=== PATIENT | female | born 1955 | race Caucasian/White ===

== ENCOUNTER 2020-01-05 23:36 | Observation (INO) | payer BC, SELFPAY ==
[2020-01-05 23:38] VITALS: BMI 27.4
[2020-01-05 23:39] VITALS: BP 170/109; PULSE 83; RESP 18; TEMP 36.5; O2SAT 98; BMI 27.4
--- NOTE | 2020-01-05 23:39 | ECG_ITS ---
APPROVED REPORT Exam: Resting ECG HR:72 bpm ECG Measurements Heart Rate 72 AXES IL 178 P 59 QRSd 92 QRS 54 QT 438 T 80 QTc 479 <Conclusion> Normal sinus rhythm Cannot rule out Anterior infarct, age undetermined Abnormal ECG Electronically signed by : Jarocho Vergara, 01/06/2020 09:15:47
--- NOTE | 2020-01-05 23:39 | XR_ITS ---
PROCEDURE: XR CHEST 2V CLINICAL HISTORY: Chest Pain COMPARISON: No exams were available for comparison FINDINGS: The cardiomediastinal silhouette and pulmonary vascularity are within normal limits. The lungs are clear without infiltrates, suspicious nodules, or pleural effusions. No acute bony abnormalities. IMPRESSION: No acute findings. Dictated b Dioni Sparks MD 01/06/2020 06:50 Dioni Sparks MD in [place] 01/06/2020 06:50
[2020-01-06] VITALS (19 sets, daily range): BP systolic 120–189; BP diastolic 73–116; PULSE 60–91; RESP 14–20; TEMP 36.5–36.9; O2SAT 95–98; BMI 26.9
[2020-01-06 00:12] LABS: Basophils # 0.1 K/mm3 (0-0.2); Basophils % 0.8 % (0.1-2.0); Eosinophils # 0.5 K/mm3 (0.0-0.4); Hematocrit 36.3 % (37.0-47.0); Hemoglobin 11.6 g/dL (12.2-16.2); Lymphocytes # 4.4 K/mm3 (0.7-4.5); Lymphocytes % 43.3 % (10-50); Mean Corpuscular HGB Conc 32.1 g/dL (31.8-35.4); Mean Corpuscular Hemoglobin 28.1 pg (27.0-31.2); Mean Corpuscular Volume 87.7 fl (81-99); Mean Platelet Volume 8.1 fl (7.4-10.4); Monocytes # 0.5 K/mm3 (0.1-1.0); Monocytes % 5.4 % (1.7-9.3); Neutrophils # 4.6 K/mm3 (1.8-7.8); Neutrophils % 45.6 % (37.0-80.0); Platelet Count 275 K/mm3 (142-424); Red Blood Count 4.14 M/mm3 (4.20-5.40); Red Cell Distribution Width 13.7 % (11.5-17.5); White Blood Count 10.1 K/mm3 (4.8-10.8)
--- NOTE | 2020-01-06 00:13 | HMH.EDCP ---
ED Disposition Clinical Impression: Renal insufficiency, Tobacco use Chest pain Qualifiers: Chest pain type: precordial pain Qualified Code(s): R07.2 - Precordial pain A-fib Qualifiers: Atrial fibrillation type: paroxysmal Qualified Code(s): I48.0 - Paroxysmal atrial fibrillation Alcohol intoxication Qualifiers: Complication of substance-induced condition: uncomplicated Qualified Code(s): F10.920 - Alcohol use, unspecified with intoxication, uncomplicated Disposition: Admitted as Observation Condition on Discharge: Good Referrals: Jarocho Blankenship MD [Primary Care Provider] - - Critical Care Critical Care Time: No Attestation: On 01/05/20, the high probability of a clinically significant, sudden or life threatening deterioration of the following system(s) required my full and direct attention, intervention and personal management. The time I documented below is in addition to time spent performing reported procedures but includes the following listed in this critical care notation. Medical Decision Making - Medical Records Medical records reviewed: Yes: I reviewed the patient's medical records. - Gabriele Inquiry Pt receiving controlled substance: No Vital Signs: 01/05/20 23:39 01/06/20 00:00 01/06/20 00:30 Temperature 97.7 F Temperature Source Oral Pulse Rate [Right] 83 91 H 83 Respiratory Rate 18 18 18 Blood Pressure [Right Arm] 170/109 H 120/83 143/85 H Blood Pressure Mean [Right Arm] 129 95 104 Blood Pressure Source [Right Arm] Automatic Cuff Automatic Cuff Automatic Cuff Blood Pressure Position [Right Arm] Supine Supine Supine 02 Sat by Pulse Oximetry 98 95 96 Oxygen Delivery Method Room Air Room Air Room Air 01/06/20 01:00 01/06/20 01:30 Temperature Temperature Source Pulse Rate [Right] 72 77 Respiratory Rate 18 18 Blood Pressure [Right Arm] 160/84 H 166/87 H Blood Pressure Mean [Right Arm] 109 113 Blood Pressure Source [Right Arm] Automatic Cuff Automatic Cuff Blood Pressure Position [Right Arm] Sitting Supine 02 Sat by Pulse Oximetry 96 98 Oxygen Delivery Method Room Air Room Air - Lab Data Lab results reviewed: Yes: I reviewed the patient's lab results. Lab Results 01/05/20 23:45: WBC 10.1, RBC 4.14 L, Hgb 11.6 L, Hct 36.3 L, MCV 87.7, MCH 28.1, MCHC 32.1, RDW 13.7, Plt Count 275, MPV 8.1, Neut % (Auto) 45.6, Lymph % (Auto) 43.3, [place] % (Auto) 5.4, Eos % (Auto) 5.0, Baso % (Auto) 0.8, Neut # (Auto) 4.6, Lymph # (Auto) 4.4, [place] # (Auto) 0.5, Eos # (Auto) 0.5 H, Baso # (Auto) 0.1 01/05/20 23:45: Sodium 139, Potassium 3.9, Chloride 103, Carbon Dioxide 24, Anion Gap 15.9 H, BUN 28 H, Creatinine 1.20 H, Estimated Creat Clear 52, Estimated GFR 46 L, Est GFR ( Amer) 55 L, Glucose 93, Calcium 9.0, Troponin I < 0.01 01/05/20 23:45: Plasma/Serum Alcohol 157 H 01/05/20 23:45: TSH 3.21, Thyroxine (T4) 6.1 Result diagrams: 01/05/20 23:45 01/05/20 23:45 Orders (Tests/Meds): ED MEDICATIONS Generic Name Dose Route Start Last Admin Trade Name Freq PRN Reason Stop Dose Admin Sodium Chloride 1,000 mls @ 999 mls/hr 01/05/20 23:45 01/05/20 23:44 Sod Chlor 0.9% 1000ml Bag IV 01/06/20 00:45 999 mls/hr .Q1H1M ROCAEL Administration Discontinued Medications Generic Name Dose Route Start Last Admin Trade Name Freq PRN Reason Stop Dose Admin Aspirin 324 mg 01/05/20 23:39 01/05/20 23:43 Aspirin 81mg Chewable Tablet PO 01/05/20 23:40 324 mg ONCE ONE Administration Nitroglycerin 0.4 mg 01/05/20 23:39 01/05/20 23:43 Nitrostat 0.4mg Sl Tablet SL 01/05/20 23:40 0.4 mg ONCE ONE Administration ORDERS Category Date Time Status XR chest 2V Stat Exams 01/05/20 23:39 Taken Full Resp Panel (COVID)(INPT) Routine Lab 01/06/20 00:45 Received Troponin I Q3H Lab 01/06/20 02:45 Ordered Troponin I Q3H Lab 01/06/20 05:45 Ordered - Radiology Data #1 Image(s): Chest Image Reviewed: Yes I reviewed the patient's radiology image Preliminary
[2020-01-06 00:22] LABS: Ethyl Alcohol 157 mg/dl (0-10)
[2020-01-06 00:23] LABS: Anion Gap 15.9 mEq/L (5-15); Blood Urea Nitrogen 28 mg/dl (7-17); Carbon Dioxide 24 mmol/L (22.0-30.0); Chloride 103 mmol/L (98-107); Creatinine Clearance Estimated 52 mL/min (50-200); Estimated Glomerular Filt Rate 46 ml/min (>60); GFR (African American) 55 ML/MIN (>60); Glucose 93 mg/dl (74-100); Potassium 3.9 mmoL/L (3.5-5.1); Sodium 139 mmol/L (136-145)
[2020-01-06 00:38] LABS: Troponin I < 0.01 ng/ml (0.00-0.034)
--- NOTE | 2020-01-06 00:47 | PC.NURSE ---
lab at bedside for covid inpatient swab.
[2020-01-06 00:55] LABS: Adenovirus,PCR Not Detected (NotDetected); Bordetella Pertussis Not Detected (NotDetected); Chlamydophila Pneumoniae, PCR Not Detected (NotDetected); Coronavirus 19, PCR Not Detected (NotDetected); Coronavirus 229E Not Detected (NotDetected); Coronavirus NL63 Not Detected (NotDetected); Coronavirus OC43 Not Detected (NotDetected); Coronovirus HKU1,PCR Not Detected (NotDetected); Human Metapneumovirus Not Detected (NotDetected); Influenza A, PCR Not Detected (NotDetected); Influenza AH1, 2009 Not Detected (NotDetected); Influenza AH1, PCR Not Detected (NotDetected); Influenza AH3,PCR Not Detected (NotDetected); Influenza B, PCR Not Detected (NotDetected); Mycoplasma Pneumoniae, PCR Not Detected (NotDetected); Parainfluenza 1, PCR Not Detected (NotDetected); Parainfluenza 2, PCR Not Detected (NotDetected); Parainfluenza 3, PCR Not Detected (NotDetected); Parainfluenza 4, PCR Not Detected (NotDetected); Respiratory Syncytial Virus Not Detected (NotDetected); Rhinovirus/Enterovirus Not Detected (NotDetected)
--- NOTE | 2020-01-06 01:13 | ECG_ITS ---
APPROVED REPORT Exam: Resting ECG HR:116 bpm ECG Measurements Heart Rate 116 AXES QRSd 92 QRS 69 QT 338 T 90 QTc 469 <Conclusion> Atrial fibrillation with rapid ventricular response Nonspecific ST and T wave abnormality, probably digitalis effect Abnormal ECG Electronically signed by : Jarocho Vergara, 01/09/2020 12:24:49
--- NOTE | 2020-01-06 01:17 | PC.NURSE ---
Pt converted to NSR without intervention
[2020-01-06 01:25] LABS: T4 (Thyroxine) 6.1 ug/dl (5.53-11.0)
[2020-01-06 01:39] LABS: Thyroid Stimulating Hormone 3.21 uIU/mL (0.465-4.68)
[2020-01-06 02:51] LABS: Troponin I < 0.01 ng/ml (0.00-0.034)
--- NOTE | 2020-01-06 04:22 | PC.NURSE ---
patient up to floor via wheelchair.
[2020-01-06 06:21] LABS: Chloride 112 mmol/L (98-107); Potassium 3.9 mmoL/L (3.5-5.1); Sodium 140 mmol/L (136-145)
[2020-01-06 06:24] LABS: Anion Gap 10.9 mEq/L (5-15); Basophils # 0.1 K/mm3 (0-0.2); Basophils % 0.6 % (0.1-2.0); Blood Urea Nitrogen 23 mg/dl (7-17); Carbon Dioxide 21 mmol/L (22.0-30.0); Cholesterol 209 mg/dl (140-200); Creatinine Clearance Estimated 64 mL/min (50-200); Eosinophils # 0.4 K/mm3 (0.0-0.4); Eosinophils % 5.3 % (0.1-12.0); Estimated Glomerular Filt Rate 63 ml/min (>60); GFR (African American) 77 ML/MIN (>60); Glucose 87 mg/dl (74-100); Hemoglobin 10.8 g/dL (12.2-16.2); Lymphocytes # 3.3 K/mm3 (0.7-4.5); Mean Corpuscular HGB Conc 32.8 g/dL (31.8-35.4); Mean Corpuscular Hemoglobin 28.5 pg (27.0-31.2); Mean Corpuscular Volume 86.9 fl (81-99); Mean Platelet Volume 8.5 fl (7.4-10.4); Monocytes # 0.4 K/mm3 (0.1-1.0); Monocytes % 5.3 % (1.7-9.3); Neutrophils # 4.2 K/mm3 (1.8-7.8); Neutrophils % 49.9 % (37.0-80.0); Platelet Count 263 K/mm3 (142-424); Red Cell Distribution Width 13.8 % (11.5-17.5); Triglycerides 266 mg/dl (30-150); VLDL Cholesterol 53 mg/dL (0-40); White Blood Count 8.3 K/mm3 (4.8-10.8)
[2020-01-06 06:25] LABS: Chol/HDL Ratio 4.4 (1-3.5); HDL Cholesterol 48 mg/dl (40-60); Magnesium 1.8 mg/dl (1.6-2.3)
[2020-01-06 06:36] LABS: Direct LDL Cholesterol 120.32 mg/dL (100-129)
[2020-01-06 06:37] LABS: Troponin I 0.02 ng/ml (0.00-0.034)
--- NOTE | 2020-01-06 09:00 | HMH.HP ---
*Admission Date: 01/06/20 *Chief complaint: Chest fluttering/chest pain *History of present illness: 64-year-old white female with long history of weekend binge drinking of approximately 10-12 beers per night on the weekends according to her self-report, as well as heavy tobacco use who presented to emergency department with complaint of fluttering and chest heaviness. In the emergency department she was found to have atrial fibrillation of new onset, which spontaneously converted with IV fluids. Was also found to have alcohol level greater than 130. Troponins were negative but given her significant risk factors, new onset atrial fibrillation and general feeling of malaise she was admitted to the hospital for further evaluation and diagnostic testing. [facility] History I have reviewed the patient's past medical history: Yes Medical History: Reports:: Hyperlipidemia, Hypertension Denies:: Cancer, Diabetes Mellitus Type 1, Diabetes Mellitus Type 2, MRSA *Have you ever received a pneumonia vaccine?: Yes *Have you received a flu vaccine this season?: Yes Other Surgeries: Yes: Colonoscopy, Tubal Ligation Amputation: No Fractures: No - *Social History Last grade of school completed: 11th or 12th Smoking Status: Current some day smoker Tobacco Type: cigarettes # Packs/Day (cigarettes): 1 Alcohol Intake: current Alcohol Intake Frequency:: a few times a week *Occupational Status:: employed Housing: house Household Members: spouse, children *Travel in the last 8 weeks: None Family Hx:: Cancer, Stroke Review of Systems - Review of Systems Review of systems:: pertinent systems reviewed and negative unless documented below - *Neurologic Denies seizure-like activity Meds Home Medications Medication Instructions Recorded Confirmed Type Amlodipine Besylate [Amlodipine 10 mg PO DAILY 01/05/20 01/05/20 History 10mg Tab] Atorvastatin Calcium [Lipitor 40mg 40 mg PO HS 01/05/20 01/05/20 History Tab] Lisinopril/Hydrochlorothiazide 1 each PO DAILY 01/05/20 01/05/20 History [Lisinopril-Hctz 20-12.5 mg Tab] Allergies Allergy/AdvReac Type Severity Reaction Status Date / Time No Known Allergies Allergy Unverified 05/17/17 14:24 Exam Vital signs and Labs for Last 24 Hours: Temp Pulse Resp BP Pulse Ox 98.5 F 60 16 180/90 H 96 01/06/20 07:55 01/06/20 08:00 01/06/20 07:55 01/06/20 07:55 01/06/20 07:55 Laboratory Results - last 24 hr 01/05/20 23:45: WBC 10.1, RBC 4.14 L, Hgb 11.6 L, Hct 36.3 L, MCV 87.7, MCH 28.1, MCHC 32.1, RDW 13.7, Plt Count 275, MPV 8.1, Neut % (Auto) 45.6, Lymph % (Auto) 43.3, [place] % (Auto) 5.4, Eos % (Auto) 5.0, Baso % (Auto) 0.8, Neut # (Auto) 4.6, Lymph # (Auto) 4.4, [place] # (Auto) 0.5, Eos # (Auto) 0.5 H, Baso # (Auto) 0.1 01/05/20 23:45: Sodium 139, Potassium 3.9, Chloride 103, Carbon Dioxide 24, Anion Gap 15.9 H, BUN 28 H, Creatinine 1.20 H, Estimated Creat Clear 52, Estimated GFR 46 L, Est GFR ( Amer) 55 L, Glucose 93, Calcium 9.0, Troponin I < 0.01 01/05/20 23:45: Plasma/Serum Alcohol 157 H 01/05/20 23:45: TSH 3.21, Thyroxine (T4) 6.1 01/06/20 00:45: Chlamy pneumoniae PCR Not detected, Adenovirus (PCR) Not detected, B. pertussis DNA (PCR) Not detected, Coronavirus OC43 (PCR) Not detected, Coronavirus HKU1 (PCR) Not detected, Coronavirus 229E (PCR) Not detected, COVID-19 PCR Not detected, Coronavirus NL63 (PCR) Not detected, Human Metapneumovir PCR Not detected, Influenza A (H1) PCR Not detected, Influ A (H1N1/09) PCR Not detected, Influenza A (H3) PCR Not detected, Influenza Type A (PCR) Not detected, Influenza Type B (PCR) Not detected, M. pneumoniae (PCR) Not detected, Parainfluenza 1 (PCR) Not detected, Parainfluenza 2 (PCR) Not detected, Parainfluenza 3 (PCR) Not detected, Parainfluenza 4 (PCR) Not detected, RSV (PCR) Not detected, Entero/Rhino (PCR) Not detected 01/06/20 02:16: Troponin I < 0.01 01/06/20 06:00: WBC 8.3, RBC 3.80 L, Hgb 10.8 L, Hct 33.0 L, MCV 86.9, MCH 28.5
--- NOTE | 2020-01-06 10:06 | P.CONPHA_ITS ---
[facility] Pharmacy VTE Monitoring - Patient Demographics Admission date: 01/06/20 (T) Report Date: 01/06/20 Time: 10:06 Allergies/Adverse Reactions: Patient Allergies No Known Allergies Allergy (Unverified 05/17/17 14:24) Height: 1.6 m Weight: 68.974 kg Patient Problems: Current Active Problems Chest pain (Acute) A-fib (Acute) Renal insufficiency (Acute) Tobacco use (Acute) Alcohol intoxication (Acute) New onset atrial fibrillation (Acute) Personal history of nicotine dependence (Acute) - VTE Risk Labs: VTE Related Lab Results Hgb 10.8 g/dL (12.2-16.2) L 01/06/20 06:00 Hct 33.0 % (37.0-47.0) L 01/06/20 06:00 Plt Count 263 K/mm3 (142-424) 01/06/20 06:00 BUN 23 mg/dl (7-17) H 01/06/20 06:00 Creatinine 0.90 mg/dl (0.52-1.04) D 01/06/20 06:00 Estimated Creat Clear 64 mL/min (50-200) 01/06/20 06:00 Was VTE Risk Assessment Performed: Yes VTE Score: 2 VTE Risk Level: Very Low Risk - Prophylaxis Types of VTE Prophylaxis: TEDS Knee High (JENNIFER HOSE ORDER PLACED) Location of Applied Device: Bilateral Lower Extremeties
--- NOTE | 2020-01-06 10:40 | ECG_ITS ---
APPROVED REPORT Exam: Resting ECG HR:64 bpm ECG Measurements Heart Rate 64 AXES NC 172 P 51 QRSd 96 QRS -2 QT 442 T 81 QTc 455 <Conclusion> Normal sinus rhythm Minimal voltage criteria for LVH, may be normal variant Borderline ECG Electronically signed by : Jarocho Vergara, 01/07/2020 20:01:46
--- NOTE | 2020-01-06 17:24 | PC.NURSE ---
ALERT AND ORIENTED X4. PT UP TO CHAIR AND AMBULATES INDEPENDENTLY IN ROOM. APPETITE IS EXCELLENT. PT DENIES PAIN AND NO COMPLAINTS. NSR ON THE MONITOR. NO DISTRESS NOTED. VSS. SAFETY MEASURES IN PLACE, WILL CONTINUE TO MONITOR
[2020-01-07] VITALS: BP 159/85; PULSE 60; PULSE 62; RESP 16; TEMP 36.6; O2SAT 97
--- NOTE | 2020-01-07 03:13 | PC.NURSE ---
pt has rested well this shift. tolerates ambulation appropriately. no acute changes at this time. will continue to monitor.
[2020-01-07 04:00] VITALS: BP 156/88; PULSE 50; PULSE 67; RESP 16; TEMP 36.5; O2SAT 96
[2020-01-07 05:00] VITALS: BMI 26.6
[2020-01-07 05:58] LABS: Basophils % 0.6 % (0.1-2.0); Eosinophils # 0.5 K/mm3 (0.0-0.4); Eosinophils % 6.2 % (0.1-12.0); Hematocrit 34.4 % (37.0-47.0); Hemoglobin 11.3 g/dL (12.2-16.2); Lymphocytes # 2.1 K/mm3 (0.7-4.5); Lymphocytes % 28.7 % (10-50); Mean Corpuscular HGB Conc 32.8 g/dL (31.8-35.4); Mean Corpuscular Hemoglobin 28.6 pg (27.0-31.2); Mean Corpuscular Volume 87.2 fl (81-99); Mean Platelet Volume 8.5 fl (7.4-10.4); Monocytes # 0.4 K/mm3 (0.1-1.0); Monocytes % 5.8 % (1.7-9.3); Neutrophils # 4.3 K/mm3 (1.8-7.8); Neutrophils % 58.7 % (37.0-80.0); Platelet Count 251 K/mm3 (142-424); Red Blood Count 3.94 M/mm3 (4.20-5.40); Red Cell Distribution Width 13.7 % (11.5-17.5); White Blood Count 7.4 K/mm3 (4.8-10.8)
[2020-01-07 06:08] LABS: Chloride 109 mmol/L (98-107); Potassium 3.8 mmoL/L (3.5-5.1); Sodium 140 mmol/L (136-145)
[2020-01-07 06:11] LABS: Anion Gap 9.8 mEq/L (5-15); Blood Urea Nitrogen 19 mg/dl (7-17); Carbon Dioxide 25 mmol/L (22.0-30.0); Creatinine Clearance Estimated 63 mL/min (50-200); Estimated Glomerular Filt Rate 63 ml/min (>60); GFR (African American) 77 ML/MIN (>60)
[2020-01-07 06:12] LABS: Calcium 8.9 mg/dl (8.4-10.2); Glucose 96 mg/dl (74-100)
--- NOTE | 2020-01-07 07:03 | HMH.ACPN2 ---
Internal Medicine - PN: Subj *Date: 01/07/20 *Time: 07:03 Interval history: Patient has done well over the last 24 hours and has maintained sinus rhythm with pulse rate between 50s to 70s. She denies any complaints of shortness of breath or palpitations. She recognizes the need to make lifestyle changes for her health. Patient does inform me she is out of all of her medications and has been this way for approximately 1 week Exam Vital signs and Labs for Last 24 Hours: Temp Pulse Resp BP Pulse Ox 97.7 F 67 16 156/88 H 96 01/07/20 04:00 01/07/20 04:00 01/07/20 04:00 01/07/20 04:00 01/07/20 04:00 Laboratory Results - last 24 hr 01/07/20 05:33: WBC 7.4, RBC 3.94 L, Hgb 11.3 L, Hct 34.4 L, MCV 87.2, MCH 28.6, MCHC 32.8, RDW 13.7, Plt Count 251, MPV 8.5, Neut % (Auto) 58.7, Lymph % (Auto) 28.7, [place] % (Auto) 5.8, Eos % (Auto) 6.2, Baso % (Auto) 0.6, Neut # (Auto) 4.3, Lymph # (Auto) 2.1, [place] # (Auto) 0.4, Eos # (Auto) 0.5 H, Baso # (Auto) 0.0 01/07/20 05:33: Sodium 140, Potassium 3.8, Chloride 109 H, Carbon Dioxide 25, Anion Gap 9.8, BUN 19 H, Creatinine 0.90, Estimated Creat Clear 63, Estimated GFR 63, Est GFR ( Amer) 77, Glucose 96, Calcium 8.9 I & O for Last 24 hours: Intake & Output 01/04/20 01/05/20 01/06/20 01/07/20 11:59 11:59 11:59 11:59 Intake Total 1339 / 1339 1047 / 1047 Output Total 500 / 500 Balance 839 / 839 1047 / 1047 Weight 152 lb 1 oz 150 lb Narrative: Patient is resting comfortably in bed. Echocardiogram is in process. Lungs are distant. Heart has a regular rate and rhythm. Abdomen is soft. Lower extremities have no edema Assessment and Plan (1) New onset atrial fibrillation Current visit: Yes Status: Acute Category: Medical Code(s): I48.91 - Unspecified atrial fibrillation (2) Alcohol intoxication Current visit: Yes Status: Acute Qualifiers: Complication of substance-induced condition: uncomplicated Qualified Code(s): F10.920 - Alcohol use, unspecified with intoxication, uncomplicated Category: Medical Code(s): F10.929 - Alcohol use, unspecified with intoxication, unspecified (3) Chest pain Current visit: Yes Status: Acute Qualifiers: Chest pain type: precordial pain Qualified Code(s): R07.2 - Precordial pain Category: Medical Code(s): R07.9 - Chest pain, unspecified (4) Renal insufficiency Current visit: Yes Status: Acute Category: Medical Code(s): N28.9 - Disorder of kidney and ureter, unspecified (5) Personal history of nicotine dependence Current visit: Yes Status: Acute Category: Medical Code(s): Z87.891 - Personal history of nicotine dependence - Assessment and plan all Dx Assessment and Plan for all problems:: Patient will be discharged home today. Preliminary echocardiogram shows normal EF and no significant valvular disease. Patient will follow-up in the office on for definitive results. New prescriptions have been sent to the patient's pharmacy
--- NOTE | 2020-01-07 07:05 | HMH.DCSUM ---
General - General Admission date:: 01/06/20 Discharge date: 01/07/20 HPI HPI: 64-year-old white female with long history of weekend binge drinking of approximately 10-12 beers per night on the weekends according to her self-report, as well as heavy tobacco use who presented to emergency department with complaint of fluttering and chest heaviness. In the emergency department she was found to have atrial fibrillation of new onset, which spontaneously converted with IV fluids. Was also found to have alcohol level greater than 130. Troponins were negative but given her significant risk factors, new onset atrial fibrillation and general feeling of malaise she was admitted to the hospital for further evaluation and diagnostic testing. Hospital Course Hospital Course: Patient was admitted and ruled out for CO. Patient maintained a sinus rhythm during the remainder of hospitalization. Patient's amlodipine was converted to diltiazem. Patient maintained a pulse rate between 50 and 70 bpm. She had no further episodes of tachyarrhythmia. Patient underwent echocardiogram on the morning of January 06 which revealed normal ejection fraction without significant valvular disease. Patient was discharged home and will follow-up in my office on January 09 to review echocardiogram results. Objective Vital signs: Temp Pulse Resp BP Pulse Ox 97.7 F 67 16 156/88 H 96 01/07/20 04:00 01/07/20 04:00 01/07/20 04:00 01/07/20 04:00 01/07/20 04:00 no acute distress - *Routine Respiratory Exam Present: distant breath sounds - *Routine Cardiovascular Exam Present: RRR Results Labs on day of discharge: Labs from last 24 hours 01/07/20 01/07/20 05:33 05:33 WBC 7.4 RBC 3.94 L Hgb 11.3 L Hct 34.4 L MCV 87.2 MCH 28.6 MCHC 32.8 RDW 13.7 Plt Count 251 MPV 8.5 Neut % (Auto) 58.7 Lymph % (Auto) 28.7 [place] % (Auto) 5.8 Eos % (Auto) 6.2 Baso % (Auto) 0.6 Neut # (Auto) 4.3 Lymph # (Auto) 2.1 [place] # (Auto) 0.4 Eos # (Auto) 0.5 H Baso # (Auto) 0.0 Sodium 140 Potassium 3.8 Chloride 109 H Carbon Dioxide 25 Anion Gap 9.8 BUN 19 H Creatinine 0.90 Estimated Creat Clear 63 Estimated GFR 63 Est GFR ( Amer) 77 Glucose 96 Calcium 8.9 DS: Diagnosis - Discharge Diagnosis (1) New onset atrial fibrillation Status: Acute (2) Alcohol intoxication Status: Acute (3) Chest pain Status: Acute (4) Renal insufficiency Status: Acute (5) Personal history of nicotine dependence Status: Chronic (6) History of stroke Status: Chronic Discharge Plan - Patient Discharge Instructions ACTIVITY: Continue current activity (Today she is taking) DIET: low salt diet Patient Instructions: DI for Atrial Fibrillation, DI for Chest Pain - Follow up Plan Follow up with: Jarocho Blankenship MD [Primary Care Provider] - 01/10/20 Disposition: Home, Self-Chcf Medications: Home Medications Medication Instructions Recorded Confirmed Type Amlodipine Besylate [Amlodipine 10 mg PO DAILY 01/05/20 01/05/20 History 10mg Tab] Atorvastatin Calcium [Lipitor 40mg 40 mg PO HS 01/05/20 01/05/20 History Tab] Apixaban [Eliquis 5mg Tablet] 5 mg PO BID #60 tab 01/07/20 Rx Atorvastatin Calcium [Lipitor 80mg 80 mg PO HS #30 tab 01/07/20 Rx Tab] Lisinopril/Hydrochlorothiazide 1 each PO DAILY #30 tab 01/07/20 Rx [Lisinopril-Hctz 20-12.5 mg Tab] dilTIAZem HCl [Diltiazem 180mg 180 mg PO DAILY #30 cap.er.24h 01/07/20 Rx 24Hr ER Cap] Prescriptions/Medication Reconciliation: New dilTIAZem HCl [Diltiazem 180mg 24Hr ER Cap] 180 mg PO DAILY #30 cap.er.24h Apixaban [Eliquis 5mg Tablet] 5 mg PO BID #60 tab Atorvastatin Calcium [Lipitor 80mg Tab] 80 mg PO HS #30 tab Continued Lisinopril/Hydrochlorothiazide [Lisinopril-Hctz 20-12.5 mg Tab] 1 each PO DAILY #30 tab Discontinued At
[2020-01-07 08:00] VITALS: BP 158/88; PULSE 60; PULSE 69; RESP 17; TEMP 36.6; O2SAT 98
--- NOTE | 2020-01-07 09:05 | CA_ITS ---
APPROVED REPORT EXAM: Comprehensive 2D, Doppler, and color-flow Echocardiogram Pediatric Dermatologist: Nan Chaparro CRT Ht: 5 ft 3 in Wt: 152lbs BSA: 1.72 BP: 180/90 mmHg Indications: Chest Pain, Atrial Fibrillation, Hyperlipidemia, Hypertension/HDD, new afib after drinking 2D Dimensions LVOT 2.01 cm (M/F) 1.5-2.5 M-Mode Dimensions RVDd 2.78 cm (0.9-2.6) LVDd 4.05 cm (3.5-5.7) LVDs 2.44 cm (3.5-5.7) IVSd 1.74 cm (0.6-1.1) PWd 1.57 cm (0.6-1.1) EF (Teich) 70.90% FS 39.80% EDV (Teich) 72.10 mL ESV (Teich) 21.00 mL LV Diastology E/A Ratio 0.88 Aortic Valve LVOT Max 135.00 (70-110 cm/s) LVOT VTI 28.05 cm Mitral Valve MV A Velocity 88.00 (40-130 cm/s) Left Ventricle Left atrium is mildly enlarged, left ventricle is normal size, moderate concentric left ventricular hypertrophy, visually estimated ejection fraction 55% with no regional wall motion abnormality. Grade 1 diastolic dysfunction seen without tissue Doppler evidence of raise left atrial pressure. Right Ventricle Right atrium and right ventricle are normal size and contractility. Aortic Valve Aortic valve is thickened and calcified leaflet continue to display good mobility, there is no aortic stenosis or aortic insufficiency. Mitral Valve Mitral valve is grossly normal, there is mild mitral regurgitation. Tricuspid Valve Tricuspid valve is grossly normal, there is mild tricuspid regurgitation. Pulmonic Valve Pulmonic valve is poorly visualized. Great Vessels Aortic root is normal size. Pericardium No significant pericardial effusion noted. Conclusion 1. Mildly enlarged left atrium, normal left ventricular size, moderate concentric left ventricular hypertrophy, visually estimated ejection fraction 55% with no regional wall motion abnormality, grade 1 diastolic dysfunction seen without tissue Doppler evidence of raise left atrial pressure. 2. Mild mitral and tricuspid regurgitation. 3. No significant pericardial effusion noted. Electronically signed by : Dangelo Figueroa, 01/07/2020 19:10:11
== END 2020-01-07 08:45 | disposition home or self-care (01) ==
LOC: ER 01-06 02:02 → 2ND 01-06 04:27
PROVIDERS: Admitting Provider Internal Medicine Adolescent Medicine; Emergency Provider Emergency Medicine; PCP Family Medicine; Visit Provider Family Medicine
DX: I48.91 Unspecified atrial fibrillation (principal); F10.920 Alcohol use, unspecified with intoxication, uncomplicated; Y90.6 Blood alcohol level of 120-199 mg/100 ml; I10 Essential (primary) hypertension; Z72.0 Tobacco use
CPT/HCPCS: 36415; 71046; 80048; 80061; 83735; 84436; 84443; 84484; 85025; 87581; 87633; 87798; 93005; 93306; 96365; 99285; G0378

== ENCOUNTER 2020-04-13 20:29 | Emergency (ER) | payer BC, SELFPAY ==
[2020-04-13 20:29] VITALS: BP 163/118; PULSE 72; RESP 14; TEMP 36.8; O2SAT 97; BMI 25.6
--- NOTE | 2020-04-13 20:53 | HMH.EDUTC ---
[facility] Disposition Clinical Impression: Exposure to COVID-19 virus Disposition: Home, Self-Care Condition on Discharge: Good Instructions: Preventing the Spread of Coronavirus Discharge Instructions Additional Instructions: *Monitor Temp, Over the counter Motrin or Tylenol as directed/as needed Tylenol every 4 hours and Motrin every 6 hours (as long as your family doctor has told you that you can take it) for fever or pain. and straight to ER if unable to lower temp less than 101.0 after medication given *Warm salt water gargles may help to soothe the throat *Throat Lozenges *Warm fluids like tea with honey may help to soothe the throat *Sleep elevated *Humidifier/Vaporizer Follow up IMMEDIATELY for new or worsening symptoms or no Noticeable improvement over the next 48-72 hours. 911 for difficulty breathing or swallowing Your blood pressure was elevated in the [facility] make sure to Follow up with Family Doctor for re-evaluation You was tested for today for COVID19 your test result should be back in the next 24-48 hours, you may call to the [facility] tomorrow to see if your test results are back and the result [phone] You was given a handout with instructions for Self Quarantine and Self isolation for while you wait on test results and what to do if they are positive If you are positive the Health Dept will be contacting you also Referrals: Jarocho Blankenship MD [Primary Care Provider] - As needed Time of Disposition: 21:04 Medical Decision Making - Gabriele Inquiry Pt receiving controlled substance: No Gabriele was queried for this patient: No Vital Signs: 04/13/20 20:29 Temperature 98.3 F Temperature Source Oral Pulse Rate [Left Radial] 72 Respiratory Rate 14 Blood Pressure [Right Arm] 163/118 H Blood Pressure Mean [Right Arm] 133 Blood Pressure Source [Right Arm] Automatic Cuff Blood Pressure Position [Right Arm] Sitting 02 Sat by Pulse Oximetry 97 Oxygen Delivery Method Room Air - Lab Data Lab results reviewed: Yes: I reviewed the patient's lab results. Orders (Tests/Meds): ORDERS Category Date Time Status Covid-19 Nasal PCR ([facility]) Routine Lab 04/13/20 20:35 Received Medical Decision Narrative: Patient blood pressure elevated Patient advised that she is nervous about COVID Discussed transfer to ED and patient declined [facility] HPI - General Stated complaint: wants Covid test Time Seen by Provider: 04/13/20 20:53 Mode of Arrival: Ambulatory Source of Information: Patient Limitations: No Limitations Description of Symptoms (Recalled from Triage Doc. by RN): c/o sore throat, sneezing and runny nose for 4 days HEENT Symptoms (Recalled from RN notes): Yes Resp Symptoms (Recalled from RN notes): No Skin Symptoms (Recalled from RN notes): No MS Symptoms (Recalled from RN notes): No Functional Status (Recalled from RN notes): wnl - History of Present Illness Provider Complaint: Patient state that her nephews tested positive for COVID earlier today and she was worried about having COVID and wants to get tested States that she has been having sore throat runny nose and cough States that she has a chronic cough from smoking so she wasnt sure if she may have it or not - Related Data Previous Rx's Medication Instructions Recorded Apixaban [Eliquis 5mg Tablet] 5 mg PO BID #60 tab 01/07/20 Atorvastatin Calcium [Lipitor 80mg 80 mg PO HS #30 tab 01/07/20 Tab] Lisinopril/Hydrochlorothiazide 1 each PO DAILY #30 tab 01/07/20 [Lisinopril-Hctz 20-12.5 mg Tab] dilTIAZem HCl [Diltiazem 180mg 180 mg PO DAILY #30 cap.er.24h 01/07/20 24Hr ER Cap] Allergies Allergy/AdvReac Type Severity Reaction Status Date / Time No Known Allergies Allergy Unverified 05/17/17 14:24 - Worker's Comp Is this a Worker's Comp case?: No [facility] History - Hepatitis A Screen Drug use history?: No High risk sexual behaviors?: No History of sexually transmitted infection?: No Currently employed?: No Childcare worker?: No
[2020-04-13 21:04] VITALS: BP 163/118; PULSE 72; RESP 14; TEMP 36.8; O2SAT 97
== END 2020-04-13 21:08 | disposition home or self-care (01) ==
PROVIDERS: Emergency Provider Nurse Practitioner; PCP Family Medicine
DX: Z20.828 Contact with and (suspected) exposure to other viral communicable diseases (principal); I10 Essential (primary) hypertension; E78.5 Hyperlipidemia, unspecified; F17.210 Nicotine dependence, cigarettes, uncomplicated; Z79.899 Other long term (current) drug therapy
CPT/HCPCS: 99201; U0003

== ENCOUNTER 2021-06-22 10:45 | Emergency (ER) | payer BC, SELFPAY ==
[2021-06-22] VITALS (10 sets, daily range): BP systolic 145–198; BP diastolic 68–95; PULSE 60–67; RESP 16–18; TEMP 36.7–36.9; O2SAT 98–99; BMI 26.4
--- NOTE | 2021-06-22 10:59 | CT_ITS ---
FINAL REPORT TECHNIQUE: Axial CT images were performed through the head. Coronal reformatted images were submitted. This study was performed with techniques to keep radiation doses as low as reasonably achievable (ALARA). Individualized dose reduction techniques using automated exposure control or adjustment of mA and/or kV according to the patient's size were employed. CLINICAL HISTORY: left arm and leg weakness brief resolved, h/o cva FINDINGS: There is mild atrophy. There are multiple areas of low attenuation in the basal ganglia consistent with remote infarcts. The ventricles are normal in size. There is no evidence of hemorrhage. There is no mass or edema identified. There is no abnormal extra-axial fluid seen. There is an air-fluid level in the left maxillary sinus consistent with acute and chronic sinusitis. IMPRESSION: Multiple low-attenuation areas consistent with remote infarcts. No definite acute abnormality. Recommend diffusion-weighted MRI for further evaluation. Left maxillary sinusitis. Reviewed, Interpreted and Dictated by Rock Ramírez MD Transcribed by Fermín Mcconnell Authenticated by Rock Ramírez MD on 06/22/2021 12:17:33 PM [facility]
--- NOTE | 2021-06-22 11:00 | HMH.EDGENADL ---
ED Disposition Clinical Impression: Transient cerebral ischemia Qualifiers: Transient cerebral ischemia type: other Qualified Code(s): G45.8 - Other transient cerebral ischemic attacks and related syndromes Hypertension Qualifiers: Hypertension type: unspecified Qualified Code(s): I10 - Essential (primary) hypertension Disposition: Home, Self-Care Condition on Discharge: Good Additional Instructions: follow up pcp tomorrow, return for worse Referrals: Jarocho Blankenship MD [Primary Care Provider] - - Critical Care Critical Care Time: No Attestation: On 06/22/21, the high probability of a clinically significant, sudden or life threatening deterioration of the following system(s) required my full and direct attention, intervention and personal management. The time I documented below is in addition to time spent performing reported procedures but includes the following listed in this critical care notation. Medical Decision Making - Gabriele Inquiry Pt receiving controlled substance: No Vital Signs: 06/22/21 10:57 06/22/21 11:06 06/22/21 11:53 Temperature 98.4 F 98.1 F Temperature Source Oral Oral Pulse Rate 66 60 Pulse Rate [Left Radial] 67 Respiratory Rate 16 16 Blood Pressure 145/75 H 153/68 H Blood Pressure [Right Arm] 145/75 H Blood Pressure Mean 96 Blood Pressure Mean [Right Arm] 98 02 Sat by Pulse Oximetry 99 99 98 Oxygen Delivery Method Room Air Room Air 06/22/21 12:31 06/22/21 13:30 06/22/21 14:00 Temperature Temperature Source Pulse Rate 60 60 60 Pulse Rate [Left Radial] Respiratory Rate 16 16 Blood Pressure 164/69 H 178/87 H 179/95 H Blood Pressure [Right Arm] Blood Pressure Mean 100 102 123 Blood Pressure Mean [Right Arm] 02 Sat by Pulse Oximetry 98 99 98 Oxygen Delivery Method 06/22/21 14:30 06/22/21 15:01 06/22/21 15:43 Temperature Temperature Source Pulse Rate 60 65 64 Pulse Rate [Left Radial] Respiratory Rate 18 18 Blood Pressure 169/92 H 178/93 H 198/82 H Blood Pressure [Right Arm] Blood Pressure Mean 129 137 140 Blood Pressure Mean [Right Arm] 02 Sat by Pulse Oximetry 98 98 Oxygen Delivery Method - Lab Data Lab Results 06/22/21 11:25: WBC 7.1, RBC 4.28, Hgb 11.8 L, Hct 37.6, MCV 87.8, MCH 27.6, MCHC 31.5 L, RDW 13.5, Plt Count 284, MPV 8.0, Neut % (Auto) 67.3, Lymph % (Auto) 23.2, Greer % (Auto) 5.6, Eos % (Auto) 2.0, Baso % (Auto) 1.9, Neut # (Auto) 4.8, Lymph # (Auto) 1.7, Greer # (Auto) 0.4, Eos # (Auto) 0.2, Baso # (Auto) 0.1 06/22/21 11:25: Sodium 138, Potassium 4.4, Chloride 109 H, Carbon Dioxide 26, Anion Gap 7.4, BUN 33 H, Creatinine 1.50 H, Estimated Creat Clear 38, Estimated GFR 35 L, Est GFR ( Amer) 42 L, Glucose 91, Calcium 8.5, Total Bilirubin 0.3, AST 30, ALT 18, Alkaline Phosphatase 97, Total Protein 7.1, Albumin 3.6, Globulin 3.5 H, Albumin/Globulin Ratio 1.0 L Result diagrams: 06/22/21 11:25 06/22/21 11:25 Medical Decision Narrative: discussed with dr rika anderson with plan to f/u in office tomorrow, pt neuro intact w/o symptoms here, asymptomatic elev bp, ok with plan General Adult HPI - General Stated complaint: numbness left arm/leg Time Seen by Provider: 06/22/21 11:01 - History of Present Illness HPI narrative: sudden onset left arm and leg weakness this am, bried, resolved, h/o same cva with some resideual weakness left side Onset (ago): hour(s) Radiation: non-radiation Severity: moderate Consistency: intermittent Relieving factors: none Exacerbating factors: none Associated symptoms: denies other symptoms - Related Data Previous Rx's Medication Instructions Recorded Apixaban [Eliquis 5mg Tablet] 5 mg PO BID #60 tab 01/07/20 Atorvastatin Calcium [Lipitor 80mg 80 mg PO HS #30 tab 01/07/20 Tab] Lisinopril/Hydrochlorothiazide 1 each PO DAILY #30 tab 01/07/20 [Lisinopril-Hctz 20-12.5 mg Tab] dilTIAZem HCl [Diltiazem 180mg 180 mg PO DAILY #30 cap.er.24h 01/07/20 2
--- NOTE | 2021-06-22 11:07 | PC.NURSE ---
Patient to radiology by stretcher with air conditioning service technician
--- NOTE | 2021-06-22 11:13 | PC.NURSE ---
patient back to room from radiology and hooked back to monitor
[2021-06-22 11:42] LABS: Basophils # 0.1 K/mm3 (0-0.2); Basophils % 1.9 % (0.1-2.0); Chloride 109 mmol/L (98-107); Eosinophils # 0.2 K/mm3 (0.0-0.4); Hematocrit 37.6 % (37.0-47.0); Hemoglobin 11.8 g/dL (12.2-16.2); Lymphocytes # 1.7 K/mm3 (0.7-4.5); Lymphocytes % 23.2 % (10-50); Mean Corpuscular HGB Conc 31.5 g/dL (31.8-35.4); Mean Corpuscular Hemoglobin 27.6 pg (27.0-31.2); Mean Corpuscular Volume 87.8 fl (81-99); Monocytes # 0.4 K/mm3 (0.1-1.0); Monocytes % 5.6 % (1.7-9.3); Neutrophils # 4.8 K/mm3 (1.8-7.8); Neutrophils % 67.3 % (37.0-80.0); Platelet Count 284 K/mm3 (142-424); Potassium 4.4 mmoL/L (3.5-5.1); Red Blood Count 4.28 M/mm3 (4.20-5.40); Red Cell Distribution Width 13.5 % (11.5-17.5); Sodium 138 mmol/L (136-145); White Blood Count 7.1 K/mm3 (4.8-10.8)
[2021-06-22 11:45] LABS: Alanine Aminotransferase 18 U/L (12-78); Albumin Level 3.6 g/dl (3.5-5.0); Alkaline Phosphatase 97 U/L (38-126); Anion Gap 7.4 mEq/L (5-15); Aspartate Amino Transferase 30 U/L (14-36); Bilirubin,Total 0.3 mg/dl (0.2-1.3); Blood Urea Nitrogen 33 mg/dl (7-17); Carbon Dioxide 26 mmol/L (22.0-30.0); Creatinine Clearance Estimated 38 mL/min (50-200); Estimated Glomerular Filt Rate 35 ml/min (>60); GFR (African American) 42 ML/MIN (>60); Globulin 3.5 g/dL (1.3-3.2); Total Protein,Serum 7.1 g/dl (6.3-8.2)
[2021-06-22 11:46] LABS: Calcium 8.5 mg/dl (8.4-10.2); Glucose 91 mg/dl (74-100)
--- NOTE | 2021-06-22 12:25 | MR_ITS ---
FINAL REPORT CLINICAL HISTORY: tia symptoms left sidee weakness, abn ct, hx stroke FINDINGS: Multi planar MR imaging was obtained through the brain without contrast. The midline structures appear intact. There is no evidence of Chiari malformation. There is extensive abnormal signal in the subcortical periventricular white matter consistent with chronic microvascular ischemia. On diffusion-weighted images there is no evidence of restricted diffusion. There is extensive mucoperiosteal thickening in the left maxillary sinus with an air-fluid level. There is mild mucoperiosteal thickening right maxillary sinus. The seventh and eighth nerve root complexes are intact. IMPRESSION: Extensive chronic deep white matter signal abnormalities. Bilateral chronic sinusitis left greater than right with possible superimposed acute sinusitis on the left. Reviewed, Interpreted and Dictated by Rock Ramírez MD Transcribed by Fermín Mcconnell Authenticated by Rock Ramírez MD on 06/22/2021 02:16:41 PM [facility]
--- NOTE | 2021-06-22 12:28 | PC.NURSE ---
Spoke with Yazmin about pt having MRI. Yazmin advised they would be able to do it now and she would come down and get the patient. Notified
--- NOTE | 2021-06-22 12:36 | PC.NURSE ---
Patient to MR with mining technician
--- NOTE | 2021-06-22 13:20 | PC.NURSE ---
Patient back from MRI
--- NOTE | 2021-06-22 15:21 | PC.NURSE ---
Nyla calling Dr. Blankenship at this time
== END 2021-06-22 16:00 | disposition home or self-care (01) ==
PROVIDERS: Emergency Provider Emergency Medicine; PCP Family Medicine
DX: G45.8 Other transient cerebral ischemic attacks and related syndromes (principal); I10 Essential (primary) hypertension; E78.5 Hyperlipidemia, unspecified; F17.210 Nicotine dependence, cigarettes, uncomplicated
CPT/HCPCS: 70450; 70551; 80053; 85025; 99283

== ENCOUNTER → 2021-08-20 07:15 | Outpatient (CLI) | payer BC, SELFPAY ==
[2021-08-20 07:47] LABS: Blood Urea Nitrogen 54 mg/dl (7-17); Estimated Glomerular Filt Rate 38 ml/min (>60); GFR (African American) 46 ML/MIN (>60)
--- NOTE | 2021-08-20 07:56 | CT_ITS ---
FINAL REPORT TECHNIQUE: Pre-and postcontrast images of the abdomen were performed by computed tomography. Extensive 3-D reconstruction images were performed. A CTA was performed. This study was performed with techniques to keep radiation doses as low as reasonably achievable (ALARA). Individualized dose reduction techniques using automated exposure control or adjustment of mA and/or kV according to the patient''s size were employed. CLINICAL HISTORY: HTN,UNCONTROLLED BP W/MEDICATION FINDINGS: ABDOMEN: The lung bases are clear. The liver parenchyma is homogeneous. Gallstones are seen within a contracted gallbladder. There is a small focus of enhancement in the posterior right lobe of the liver which may be related to a small vascular malformation. The spleen, pancreas, adrenals, and kidneys are normal. There are scattered diverticula of the sigmoid colon. CTA: There is dense vascular calcification throughout the abdominal aorta and iliac vessels. There is dense vascular calcification at the origins of the celiac access and SMA. There is 50% stenosis of the proximal SMA. There is dense calcification at the origins of the renal arteries. Stenosis measures 50% on the right and left. IMPRESSION: Gallstones within a contracted gallbladder. 50% stenosis of the renal arteries bilaterally. Reviewed, Interpreted and Dictated by Rock Ramírez MD Transcribed by Earline Moore Authenticated by Rock Ramírez MD on 08/20/2021 11:23:11 AM [facility]
== END ==
PROVIDERS: PCP Family Medicine; Visit Provider Family Medicine
DX: I10 Essential (primary) hypertension (principal)
CPT/HCPCS: 36415; 74175; 82565; 84520; Q9967

== ENCOUNTER → 2021-08-31 06:06 | Outpatient (CLI) | payer BC, SELFPAY ==
--- NOTE | 2021-08-31 06:07 | CA_ITS ---
APPROVED REPORT Exam: Pharmacologic Technologist: Bharati Bahena, Ht: 5 ft 1 in Wt: 144 lbs BSA: 1.64 m2 HR: 46 bpm BP: 176/63 mmHg Rhythm: SINUS APARNA, PRWP ANTERIORLY Medical History Medications: Amlodipine,,,,, Atorvastatin,,,,, BisOPROLOL,,,,, Apixaban,,,,, Lisinopri/HCTZ,,,,, FumERATE,,,,, Allergies: No known drug allergies Stress Test Details Test: LEXISCAN HR Resting HR: 49 bpm Max Heart Rate (APMHR): 156 bpm Max HR Achieved: 80 bpm Target HR (85% APMHR): 132 bpm % of APMHR: 51 Recovery HR: 64 bpm BP Resting BP: 176.0/63.0 mmHg Max BP: 176.0/63.0 mmHg Recovery BP: 128.0/57.0 mmHg ECG Resting ECG: SINUS APARNA, PRWP ANTERIORLY Clinical Exercise duration: 04:01 min Highest Stage Achieved: Exercise capacity: 1.0 METs Stress ECG Conclusion PT HAD NO CP. <1.[address] SEGMENT CHANGES. NON-DIAGNOSTIC Electronically signed by : Dangelo Figueroa MD 08/31/2021 21:18:48
--- NOTE | 2021-08-31 06:07 | NM_ITS ---
APPROVED REPORT Exam: Nuclear Stress Test Indication: Chest pain, HTN, High cholesterol, Tobacco use, Family history Patient Location: Outpatient Stress Tech: Bharati Bahena [place] Tech:Denise Chanel, ARRT, RT (R)(N) Ht: 5 ft 1 in Wt: 140 lbs Bra Size: 38B HR: 49 bpm BP: 176/63 mmHg BSA: 1.62 m2 BMI: 26.4 History: Chest pain, HTN, High cholesterol, Tobacco use, Family history Procedure: Patient received a 0.4 mg of intravenous Lexiscan, resting heart rate 49 bpm, resting blood pressure 176/63 mmHg, with Lexiscan maximum heart rate achived was 80 bpm which is Less than 85 % of the maximum predicted heart rate and blood pressure was 176/63 mmHg. With Lexiscan, patient denied any complaint of chest pain. Electrocardiogram Resting electrocardiogram shows sinus rhythm, with Lexiscan there is less than 1.[address] segment depression noted from the baseline EKG. The EKG portion of the Lexiscan is nondiagnostic. Cardiac Stress and Resting SPECT Images: Cardiac Stress and Resting SPECT images were obtained using technetium 99m Myoview 30.4 mCi stress and 10.87 mCi at rest. Gated SPECT for analysis of segmental wall motion and calculation of ejection fraction also done. Cardiac stress and rest SPECT images show uniform myocardial activity without segmental perfusion abnormality, computer derived ejection fraction is 59% with no regional wall motion abnormality, right ventricle is normal size and contractility. Conclusion: 1. The EKG portion of the Lexiscan is nondiagnostic. 2. No scintigraphic evidence of reversible ischemia seen, computer derived ejection fraction 59% with no regional wall motion abnormality, right ventricle is normal size and contractility. 3. Normal Lexiscan Myoview study. Electronically signed by : Dangelo Figueroa MD 08/31/2021 21:21:33
--- NOTE | 2021-08-31 08:22 | HMH.ITSHM ---
Current Home Medications as stated by this patient Oneida Anderson or customer retention representative. []LISINOPRIL BISOPROLOL AMLODIPINE ATORVASTATIN APIXABAN
== END ==
PROVIDERS: PCP Nurse Practitioner Family; Visit Provider Physician Assistant
DX: R07.9 Chest pain, unspecified (principal)
CPT/HCPCS: 78452; 93017; A9502; J2785

== ENCOUNTER → 2021-09-08 08:25 | Outpatient (CLI) | payer BC, SELFPAY ==
[2021-09-08 09:11] LABS: Basophils # 0.1 K/mm3 (0-0.2); Basophils % 1.4 % (0.1-2.0); Eosinophils # 0.3 K/mm3 (0.0-0.4); Hematocrit 36.7 % (37.0-47.0); Hemoglobin 11.5 g/dL (12.2-16.2); Lymphocytes # 2.3 K/mm3 (0.7-4.5); Lymphocytes % 40.4 % (10-50); Mean Corpuscular HGB Conc 31.4 g/dL (31.8-35.4); Mean Corpuscular Hemoglobin 28.1 pg (27.0-31.2); Mean Corpuscular Volume 89.6 fl (81-99); Mean Platelet Volume 9.5 fl (7.4-10.4); Monocytes # 0.4 K/mm3 (0.1-1.0); Monocytes % 6.7 % (1.7-9.3); Neutrophils # 2.6 K/mm3 (1.8-7.8); Neutrophils % 46.5 % (37.0-80.0); Platelet Count 284 K/mm3 (142-424); Red Blood Count 4.09 M/mm3 (4.20-5.40); Red Cell Distribution Width 13.4 % (11.5-17.5); White Blood Count 5.6 K/mm3 (4.8-10.8)
[2021-09-08 09:18] LABS: Chloride 114 mmol/L (98-107)
[2021-09-08 09:19] LABS: Potassium 4.5 mmoL/L (3.5-5.1); Sodium 140 mmol/L (136-145)
[2021-09-08 09:21] LABS: Blood Urea Nitrogen 48 mg/dl (7-17); Estimated Glomerular Filt Rate 30 ml/min (>60); GFR (African American) 37 ML/MIN (>60)
[2021-09-08 09:22] LABS: Anion Gap 8.5 mEq/L (5-15); Calcium 8.2 mg/dl (8.4-10.2); Carbon Dioxide 22 mmol/L (22.0-30.0); Glucose 109 mg/dl (74-100)
== END ==
PROVIDERS: Physician Assistant; Visit Provider Internal Medicine
DX: R07.2 Precordial pain (principal); R00.1 Bradycardia, unspecified; I10 Essential (primary) hypertension; I48.91 Unspecified atrial fibrillation; I51.89 Other ill-defined heart diseases; I70.1 Atherosclerosis of renal artery; I73.9 Peripheral vascular disease, unspecified; N28.9 Disorder of kidney and ureter, unspecified; R93.5 Abnormal findings on diagnostic imaging of other abdominal regions, including retroperitoneum; R94.31 Abnormal electrocardiogram [ECG] [EKG]; Z72.0 Tobacco use; Z86.73 Personal history of transient ischemic attack (TIA), and cerebral infarction without residual deficits
CPT/HCPCS: 36415; 80048; 85025; C9803; U0003; U0005

== ENCOUNTER 2021-09-10 08:46 | Day surgery (SDC) | payer BC, SELFPAY ==
[2021-09-10] VITALS (13 sets, daily range): BP systolic 123–211; BP diastolic 59–118; PULSE 53–72; RESP 16–20; TEMP 36.9; O2SAT 94–100; BMI 27.1
--- NOTE | 2021-09-10 07:06 | IR_ITS ---
APPROVED REPORT Patient Location: Outpatient Streetcar Repairer: BHAVANA Cartwright RT (R) PROCEDURES Bilateral selective renal angiogram Selective engagement of the celiac artery with selective angiography INDICATION Renal artery stenosis, Celiac artery stenosis Informed consent was obtained prior to the procedure. COMPLICATIONS None Estimated Blood Loss: Less than 10 mls TECHNIQUE 1% lidocaine used to anesthetize the right femoral groin. The right femoral artery was accessed via the Seldinger technique. A 4 Mauritanian sheath was placed in the right femoral artery. A Poppa guide catheter was used to perform bilateral selective renal angiography as well as selective engagement of the celiac artery. The 6 Mauritanian catheter was in the celiac artery after angiography and a pressure tracing pullback was performed which demonstrated no gradient upon removing the 6 Mauritanian guide catheter from the celiac artery. At the end of procedure the apparatus was removed the sheath was removed and hemostasis was achieved using TR banding patient was transferred to the postop holding her stable addition ANGIOGRAPHIC RESULTS Right renal artery is singular and has a smooth ostial 20% stenosis. Of interest multiple stones are identified in what appears to be the ureter Left renal artery is singular and has an ostial smooth concentric 30% nonflow limiting stenosis Celiac artery is large with a smooth ostial 30% stenosis with no hemodynamic gradient on pullback with a 6 Mauritanian Poppa guide catheter IMPRESSION Mild nonflow limiting bilateral renal artery stenosis Large amount of apparent nephrolithiasis within the right ureter Mild celiac artery stenosis PLAN 1. Medical management for renal artery stenosis and celiac artery stenosis 2. Refer to Dr. Ortega for evaluation of nephrolithiasis 3. Treatment of essential hypertension Electronically signed by : Papo Carmona MD 09/10/2021 11:05:42
== END 2021-09-10 14:13 | disposition home or self-care (01) ==
LOC: CATHLAB 08:48
PROVIDERS: PCP Nurse Practitioner Family; Visit Provider Internal Medicine
DX: I77.1 Stricture of artery (principal); I70.1 Atherosclerosis of renal artery; I10 Essential (primary) hypertension; I48.91 Unspecified atrial fibrillation; F17.210 Nicotine dependence, cigarettes, uncomplicated; N20.2 Calculus of kidney with calculus of ureter
CPT/HCPCS: 36245; 36252; 75726; 99152; C1725; C1760; C1769; J1644; Q9967

== ENCOUNTER → 2021-10-06 09:42 | Outpatient (CLI) | payer BC, SELFPAY ==
[2021-10-06 09:59] LABS: MANUAL DIFFERENTIAL MANUAL DIFFERENTIAL (MANUAL DIFF)
[2021-10-06 10:46] LABS: Basophils # 0.1 K/mm3 (0-0.2); Basophils % 1.5 % (0.1-2.0); Eosinophils # 0.3 K/mm3 (0.0-0.4); Eosinophils % 4.8 % (0.1-12.0); Hematocrit 38.9 % (37.0-47.0); Hemoglobin 12.7 g/dL (12.2-16.2); Lymphocytes # 1.9 K/mm3 (0.7-4.5); Lymphocytes % 33.8 % (10-50); Mean Corpuscular HGB Conc 32.6 g/dL (31.8-35.4); Mean Corpuscular Hemoglobin 28.4 pg (27.0-31.2); Mean Corpuscular Volume 87.1 fl (81-99); Mean Platelet Volume 8.6 fl (7.4-10.4); Monocytes # 0.4 K/mm3 (0.1-1.0); Monocytes % 7.1 % (1.7-9.3); Neutrophils % 52.8 % (37.0-80.0); Platelet Count 302 K/mm3 (142-424); Red Blood Count 4.47 M/mm3 (4.20-5.40); Red Cell Distribution Width 13.2 % (11.5-17.5); White Blood Count 5.7 K/mm3 (4.8-10.8)
[2021-10-06 11:19] LABS: Alanine Aminotransferase 25 U/L (12-78); Albumin Level 3.9 g/dl (3.5-5.0); Albumin/Globulin Ratio 1.2 (1.1-1.8); Alkaline Phosphatase 112 U/L (38-126); Anion Gap 10.8 mEq/L (5-15); Aspartate Amino Transferase 29 U/L (14-36); Bilirubin,Total 0.4 mg/dl (0.2-1.3); Blood Urea Nitrogen 52 mg/dl (7-17); Calcium 9.5 mg/dl (8.4-10.2); Carbon Dioxide 21 mmol/L (22.0-30.0); Chloride 113 mmol/L (98-107); Estimated Glomerular Filt Rate 27 ml/min (>60); GFR (African American) 32 ML/MIN (>60); Globulin 3.2 g/dL (1.3-3.2); Glucose 97 mg/dl (74-100); Potassium 4.8 mmoL/L (3.5-5.1); Sodium 140 mmol/L (136-145); Total Protein,Serum 7.1 g/dl (6.3-8.2)
[2021-10-06 15:22] LABS: Eosinophils % 1 % (0-3); Lymphocytes % 37 % (10-50); Monocytes % 4 % (2-9); Neutrophils % 58 % (42-76); Platelet Estimate Normal; RBC Morphology Normal; Total Cells Counted 100
== END ==
PROVIDERS: Visit Provider Surgery
DX: Z01.812 Encounter for preprocedural laboratory examination (principal); Z11.52 Encounter for screening for COVID-19; K80.10 Calculus of gallbladder with chronic cholecystitis without obstruction
CPT/HCPCS: 36415; 80053; 85007; 85014; 85018; 85048; 85049; C9803; U0003; U0005

== ENCOUNTER 2021-10-08 06:47 | Day surgery (SDC) | payer BC, SELFPAY ==
[2021-10-05 14:07] VITALS: BMI 27.6
[2021-10-08] VITALS (14 sets, daily range): BP systolic 122–160; BP diastolic 58–75; PULSE 43–73; RESP 16–18; TEMP 36.3–43; O2SAT 94–100
--- NOTE | 2021-10-08 08:02 | P.PN_ITS ---
[facility] Anesthesia Checklist - Patient Identification Patient Identification: Arm Band - Structural Data Admitted From: Home Planned Operative Procedure/s: ArceliaNirmal orozco Consent for Planned Operative Procedure(s) Verified: Yes - NPO Status Verified Time NPO: 00:00 - Additional verifications Anesthesia Reactions: No Hx Blood Transfusions: No Blood Transfusion Reaction: No - Airway Assessment C-Spine Mobility Assessed: Yes TMJ Mobility Assessed: Yes Dentition: Poor Dentition - Neurological Assessment Level of Consciousness: Awake Hx Seizures: No Numbness or tingling in extremities: No - Anesthesia Plan Anesthesia Risk discussed: Yes Anesthesia Plan: Verified ASA Class: III Anesthesia Type: General [facility] History I have reviewed the patient's past medical history: Yes Medical History: Reports:: Hyperlipidemia, Hypertension, Kidney Stones, Renal Disease, Transient Ischemic Attacks (TIA) Denies:: Cancer, Diabetes Mellitus Type 1, Diabetes Mellitus Type 2, Internal Pacemaker, MRSA, Seizures *Have you ever received a pneumonia vaccine?: Yes *Have you received a flu vaccine this season?: No Other Medical History: Reports: Arthritis. Denies: Blood Transfusion Reaction Anesthesia experience/problems:: None Other Surgeries: Yes: No Previous Surgery, Colonoscopy, Tubal Ligation. No: Pacemaker Amputation: No Fractures: No - *Social History Last grade of school completed: High school graduate Smoking Status: Current every day smoker Tobacco Type: cigarettes # Packs/Day (cigarettes): 1 Alcohol Intake: never Alcohol Intake Frequency:: a few times a week Substance Use Type: denies use *Occupational Status:: employed Housing: house Household Members: spouse *Travel in the last 8 weeks: None Family Hx:: Cancer, Stroke
--- NOTE | 2021-10-08 11:06 | P.OP_ITS ---
Date of procedure: 10/08/21 Pre-op Diagnosis:: Chronic calculus cholecystitis Post-op Diagnosis:: Same Procedure performed:: Laparoscopic cholecystectomy Surgeon:: Aime Mckeon MD CUSTOMER SERVICE ASSISTANT:: Tyler Ryan Anesthesia: ALESIA Estimated blood loss (mL): 15 Operative findings:: Gallbladder wall thickening Contracted gallbladder Severe infundibular thickening Dome down approach utilized with Endoloops secondary to severe infundibular thickening Operative note:: After informed consent was obtained, the patient was taken to the operating room and placed in the supine position. General anesthesia was induced and the abdomen was prepped and draped in a sterile fashion. After infiltration with local anesthetic an infraumbilical incision was made. A Veress needle was placed in position. The abdomen was insufflated. A 5 mm optical trocar was placed in position. Under direct visualization, a 12 mm trocar was placed in t he subxiphoid position and 2 additional 5 mm trocars were placed in the right upper quadrant. The gallbladder was elevated up and over the liver margin. Contraction of the gallbladder with wall thickening noted. Severe infundibular thickening was also noted. Careful dissection around the cystic artery (artery significantly enlarged) was carefully completed with blunt dissection. The artery was controlled with 2 separate clips and then transected distally with harmonic angelia. Utilizing a dome down approach the gallbladder was carefully dissected away from the liver margin. Endoloops (x2) were then placed at the thickened infundibulum. The infundibulum was then transected distally with harmonic angelia. The gallbladder was placed in a retrieval bag and removed through the subxiphoid trocar site. The right upper quadrant was thoroughly irrigated. No active bleeding or bile leak was noted. Fascia at the subxiphoid trocar site was reapproximated utilizing the NeoClose device. The remaining trocars were removed. All wounds were irrigated and skin was closed with 4-0 Monocryl in a subcuticular fashion. Steri-Strips were applied. The patient's anesthetic agents were reversed and extubation was completed prior to transfer to recovery in stable condition. Condition: stable Disposition: PACU Specimens:: Gallbladder and contents Complications:: No immediate
--- NOTE | 2021-10-08 11:22 | P.PN_ITS ---
[facility] Anesthesia Record Part I Intake, IV Amount: 1,200 Estimated blood loss (mL): 10 Urine output (mL): 0 Blood Products used (#): none Blood Pressure: 160/70 SaO2: 94 Pulse Rate: 67 Respiratory Rate: 16 Temperature: 99.4 F Patient is:: Drowsy, Stable Stable to PACU at:: 11:15
--- NOTE | 2021-10-08 14:59 | P.PN_ITS ---
[facility] Anesthesia Record Part II Discharge Time: 11:45 Destination: Surgical Day Care (OP Surgery) PACU nurse assessment reviewed?: Yes Patient Condition:: Good Anesthesia Complications:: None Swallowing reflex intact?: Yes Cyanosis?: No Blood Pressure: 144/66 Pulse Rate: 48 Temperature: 97.3 F Mental Status: Alert & Oriented Pain level:: 2 Nausea and/or vomitting:: None Intake, IV Amount: 0
== END 2021-10-08 12:57 | disposition home or self-care (01) ==
LOC: OR 06:48
PROVIDERS: PCP Nurse Practitioner Family; Visit Provider Surgery
PROC: 0FT44ZZ Resection of Gallbladder, Percutaneous Endoscopic Approach (ICD-10-PCS; CPT 47562; principal; 2021-10-08 08:30)
DX: K80.12 Calculus of gallbladder with acute and chronic cholecystitis without obstruction (principal); E78.5 Hyperlipidemia, unspecified; I10 Essential (primary) hypertension; Z86.73 Personal history of transient ischemic attack (TIA), and cerebral infarction without residual deficits; Z87.442 Personal history of urinary calculi; M19.90 Unspecified osteoarthritis, unspecified site; N28.9 Disorder of kidney and ureter, unspecified; Z72.0 Tobacco use; I48.91 Unspecified atrial fibrillation; I51.89 Other ill-defined heart diseases; Z79.899 Other long term (current) drug therapy; Z80.9 Family history of malignant neoplasm, unspecified; Z82.3 Family history of stroke
CPT/HCPCS: 47562; 96374; J2405; J2710

== ENCOUNTER 2022-05-20 11:05 | Emergency (ER) | payer BC, SELFPAY ==
[2022-05-20 11:06] VITALS: BP 250/122; PULSE 74; RESP 18; TEMP 36.7; O2SAT 99; BMI 28.1
--- NOTE | 2022-05-20 11:22 | ECG_ITS ---
APPROVED REPORT Exam: Resting ECG HR:70 bpm ECG Measurements Heart Rate 70 AXES W[place] 162 P 53 QRSd 92 QRS -27 QT 403 T 92 QTc 424 Conclusion SINUS RHYTHM WITH OCCASIONAL VENTRICULAR PREMATURE COMPLEXES BORDERLINE LEFT AXIS DEVIATION [QRS AXIS < -20] LEFT VENTRICULAR HYPERTROPHY AND ST-T CHANGE [VOLTAGE CRITERIA PLUS ST/T ABNORMALITY] ABNORMAL ECG UNCONFIRMED REPORT Electronically signed by : Jarocho Vergara MD 05/20/2022 20:17:49
--- NOTE | 2022-05-20 11:22 | PC.NURSE ---
[facility] at
--- NOTE | 2022-05-20 11:22 | PC.NURSE ---
DR. YOUNG AT BEDSIDE
[2022-05-20 11:33] VITALS: BP 222/119; PULSE 76; RESP 18; O2SAT 98
--- NOTE | 2022-05-20 11:35 | HMH.EDGENADL ---
Discharge Plan Disposition Patient Disposition: Home, Self-Care Condition: Good Prescriptions Prescriptions: New lisinopril 20 mg tablet 20 mg PO DAILY Qty: 30 0RF No Action amlodipine 10 mg tablet 10 mg PO DAILY lisinopril-hydrochlorothiazide 20-25 mg tablet 1 tab PO DAILY Rx Instructions: AM lisinopril 20 mg tablet 20 mg PO DAILY Rx Instructions: PM bisoprolol fumarate 10 mg tablet 10 mg PO DAILY Myrbetriq 25 mg tablet extended release 24 hr 25 mg PO DAILY atorvastatin 80 MG tablet 80 mg PO HS apixaban 5 MG tablet 5 mg PO BID hydrocodone-acetaminophen 1 TAB tablet 1 - 2 tab PO Q6HP PRN (Reason: post-op pain) Qty: 17 0RF Referrals Follow up/Referrals: Venus Hogue MD [Primary Care Provider] - See instructions Activity Restrictions/Add. Instructions Additional Instructions/Restrictions: Follow-up with your primary care provider for chronic management of her underlying chronic diseases. Lisinopril 20 mg has been sent to your preferred pharmacy, take this daily until follow-up. Discussed blood pressure, cholesterol, kidney function, heart disease with your family doctor. If you have any other concerning signs or symptoms, return to the emergency department for further evaluation. Clinical Impressions Clinical Impression: Asymptomatic hypertension Discharge ED Provider: Trevin Aguila General Adult HPI General Chief complaint: Recheck/Abnormal Lab/Rx Stated complaint: high BP, sent by Time Seen by Provider: 05/20/22 11:15 Mode of Arrival: Ambulatory Limitations: No Limitations Description of Symptoms (Recalled from ER Triage Doc. by RN): PT HASN'T TAKEN ANY MEDICATIONS FOR 6 MONTHS. WENT TO PCP, PRESENTS WITH ELEVATED B/P History of Present Illness HPI narrative: This is a 67-year-old female with history of CVA not on anticoagulation (supposed be on Eliquis, but stopped taking it), hypertension (stopped taking medications) presenting from PCPs office for asymptomatic hypertension. Patient denies chest pain, shortness of breath, nausea, vomiting, headaches, vision changes, any other concerning history. Related Data Home Medications Medication Instructions Recorded Confirmed amlodipine 10 mg tablet 10 mg PO DAILY High blood pressure 08/24/21 10/27/21 bisoprolol fumarate 10 mg tablet 10 mg PO DAILY High cholesterol 08/24/21 10/27/21 lisinopril 20 mg tablet 20 mg PO DAILY High blood pressure 08/24/21 10/27/21 lisinopril 20 1 tab PO DAILY High blood pressure 08/24/21 10/27/21 mg-hydrochlorothiazide 25 mg tablet apixaban 5 mg tablet 5 mg PO BID Blood thinner 09/10/21 10/27/21 atorvastatin 80 mg tablet 80 mg PO HS Cholesterol 09/10/21 10/27/21 mirabegron 25 mg tablet,extended 25 mg PO DAILY frequent urination 09/24/21 10/27/21 release 24 hr (Myrbetriq) Previous Rx's Medication Instructions Recorded hydrocodone 5 mg-acetaminophen 325 1 - 2 tab PO Q6HP PRN post-op pain 10/08/21 mg tablet #17 tabs lisinopril 20 mg tablet 20 mg PO DAILY #30 tabs 05/20/22 Allergies Allergy/AdvReac Type Severity Reaction Status Date / Time No Known Allergies Allergy Verified 10/27/21 13:32 [facility] Disclaimer: The information contained in this section may have been updated after the patient was seen, as this information can be updated by other users. Social History Smoking Status: Current every day smoker tobacco type: cigarettes packs per day: 1 alcohol intake: current substance use type: denies use current occupational status: employed Travel in the last 8 weeks: None household members: spouse housing: house current occupation: [employer] current occupational exposures/hazards: No caffeine: Yes ROS Obtained: Yes All systems reviewed & no additional complaints except as documented Physical Exam General General appearance: alert and in no apparent distress Head Head exam: atraumatic, normocepha
[2022-05-20 11:48] LABS: Chloride 111 mmol/L (98-107); Potassium 4.6 mmoL/L (3.5-5.1); Sodium 138 mmol/L (136-145)
[2022-05-20 11:51] LABS: Anion Gap 7.6 mEq/L (5-15); Blood Urea Nitrogen 30 mg/dl (7-17); Calcium 9.2 mg/dl (8.4-10.2); Carbon Dioxide 24 mmol/L (22.0-30.0); Creatinine Clearance Estimated 37 mL/min (50-200); Estimated Glomerular Filt Rate 32 ml/min (>60); GFR (African American) 39 ML/MIN (>60); Glucose 88 mg/dl (74-100)
--- NOTE | 2022-05-20 12:00 | PC.NURSE ---
patient given water and is waiting on discharge instructions
[2022-05-20 12:09] VITALS: BP 243/127; PULSE 74; RESP 18; TEMP 36.7; O2SAT 99
== END 2022-05-20 12:09 | disposition home or self-care (01) ==
PROVIDERS: Emergency Provider Emergency Medicine; PCP Family Medicine
DX: I10 Essential (primary) hypertension (principal); E78.5 Hyperlipidemia, unspecified; E11.9 Type 2 diabetes mellitus without complications; F17.210 Nicotine dependence, cigarettes, uncomplicated; Z79.01 Long term (current) use of anticoagulants; Z79.1 Long term (current) use of non-steroidal anti-inflammatories (NSAID); Z79.899 Other long term (current) drug therapy; Z91.14 Patient's other noncompliance with medication regimen; Z91.199 Patient's noncompliance with other medical treatment and regimen due to unspecified reason
CPT/HCPCS: 80048; 93005; 99284

== ENCOUNTER 2023-11-08 09:02 | Outpatient (CLI) | payer BC, SELFPAY ==
--- NOTE | 2023-11-08 09:05 | CT_ITS ---
FINAL REPORT CLINICAL HISTORY: H/O STROKE COMPARISON: 06/22/2021 FINDINGS: Axial images of the head were obtained without contrast. Coronal reformatted images were also obtained. This study was performed with techniques to keep radiation doses as low as reasonably achievable (ALARA). Individualized dose reduction techniques using automated exposure control or adjustment of mA and/or kV according to the patient's size were employed. There is generalized age-appropriate atrophy. Periventricular low-attenuation areas are seen consistent with mild chronic ischemic changes. There are several chronic bilateral lacunar infarcts. There is no evidence of intracranial hemorrhage or mass. There is no evidence of acute infarct. There is no evidence of shift of the midline structures. No skull abnormality is seen on the bone window images. Mucosal thickening in multiple sinuses is stable. IMPRESSION: Atrophy and mild periventricular chronic ischemic changes. No acute intracranial abnormality identified. Reviewed, Interpreted and Dictated by Louie Gonsales III, MD Transcribed by Earline Moore Authenticated and [facility]
== END 2023-11-08 23:59 | disposition home or self-care (01) ==
LOC: RAD 09:02
PROVIDERS: PCP Nurse Practitioner; Visit Provider Nurse Practitioner
DX: Z86.73 Personal history of transient ischemic attack (TIA), and cerebral infarction without residual deficits (principal)
CPT/HCPCS: 70450

== ENCOUNTER 2023-11-08 10:23 | Inpatient (IN) | payer BC, MEDICARE, SELFPAY ==
[2023-11-08] VITALS (25 sets, daily range): BP systolic 151–211; BP diastolic 67–106; PULSE 56–72; RESP 18–30; TEMP 36.6–36.9; O2SAT 94–100; BMI 31.1; BMI 30.9
--- NOTE | 2023-11-08 10:52 | PC.NURSE ---
Dr. Clark at BS for pt eval
--- NOTE | 2023-11-08 10:53 | PC.NURSE ---
DR WOOD AT BEDSIDE
--- NOTE | 2023-11-08 10:55 | PC.NURSE ---
rounded on pt. requested at warm blanket. Dr. Clark at BS as well.
--- NOTE | 2023-11-08 10:59 | XR_ITS ---
FINAL REPORT CLINICAL HISTORY: dyspnea FINDINGS: SINGLE-VIEW CHEST The heart size is normal. The mediastinum is normal. The lungs are clear. There is no pneumothorax. IMPRESSION: No acute cardiopulmonary process. Reviewed, Interpreted and Dictated by Louie Gonsales III, MD Transcribed by Earline Moore Authenticated and [facility]
[2023-11-08 11:06] LABS: Basophils # 0.1 K/mm3 (0-0.2); Basophils % 1.8 % (0.1-2.0); Eosinophils # 0.3 K/mm3 (0.0-0.4); Eosinophils % 4.5 % (0.1-12.0); Hematocrit 37.1 % (37.0-47.0); Hemoglobin 11.5 g/dL (12.2-16.2); Lymphocytes # 2.2 K/mm3 (0.7-4.5); Lymphocytes % 30.3 % (10-50); Mean Corpuscular HGB Conc 30.9 g/dL (31.8-35.4); Mean Corpuscular Hemoglobin 26.7 pg (27.0-31.2); Mean Corpuscular Volume 86.4 fl (81-99); Mean Platelet Volume 8.5 fl (7.4-10.4); Monocytes # 0.4 K/mm3 (0.1-1.0); Monocytes % 5.9 % (1.7-9.3); Neutrophils # 4.2 K/mm3 (1.8-7.8); Neutrophils % 57.4 % (37.0-80.0); Platelet Count 312 K/mm3 (142-424); Red Cell Distribution Width 14.7 % (11.5-17.5); White Blood Count 7.4 K/mm3 (4.8-10.8)
[2023-11-08 11:11] LABS: Alanine Aminotransferase 14 U/L (12-78); Albumin Level 3.9 g/dl (3.5-5.0); Alkaline Phosphatase 117 U/L (38-126); Anion Gap 14.1 mEq/L (5-15); Aspartate Amino Transferase 23 U/L (14-36); Bilirubin,Total 0.3 mg/dl (0.2-1.3); Blood Urea Nitrogen 54 mg/dl (7-17); Calcium 9.2 mg/dl (8.4-10.2); Carbon Dioxide 19 mmol/L (22.0-30.0); Chloride 111 mmol/L (98-107); Creatinine Clearance Estimated 25 mL/min (50-200); Estimated Glomerular Filt Rate 18 ml/min (>60); GFR (African American) 22 ML/MIN (>60); Globulin 3.9 g/dL (1.3-3.2); Glucose 96 mg/dl (74-100); Potassium 5.1 mmoL/L (3.5-5.1); Sodium 139 mmol/L (136-145); Total Protein,Serum 7.8 g/dl (6.3-8.2)
[2023-11-08] MEDS: LACTATED RINGERS 1000ML 1,000 ML 999 ML IV (11:13)
[2023-11-08 11:16] LABS: D-Dimer 0.41 ug/mL (0.0-0.5)
--- NOTE | 2023-11-08 11:20 | ED_ITS ---
Discharge Plan Disposition Patient Disposition: Admitted Prescriptions Prescriptions: No Action amlodipine 10 mg tablet 10 mg PO DAILY lisinopril-hydrochlorothiazide 20-25 mg tablet 1 tab PO DAILY Rx Instructions: AM lisinopril 20 mg tablet 20 mg PO DAILY Rx Instructions: PM bisoprolol fumarate 10 mg tablet 10 mg PO DAILY Myrbetriq 25 mg tablet extended release 24 hr 25 mg PO DAILY atorvastatin 80 MG tablet 80 mg PO HS apixaban 5 MG tablet 5 mg PO BID lisinopril 20 mg tablet 20 mg PO DAILY Qty: 30 0RF hydrocodone-acetaminophen 1 TAB tablet 1 - 2 tab PO Q6HP PRN (Reason: post-op pain) Qty: 17 0RF Referrals Follow up/Referrals: Evon Iglesisa APRN [Primary Care Provider] - See instructions Clinical Impressions Clinical Impression: JONNATHAN (acute kidney injury), Hypertensive emergency Discharge ED Provider: Vicente Clark General Adult HPI General Chief complaint: Recheck/Abnormal Lab/Rx Stated complaint: fluids Time Seen by Provider: 11/08/23 10:51 Mode of Arrival: Ambulatory Source of Information: Patient Limitations: No Limitations Description of Symptoms (Recalled from ER Triage Doc. by RN): Pt was sent over by pcp office for abnormal lab results. Pt had a head ct this morning for stroke like symptoms that had been going on x 1 week. History of Present Illness HPI narrative: Patient is a 68-year-old female presented with multiple complaints. She states she has been extremely fatigued over the last year. 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 She states that she is now only tired but has exertional dyspnea that improves with rest. Does have lower extremity edema which has been present over the last year. She is on lisinopril and lisinopril-HCTZ has chronic renal insufficiency baseline creatinine of 1.6. She went to her primary care doctor 5 days ago also has close follow-up with cardiology they sent basic labs and her creatinine was found to be 2.42 with a BUN of 69. They are also concerned about a stroke and a CT scan of her head. She however denies any focal neurologic symptoms and states she is only been generally weak. She does have a chronic history of smoking and states that she loves smoking more than eating and that she has no desire to quit. Related Data Home Medications Medication Instructions Recorded Confirmed amlodipine 10 mg tablet 10 mg PO DAILY High blood pressure 08/24/21 10/27/21 bisoprolol fumarate 10 mg tablet 10 mg PO DAILY High cholesterol 08/24/21 10/27/21 lisinopril 20 mg tablet 20 mg PO DAILY High blood pressure 08/24/21 10/27/21 lisinopril 20 1 tab PO DAILY High blood pressure 08/24/21 10/27/21 mg-hydrochlorothiazide 25 mg tablet apixaban 5 mg tablet 5 mg PO BID Blood thinner 09/10/21 10/27/21 atorvastatin 80 mg tablet 80 mg PO HS Cholesterol 09/10/21 10/27/21 mirabegron 25 mg tablet,extended 25 mg PO DAILY frequent urination 09/24/21 10/27/21 release 24 hr (Myrbetriq) Previous Rx's Medication Instructions Recorded hydrocodone 5 mg-acetaminophen 325 1 - 2 tab PO Q6HP PRN post-op pain 10/08/21 mg tablet #17 tabs lisinopril 20 mg tablet 20 mg PO DAILY #30 tabs 05/20/22 Allergies Allergy/AdvReac Type Severity Reaction Status Date / Time No Known Allergies Allergy Verified 10/27/21 13:32 [facility] Disclaimer: The information contained in this section may have been updated after the patient was seen, as this information can be updated by other users. Social History Smoking Status: Current every day smoker tobacco type: cigarettes packs per day: 1 alcohol intake: current alcohol intake frequency: a few times a week substance use type: denies use current occupational status: employed Travel in the last 8 weeks: None household members: spouse housing: house current occupation: [employer] current occupational exposures/hazards: No caffeine: Yes ROS Obtained: Yes All systems reviewed & no additional complaints except as documented Physical Exam General General appearance: alert and in no apparent distress Respiratory Respiratory exam: Present normal lung sounds bilaterally and respiratory distress Cardiovascular Cardiovascular exam: Present regular rate and normal rhythm Abdominal Exam Abdominal exam: Present soft and distention Neurological Exam Neurological exam: Present alert, oriented X3, CN II-XII intact and normal gait; Absent motor sensory deficit Medical Decision Making Gabriele Inquiry Pt receiving controlled substance: No Vital Signs: 11/08/23 10:24 11/08/23 10:34 11/08/23 11:01 Temperature 98.5 F Temperature Source Oral Pulse Rate 72 66 Pulse Rate [Right Brachial] 67 Respiratory Rate 18 Blood Pressure 211/106 H 178/84 H Blood Pressure [Right Arm] 198/97 H Blood Pressure Mean 130 139 Blood Pressure Mean [Right Arm] 130 Blood Pressure Source [Right Arm] Automatic Cuff Blood Pressure Position [Right Arm] Sitting 02 Sat by Pulse Oximetry 100 99 99 Oxygen Delivery Method Room Air Lab Data Lab results reviewed: Yes I reviewed the patient's lab results. Lab Results 11/08/23 10:33: WBC 7.4, RBC 4.30, Hgb 11.5 L, Hct 37.1, MCV 86.4, MCH 26.7 L, M CHC 30.9 L, RDW 14.7, Plt Count 312, MPV 8.5, Neut % (Auto) 57.4, Lymph % (Auto) 30.3, [place] % (Auto) 5.9, Eos % (Auto) 4.5, Baso % (Auto) 1.8, Neut # (Auto) 4.2, Lymph # (Auto) 2.2, [place] # (Auto) 0.4, Eos # (Auto) 0.3, Baso # (Auto) 0.1, D- Dimer 0.41, Sodium 139, Potassium 5.1, Chloride 111 H, Carbon Dioxide 19 L, Anion Gap 14.1, BUN 54 H, Creatinine 2.60 H, Estimated Creat Clear 25, Estimated GFR 18 L*, Est GFR ( Amer) 22 L, Glucose 96, Calcium 9.2, Total Bilirubin 0.3, AST 23, ALT 14, Alkaline Phosphatase 117, Troponin I < 0.01, NT-Pro-B Natriuret Pep 2670 H, Total Protein 7.8, Albumin 3.9, Globulin 3.9 H, A lbumin/Globulin Ratio 1.0 L 11/08/23 10:33 11/08/23 10:33 Orders (Tests/Meds): ED MEDICATIONS Generic Name Dose Route Start Last Admin Trade Name Freq PRN Reason Stop Dose Admin Lactated Ringer's 1,000 mls @ 999 mls/hr 11/08/23 11:00 11/08/23 11:13 Lactated Ringer's 1000 Ml Bag IV 11/08/23 12:00 999 mls/hr .Q1H1M ROCAEL Administration Nicardipine HCl 25 mg/ Sodium 250 mls @ 50 mls/hr 11/08/23 11:25 Chloride IV 12/08/23 11:24 .Q5H [facility] Protocol ORDERS Category Date Time Status CXR --portable [XR chest portable] Stat Exams 11/08/23 10:59 Taken POCUS Point of Care (ER Only) Stat Exams 11/08/23 10:58 Ordered BNP [NT Pro Brain Natriuretic Pep.] Stat Lab 11/08/23 10:33 Results CBC w/Auto Diff [Complete Blood Count Auto Diff] Stat Lab 11/08/23 10:33 Completed CMP [Comprehensive Metabolic Panel] Stat Lab 11/08/23 10:33 Results D-Dimer Stat Lab 11/08/23 10:33 Completed TSH [Thyroid Stimulating Hormone] Stat Lab 11/08/23 10:33 Results Trop I [Troponin I] Stat Lab 11/08/23 10:33 Results Troponin I Q3H Lab 11/08/23 14:00 Ordered Troponin I Q3H Lab 11/08/23 17:00 Ordered Medical Decision Narrative: [id number] female presenting today with abnormal labs performed 5 days ago showing a creatinine 2.6 baseline of 1.6. Additionally she has had chronic dyspnea which is her primary concern. Differential includes heart failure with pulmonary embolism pneumonia COPD depression etc. Lung exam is normal bedside ultrasound of the heart was unremarkable. Workup is pending she will need to be admitted for her acute kidney injury regardless. She is on an CLEMENTINE inhibitor which possibly is contributing because she is significant hypertensive at the moment with no other evidence of endorgan damage but in the setting of acute kidney injury may intervene with IV antihypertensive medications. Reassessment 1136 creatinine is 2.6 BNP is 2670 which is nonspecific but will need further formal workup including an echo. Nicardipine has been initiated patient will be admitted to hospital medicine for further evaluation and management. Chest x-ray obtained and performed which I personally circular shows no acute cardiopulmonary emergency specifically no evidence of any pulmonary edema etc. Procedures Miscellaneous Procedure Procedure Performed: Limited cardiac ultrasound Indication: Dyspnea Identified structures: The heart was visualized in the parasternal long axis, parastenal short axis, apical four chamber and subxyphiod views. The IVC was visualized in the short axis and long axis at its entry into the right atrium. Findings: LVEF is normal thickened myocardium no pericardial effusion no significant right heart strain IVC is less than 2 cm with normal respirophasic variation Impression: Normal limited ultrasound of the heart Images were saved to permanent archive The study was technically adequate CPT: 95664-82 This study was performed by me, and I personally interpreted all images/videos. Based on my clinical judgement, these images were adequate and did not necessitate further imaging. Critical Care Critical Care Time Critical Care Time: Yes Attestation: On 11/08/23, the high probability of a clinically significant, sudden or life threatening deterioration of the following system(s) required my full and direct attention, intervention and personal management. The time I documented below is in addition to time spent performing reported procedures but includes the following listed in this critical care notation. Total Time Total Critical Care Time: 35
[2023-11-08 11:25] LABS: NT Pro Brain Natriuretic Pep. 2670 pg/mL (0-125)
[2023-11-08 11:26] LABS: Troponin I < 0.01 ng/ml (0.00-0.034)
[2023-11-08 11:44] LABS: Thyroid Stimulating Hormone 6.08 uIU/mL (0.465-4.68)
--- NOTE | 2023-11-08 11:46 | PC.NURSE ---
DR WOOD SPEAKING WITH DR GREENBERG
--- NOTE | 2023-11-08 12:02 | PC.NURSE ---
ECMO SPECIALIST NOTIFIED OF ADMISSION
[2023-11-08] MEDS: NICARDIPINE HCL 25 MG in 0.9 % SODIUM CHLORIDE 240 ML 50 MG IV (12:21)
--- NOTE | 2023-11-08 12:47 | PC.NURSE ---
Pt ambulatory to bathroom and back to bed
[2023-11-08 14:20] LABS: Troponin I < 0.01 ng/ml (0.00-0.034)
--- NOTE | 2023-11-08 16:09 | PC.NURSE ---
Cardene drip titrated to 2.5 mg but then increased to 5 mg due to rising blood pressures, see documentation of VS. Patient tolerating drip well. Patient remained on room air, NSR on monitor heart rate between 60-65. Lung sounds clear.
[2023-11-08 17:35] LABS: Troponin I < 0.01 ng/ml (0.00-0.034)
--- NOTE | 2023-11-08 17:59 | P.HP_ITS ---
History of Present Illness *Admission Date: 11/08/23 *Reason for visit:: JONNATHAN *History of present illness: Patient is a 68-year-old female with past medical history of hypertension hyperlipidemia who presents to the hospital due to fatigue, he mentions he has been having shortness of breath which improved with rest his generalized weakness. Patient otherwise denied fevers chills nausea vomiting diarrhea constipation. On further evaluation patient was found to have acute kidney injury and was admitted for further evaluation. Patient was also found to have high blood pressure necessitating Cardene drip. [facility] Disclaimer: The information contained in this section may have been updated after the patient was seen, as this information can be updated by other users. Medical History (Updated 11/08/23 @ 13:53 by Lise Tim RN) Hypertension Social History (Updated 11/08/23 @ 13:53 by Lise Tim RN) Smoking Status: Current every day smoker tobacco type: cigarettes packs per day: 1 alcohol intake: current alcohol intake frequency: a few times a week substance use type: denies use current occupational status: employed Travel in the last 8 weeks: None household members: spouse housing: house current occupation: [employer] current occupational exposures/hazards: No caffeine: Yes Review of Systems Review of Systems Review of systems:: pertinent systems reviewed and negative unless documented below Meds Home Medications and Allergies Home Medications Medication Instructions Recorded Confirmed Type amlodipine 10 mg tablet 10 mg PO DAILY 08/24/21 11/08/23 History bisoprolol fumarate 10 mg tablet 10 mg PO DAILY 08/24/21 11/08/23 History hydrochlorothiazide 25 mg tablet 25 mg PO DAILY 11/08/23 11/08/23 History lisinopril 40 mg tablet 40 mg PO DAILY 11/08/23 11/08/23 History New Prescriptions to Start Prescriptions: Allergies Allergy/AdvReac Type Severity Reaction Status Date / Time No Known Allergies Allergy Verified 10/27/21 13:32 Exam Data for Last 24 hours Vital signs and Labs for Last 24 Hours: Temp Pulse Resp BP Pulse Ox O2 Del Method 97.8 F 60 22 167/81 H 98 Room Air 11/08/23 16:00 11/08/23 17:00 11/08/23 17:00 11/08/23 17:00 11/08/23 17:00 11/08/23 17:00 Laboratory Results - last 24 hr 11/08/23 10:33: WBC 7.4, RBC 4.30, Hgb 11.5 L, Hct 37.1, MCV 86.4, MCH 26.7 L, MCHC 30.9 L, RDW 14.7, Plt Count 312, MPV 8.5, Neut % (Auto) 57.4, Lymph % (Auto) 30.3, [place] % (Auto) 5.9, Eos % (Auto) 4.5, Baso % (Auto) 1.8, Neut # (Auto) 4.2, Lymph # (Auto) 2.2, [place] # (Auto) 0.4, Eos # (Auto) 0.3, Baso # (Auto) 0.1, D-Dimer 0.41, Sodium 139, Potassium 5.1, Chloride 111 H, Carbon Dioxide 19 L, Anion Gap 14.1, BUN 54 H, Creatinine 2.60 H, Estimated Creat Clear 25, Estimated GFR 18 L*, Est GFR ( Amer) 22 L, Glucose 96, Calcium 9.2, Total Bilirubin 0.3, AST 23, ALT 14, Alkaline Phosphatase 117, Troponin I < 0.01, NT-Pro-B Natriuret Pep 2670 H, Total Protein 7.8, Albumin 3.9, Globulin 3.9 H, Albumin/Globulin Ratio 1.0 L, TSH 6.08 H 11/08/23 13:40: Troponin I < 0.01 11/08/23 16:50: Troponin I < 0.01 I & O for Last 24 hours: Intake & Output 11/05/23 11/06/23 11/07/23 11/08/23 23:59 23:59 23:59 23:59 Intake Total 411.666 / 411.666 Output Total 0 / 0 Balance 411.666 / 411.666 Weight 76.657 kg Constitutional Constitutional: no acute distress *Routine HEENT Exam Head: Present normocephalic Eye: Present EOMI and PERRL ENT: Present mucous membranes moist *Routine Neck Exam Neck: Present supple; Absent lymphadenopathy *Routine Respiratory Exam Respiratory: Present CTA bilaterally *Routine Cardiovascular Exam Cardiovascular: Present RRR *Routine Abdominal Exam Abdominal: Present soft and normoactive bowel sounds; Absent tenderness *Routine Rectal Exam Rectal:: deferred *Routine Genitalia Exam Genitalia:: deferred *Routine Extremities Exam Extremities: Absent cyanosis, clubbing or edema *Routine Skin Exam Skin: Present warm; Absent rash *Routine Neurological Exam Neurological: Present alert and oriented X3 Assessment and Plan *Assessment and plan (1) Hypertensive emergency: Status: Acute Category: Medical Code(s): I16.1 - Hypertensive emergency (2) JONNATHAN (acute kidney injury): Status: Acute Category: Medical Code(s): N17.9 - Acute kidney failure, unspecified (3) Hypertension: Status: Acute Qualifiers: Hypertension type: primary hypertension Qualified Code(s): I10 - Essential (primary) hypertension Category: Medical Code(s): I10 - Essential (primary) hypertension (4) Tobacco use: Status: Acute Category: Social Hx Code(s): Z72.0 - Tobacco use Plan Patient is a 68-year-old female with past medical history of hypertension hype rlipidemia who presents to the hospital due to fatigue, he mentions he has been having shortness of breath which improved with rest his generalized weakness. Patient otherwise denied fevers chills nausea vomiting diarrhea constipation. On further evaluation patient was found to have acute kidney injury and was admitted for further evaluation. Patient was also found to have high blood pressure necessitating Cardene drip. Assessment and plan Acute kidney injury Hypertensive emergency Started on Cardene drip, wean as tolerated Monitor on cardiac aerodynamicist creatinine Avoid nephrotoxic medications Resume home bisoprolol, amlodipine DVT prophylaxis-heparin
[2023-11-08] MEDS: AMLODIPINE 5MG TABLET 10 MG PO (18:42)
[2023-11-08] MEDS: BISOPROLOL 5MG TABLET 10 MG PO (18:42)
[2023-11-08] MEDS: NICARDIPINE HCL 25 MG in 0.9 % SODIUM CHLORIDE 240 ML 5 MG IV (18:58)
--- NOTE | 2023-11-08 20:16 | PC.NURSE ---
Addendum entered by Izabel Jolly RN 11/08/23 20:25: PER POLICY, MONITORING INCLUDES VITAL SIGNS AND/OR OBSERVATION BY AN RN EVERY 2 OR 4 HOURS Original Note: THIS RN VERIFIED WITH HOUSE SUP AND NETWORK SYSTEMS CONSULTANT ABOUT SD ORDER WHILE PT IS ON CARDENE GTT; HOUSE SUP SAID MD IS OKAY WITH CARDENE ON SD AND NETWORK SYSTEMS CONSULTANT SAID TO FOLLOW FACILITY POLICY. PT WILL REMAIN IN SD AND THIS RN WILL FOLLOW SD PROTOCOL AND SD CHARTING PROTOCOL PER HOSPITALS POLICIES.
--- NOTE | 2023-11-08 21:11 | PC.NURSE ---
CHARGE NURSE, KF, RN, DISCUSSED PT'S ACUITY LEVEL WITH THIS RN AND BENCH ASSEMBLER AND PT WILL BE UPGRADED TO ICU D/T CARDENE GTT AND TITRATING NEEDED TO MAINTAIN SBP 150 OR LESS PER ORDER.
[2023-11-08] MEDS: NICARDIPINE HCL 25 MG in 0.9 % SODIUM CHLORIDE 240 ML 100 MG IV (22:43)
[2023-11-09] VITALS (24 sets, daily range): BP systolic 94–171; BP diastolic 39–88; PULSE 58–80; RESP 18–24; TEMP 36.5–36.9; O2SAT 94–99; BMI 31.1
--- NOTE | 2023-11-09 00:47 | PC.NURSE ---
11/08/23 @ 1900 SHIFT CHANGE GTT VERIFICATION CARDENE GTT INFUSING @ 5MG/HR = 50MLS/HR AT THE START OF THIS RN'S SHIFT
[2023-11-09] MEDS: NICARDIPINE HCL 25 MG in 0.9 % SODIUM CHLORIDE 240 ML 100 MG IV (01:02)
[2023-11-09] MEDS: NICARDIPINE HCL 25 MG in 0.9 % SODIUM CHLORIDE 240 ML 50 MG IV (05:51)
[2023-11-09 06:59] LABS: Basophils # 0.1 K/mm3 (0-0.2); Basophils % 0.8 % (0.1-2.0); Eosinophils # 0.3 K/mm3 (0.0-0.4); Eosinophils % 3.5 % (0.1-12.0); Hematocrit 36.4 % (37.0-47.0); Hemoglobin 11.3 g/dL (12.2-16.2); Lymphocytes # 2.3 K/mm3 (0.7-4.5); Lymphocytes % 27.1 % (10-50); Mean Corpuscular HGB Conc 31.2 g/dL (31.8-35.4); Mean Corpuscular Hemoglobin 26.7 pg (27.0-31.2); Mean Corpuscular Volume 85.7 fl (81-99); Mean Platelet Volume 9.1 fl (7.4-10.4); Monocytes # 0.6 K/mm3 (0.1-1.0); Monocytes % 7.2 % (1.7-9.3); Neutrophils # 5.2 K/mm3 (1.8-7.8); Neutrophils % 61.5 % (37.0-80.0); Platelet Count 298 K/mm3 (142-424); Red Blood Count 4.25 M/mm3 (4.20-5.40); Red Cell Distribution Width 14.6 % (11.5-17.5); White Blood Count 8.5 K/mm3 (4.8-10.8)
[2023-11-09 07:01] LABS: Chloride 115 mmol/L (98-107); Sodium 139 mmol/L (136-145)
[2023-11-09 07:04] LABS: Blood Urea Nitrogen 43 mg/dl (7-17); Creatinine Clearance Estimated 32 mL/min (50-200); Estimated Glomerular Filt Rate 24 ml/min (>60); GFR (African American) 29 ML/MIN (>60)
[2023-11-09 07:05] LABS: Carbon Dioxide 15 mmol/L (22.0-30.0); Glucose 97 mg/dl (74-100)
[2023-11-09] MEDS: AMLODIPINE 10MG TABLET 10 MG PO (08:35)
[2023-11-09] MEDS: BISOPROLOL 5MG TABLET 10 MG PO (08:35)
[2023-11-09] MEDS: NICOTINE 14MG/24HRS PATCH 14 MG TD (11:41)
[2023-11-09] MEDS: HYDRALAZINE 20MG/ML VIAL 20 MG IV (13:14)
[2023-11-09] MEDS: HYDRALAZINE HCL 25MG TABLET 50 MG PO (13:31)
--- NOTE | 2023-11-09 16:31 | P.DS_ITS ---
General Admission date:: 11/08/23 Discharge date: 11/09/23 HPI HPI HPI: Patient is a 68-year-old female with past medical history of hypertension hyperlipidemia who presents to the hospital due to fatigue, he mentions he has been having shortness of breath which improved with rest his generalized weakness. Patient otherwise denied fevers chills nausea vomiting diarrhea constipation. On further evaluation patient was found to have acute kidney injury and was admitted for further evaluation. Patient was also found to have high blood pressure necessitating Cardene drip. Hospital Course Hospital Course Hospital Course: Patient is a 68-year-old female with past medical history of hypertension hyperlipidemia who presents to the hospital due to fatigue, he mentions he has been having shortness of breath which improved with rest his generalized weakness. Patient otherwise denied fevers chills nausea vomiting diarrhea constipation. On further evaluation patient was found to have acute kidney injury and was admitted for further evaluation. Patient was also found to have high blood pressure necessitating Cardene drip. Assessment and plan Acute kidney injury - improved Hypertensive emergency - improved, off of cardene gtt Patient is started on clonidine 0.1mg BID, Hydralizine 25mg TID, continue home amlodpine and Bisoprolol. patient is given referral to nephrology for CKD Exam Data for Last 24 hours Vital signs and Labs for Last 24 Hours: Temp Pulse Resp BP Pulse Ox O2 Del Method 98.0 F 70 22 161/88 H 98 Room Air 11/09/23 15:49 11/09/23 16:00 11/09/23 16:00 11/09/23 16:00 11/09/23 16:00 11/09/23 16:00 Laboratory Results - last 24 hr 11/08/23 16:50: Troponin I < 0.01 11/09/23 05:21: WBC 8.5, RBC 4.25, Hgb 11.3 L, Hct 36.4 L, MCV 85.7, MCH 26.7 L, MCHC 31.2 L, RDW 14.6, Plt Count 298, MPV 9.1, Neut % (Auto) 61.5, Lymph % (Auto) 27.1, [place] % (Auto) 7.2, Eos % (Auto) 3.5, Baso % (Auto) 0.8, Neut # (Auto) 5.2, Lymph # (Auto) 2.3, [place] # (Auto) 0.6, Eos # (Auto) 0.3, Baso # (Auto) 0.1, Sodium 139, Potassium 5.0, Chloride 115 H, Carbon Dioxide 15 L, Anion Gap 14.0, BUN 43 H, Creatinine 2.10 H, Estimated Creat Clear 32, Estimated GFR 24 L, Est GFR ( Amer) 29 L D, Glucose 97, Calcium 9.0 I & O for Last 24 hours: Intake & Output 11/06/23 11/07/23 11/08/23 11/09/23 23:59 23:59 23:59 23:59 Intake Total 553.583 / 077.169 2910.417 / 1350.417 Output Total 0 / 0 0 / 0 Balance 553.583 / 920.416 7257.417 / 1350.417 Weight 76.657 kg 76.748 kg Constitutional Constitutional: no acute distress *Routine HEENT Exam Head: Present normocephalic Eye: Present EOMI and PERRL ENT: Present mucous membranes moist *Routine Neck Exam Neck: Present supple; Absent lymphadenopathy *Routine Respiratory Exam Respiratory: Present CTA bilaterally *Routine Cardiovascular Exam Cardiovascular: Present RRR *Routine Abdominal Exam Abdominal: Present soft and normoactive bowel sounds; Absent tenderness *Routine Extremities Exam Extremities: Absent cyanosis, clubbing or edema *Routine Skin Exam Skin: Present warm; Absent rash *Routine Neurological Exam Neurological: Present alert and oriented X3 Results Data Completed and Pending Labs on day of discharge: Labs from last 24 hours 11/09/23 11/08/23 05:21 16:50 WBC 8.5 RBC 4.25 Hgb 11.3 L Hct 36.4 L MCV 85.7 MCH 26.7 L MCHC 31.2 L RDW 14.6 Plt Count 298 MPV 9.1 Neut % (Auto) 61.5 Lymph % (Auto) 27.1 [place] % (Auto) 7.2 Eos % (Auto) 3.5 Baso % (Auto) 0.8 Neut # (Auto) 5.2 Lymph # (Auto) 2.3 [place] # (Auto) 0.6 Eos # (Auto) 0.3 Baso # (Auto) 0.1 Sodium 139 Potassium 5.0 Chloride 115 H Carbon Dioxide 15 L Anion Gap 14.0 BUN 43 H Creatinine 2.10 H Estimated Creat Clear 32 Estimated GFR 24 L Est GFR ( Amer) 29 L D Glucose 97 Calcium 9.0 Troponin I < 0.01 DS: Diagnosis Discharge Diagnosis (1) Hypertensive emergency: Status: Acute Code(s): I16.1 - Hypertensive emergency (2) JONNATHAN (acute kidney injury): Status: Acute Code(s): N17.9 - Acute kidney failure, unspecified (3) Hypertension: Status: Acute Code(s): I10 - Essential (primary) hypertension Qualifiers: Hypertension type: primary hypertension Qualified Code(s): I10 - Essential (primary) hypertension (4) Tobacco use: Status: Acute Code(s): Z72.0 - Tobacco use Meds Home Medications and Allergies Home Medications Medication Instructions Recorded Confirmed Type amlodipine 10 mg tablet 10 mg PO DAILY 08/24/21 11/08/23 History bisoprolol fumarate 10 mg tablet 10 mg PO DAILY 08/24/21 11/08/23 History clonidine HCl 0.1 mg tablet 0.1 mg PO BID 10 days #20 tabs 11/09/23 Rx hydralazine 25 mg tablet 25 mg PO TID 30 days #90 tabs 11/09/23 Rx nicotine 14 mg/24 hr daily 14 mg transdermal DAILYP PRN 11/09/23 Rx transdermal patch Nicotine Cravings 30 days #30 ea New Prescriptions to Start Prescriptions: clonidine HCl Abel,Irfan hydralazine Abel,Irfan nicotine Abel,Irfan Allergies Allergy/AdvReac Type Severity Reaction Status Date / Time No Known Allergies Allergy Verified 10/27/21 13:32 Discharge Plan Disposition Patient Disposition: Home, Self-Care Condition: Good Discharge Order Discharge Orders: Discharge Order (Routine); Ordered 11/09/23 Ordered By: Miguel A Roman Follow up Plan Follow up with: Cyrus Tapia MD [Referring] - 1 week (Difficult to control HTN, CKD) Evon Iglesias APRN [Primary Care Provider] - 1 week Prescriptions/Medication Reconciliation: New clonidine HCl 0.1 mg Tablet 0.1 mg PO BID 10 Days Qty: 20 0RF nicotine 14 mg/24 hr Patch 24 Hour 14 mg transdermal DAILYP PRN (Reason: Nicotine Cravings) 30 Days Qty: 30 0RF hydralazine 25 mg Tablet 25 mg PO TID 30 Days Qty: 90 0RF Continued amlodipine 10 mg tablet 10 mg PO DAILY bisoprolol fumarate 10 mg tablet 10 mg PO DAILY Discontinued hydrochlorothiazide 25 mg tablet 25 mg PO DAILY lisinopril 40 mg tablet 40 mg PO DAILY Problem Reconciliation Problems Reviewed?: Yes Patient Discharge Instructions ACTIVITY: Ambulate as tolerated DIET: continue same diet Patient Instructions: Treatments for High Blood Pressure: More Than Just Taking a Pill, Recommendations to Help Prevent High Blood Pressure, Acute Kidney Injury, DI for Acute Kidney Injury Providers Primary Care Provider: Evon Iglesias Admashwini Provider: Miguel A Roman Attending Provider: Miguel A Roman
[2023-11-09] MEDS: cloNIDine 0.1MG TABLET 0.100000000000000006 MG PO (16:37)
--- NOTE | 2023-11-10 15:19 | SW/DCPLANNER ---
Follow up phone call: patient stated that she is doing well at home and does not currently have any needs at this time.
== END 2023-11-09 17:03 | disposition home or self-care (01) | DRG 683 ==
LOC: ER 11:25 → 2ND 12:12
PROVIDERS: Admitting Provider Internal Medicine; Emergency Provider Student in an Organized Health Care Education/Training Program; PCP Nurse Practitioner; Visit Provider Internal Medicine
DX: N17.9 Acute kidney failure, unspecified (principal); I16.1 Hypertensive emergency; Z79.899 Other long term (current) drug therapy; F17.210 Nicotine dependence, cigarettes, uncomplicated; I10 Essential (primary) hypertension; I13.10 Hypertensive heart and chronic kidney disease without heart failure, with stage 1 through stage 4 chronic kidney disease, or unspecified chronic kidney disease; N18.9 Chronic kidney disease, unspecified
CPT/HCPCS: 36415; 71045; 80048; 80053; 83880; 84443; 84484; 85025; 85378; 99291; J7120

== ENCOUNTER 2023-11-25 06:48 | Emergency (ER) | payer BC, SELFPAY ==
[2023-11-25] VITALS (8 sets, daily range): BP systolic 178–222; BP diastolic 72–103; PULSE 52–67; RESP 16–17; TEMP 36.6–36.7; O2SAT 95–100; BMI 30.2
--- NOTE | 2023-11-25 07:12 | HMH.EDGENADL ---
Discharge Plan Disposition Patient Disposition: Home, Self-Care Condition: Good Prescriptions Prescriptions: No Action amlodipine 10 mg tablet 10 mg PO DAILY bisoprolol fumarate 10 mg tablet 10 mg PO DAILY levothyroxine 25 mcg tablet 25 mcg PO DAILY cholecalciferol (vitamin D3) 1,250 mcg (50,000 unit) capsule 1,250 mcg PO .2QWEEKLY hydralazine 50 mg tablet 50 mg PO TID 30 Days Qty: 90 5RF Eliquis 5 mg tablet 5 mg PO BID Qty: 60 5RF clonidine HCl 0.1 mg Tablet 0.1 mg PO BID 10 Days Qty: 20 0RF Referrals Follow up/Referrals: Evon Iglesias APRN [Primary Care Provider] - See instructions Activity Restrictions/Add. Instructions Additional Instructions/Restrictions: You were evaluated in the emergency department today. Keep your legs elevated to help reduce swelling. Please make sure that you are taking your hydralazine 3 times a day as prescribed. Also continue taking your bisoprolol, amlodipine, and clonidine for your blood pressure as prescribed. Follow-up closely with your senior sales manager, your independent living instructor, and your primary care provider. Keep an eye on your blood pressure at home. Return to the emergency department for new or worsening symptoms. Clinical Impressions Clinical Impression: Hypertension, Bilateral leg edema, Chronic renal insufficiency Stand Alone Forms Stand Alone Forms: Work/School Release Instructions Patient Instructions: DI for High Blood Pressure, DI for Dependent Edema, DI for Peripheral Edema -- Bilateral Discharge ED Provider: Rosalinda Benton General Adult HPI General Chief complaint: Extremity Problem,Nontraumatic Stated complaint: legs swollen, itching, has high bp Time Seen by Provider: 11/25/23 07:11 Mode of Arrival: Ambulatory Source of Information: Patient Limitations: No Limitations Description of Symptoms (Recalled from ER Triage Doc. by RN): Patient reports she worked an 11 hour shift last night, sitting, when coming home she noted itching in her lower extremities. She has new onset swelling of her bilateral feet ankles. Patient reports no history of heart failure, or previous episodes of swelling. History of Present Illness HPI narrative: This patient is a 68-year-old female with a history of poorly controlled hypertension, atrial fibrillation on Eliquis, renal insufficiency, renal artery stenosis, tobacco use, and peripheral arterial disease presenting to the emergency department for evaluation with concern for bilateral lower extremity swelling and itching. She states that she worked an 11-hour shift last night, sitting with her feet down the entire time. When coming home, she noticed that both of her legs were itchy. When she looked them, she noticed that both of her ankles were very swollen. She did not experience anything like this in the past, but she notes that she was just admitted recently and started on a bunch of new medications for blood pressure. On medical record review, she was admitted from 11/08/2023 through 11/09/2023 for hypertensive emergency and JONNATHAN. At that time, she was started on clonidine, hydralazine, and also was discharged on amlodipine. She was discharged with referral to nephrology, who she has not seen yet. She reports compliance with all her medications, but her blood pressure is still high, which she states is not unusual for her. She denies any history of blood clots, clotting disorders, calf pain, or other concerns. Related Data Home Medications Medication Instructions Recorded Confirmed amlodipine 10 mg tablet 10 mg PO DAILY 08/24/21 11/10/23 bisoprolol fumarate 10 mg tablet 10 mg PO DAILY 08/24/21 11/10/23 cholecalciferol (vitamin D3) 1,250 1,250 mcg PO .2QWEEKLY 11/10/23 11/10/23 mcg (50,000 unit) capsule levothyroxine 25 mcg tablet 25 mcg PO DAILY 11/10/23 11/10/23 Previous Rx's Medication Instructions Recorded clonidine HCl 0.1 mg tablet 0.1 mg PO BID 10 days #20 tabs 11/09/23 apixaban 5 mg tablet (Eliquis) 5 mg PO BID #60 tabs 11/10/23 hydralazine 50 mg tablet 50 mg PO TID 30 days #90 tabs 11/10/23 Allergies Allergy/AdvReac Type Severity Reaction Status Date / Time No Known Allergies Allergy Verified 11/25/23 07:02 [facility] Disclaimer: The information contained in this section may have been updated after the patient was seen, as this information can be updated by other users. Medical History Hypertension Social History Smoking Status: Current every day smoker tobacco type: cigarettes packs per day: 1 alcohol intake: current alcohol intake frequency: a few times a week substance use type: denies use current occupational status: employed Travel in the last 8 weeks: None household members: spouse housing: house current occupation: [employer] current occupational exposures/hazards: No caffeine: Yes ROS Obtained: Yes All systems reviewed & no additional complaints except as documented Physical Exam General General appearance: alert and in no apparent distress Head Head exam: atraumatic and normocephalic Eye Eye exam: Present normal appearance, PERRL and EOMI ENT ENT exam: Present normal exam, normal oropharynx, mucous membranes moist and normal external ear exam Neck Neck exam: Present normal inspection, full ROM and trachea midline; Absent tenderness Chest Chest inspection: Present normal inspection and symmetric chest wall rise; Absent tenderness Respiratory Respiratory exam: Present normal lung sounds bilaterally; Absent respiratory distress, wheezes, stridor or accessory muscle use Cardiovascular Cardiovascular exam: Present regular rate and normal rhythm Abdominal Exam Abdominal exam: Present soft; Absent distention, tenderness or guarding Extremities Exam Extremities exam: Present full ROM, normal capillary refill and edema (1+ bilateral lower extremity edema, worse at the ankles. No calf pain or tenderness.); Absent tenderness, joint swelling or calf tenderness Back Exam Back exam: Present normal inspection and full ROM; Absent tenderness Neurological Exam Neurological exam: Present alert, oriented X3, CN II-XII intact and normal gait; Absent motor sensory deficit Psychiatric Psychiatric exam: Present normal affect and normal mood Skin Skin exam: Present warm and dry Medical Decision Making Medical Records Medical records reviewed: Yes I reviewed the patient's medical records. Gabriele Inquiry Pt receiving controlled substance: No Vital Signs: 11/25/23 06:50 11/25/23 07:00 11/25/23 07:17 Temperature 97.8 F Temperature Source Oral Pulse Rate 65 61 Pulse Rate [Left Radial] 67 Respiratory Rate 17 Blood Pressure 190/103 H 188/103 H Blood Pressure [Left Arm] 181/100 H Blood Pressure Mean 132 132 Blood Pressure Mean [Left Arm] 127 Blood Pressure Source Blood Pressure Source [Left Arm] Automatic Cuff Blood Pressure Position Blood Pressure Position [Left Arm] Sitting 02 Sat by Pulse Oximetry 98 98 95 Oxygen Delivery Method Room Air Room Air Room Air 11/25/23 07:30 11/25/23 08:00 11/25/23 08:30 Temperature Temperature Source Pulse Rate 59 L 57 L Pulse Rate [Left Radial] Respiratory Rate Blood Pressure 188/103 H 222/102 H 180/102 H Blood Pressure [Left Arm] Blood Pressure Mean Blood Pressure Mean [Left Arm] Blood Pressure Source Manual Cuff/ Auscultation Blood Pressure Source [Left Arm] Blood Pressure Position Sitting Blood Pressure Position [Left Arm] 02 Sat by Pulse Oximetry 99 100 Oxygen Delivery Method Room Air Room Air 11/25/23 09:11 Temperature Temperature Source Pulse Rate 57 L Pulse Rate [Left Radial] Respiratory Rate Blood Pressure 178/72 H Blood Pressure [Left Arm] Blood Pressure Mean 107 Blood Pressure Mean [Left Arm] Blood Pressure Source Blood Pressure Source [Left Arm] Blood Pressure Position Blood Pressure Position [Left Arm] 02 Sat by Pulse Oximetry 100 Oxygen Delivery Method Room Air Lab Data Lab results reviewed: Yes I reviewed the patient's lab results. Lab Results 11/25/23 07:28: WBC 6.5, RBC 4.02 L, Hgb 11.3 L, Hct 34.7 L, MCV 86.2, MCH 28.1, MCHC 32.6, RDW 14.3, Plt Count 284, MPV 7.4, Neut % (Auto) 53.5, Lymph % (Auto) 35.8, [place] % (Auto) 5.7, Eos % (Auto) 4.0, Baso % (Auto) 1.0, Neut # (Auto) 3.5, Lymph # (Auto) 2.3, [place] # (Auto) 0.4, Eos # (Auto) 0.3, Baso # (Auto) 0.1, Sodium 138, Potassium 5.0, Chloride 111 H, Carbon Dioxide 17 L, Anion Gap 15.0, BUN 40 H, Creatinine 2.30 H, Estimated Creat Clear 28, Estimated GFR 21 L, Est GFR ( Amer) 26 L, Glucose 89, Calcium 9.1, Total Bilirubin 0.3, AST 23, ALT 15, Alkaline Phosphatase 111, NT-Pro-B Natriuret Pep 5910 H, Total Protein 7.0, Albumin 3.7, Globulin 3.3 H, Albumin/Globulin Ratio 1.1 11/25/23 07:28 11/25/23 07:28 Orders (Tests/Meds): ORDERS Category Date Time Status BNP [NT Pro Brain Natriuretic Pep.] Stat Lab 11/25/23 07:28 Completed Complete Blood Count Auto Diff Stat Lab 11/25/23 07:28 Completed Comprehensive Metabolic Panel Stat Lab 11/25/23 07:28 Completed ECG Data Tracing #1: I reviewed this ECG and interpreted as documented below: Sinus bradycardia with a ventricular rate of [address] bpm. [address]. No acute ST changes concerning for ischemia. No significant changes from prior EKG. ECG initial impression date: 11/25/23 ECG initial impression time: 07:23 Medical Decision Narrative: In summary, this patient is a 68-year-old female presenting to the Emergency Department for evaluation of bilateral leg swelling and itchiness. Differential diagnoses considered include but are not limited to dependent edema, venous insufficiency, hypertensive urgency, JONNATHAN, CHF, medication adverse reaction. Ruling out the most morbid conditions drove assessment. It should be noted patient's history includes hypertension which is not at goal therapy. This complicates all aspects of care by increasing patient's risk for morbidity. I reviewed patient's past medical records and noted her recent admission as per HPI. On exam, the patient is resting comfortably in bed in no acute distress. She has normal vital signs on cardiac telemetry with the exception of hypertension with systolics in the 180s. She has no symptoms aside from the itchiness and swelling in her bilateral lower legs. Based on history and clinical exam, feel she likely has dependent edema from having her legs down all day. This may be increased given her new medications. Workup included CBC, CMP, BNP, and EKG. On reassessment, patient's blood pressure started to creep up with systolics in the 190s and low 200s. I had a discussion with her and it turns out she is not taking her medications as prescribed, as she is only been taking hydralazine twice a day as opposed to 3 times a day. She also has not had any of her medications yet this morning. At this time, she took her home medications including her hydralazine, bisoprolol, and amlodipine. Will recheck her blood pressure. Her BNP and her creatinine are mildly elevated, however, her creatinine is not severe as it was the time she required admission. 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 If her blood pressure improves and exam remains reassuring, I do feel that she will be appropriate for discharge home with clarified instructions on how to take her medications. On reassessment, blood pressure improved to systolic in the 170s. Labs are relatively stable, and patient already has close follow-up arranged with cardiology as well as primary care. She has referral out to nephrology. Given this, I feel that she is appropriate for discharge home. I did clarify with her how to take her medications and give her instructions to monitor her blood pressure at home. I gave her instructions to return if her leg swelling or symptoms get worse. She was given strict return precautions and was discharged in stable condition after all questions were answered. Critical Care Critical Care Time Critical Care Time: No
--- NOTE | 2023-11-25 07:21 | ECG_ITS ---
APPROVED REPORT Exam: Resting ECG HR:55 bpm ECG Measurements Heart Rate 55 AXES OK 174 P 63 QRSd 94 QRS 0 QT 458 T 107 QTc 448 Conclusion SINUS BRADYCARDIA LEFT VENTRICULAR HYPERTROPHY AND ST-T CHANGE [VOLTAGE CRITERIA PLUS ST/T ABNORMALITY] No significant changes from prior ECG Electronically signed by : MERLIN SANCHES, 11/25/2023 15:58:31
--- NOTE | 2023-11-25 07:24 | PC.NURSE ---
DR SANCHES AT BEDSIDE
[2023-11-25 07:34] LABS: Basophils # 0.1 K/mm3 (0-0.2); Eosinophils # 0.3 K/mm3 (0.0-0.4); Hematocrit 34.7 % (37.0-47.0); Hemoglobin 11.3 g/dL (12.2-16.2); Lymphocytes # 2.3 K/mm3 (0.7-4.5); Lymphocytes % 35.8 % (10-50); Mean Corpuscular HGB Conc 32.6 g/dL (31.8-35.4); Mean Corpuscular Hemoglobin 28.1 pg (27.0-31.2); Mean Corpuscular Volume 86.2 fl (81-99); Mean Platelet Volume 7.4 fl (7.4-10.4); Monocytes # 0.4 K/mm3 (0.1-1.0); Monocytes % 5.7 % (1.7-9.3); Neutrophils # 3.5 K/mm3 (1.8-7.8); Neutrophils % 53.5 % (37.0-80.0); Platelet Count 284 K/mm3 (142-424); Red Blood Count 4.02 M/mm3 (4.20-5.40); Red Cell Distribution Width 14.3 % (11.5-17.5); White Blood Count 6.5 K/mm3 (4.8-10.8)
[2023-11-25 08:12] LABS: Alanine Aminotransferase 15 U/L (12-78); Albumin Level 3.7 g/dl (3.5-5.0); Albumin/Globulin Ratio 1.1 (1.1-1.8); Alkaline Phosphatase 111 U/L (38-126); Aspartate Amino Transferase 23 U/L (14-36); Bilirubin,Total 0.3 mg/dl (0.2-1.3); Blood Urea Nitrogen 40 mg/dl (7-17); Calcium 9.1 mg/dl (8.4-10.2); Carbon Dioxide 17 mmol/L (22.0-30.0); Chloride 111 mmol/L (98-107); Creatinine Clearance Estimated 28 mL/min (50-200); Estimated Glomerular Filt Rate 21 ml/min (>60); GFR (African American) 26 ML/MIN (>60); Globulin 3.3 g/dL (1.3-3.2); Glucose 89 mg/dl (74-100); Sodium 138 mmol/L (136-145)
[2023-11-25 08:21] LABS: NT Pro Brain Natriuretic Pep. 5910 pg/mL (0-125)
--- NOTE | 2023-11-25 08:23 | PC.NURSE ---
lab reports few minutes until chemistry completed. but unable to input results into computer until tech is back in lab.
--- NOTE | 2023-11-25 08:39 | PC.NURSE ---
dr tovar at bedside to update pt
== END 2023-11-25 09:33 | disposition home or self-care (01) ==
PROVIDERS: Emergency Provider Emergency Medicine; PCP Nurse Practitioner
DX: R60.0 Localized edema (principal); L29.8 Other pruritus; I10 Essential (primary) hypertension; N18.9 Chronic kidney disease, unspecified; R00.1 Bradycardia, unspecified; F17.210 Nicotine dependence, cigarettes, uncomplicated
CPT/HCPCS: 80053; 83880; 85025; 93005; 99283

== ENCOUNTER 2023-11-29 07:33 | Outpatient (CLI) | payer BC, SELFPAY ==
--- NOTE | 2023-11-29 07:34 | CA_ITS ---
APPROVED REPORT EXAM: Comprehensive 2D, Doppler, and color-flow Echocardiogram Manager Of [facility]: Nan Chaparro CRT Ht: 5 ft 1 in Wt: 165lbs BSA: 1.74 BP: 143/58 mmHg Indications: Atrial Fibrillation, Fatigue, Hyperlipidemia, Hypertension/HDD, Smoker 2D Dimensions LA Volume 30.40 mL LA Volume Index 17.10 mL/m2 (M/F) 16-34 M-Mode Dimensions RVDd 2.33 cm (0.9-2.6) LA Diam 3.97 cm (1.9-4.0) LVDd 3.87 cm (3.5-5.7) LVDs 2.36 cm (3.5-5.7) IVSd 2.58 cm (0.6-1.1) PWd 1.25 cm (0.6-1.1) EF (Teich) 70.20% FS 39.00% EDV (Teich) 64.70 mL TAPSE 2.50 (<1.7) ESV (Teich) 19.30 mL LV Diastology E Decel Time 477 (160-240 msec) E/A Ratio 0.62 MED A' 8.80 cm/s LAT A' 7.80 cm/s Aortic Valve MARSHA Index 1.19 cm2/m2 AoV Peak Aleksey. 195.0 (50-130 cm/s) AI PHT 426.00 ms AO Peak GR. 15.30 mmHg AO Mean GR. 8.40 (<5 mmHg) AO VTI 43.3 (18-25 cm) MARSHA (VTI) 2.12 (2.5-4.5 cm2) Mitral Valve MV A Velocity 104.0 (40-130 cm/s) E/A Ratio 0.62 Pulmonary Valve PV Peak Velocity 92.0 (50-150 cm/s) Tricuspid Valve TR P. Velocity 210.00 cm/s RAP Estimate 10.00 mmHg RVSP 27.70 mmHg Left Ventricle The left ventricle is normal size. The left ventricular systolic function is normal. The left ventricular ejection fraction is within the normal range. There is marked increase in LV wall thickness (IVSd 1.4 cm). There is normal LV segmental wall motion. Transmitral Doppler flow pattern suggests impaired LV relaxation. LVEF is 65%. Right Ventricle The right ventricle is normal size. The right ventricular systolic function is normal. Atria The left atrium size is normal. The right atrium size is normal. There is no Doppler evidence of interatrial shunt. Aortic Valve The aortic valve is mildly thickened. Aortic sclerosis is present, but no evidence of aortic stenosis. Trace aortic regurgitation. Mitral Valve Mild mitral annular calcification is present. The mitral valve leaflets are mildly thickened. No evidence of mitral valve stenosis. Trace mitral regurgitation. Tricuspid Valve The tricuspid valve leaflets are thin and pliable. Trace tricuspid regurgitation. There is insufficient TR jet to estimate RVSP. Pulmonic Valve The pulmonary valve is normal in structure. Trace pulmonic regurgitation. Great Vessels The aortic root is normal in size. The ascending aorta is not well-visualized. IVC is normal in size and collapses >50% with inspiration. Pericardium There is no pericardial effusion. Other Information Study Quality: Fair Conclusion Normal biventricular systolic function. Marked increase in LV wall thickness (IVSd 1.4 cm). No significant valvular stenosis or regurgitation. In the setting of asymmetric increase in LV wall thickness (up to 1.4 cm on TTE), further outpatient evaluation with cardiac MRI (HCM protocol) is recommended. Electronically signed by : Cydney Moy MD 12/04/2023 22:19:58
== END 2023-11-29 23:59 | disposition home or self-care (01) ==
LOC: RT 07:34
PROVIDERS: PCP Nurse Practitioner; Visit Provider Nurse Practitioner Family
DX: I48.0 Paroxysmal atrial fibrillation (principal); I11.9 Hypertensive heart disease without heart failure; R00.1 Bradycardia, unspecified; F17.210 Nicotine dependence, cigarettes, uncomplicated
CPT/HCPCS: 93306

== ENCOUNTER 2024-01-04 09:24 | Outpatient (CLI) | payer BC, SELFPAY ==
--- NOTE | 2024-01-04 09:34 | MR_ITS ---
APPROVED REPORT Painter Barrel: CLINICAL INDICATION Increased LV wall thickness, evaluation for HCM TECHNIQUE Image Acquisition: Cardiac magnetic resonance (CMR) was performed on Siemens Espree MRI 1.5T scanner. Software platform sequences were performed using the Siemens DisplayLink MR B19 platform. A set of three-plane, low-resolution, large [id number] localizers were initially acquired. Then axial, coronal, sagittal TrueFISP, as well as axial HASTE images, were obtained. These were followed by gated TrueFISP breathold cinematic sequences obtained in the short axis with 8 mm slices and 2 mm gaps, 2-chamber (vertical long axis), 3-chamber, 4-chamber (horizontal long axis). A bolus of contrast was injected intravenously with first-pass sequences obtained in the short axis and four-chamber planes. 2D-velocity phase mapping was performed. Functional parameters were calculated by offline analysis on an independent workstation ([employer], [employer]). Contrast: Not administered - patient declined. FINDINGS MORPHOLOGY AND FUNCTION Left ventricle: The left ventricle is normal in size. The indexed left ventricular end-diastolic volume (LVEDVi) is 60 ml/m2 (reference range 57-105 ml/m2 in males, 56-96 ml/m2 in females). Normal left ventricular systolic function is present. There is increase in left ventricular wall thickness, up to 14.4 mm noted at the basal to mid septal LV wall. There are no regional wall motion abnormalities noted. LVEF is calculated at 57.8% (reference range 57-77%). Right ventricle: The right ventricle is normal in size. The indexed right ventricular end-diastolic volume (RVEDVi) is 61 ml/m2 (reference range 61-121 ml/m2 in males, 48-112 ml/m2 in females). Normal right ventricular systolic function is present. RVEF is calculated at 58.7% (reference range 52-72% in males, 51-71% in females). Atria: The left atrium is normal in size. The maximum indexed left atrial volume is 30 ml/m2 (reference range 26-52 ml/m2 in males, 27-53 ml/m2 in females). The right atrium is normal in size. The maximum indexed right atrial volume is 21 ml/m2 (reference range 18-90 ml/m2). Aorta: The diameter of the aortic annulus is normal, measuring 19 mm (coronal view reference range 21-30 mm in males, 19-27 mm in females). The diameter of the aortic sinus is normal, measuring 31 mm (coronal view reference range 25-42 mm in males, 24-36 mm in females). The diameter of the sinotubular junction is normal, measuring 25 mm (coronal view reference range 18-32 mm in males, 18-28 mm in females). The diameters of the ascending and descending thoracic aorta are normal. Main pulmonary artery: The main pulmonary artery diameter is normal. Pericardium: The pericardial thickness is normal. The pericardial thickness measures 2.3 mm (normal < 4.0 mm). There is no pericardial effusion. VALVES The valvular morphologies in the visualized sequences appear normal. There is no significant valvular stenosis or regurgitation of the mitral, aortic, tricuspid, or pulmonic valve noted visually. Systolic anterior motion of the mitral valve is not visualized. Ratio of pulmonary to systemic flow, Qp:Qs ratio = 1.0 (normal < or = 1.2, hemodynamically significant shunt > 1.5), demonstrating no evidence of hemodynamically significant shunt. TISSUE CHARACTERIZATION Resting Perfusion: No data on perfusion analysis due to no administration of IV contrast agent in this study. Myocardial Fibrosis and/or edema: No data on late gadolinium enhancement due to no administration of IV contrast agent in this study. T2-weighted imaging demonstrates no evidence of myocardial edema or inflammation. OTHER No other significant findings are noted. However, this exam is focused on the cardiac structure and function. IMPRESSION Normal LV size with normal LV systolic function. LVEDVi= 60 ml/m2 and LVEF= 57.8%. Normal RV size with normal RV systolic function. RVEDVi= 61 ml/m2 and RVEF= 58.7%. No atrial enlargement. No data on perfusion or late gadolinium enhancement due to no administration of IV contrast agent in this stud (patient declined). Ratio of pulmonary to systemic flow, Qp:Qs ratio = 1.0 (normal < or = 1.2, hemodynamically significant shunt > 1.5), demonstrating no evidence of hemodynamically significant shunt. This study is limited due to no administration of IV contrast. Overall, this CMR demonstrates normal biventricular systolic function. There is asymmetric increase in LV wall thickness up to 14.4 mm in the basal to mid septal LV wall. Findings do not meet criteria for HCM (basal thickness < 15 mm). As LV wall thickness approaches HCM threshold, further evaluation with repeat CMR in the 3-5 years may be suggested to evaluate for progression of LV wall thickness, if clinical concern remains in the future. COMPARISON None CRITICAL RESULT None COMMUNICATION Per this written report The findings of this cardiac MR were reviewed, reported, and signed by Abhinav Moy MD (Freight Rate Clerk). Conclusion Electronically signed by : Cydney Moy MD 01/31/2024 11:24:56
[2024-01-04 09:51] LABS: Blood Urea Nitrogen 58 mg/dl (7-17); Estimated Glomerular Filt Rate 12 ml/min (>60); GFR (African American) 14 ML/MIN (>60)
== END 2024-01-04 23:59 | disposition home or self-care (01) ==
LOC: RAD 09:24
PROVIDERS: PCP Nurse Practitioner; Visit Provider Nurse Practitioner
DX: I10 Essential (primary) hypertension (principal); R00.1 Bradycardia, unspecified; I51.89 Other ill-defined heart diseases; I48.0 Paroxysmal atrial fibrillation; R93.1 Abnormal findings on diagnostic imaging of heart and coronary circulation
CPT/HCPCS: 36415; 75557; 82565; 84520

== ENCOUNTER 2024-01-04 10:43 | Inpatient (IN) | payer BC, MEDICARE, SELFPAY ==
[2024-01-04] VITALS (7 sets, daily range): BP systolic 147–187; BP diastolic 75–93; PULSE 51–65; RESP 16–20; TEMP 36.4–36.9; O2SAT 97–99; BMI 29.2; BMI 29.6
--- NOTE | 2024-01-04 11:08 | CT_ITS ---
FINAL REPORT CLINICAL HISTORY: bilateral flank pain, JONNATHAN COMPARISON: None FINDINGS: Axial CT images of the abdomen and pelvis were obtained without intravenous contrast. Coronal and sagittal reformatted images were also obtained.This study was performed with techniques to keep radiation doses as low as reasonably achievable (ALARA). Individualized dose reduction techniques using automated exposure control or adjustment of mA and/or kV according to the patient's size were employed. Abdomen: There is mild atelectasis versus scar present in the right lung base. There is a tiny calcification in the right renal hilum that appears to be vascular in nature. There is a left less than 3 mm in size nonobstructing renal stone present. There is no evidence of hydronephrosis, and there is no evidence of either renal or ureteral stones otherwise seen. The liver, spleen and pancreas have an unremarkable, unenhanced appearance. There is mild bilateral adrenal enlargement, favor adrenal adenomas or hyperplasia. The gallbladder has been surgically resected. No mass or adenopathy is seen. No inflammatory process is identified. Pelvis: Images of the pelvis reveal no evidence of ureteral dilation or ureteral stone.No mass or abnormal fluid collection is identified. The appendix is unremarkable in appearance. Sigmoid diverticulosis is present without acute inflammatory change. The uterus has been surgically resected. IMPRESSION: Tiny less than 3 mm in size left renal stone. No evidence of hydronephrosis or ureteral stones are seen in either kidney. Bilateral adrenal enlargement, favor adenomas or hyperplasia. Reviewed, Interpreted and Dictated by Louie Gonsales III, MD Transcribed by Dana Plasencia Authenticated and [facility]
--- NOTE | 2024-01-04 11:11 | ECG_ITS ---
APPROVED REPORT Exam: Resting ECG HR:56 bpm ECG Measurements Heart Rate 56 AXES OR 190 P 69 QRSd 95 QRS 28 QT 449 T 116 QTc 439 Conclusion SINUS BRADYCARDIA LEFT VENTRICULAR HYPERTROPHY AND ST-T CHANGE [VOLTAGE CRITERIA PLUS ST/T ABNORMALITY] ABNORMAL ECG Electronically signed by : MERLIN SANCHES, 01/04/2024 16:08:48
[2024-01-04 11:15] LABS: Microscopic, Urine URINE MICROSCOPIC (MICROSCOPIC)
[2024-01-04 11:19] LABS: Lactate Venous 0.9 mmol/L (0.4-2.0); VBG Base Excess -13.3 mmol/L (-2.4-2.3); VBG HCO3 13.6 mmol/L (23-30); VBG Oxygen Saturation 91.7 % (50-70); VBG PCO2 30.1 mmol/L (35-51); VBG PH 7.27 mmol/L (7.31-7.41); VBG PO2 63.6 mmol/L (28-40); VBG Total CO2 14.5 mmol/L (23-27)
[2024-01-04 11:24] LABS: Basophils # 0.1 K/mm3 (0-0.2); Basophils % 1.3 % (0.1-2.0); Eosinophils # 0.3 K/mm3 (0.0-0.4); Eosinophils % 4.2 % (0.1-12.0); Hematocrit 34.1 % (37.0-47.0); Hemoglobin 10.9 g/dL (12.2-16.2); Lymphocytes # 2.3 K/mm3 (0.7-4.5); Lymphocytes % 34.6 % (10-50); Mean Corpuscular HGB Conc 31.9 g/dL (31.8-35.4); Mean Corpuscular Hemoglobin 27.9 pg (27.0-31.2); Mean Corpuscular Volume 87.6 fl (81-99); Mean Platelet Volume 8.3 fl (7.4-10.4); Monocytes # 0.6 K/mm3 (0.1-1.0); Monocytes % 8.8 % (1.7-9.3); Neutrophils # 3.4 K/mm3 (1.8-7.8); Neutrophils % 51.1 % (37.0-80.0); Platelet Count 296 K/mm3 (142-424); Red Blood Count 3.89 M/mm3 (4.20-5.40); Red Cell Distribution Width 14.6 % (11.5-17.5); White Blood Count 6.7 K/mm3 (4.8-10.8)
--- NOTE | 2024-01-04 11:25 | PC.NURSE ---
pt out of room with Rad for CT
[2024-01-04] MEDS: LACTATED RINGERS 1000ML 1,000 ML 999 ML IV (11:26)
[2024-01-04 11:31] LABS: Alanine Aminotransferase 40 U/L (12-78); Albumin Level 3.8 g/dl (3.5-5.0); Albumin/Globulin Ratio 1.1 (1.1-1.8); Alkaline Phosphatase 93 U/L (38-126); Anion Gap 11.8 mEq/L (5-15); Aspartate Amino Transferase 41 U/L (14-36); Bilirubin,Total 0.3 mg/dl (0.2-1.3); Blood Urea Nitrogen 58 mg/dl (7-17); Calcium 8.9 mg/dl (8.4-10.2); Carbon Dioxide 14 mmol/L (22.0-30.0); Chloride 115 mmol/L (98-107); Creatinine Clearance Estimated 17 mL/min (50-200); Estimated Glomerular Filt Rate 12 ml/min (>60); GFR (African American) 15 ML/MIN (>60); Globulin 3.6 g/dL (1.3-3.2); Glucose 86 mg/dl (74-100); Phosphorous 6.1 mg/dl (2.5-4.5); Potassium 4.8 mmoL/L (3.5-5.1); Sodium 136 mmol/L (136-145); Total Protein,Serum 7.4 g/dl (6.3-8.2)
--- NOTE | 2024-01-04 11:37 | HMH.EDGENADL ---
Discharge Plan Disposition Patient Disposition: Admitted Clinical Impressions Clinical Impression: JONNATHAN (acute kidney injury) Discharge ED Provider: Rosalinda Benton General Adult HPI General Chief complaint: Recheck/Abnormal Lab/Rx Stated complaint: Kidney function-per Time Seen by Provider: 01/04/24 10:48 Mode of Arrival: Ambulatory Source of Information: Patient Limitations: No Limitations Description of Symptoms (Recalled from ER Triage Doc. by RN): pt presents to ED from MRI. pt states she was sent for abnormal kidney labs. pt states she is scheduled to see nephrology. History of Present Illness HPI narrative: This patient is a 68-year-old female with a history of hypertension, hyperlipidemia, chronic renal insufficiency, PAD, atrial fibrillation, and diastolic dysfunction presenting to the emergency department for evaluation with concern for elevated creatinine. Patient was going for an outpatient cardiac MRI when she was found to have a creatinine of 3.8 (up from 2.1 11/08, 2.3 11/24). Patient states she has been having some nonspecific bilateral low back pain that she describes as an aching for several days, but no other symptoms. No fevers, chills, chest pain, shortness of breath, nausea, vomiting, changes bowel movements, rashes, or swelling. She has had multiple recent evaluations both here and with cardiology for poorly controlled hypertension and has had multiple medication changes made, such as initiation of hydralazine 3 times daily. She reports compliance with all of her home medications. She states that she still making good urine and denies any changes in her urine, such as decreased urine output, blood, or other concerns. Related Data Home Medications ?Medication ?Instructions ?Recorded ?Confirmed amlodipine 10 mg tablet 10 mg PO DAILY 08/24/21 12/12/23 bisoprolol fumarate 10 mg tablet 10 mg PO DAILY 08/24/21 12/12/23 cholecalciferol (vitamin D3) 1,250 1,250 mcg PO .2QWEEKLY 11/10/23 12/12/23 mcg (50,000 unit) capsule levothyroxine 25 mcg tablet 25 mcg PO DAILY 11/10/23 12/12/23 Previous Rx's ?Medication ?Instructions ?Recorded clonidine HCl 0.1 mg tablet 0.1 mg PO BID 10 days #20 tabs 11/09/23 apixaban 5 mg tablet (Eliquis) 5 mg PO BID #60 tabs 11/10/23 hydralazine 50 mg tablet 50 mg PO TID 30 days #90 tabs 11/10/23 rosuvastatin 40 mg tablet (Crestor) 40 mg PO DAILY #30 tabs 12/12/23 Allergies Allergy/AdvReac Type Severity Reaction Status Date / Time No Known Allergies Allergy Verified 12/12/23 10:41 [facility] Disclaimer: The information contained in this section may have been updated after the patient was seen, as this information can be updated by other users. Medical History Hypertension Social History Smoking Status: Current every day smoker tobacco type: cigarettes packs per day: 1 alcohol intake: current alcohol intake frequency: a few times a week substance use type: denies use current occupational status: employed Travel in the last 8 weeks: None household members: spouse housing: house current occupation: [employer] current occupational exposures/hazards: No caffeine: Yes ROS Obtained: Yes All systems reviewed & no additional complaints except as documented Physical Exam General General appearance: alert and in no apparent distress Head Head exam: atraumatic and normocephalic Eye Eye exam: Present normal appearance, PERRL and EOMI ENT ENT exam: Present normal exam, normal oropharynx, mucous membranes moist and normal external ear exam Neck Neck exam: Present normal inspection, full ROM and trachea midline; Absent tenderness Chest Chest inspection: Present normal inspection and symmetric chest wall rise; Absent tenderness Respiratory Respiratory exam: Present normal lung sounds bilaterally; Absent respiratory distress, wheezes, stridor or accessory muscle use Cardiovascular Cardiovascular exam: Present regular rate and normal rhythm Abdominal Exam Abdominal exam: Present soft; Absent distention, tenderness or guarding Extremities Exam Extremities exam: Present normal inspection, full ROM and normal capillary refill; Absent tenderness or edema Back Exam Back exam: Present normal inspection and full ROM; Absent tenderness Neurological Exam Neurological exam: Present alert, oriented X3, CN II-XII intact and normal gait; Absent motor sensory deficit Psychiatric Psychiatric exam: Present normal affect and normal mood Skin Skin exam: Present warm and dry Medical Decision Making Medical Records Medical records reviewed: Yes I reviewed the patient's medical records. Gabriele Inquiry Pt receiving controlled substance: No Vital Signs: 01/04/24 10:51 01/04/24 11:00 01/04/24 15:27 Temperature 98.2 F 98.2 F Temperature Source Oral Oral Pulse Rate 51 L 51 L Pulse Rate [Left Radial] 65 Respiratory Rate 20 16 Blood Pressure 147/75 H 147/75 H Blood Pressure [Right Arm] 187/93 H Blood Pressure Mean [Right Arm] 124 Blood Pressure Source Automatic Cuff Blood Pressure Position Sitting 02 Sat by Pulse Oximetry 99 97 Oxygen Delivery Method Room Air Room Air Room Air Lab Data Lab results reviewed: Yes I reviewed the patient's lab results. Lab Results 01/04/24 11:08: WBC 6.7, RBC 3.89 L, Hgb 10.9 L, Hct 34.1 L, MCV 87.6, MCH 27.9, MCHC 31.9, RDW 14.6, Plt Count 296, MPV 8.3, Neut % (Auto) 51.1, Lymph % (Auto) 34.6, Crosby % (Auto) 8.8, Eos % (Auto) 4.2, Baso % (Auto) 1.3, Neut # (Auto) 3.4, Lymph # (Auto) 2.3, Crosby # (Auto) 0.6, Eos # (Auto) 0.3, Baso # (Auto) 0.1, Sodium 136, Potassium 4.8, Chloride 115 H, Carbon Dioxide 14 L, Anion Gap 11.8, BUN 58 H, Creatinine 3.70 H, Estimated Creat Clear 17, Estimated GFR 12 L*, Est GFR ( Amer) 15 L*, Glucose 86, Calcium 8.9, Phosphorus 6.1 H, Magnesium 2.0, Total Bilirubin 0.3, AST 41 H, ALT 40, Alkaline Phosphatase 93, Total Creatine Kinase 68, NT-Pro-B Natriuret Pep 3850 H, Total Protein 7.4, Albumin 3.8, Globulin 3.6 H, Albumin/Globulin Ratio 1.1 01/04/24 11:10: Urine Color Yellow, Urine Appearance Clear, Urine pH 6.0, Ur Specific [place] 1.025, Urine Protein 2+, Urine Glucose (UA) Negative, Urine Ketones Negative, Urine Blood Trace-i, Urine Nitrate Negative, Urine Bilirubin Negative, Urine Urobilinogen 0.2, Ur Leukocyte Esterase Trace, Urine RBC Occasional, Urine WBC 5-10, Ur Squamous Epith Cells 3-5, Urine Bacteria Trace 01/04/24 11:11: VBG pH 7.27 L, VBG pCO2 30.1 L, VBG pO2 63.6 H, VBG HCO3 13.6 L, VBG Total CO2 14.5 L, VBG O2 Saturation 91.7 H, VBG Base Excess -13.3 L, VBG Lactic Acid 0.9 01/04/24 11:08 01/04/24 11:08 Orders (Tests/Meds): ED MEDICATIONS Generic Name Dose Route Start Last Admin Trade Name Freq PRN Reason Stop Dose Admin Lactated Ringer's 1,000 mls @ 75 mls/hr 01/04/24 15:00 Lactated Ringer's 1000 Ml Bag IV 01/05/24 04:19 .[id number] ROCAEL Discontinued Medications Generic Name Dose Route Start Last Admin Trade Name Freq PRN Reason Stop Dose Admin Lactated Ringer's 1,000 mls @ 999 mls/hr 01/04/24 11:08 01/04/24 11:26 Lactated Ringer's 1000 Ml Bag IV 01/04/24 12:08 999 mls/hr .Q1H1M ONE Administration Nicotine 21 mg 01/04/24 15:22 01/04/24 15:31 Nicotine 21mg/24hr Patch TD 01/04/24 15:23 21 mg ONCE ONE Administration ORDERS Category Date Time Status CT abdomen pelvis wo con Stat Cat Scan 01/04/24 11:08 Completed BNP [NT Pro Brain Natriuretic Pep.] Stat Lab 01/04/24 11:08 Completed Basic Metabolic Panel Routine Lab 01/04/24 22:00 Ordered CK [Creatine Kinase] Stat Lab 01/04/24 11:08 Completed Complete Blood Count Auto Diff AMLAB Lab 01/05/24 06:00 Ordered Complete Blood Count Auto Diff Stat Lab 01/04/24 11:08 Completed Comprehensive Metabolic Panel AMLAB Lab 01/05/24 06:00 Ordered Comprehensive Metabolic Panel Stat Lab 01/04/24 11:08 Completed MAG [Magnesium] Stat Lab 01/04/24 11:08 Completed Magnesium AMLAB Lab 01/05/24 06:00 Ordered PHOS [Phosphorous] Stat Lab 01/04/24 11:08 Completed UA [Urinalysis and Microscopic] Stat Lab 01/04/24 11:10 Completed VBG [Venous Blood Gas] Stat RT 01/04/24 11:11 Completed ECG Data Tracing #1: I reviewed this ECG and interpreted as documented below: Sinus bradycardia with a ventricular rate of 56 bpm. Left ventricular hypertrophy. No acute ST changes concerning for STEMI. ECG initial impression date: 01/04/24 ECG initial impression time: 11:16 Medical Decision Narrative: In summary, this patient is a 68-year-old female presenting to the Emergency Department for evaluation of elevated creatinine. Differential diagnoses considered include but are not limited to volume depletion, cardiorenal syndrome, hypertensive urgency, hypertensive emergency, renal artery stenosis, ureterolithiasis, pyelonephritis. Ruling out the most morbid conditions drove assessment. It should be noted patient's history includes hypertension which is not at goal therapy. This complicates all aspects of care by increasing patient's risk for morbidity. I reviewed patient's past medical records and noted previous evaluations by cardiology and here in the ED as per HPI. On exam, patient is well-appearing with reassuring vital signs. Her blood pressure is slightly elevated but is way better than previous evaluations. Workup included CBC, CMP, urinalysis, VBG, magnesium, phosphorus, CT abdomen and pelvis without IV contrast.. I independently interpreted CT scan prior to the radiologist read and noted no obvious obstructive stones or hydronephrosis. Please see their read for final interpretation. Labs were obtained that demonstrated elevated creatinine without other acutely concerning abnormalities at this time. Ultimately given JONNATHAN, I feel the patient would benefit from admission for further evaluation and management. Fluid resuscitation was initiated here in the emergency department. Patient was admitted to the hospitalist in stable condition after an interactive discussion. Critical Care Critical Care Time Critical Care Time: No
[2024-01-04 11:40] LABS: NT Pro Brain Natriuretic Pep. 3850 pg/mL (0-125)
[2024-01-04 11:43] LABS: Appearance,Urine CLEAR (Clear); Bilirubin,Urine Negative (Negative); Blood, Urine TRACE-I (Negative); Color,Urine YELLOW (Yellow); Glucose,Urine (UA) Negative (Negative); Ketones,Urine Negative (Negative); Leukocyte Esterase,Urine TRACE (Negative); Nitrate,Urine Negative (Negative); Protein,Urine 2+ (Negative); Specific Gravity, Urine 1.025 (1.005-1.030); Urobilinogen,Urine 0.2 EU/dl (0.2)
[2024-01-04 11:55] LABS: Bacteria,Urine Trace /lpf; RBC,Urine Occasional #/hpf (0-3)
[2024-01-04 12:01] LABS: Creatine Kinase 68 U/L (30-135)
--- NOTE | 2024-01-04 14:29 | PC.NURSE ---
updated pt that we are still waiting on ct scans to come back
--- NOTE | 2024-01-04 15:27 | PC.NURSE ---
Report given To JOHN Medellin.
[2024-01-04] MEDS: NICOTINE 21MG/24HR PATCH 21 MG TD (15:31)
--- NOTE | 2024-01-04 15:40 | PC.NURSE ---
arrived by w/c from ED
[2024-01-04] MEDS: LACTATED RINGERS 1000ML 1,000 ML 75 ML IV (16:17)
[2024-01-04] MEDS: IPRATROPIUM/ALBUTEROL 3 ML NEB IH ×2 (18:11→23:52)
[2024-01-04 18:23] LABS: Thyroid Stimulating Hormone 5.52 uIU/mL (0.465-4.68)
--- NOTE | 2024-01-04 18:33 | P.HP_ITS ---
History of Present Illness *Admission Date: 01/04/24 *Reason for visit:: elevated creatinine *History of present illness: Ms. espinoza is a 68-year-old female who presented to the ER after coming in for outpatient MRI and being found to have elevated creatinine on initial labs. Creatinine 3.6, BUN 50. On workup in the ER, concern for JONNATHAN. Patient was admitted 2 months ago for similar episode, at that time her creatinine was in the low 2 range. She has a history of hypertension, hyperlipidemia, CKD 3, PAD, A-fib, diastolic dysfunction, tobacco use disorder, chronic anticoagulation. States that over the past 3 to 4 months she has been having worsening fatigue. Works 50 to 60 hours a week but when she gets home will literally sleep all weekend and still be tired. Has increased dyspnea with exertion. Reports claudication type symptoms in her legs with ambulation. Intermittent significant swelling in her legs. Denies nausea, vomiting, diarrhea, chest pain. Does complain of some shortness of breath as stated previously. Multiple recent evaluations and labs both inpatient, with cardiology, and with her PCP. Being treated for uncontrolled hypertension as an outpatient. Currently on beta-randi calcium channel randi, clonidine, hydralazine. Diuretic and CLEMENTINE inhibitor held after previous labs showed worsening kidney function. Medicine consulted for further workup and management. Patient started on IV fluids. On evaluation, patient is spears in appearance. Tolerating p.o. intake during interview. When asked about her urine output, states she has no difficulty making urine but does not always pee a lot each time. Does report significant froth to her urine. Has not had an CLEMENTINE inhibitor in over a month. Occasionally takes ibuprofen and Aleve 2-3 times a week. Does not take any NSAIDs daily. Dosing will be 800 mg of ibuprofen or 2 tablets of Aleve at a time. Takes them for her back pain. Has had worsening flank pain over the past several months. Denies any blood in stool or vomit. Had been referred as an outpatient to see nephrology due to worsening creatinine. [facility] Disclaimer: The information contained in this section may have been updated after the patient was seen, as this information can be updated by other users. Medical History (Updated 01/04/24 @ 20:04 by Neto Darby MD) Hypothyroid Chronic renal insufficiency PAD (peripheral artery disease) HLD (hyperlipidemia) Afib Hypertension Family History Other Family history of cancer Social History Smoking Status: Current every day smoker tobacco type: cigarettes packs per day: 1 alcohol intake: former substance use type: denies use current occupational status: employed Travel in the last 8 weeks: None household members: spouse housing: house current occupation: [employer] current occupational exposures/hazards: No caffeine: Yes Review of Systems Review of Systems Review of systems (narrative): 14 point review of systems performed, pertinent positives and negatives as per [facility] Meds Home Medications and Allergies Home Medications ?Medication ?Instructions ?Recorded ?Confirmed ?Type amlodipine 10 mg tablet 10 mg PO DAILY 08/24/21 01/04/24 History bisoprolol fumarate 10 mg tablet 10 mg PO DAILY 08/24/21 01/04/24 History apixaban 5 mg tablet (Eliquis) 5 mg PO BID #60 tabs 11/10/23 01/04/24 Rx cholecalciferol (vitamin D3) 1,250 1,250 mcg PO .2QWEEKLY 11/10/23 01/04/24 H istory mcg (50,000 unit) capsule hydralazine 50 mg tablet 50 mg PO TID 30 days #90 tabs 11/10/23 01/04/24 Rx levothyroxine 25 mcg tablet 25 mcg PO DAILY 11/10/23 01/04/24 History clonidine HCl 0.1 mg tablet 0.1 mg PO DAILY 01/04/24 01/04/24 History New Prescriptions to Start Prescriptions: Allergies Allergy/AdvReac Type Severity Reaction Status Date / Time No Known Allergies Allergy Verified 12/12/23 10:41 Exam Data for Last 24 hours Vital signs and Labs for Last 24 Hours: Temp Pulse Resp BP Pulse Ox O2 Del Method 97.5 F L 56 L 17 186/75 H 98 Room Air 01/04/24 16:00 01/04/24 18:12 01/04/24 16:00 01/04/24 16:00 01/04/24 18:12 01/04/24 18:12 Laboratory Results - last 24 hr 01/04/24 11:08: WBC 6.7, RBC 3.89 L, Hgb 10.9 L, Hct 34.1 L, MCV 87.6, MCH 27.9, MCHC 31.9, RDW 14.6, Plt Count 296, MPV 8.3, Neut % (Auto) 51.1, Lymph % (Auto) 34.6, [place] % (Auto) 8.8, Eos % (Auto) 4.2, Baso % (Auto) 1.3, Neut # (Auto) 3.4, Lymph # (Auto) 2.3, [place] # (Auto) 0.6, Eos # (Auto) 0.3, Baso # (Auto) 0.1, Sodium 136, Potassium 4.8, Chloride 115 H, Carbon Dioxide 14 L, Anion Gap 11.8, BUN 58 H, Creatinine 3.70 H, Estimated Creat Clear 17, Estimated GFR 12 L*, Est GFR ( Amer) 15 L*, Glucose 86, Calcium 8.9, Phosphorus 6.1 H, Magnesium 2.0, Total Bilirubin 0.3, AST 41 H, ALT 40, Alkaline Phosphatase 93, Total Creatine Kinase 68, NT-Pro-B Natriuret Pep 3850 H, Total Protein 7.4, Albumin 3.8, Globulin 3.6 H, Albumin/Globulin Ratio 1.1 01/04/24 11:10: Urine Color Yellow, Urine Appearance Clear, Urine pH 6.0, Ur Specific [place] 1.025, Urine Protein 2+, Urine Glucose (UA) Negative, Urine Ketones Negative, Urine Blood Trace-i, Urine Nitrate Negative, Urine Bilirubin Negative, Urine Urobilinogen 0.2, Ur Leukocyte Esterase Trace, Urine RBC Occasional, Urine WBC 5-10, Ur Squamous Epith Cells 3-5, Urine Bacteria Trace, Urine Total Protein 360.0 H 01/04/24 11:11: VBG pH 7.27 L, VBG pCO2 30.1 L, VBG pO2 63.6 H, VBG HCO3 13.6 L, VBG Total CO2 14.5 L, VBG O2 Saturation 91.7 H, VBG Base Excess -13.3 L, VBG Lactic Acid 0.9 01/04/24 12:08: TSH 5.52 H I & O for Last 24 hours: Intake & Output 01/01/24 01/02/24 01/03/24 01/04/24 23:59 23:59 23:59 23:59 Weight 73.567 kg Constitutional Constitutional: no acute distress, average body habitus, chronically ill appearing and cooperative *Routine HEENT Exam Head: Present normocephalic Eye: Present EOMI and PERRL ENT: Present mucous membranes moist *Routine Neck Exam Neck: Present supple; Absent lymphadenopathy *Routine Respiratory Exam Respiratory: Present CTA bilaterally; Absent rhonchi, wheezes or crackles *Routine Cardiovascular Exam Cardiovascular: Present RRR *Routine Abdominal Exam Abdominal: Present soft and normoactive bowel sounds; Absent tenderness *Routine Rectal Exam Rectal:: deferred *Routine Genitalia Exam Genitalia:: deferred *Routine Extremities Exam Extremities: Present edema (Trace); Absent cyanosis or clubbing *Routine Skin Exam Skin: Present warm; Absent rash Comments: Skin has a spears appearance *Routine Neurological Exam Neurological: Present alert, oriented X3 and moving all extremities; Absent altered mental status Assessment and Plan *Assessment and plan (1) JONNATHAN (acute kidney injury): Status: Acute Category: Medical Code(s): N17.9 - Acute kidney failure, unspecified (2) Proteinuria, unspecified: Status: Acute Category: Medical Code(s): R80.9 - Proteinuria, unspecified (3) Hypertension: Status: Acute Qualifiers: Hypertension type: primary hypertension Qualified Code(s): I10 - Essential (primary) hypertension Category: Medical Code(s): I10 - Essential (primary) hypertension (4) Tobacco use: Status: Acute Category: Social Hx Code(s): Z72.0 - Tobacco use (5) Chronic renal insufficiency: Status: Acute Category: Medical Code(s): N18.9 - Chronic kidney disease, unspecified (6) Hypertension: Status: Acute Category: Medical Code(s): I10 - Essential (primary) hypertension (7) PAD (peripheral artery disease): Status: Chronic Category: Medical Code(s): I73.9 - Peripheral vascular disease, unspecified (8) A-fib: Status: Acute Qualifiers: Atrial fibrillation type: paroxysmal Qualified Code(s): I48.0 - Paroxysmal atrial fibrillation Category: Medical Code(s): I48.91 - Unspecified atrial fibrillation (9) Hypothyroid: Status: Acute Category: Medical Code(s): E03.9 - Hypothyroidism, unspecified Plan Ms. espinoza is a 68-year-old female who presents with worsening kidney function. History significant for hypertension, hyperlipidemia, tobacco use disorder, CKD 3, A-fib on chronic anticoagulation. Discussed case with ER, request admission because of suspected JONNATHAN. I agreed to admit for further management. On further questioning and history, presentation and symptoms most concerning for nephrotic syndrome given significant proteinuria, worsening hypertension, worsening kidney function with elevated creatinine and BUN, significant fatigue, and swelling in legs. Workup initiated. Will likely need renal biopsy in the near future. Last dose of Eliquis the morning of 01/03. Problems addressed as follows: Acute kidney injury Hypertensive urgency -Resume home regimen with amlodipine 10 mg daily, bisoprolol 10 mg daily, clonidine 0.1 mg daily, hydralazine 50 mg 3 times a day. -Gentle hydration with LR at 100 cc an hour x 1 L. -Kidney function elevated with BUN 50, creatinine 3.6. Repeat CBC, CMP, magnesium ordered for the morning. -Renal ultrasound and duplex pending to evaluate for renal artery stenosis. -Avoiding NSAIDs and CLEMENTINE/ARB Suspected Nephrotic syndrome - Patient's urine microalbumin/creatinine ratio severely elevated to greater than 2000. 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 Suspect related to kidney dysfunction. Phosphorus elevated at 6.1. A-fib: Rate controlled. Continue bisoprolol. Holding anticoagulation in the setting of likely needing renal biopsy Tobacco use disorder: Nicotine patch daily Hypothyroid: increase levothyroxine to 50 mcg a day. TSH 5.5; Additionally screen for DM with A1c Full code On Eliquis, last dose morning of 01/03 Cardiac diet Discussed potential need for transfer with patient. If function does not improve, will need urgent transfer for biopsy and further workup with nephrology. Contacted , patient on wait list. Consulted with nephrology. No additional testing recommended at this time. Will consider attempting transfer to other facilities if condition worsens.
[2024-01-04 18:43] LABS: Hemoglobin A1C 5.4 % (4.0-6.0)
[2024-01-04 19:00] LABS: Creatinine,Urine Random 72 mg/dL (Not Estab.)
[2024-01-04 22:35] LABS: Blood Urea Nitrogen 54 mg/dl (7-17); Calcium 8.5 mg/dl (8.4-10.2); Carbon Dioxide 15 mmol/L (22.0-30.0); Chloride 116 mmol/L (98-107); Creatinine Clearance Estimated 21 mL/min (50-200); Estimated Glomerular Filt Rate 16 ml/min (>60); GFR (African American) 19 ML/MIN (>60); Glucose 101 mg/dl (74-100); Sodium 137 mmol/L (136-145)
[2024-01-05] VITALS (7 sets, daily range): BP systolic 147–166; BP diastolic 73–87; PULSE 56–69; RESP 14–18; TEMP 36.4–36.9; O2SAT 96–98; BMI 30.5
[2024-01-05] MEDS: IPRATROPIUM/ALBUTEROL 3 ML NEB IH ×3 (05:52→18:29)
[2024-01-05 06:15] LABS: Basophils # 0.1 K/mm3 (0-0.2); Basophils % 0.8 % (0.1-2.0); Eosinophils # 0.2 K/mm3 (0.0-0.4); Eosinophils % 3.7 % (0.1-12.0); Hematocrit 31.2 % (37.0-47.0); Lymphocytes # 1.9 K/mm3 (0.7-4.5); Lymphocytes % 30.8 % (10-50); Mean Corpuscular Hemoglobin 27.3 pg (27.0-31.2); Mean Corpuscular Volume 85.4 fl (81-99); Mean Platelet Volume 8.2 fl (7.4-10.4); Monocytes # 0.5 K/mm3 (0.1-1.0); Neutrophils # 3.6 K/mm3 (1.8-7.8); Neutrophils % 56.8 % (37.0-80.0); Platelet Count 302 K/mm3 (142-424); Red Blood Count 3.66 M/mm3 (4.20-5.40); Red Cell Distribution Width 14.7 % (11.5-17.5); White Blood Count 6.3 K/mm3 (4.8-10.8)
[2024-01-05 06:16] LABS: Albumin Level 3.4 g/dl (3.5-5.0); Chloride 119 mmol/L (98-107); Potassium 4.6 mmoL/L (3.5-5.1); Sodium 140 mmol/L (136-145)
[2024-01-05 06:19] LABS: Alanine Aminotransferase 34 U/L (12-78); Albumin/Globulin Ratio 1.1 (1.1-1.8); Alkaline Phosphatase 84 U/L (38-126); Anion Gap 9.6 mEq/L (5-15); Aspartate Amino Transferase 34 U/L (14-36); Bilirubin,Total 0.3 mg/dl (0.2-1.3); Blood Urea Nitrogen 48 mg/dl (7-17); Calcium 8.5 mg/dl (8.4-10.2); Carbon Dioxide 16 mmol/L (22.0-30.0); Creatinine Clearance Estimated 24 mL/min (50-200); Estimated Glomerular Filt Rate 18 ml/min (>60); GFR (African American) 21 ML/MIN (>60); Globulin 3.2 g/dL (1.3-3.2); Glucose 84 mg/dl (74-100); Magnesium 1.8 mg/dl (1.6-2.3); Total Protein,Serum 6.6 g/dl (6.3-8.2)
[2024-01-05 06:25] LABS: Cholesterol 203 mg/dl (140-200); Triglycerides 115 mg/dl (30-150); VLDL Cholesterol 23 mg/dL (0-40)
[2024-01-05 06:26] LABS: Chol/HDL Ratio 5.6 (1-3.5); HDL Cholesterol 36 mg/dl (40-60)
[2024-01-05 06:36] LABS: Direct LDL Cholesterol 119.06 mg/dL (100-129)
[2024-01-05] MEDS: LEVOTHYROXINE 50MCG (0.05MG) TAB 50 MCG PO (06:41)
[2024-01-05] MEDS: HYDRALAZINE HCL 25MG TABLET 50 MG PO ×3 (08:25→20:52)
[2024-01-05] MEDS: AMLODIPINE 10MG TABLET 10 MG PO (08:26)
[2024-01-05] MEDS: cloNIDine 0.1MG TABLET 0.1 MG PO (08:26)
[2024-01-05] MEDS: BISOPROLOL 5MG TABLET 10 MG PO (08:26)
--- NOTE | 2024-01-05 09:58 | US_ITS ---
FINAL REPORT TECHNIQUE: Ultrasound images of the kidneys and bladder were obtained. CLINICAL HISTORY: EVAL RENAL PARENCHYMA FINDINGS: The right kidney measures 10.7 cm in length. There is mild increased renal echogenicity. There is no hydronephrosis. The left kidney measures 9.4 cm in length. There is mild increased renal echogenicity. There is no hydronephrosis. The spleen is unremarkable. IMPRESSION: Mild increased renal echogenicity, may represent medical renal disease. Reviewed, Interpreted and Dictated by Louie Gonsales III, MD Transcribed by Earline oMore Authenticated and . [facility]
--- NOTE | 2024-01-05 10:09 | CA_ITS ---
FINAL REPORT TECHNIQUE: Grayscale, color Doppler and duplex Doppler ultrasound of the kidneys, aorta and renal arteries was performed. Multiple velocities were measured. CLINICAL HISTORY: HTN,SMOKER,HLD FINDINGS: Aorta velocity: 127 cm/sec Right kidney: 10 cm. No evidence of hydronephrosis or mass. Right intrarenal RI: 0.7 Right renal artery velocity: 213 cm/sec. Right RAR (Renal artery-Aortic Ratio): 1.7 Left Kidney: 9.7 cm. No evidence of hydronephrosis or mass. Left intrarenal RI: .66 Left renal artery velocity: 157 cm/sec. Left RAR (Renal Artery-Aortic Ratio): 1.4 IMPRESSION: Less than 60% right renal artery stenosis. Recommend CTA or catheter directed angiogram. No significant stenosis on the left. Reviewed, Interpreted and Dictated by Louie Gonsales III, MD Transcribed by Tesha Lewis Authenticated and [facility]
[2024-01-05 12:00] LABS: HIV (1&2) Antibody Rapid NONREACTIVE (NONREACTIVE)
--- NOTE | 2024-01-05 16:25 | PC.NURSE ---
PT IS RESTING IN BED. ALERT AND ORIENTED X4. AMBULATES TO THE BATHROOM. EATING AND DRINKING WELL. LUNG SOUNDS CLEAR. ABDOMEN SOFT/NON TENDER WITH ACTIVE BOWEL SOUNDS. 1 + EDEMA NOTED TO BLE. WILL CONTINUE TO MONITOR.
--- NOTE | 2024-01-05 18:19 | EXP.PN ---
Subjective *Date: 01/05/24 *Time: 18:21 Interval history: seen at bedside, denied CP, SOB, N/V Exam Data for Last 24 hours Vital signs and Labs for Last 24 Hours: Temp Pulse Resp BP Pulse Ox O2 Del Method 97.8 F 62 14 156/76 H 98 Room Air 01/05/24 16:00 01/05/24 16:00 01/05/24 16:00 01/05/24 16:00 01/05/24 16:00 01/05/24 16:46 Laboratory Results - last 24 hr 01/04/24 11:10: Urine Creatinine 72, Urine Microalbumin 1455.900 H, Microalb/Creat Ratio 2022.0, Urine Total Protein 360.0 H 01/04/24 12:08: TSH 5.52 H 01/04/24 18:12: Hemoglobin A1c 5.4 01/04/24 22:15: Sodium 137, Potassium 5.0, Chloride 116 H, Carbon Dioxide 15 L, Anion Gap 11.0, BUN 54 H, Creatinine 3.00 H, Estimated Creat Clear 21, Estimated GFR 16 L*, Est GFR ( Amer) 19 L* D, Glucose 101 H, Calcium 8.5 01/05/24 05:47: WBC 6.3, RBC 3.66 L, Hgb 10.0 L, Hct 31.2 L, MCV 85.4, MCH 27.3, MCHC 32.0, RDW 14.7, Plt Count 302, MPV 8.2, Neut % (Auto) 56.8, Lymph % (Auto) 30.8, [place] % (Auto) 8.0, Eos % (Auto) 3.7, Baso % (Auto) 0.8, Neut # (Auto) 3.6, Lymph # (Auto) 1.9, [place] # (Auto) 0.5, Eos # (Auto) 0.2, Baso # (Auto) 0.1, Sodium 140, Potassium 4.6, Chloride 119 H, Carbon Dioxide 16 L, Anion Gap 9.6, BUN 48 H, Creatinine 2.70 H, Estimated Creat Clear 24, Estimated GFR 18 L*, Est GFR ( Amer) 21 L, Glucose 84, Calcium 8.5, Magnesium 1.8, Total Bilirubin 0.3, AST 34, ALT 34, Alkaline Phosphatase 84, Total Protein 6.6, Albumin 3.4 L D, Globulin 3.2, Albumin/Globulin Ratio 1.1, Triglycerides 115, Cholesterol 203 H, LDL Cholesterol Direct 119.06, VLDL Cholesterol 23, HDL Cholesterol 36 L, Cholesterol/HDL Ratio 5.6 H, HIV 1&2 Antibody Rapid Nonreactive I & O for Last 24 hours: Intake & Output 01/02/24 01/03/24 01/04/24 01/05/24 23:59 23:59 23:59 23:59 Intake Total 260 / 1500 2330 / 2330 Output Total 100 / 500 1900 / 1900 Balance 160 / 1000 430 / 430 Weight 73.567 kg 75.34 kg Constitutional Constitutional: no acute distress *Routine HEENT Exam Head: Present normocephalic Eye: Present EOMI and PERRL ENT: Present mucous membranes moist *Routine Neck Exam Neck: Present supple; Absent lymphadenopathy *Routine Respiratory Exam Respiratory: Present CTA bilaterally *Routine Cardiovascular Exam Cardiovascular: Present RRR *Routine Abdominal Exam Abdominal: Present soft and normoactive bowel sounds; Absent tenderness *Routine Extremities Exam Extremities: Absent cyanosis, clubbing or edema *Routine Skin Exam Skin: Present warm; Absent rash *Routine Neurological Exam Neurological: Present alert and oriented X3 Assessment and Plan *Assessment and plan (1) JONNATHAN (acute kidney injury): Status: Acute Category: Medical Code(s): N17.9 - Acute kidney failure, unspecified (2) Proteinuria, unspecified: Status: Acute Category: Medical Code(s): R80.9 - Proteinuria, unspecified (3) Hypertension: Status: Acute Qualifiers: Hypertension type: primary hypertension Qualified Code(s): I10 - Essential (primary) hypertension Category: Medical Code(s): I10 - Essential (primary) hypertension (4) Tobacco use: Status: Acute Category: Social Hx Code(s): Z72.0 - Tobacco use (5) Chronic renal insufficiency: Status: Acute Category: Medical Code(s): N18.9 - Chronic kidney disease, unspecified (6) Hypertension: Status: Acute Category: Medical Code(s): I10 - Essential (primary) hypertension (7) PAD (peripheral artery disease): Status: Chronic Category: Medical Code(s): I73.9 - Peripheral vascular disease, unspecified (8) A-fib: Status: Acute Qualifiers: Atrial fibrillation type: paroxysmal Qualified Code(s): I48.0 - Paroxysmal atrial fibrillation Category: Medical Code(s): I48.91 - Unspecified atrial fibrillation (9) Hypothyroid: Status: Acute Category: Medical Code(s): E03.9 - Hypothyroidism, unspecified Plan Ms. espinoza is a 68-year-old female who presents with worsening kidney function. History significant for hypertension, hyperlipidemia, tobacco use disorder, CKD 3, A-fib on chronic anticoagulation. Discussed case with ER, request admission because of suspected JONNATHAN. I agreed to admit for further management. On further questioning and history, presentation and symptoms most concerning for nephrotic syndrome given significant proteinuria, worsening hypertension, worsening kidney function with elevated creatinine and BUN, significant fatigue, and swelling in legs. Workup initiated. Will likely need renal biopsy in the near future. Last dose of Eliquis the morning of 01/03. Problems addressed as follows: Acute kidney injury Hypertensive urgency -Resume home amlodipine 10 mg daily, bisoprolol 10 mg daily, clonidine 0.1 mg daily, hydralazine 50 mg 3 times a day. Avoid nephrotoxic meds will benefit from nephrology service, plan to transfer, patient is agreeable Suspected Nephrotic syndrome - will transfer to nephrology capable facilty, patient has significantly elevated protein in urine Anemia with hemoglobin of 10.7 - monitor A-fib: Rate controlled. Continue bisoprolol. Holding anticoagulation in the setting of likely needing renal biopsy Tobacco use disorder: Nicotine patch daily Hypothyroid: increase levothyroxine to 50 mcg a day Full code On Eliquis, last dose morning of 01/03 Cardiac diet Plan to transfer to nephrology capable facility
[2024-01-06 00:06] VITALS: PULSE 68; PULSE 72
[2024-01-06] MEDS: IPRATROPIUM/ALBUTEROL 3 ML NEB IH ×3 (00:06→13:48)
--- NOTE | 2024-01-06 01:14 | PC.NURSE ---
Kemal from called at this time for an update on the patient. Last set of vitals, intake/output, and labs regarding kidney function were requested to be given. Kemal stated that does not have any beds available for the patient as of right now, but they will continue to call to receive updates about the patient in the meantime; will inform as soon as a bed becomes open.
[2024-01-06 04:00] VITALS: BP 126/66; PULSE 74; RESP 16; TEMP 36.9; O2SAT 97; BMI 30.5
--- NOTE | 2024-01-06 05:40 | PC.NURSE ---
Patient is alert and oriented x4. Patient was given peanut butter cookies and a Mountain Dew for a bedtime snack this shift. Patient has slept well for the majority of the night. Patient has been getting up to the bedside commode independently to void; a hat placed inside the bedside commode has been used to consistently measure her urine output. I myself emptied a total of 400mL of urine from the hat; patient has had a total urine output of 900mL per I&O this shift. Patient's urine appeared pale, transparent yellow with a mild odor; no frothing was observed. Patient's lungs were clear and her bowel sounds were active in all quadrants upon auscultation. Patient tolerates room air well. She has trace edema in both ankles. Patient has received her scheduled medication per JUL. Patient is currently resting in bed and does not have any further complaints at this time. Patient is still waiting to be transferred to a bed at for further treatment. Call light within reach.
[2024-01-06 06:31] VITALS: PULSE 62; PULSE 65; O2SAT 99
--- NOTE | 2024-01-06 06:37 | XR_ITS ---
FINAL REPORT CLINICAL HISTORY: pain and accident at work FINDINGS: LEFT FOOT Three views of the left foot demonstrate no acute fracture or dislocation. The visualized joint spaces are normally aligned. There is mild hallux valgus deformity. Mild degenerative changes are seen at the first MTP joint. There is a small plantar calcaneal spur. The soft tissues are unremarkable. IMPRESSION: No acute bony abnormality. Reviewed, Interpreted and Dictated by Louie Gonsales III, MD Transcribed by Tesha Lewis Authenticated and [facility]
[2024-01-06] MEDS: ACETAMINOPHEN 325MG TAB 650 MG PO ×2 (06:51→13:57)
[2024-01-06] MEDS: LEVOTHYROXINE 50MCG (0.05MG) TAB 50 MCG PO (06:52)
--- NOTE | 2024-01-06 07:34 | PC.NURSE ---
at 0630 patient reported left foot pain from an incident at work that occurred on tuesday r/t dropping a part on her foot. patient requested pain meds, was gave tylenol and foot xray. patient reports she is having diffcultly ambulating on foot and has remained in the chair with it propped up.
[2024-01-06 08:00] VITALS: BP 151/80; PULSE 64; RESP 19; TEMP 36.3; O2SAT 99
[2024-01-06 08:31] LABS: Basophils % 0.5 % (0.1-2.0); Eosinophils # 0.3 K/mm3 (0.0-0.4); Eosinophils % 3.6 % (0.1-12.0); Hematocrit 31.3 % (37.0-47.0); Hemoglobin 9.5 g/dL (12.2-16.2); Lymphocytes # 1.4 K/mm3 (0.7-4.5); Lymphocytes % 19.4 % (10-50); Mean Corpuscular HGB Conc 30.4 g/dL (31.8-35.4); Mean Corpuscular Hemoglobin 27.4 pg (27.0-31.2); Mean Corpuscular Volume 90.2 fl (81-99); Monocytes # 0.5 K/mm3 (0.1-1.0); Monocytes % 6.4 % (1.7-9.3); Neutrophils % 70.1 % (37.0-80.0); Platelet Count 282 K/mm3 (142-424); Red Blood Count 3.47 M/mm3 (4.20-5.40); Red Cell Distribution Width 14.5 % (11.5-17.5); White Blood Count 7.1 K/mm3 (4.8-10.8)
[2024-01-06 08:34] LABS: Chloride 116 mmol/L (98-107); Potassium 4.6 mmoL/L (3.5-5.1); Sodium 139 mmol/L (136-145)
[2024-01-06 08:37] LABS: Blood Urea Nitrogen 46 mg/dl (7-17); Creatinine Clearance Estimated 25 mL/min (50-200); Estimated Glomerular Filt Rate 18 ml/min (>60); GFR (African American) 22 ML/MIN (>60)
[2024-01-06 08:38] LABS: Anion Gap 9.6 mEq/L (5-15); Calcium 8.2 mg/dl (8.4-10.2); Carbon Dioxide 18 mmol/L (22.0-30.0); Glucose 91 mg/dl (74-100)
[2024-01-06] MEDS: cloNIDine 0.1MG TABLET 0.1 MG PO (09:05)
[2024-01-06] MEDS: HYDRALAZINE HCL 25MG TABLET 50 MG PO ×2 (09:06→13:27)
[2024-01-06] MEDS: BISOPROLOL 5MG TABLET 10 MG PO (09:06)
[2024-01-06] MEDS: AMLODIPINE 10MG TABLET 10 MG PO (09:06)
[2024-01-06] MEDS: LIDOCAINE 5% TRANSDERMAL PATCH 1 EACH TP (09:44)
[2024-01-06] MEDS: ENOXAPARIN 80MG/0.8ML SYRINGE 75 MG SQ (11:39)
[2024-01-06 11:48] LABS: Uric Acid 7.1 mg/dl (2.5-6.2)
[2024-01-06 11:52] LABS: C-Reactive Protein 3.4 mg/L (0-4)
[2024-01-06 11:59] LABS: Erythrocyte Sedimentation Rate 109 mm/hr (0-30)
--- NOTE | 2024-01-06 13:47 | HMH.PTEV ---
Physical Therapy Evaluation Rehab PT IP Evaluation Start: 01/06/24 10:59 Freq: ONCE Status: Active Protocol: Document 01/06/24 13:39 MARTHA (Rec: 01/06/24 13:46 MARTHA [id number]) Subjective/History History History Per H&P: Ms. espinoza is a 68- year-old female who presented to the ER after coming in for outpatient MRI and being found to have elevated creatinine on initial labs. Creatinine 3 .6, BUN 50. On workup in the ER, concern for JONNATHAN. Patient was admitted 2 months ago for similar episode, at that time her creatinine was in the low 2 range. She has a history of hypertension, hyperlipidemia, CKD 3, PAD, A-fib, diastolic dysfunction, tobacco use disorder, chronic anticoagulation. States that over the past 3 to 4 months she has been having worsening fatigue. Works 50 to 60 hours a week but when she gets home will literally sleep all weekend and still be tired. Has increased dyspnea with exertion. Reports claudication type symptoms in her legs with ambulation. Intermittent significant swelling in her legs. Denies nausea, vomiting, diarrhea, chest pain. Does complain of some shortness of breath as stated previously. Multiple recent evaluations and labs both inpatient, with cardiology, and with her PCP. Being treated for uncontrolled hypertension as an outpatient. Currently on beta-randi calcium channel randi, clonidine, hydralazine. Diuretic and CLEMENTINE inhibitor held after previous labs showed worsening kidney function. Medicine consulted for further workup and management. Patient started on IV fluids. Subjective Subjective Pt reports she lives with her in a single-story home . Pt was IND with all functional mobility and ambulation. Pt was working FT and still driving prior to admission. Pt reports she can not currently walk d/t significant ankle pain. Denies owning a RW. New diagnosis of cancer in past 12 No months? Rehab PT IP Eval Objective Appearance Patient Behavior Appropriate,Cooperative Patient Orientation Person,Place,Situation Difficulty following instructions none Speech Pattern Clear Ambulation Patient Able to Ambulate Yes Ambulation Observation IP General Gait Pattern Observation Antalgic Gait,Decrease Weight Bear (L) Ambulation Distance (feet) 2 Ambulation Assistive Device Rolling Walker Ambulation Ability Supervision/Stand by Balance Ability to Arise Able, uses arms to help Sitting Balance Steady, safe Standing Balance Steady, wide stance Transfers Bed Transfer Ability Supervision/Stand by Sit to Stand Bed Transfer Ability Supervision/Stand by Rehab PT IP prob,goals,plan Problems Date of Evaluation: 01/06/24 PT IP Problems Transfers,Gait,Balance,Safety Rehab Potential Rehab Potential Good Equipment Needs Assistive Devices Rolling / Wheeled Walker Plan PT Intervention Plan Transfers,Gait,Balance,Safety, Therapeutic Exercise Other Intervention Plan 1-2 times PT Plan Frequency Daily Duration LOS Discharge Goals Bed Transfer Ability Independent Sit to Stand Chair Transfer Ability Independent Ambulation Assistive Device Rolling Walker Ambulation Distance (feet) 15 Discharge Plan PT Discharge Plan Initial physical therapy evaluation performed. Patient presents below baseline at this time in functional mobility, transfers, gait, and strength. Pt would benefit from skilled PT while at [facility] to prevent further functional decline and maximize safety with mobility. Pt safe to d/c home when deemed medically necessary d/t current level of mobility, home set-up, and family support. PT recommending pt use RW to improve ambulation d/t ankle pain. PT discussed pt's need for RW with CM. PT recommending home health PT services to address deficits. Eval Complexity Eval Charge Codes 58256 - Moderate Complexity PHYSICIAN CERTIFICATION: I certify the specified therapy services for nOeida Espinoza are required, authorized, and reviewed every 30 days.
--- NOTE | 2024-01-06 13:50 | HMH.OTEV ---
OT Inpatient Evaluation Rehab OT IP Evaluation Start: 01/06/24 10:59 Freq: ONCE Status: Active Protocol: Document 01/06/24 13:45 [facility] (Rec: 01/06/24 13:50 [facility] [id number]) Rehab OT IP Assessment Subjective History Pt oriented x 3 on arrival. Pt admitted on 01/04/24 due to JONNAHTAN. History and physical: Ms. espinoza is a 68-year-old female who presented to the ER after coming in for outpatient MRI and being found to have elevated creatinine on initial labs. Creatinine 3 .6, BUN 50. On workup in the ER, concern for JONNATHAN. Patient was admitted 2 months ago for similar episode, at that time her creatinine was in the low 2 range. She has a history of hypertension, hyperlipidemia, CKD 3, PAD, A-fib, diastolic dysfunction, tobacco use disorder, chronic anticoagulation. States that over the past 3 to 4 months she has been having worsening fatigue. Works 50 to 60 hours a week but when she gets home will literally sleep all weekend and still be tired. Has increased dyspnea with exertion. Reports claudication type symptoms in her legs with ambulation. Intermittent significant swelling in her legs. Denies nausea, vomiting, diarrhea, chest pain. Does complain of some shortness of breath as stated previously. Multiple recent evaluations and labs both inpatient, with cardiology, and with her PCP. Being treated for uncontrolled hypertension as an outpatient. Currently on beta-randi calcium channel randi, clonidine, hydralazine. Diuretic and CLEMENTINE inhibitor held after previous labs showed worsening kidney function. Medicine consulted for further workup and management. Patient started on IV fluids. Subjective My ankle is what is hurting me so bad. Prior to being in the hospital , pt lived at home with her . Normally she is completely independent with all ADLs and IADLs. She does not use a rolling walker during functional transfers. 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 She still drives. Objective Patient Orientation Person,Place,Birthday Right Upper Extremity Gross ROM WFL Left Upper Extremity Gross ROM WFL Bed Mobility bed mobility-scooting,bed mobility - supine/sit Assist Level Supervision/Stand by Transfer Training Sit/Stand Transfer Assist Level Contact Guard/Hand Hold Chair Transfer Ability Contact Guard/Hand Hold Chair Transfer Technique Stand Step Pivot Chair Transfer Assistive Devices Rolling Walker Rehab OT IP prob,goals,plan Problems Date of Evaluation: 01/06/24 OT IP Problems Bed Mobility,Transfers,Balance ,Self care,Safety Rehab Potential Rehab Potential Good Equipment Needs Assistive Devices Rolling / Wheeled Walker Plan OT intervention Plan Bed Mobility,Gait,Balance,Self care,Safety,Therapeutic Exercise OT Plan Frequency Daily Duration LOS Discharge Goals Bed Mobility Ability Standby Assistance Sit to Stand Chair Transfer Ability Supervision/Stand by Chair Transfer Ability Supervision/Stand by Chair Transfer Technique Sit to/from Ambulatory Chair Transfer Assistive Devices Straight Cane Feeding Ability Assist with Tray Set Up Lower Body Dressing Ability Standby Assistance Upper Body Dressing Ability Standby Assistance Bathing Ability Standby Assistance Performing Toilet Hygiene Ability Standby Assistance Overall Commode/Toilet Transfer Ability Standby Assistance Commode/Toilet Transfer Technique Sit to/from Ambulatory Discharge Plan OT Discharge Plan Pt will continue to be seen for OT services while at [facility]. Pt can return home with husbands assistance once she is medically stable per physician. Therapist does recommend a HHOT evaluation upon returning home. Pt would also benefit from a rolling walker in order to increase independence with functional transfers and prevent further ankle pain/injury. Eval Complexity Eval Charge Codes 33867 - Moderate Complexity PHYSICIAN CERTIFICATION: I certify the specified therapy services for Oneida Espinoza are required, authorized, and reviewed every 30 days.
[2024-01-06 13:52] VITALS: PULSE 57; PULSE 59
--- NOTE | 2024-01-06 14:55 | SW/DCPLANNER ---
I spoke w/ this patient regarding plans once medically stable for discharge. PT/OT evaluated patient and recommended home health services. Patient is agreeable to home health at time of discharge. Patient does not have a preference as to which home health agency. I will set up services once medically stable for discharge. Discharge date is unknown at this time.
[2024-01-06 16:00] VITALS: BP 143/73; PULSE 68; RESP 21; TEMP 36.9; O2SAT 97
--- NOTE | 2024-01-06 17:03 | EXP.DC.SUM ---
General Admission date:: 01/04/24 Discharge date: 01/06/24 HPI HPI HPI: Ms. espinoza is a 68-year-old female who presented to the ER after coming in for outpatient MRI and being found to have elevated creatinine on initial labs. Creatinine 3.6, BUN 50. On workup in the ER, concern for JONNATHAN. Patient was admitted 2 months ago for similar episode, at that time her creatinine was in the low 2 range. She has a history of hypertension, hyperlipidemia, CKD 3, PAD, A-fib, diastolic dysfunction, tobacco use disorder, chronic anticoagulation. States that over the past 3 to 4 months she has been having worsening fatigue. Works 50 to 60 hours a week but when she gets home will literally sleep all weekend and still be tired. Has increased dyspnea with exertion. Reports claudication type symptoms in her legs with ambulation. Intermittent significant swelling in her legs. Denies nausea, vomiting, diarrhea, chest pain. Does complain of some shortness of breath as stated previously. Multiple recent evaluations and labs both inpatient, with cardiology, and with her PCP. Being treated for uncontrolled hypertension as an outpatient. Currently on beta-randi calcium channel randi, clonidine, hydralazine. Diuretic and CLEMENTINE inhibitor held after previous labs showed worsening kidney function. Medicine consulted for further workup and management. Patient started on IV fluids. On evaluation, patient is spears in appearance. Tolerating p.o. intake during interview. When asked about her urine output, states she has no difficulty making urine but does not always pee a lot each time. Does report significant froth to her urine. Has not had an CLEMENTINE inhibitor in over a month. Occasionally takes ibuprofen and Aleve 2-3 times a week. Does not take any NSAIDs daily. Dosing will be 800 mg of ibuprofen or 2 tablets of Aleve at a time. Takes them for her back pain. Has had worsening flank pain over the past several months. Denies any blood in stool or vomit. Had been referred as an outpatient to see nephrology due to worsening creatinine. Hospital Course Hospital Course Hospital Course: Ms. espinoza is a 68-year-old female who presents with worsening kidney function. History significant for hypertension, hyperlipidemia, tobacco use disorder, CKD 3, A-fib on chronic anticoagulation. Discussed case with ER, request admission because of suspected JONNATHAN. I agreed to admit for further management. On further questioning and history, presentation and symptoms most concerning for nephrotic syndrome given significant proteinuria, worsening hypertension, worsening kidney function with elevated creatinine and BUN, significant fatigue, and swelling in legs. Workup initiated. Will likely need renal biopsy in the near future. Last dose of Eliquis the morning of 01/03. Problems addressed as follows: Acute kidney injury - improving Hypertensive urgency - controlled -Resume home amlodipine 10 mg daily, bisoprolol 10 mg daily, clonidine 0.1 mg daily, hydralazine 50 mg 3 times a day. Avoid nephrotoxic meds will benefit from nephrology service, plan to transfer to for renal biopry in the setting of suspected nephrotic syndrome proteinuria, patient is agreeable. Eliquis was on hold for past 2 days, patient was being given lovenox therapeutic dose for afib. Patient is being discharged to hospital in stable condition. total time spent 37 mins Exam Data for Last 24 hours Vital signs and Labs for Last 24 Hours: Temp Pulse Resp BP Pulse Ox O2 Del Method 97.4 F L 57 L 19 151/80 H 99 Room Air 01/06/24 08:00 01/06/24 13:52 01/06/24 08:00 01/06/24 08:00 01/06/24 08:00 01/06/24 16:50 Laboratory Results - last 24 hr 01/06/24 05:46: WBC 7.1, RBC 3.47 L, Hgb 9.5 L, Hct 31.3 L, MCV 90.2, MCH 27.4, MCHC 30.4 L, RDW 14.5, Plt Count 282, MPV 9.0, Neut % (Auto) 70.1, Lymph % (Auto) 19.4, [place] % (Auto) 6.4, Eos % (Auto) 3.6, Baso % (Auto) 0.5, Neut # (Auto) 5.0, Lymph # (Auto) 1.4, [place] # (Auto) 0.5, Eos # (Auto) 0.3, Baso # (Auto) 0.0, Sodium 139, Potassium 4.6, Chloride 116 H, Carbon Dioxide 18 L, Anion Gap 9.6, BUN 46 H, Creatinine 2.60 H, Estimated Creat Clear 25, Estimated GFR 18 L*, Est GFR ( Amer) 22 L, Glucose 91, Calcium 8.2 L 01/06/24 05:56: Uric Acid 7.1 H 01/06/24 11:32: ESR 109 H, C-Reactive Protein 3.4 I & O for Last 24 hours: Intake & Output 01/03/24 01/04/24 01/05/24 01/06/24 23:59 23:59 23:59 23:59 Intake Total 260 / 1500 2330 / 2552 702 / 702 Output Total 100 / 500 2400 / 2600 800 / 800 Balance 160 / 1000 -70 / -48 -98 / -98 Weight 73.567 kg 75.34 kg 75.34 kg Constitutional Constitutional: no acute distress *Routine HEENT Exam Head: Present normocephalic Eye: Present EOMI and PERRL ENT: Present mucous membranes moist *Routine Neck Exam Neck: Present supple; Absent lymphadenopathy *Routine Respiratory Exam Respiratory: Present CTA bilaterally *Routine Cardiovascular Exam Cardiovascular: Present RRR *Routine Abdominal Exam Abdominal: Present soft and normoactive bowel sounds; Absent tenderness *Routine Extremities Exam Extremities: Absent cyanosis, clubbing or edema *Routine Skin Exam Skin: Present warm; Absent rash *Routine Neurological Exam Neurological: Present alert and oriented X3 Results Data Completed and Pending Labs on day of discharge: Labs from last 24 hours 01/06/24 01/06/24 01/06/24 11:32 05:56 05:46 WBC 7.1 RBC 3.47 L Hgb 9.5 L Hct 31.3 L MCV 90.2 MCH 27.4 MCHC 30.4 L RDW 14.5 Plt Count 282 MPV 9.0 Neut % (Auto) 70.1 Lymph % (Auto) 19.4 [place] % (Auto) 6.4 Eos % (Auto) 3.6 Baso % (Auto) 0.5 Neut # (Auto) 5.0 Lymph # (Auto) 1.4 [place] # (Auto) 0.5 Eos # (Auto) 0.3 Baso # (Auto) 0.0 ESR 109 H Sodium 139 Potassium 4.6 Chloride 116 H Carbon Dioxide 18 L Anion Gap 9.6 BUN 46 H Creatinine 2.60 H Estimated Creat Clear 25 Estimated GFR 18 L* Est GFR ( Amer) 22 L Glucose 91 Uric Acid 7.1 H Calcium 8.2 L C-Reactive Protein 3.4 DS: Diagnosis Discharge Diagnosis (1) JONNATHAN (acute kidney injury): Status: Acute Code(s): N17.9 - Acute kidney failure, unspecified (2) Proteinuria, unspecified: Status: Acute Code(s): R80.9 - Proteinuria, unspecified (3) Hypertension: Status: Acute Code(s): I10 - Essential (primary) hypertension Qualifiers: Hypertension type: primary hypertension Qualified Code(s): I10 - Essential (primary) hypertension (4) Tobacco use: Status: Acute Code(s): Z72.0 - Tobacco use (5) Chronic renal insufficiency: Status: Acute Code(s): N18.9 - Chronic kidney disease, unspecified (6) PAD (peripheral artery disease): Status: Chronic Code(s): I73.9 - Peripheral vascular disease, unspecified (7) A-fib: Status: Acute Code(s): I48.91 - Unspecified atrial fibrillation Qualifiers: Atrial fibrillation type: paroxysmal Qualified Code(s): I48.0 - Paroxysmal atrial fibrillation (8) Hypothyroid: Status: Acute Code(s): E03.9 - Hypothyroidism, unspecified Meds Home Medications and Allergies Home Medications ?Medication ?Instructions ?Recorded ?Confirmed ?Type amlodipine 10 mg tablet 10 mg PO DAILY 08/24/21 01/04/24 History bisoprolol fumarate 10 mg tablet 10 mg PO DAILY 08/24/21 01/04/24 History apixaban 5 mg tablet (Eliquis) 5 mg PO BID #60 tabs 11/10/23 01/04/24 Rx cholecalciferol (vitamin D3) 1,250 1,250 mcg PO .TWO TIMES A WEEK 11/10/23 01/05/24 History mcg (50,000 unit) capsule hydralazine 50 mg tablet 50 mg PO TID 30 days #90 tabs 11/10/23 01/04/24 Rx levothyroxine 25 mcg tablet 25 mcg PO DAILY 11/10/23 01/04/24 History clonidine HCl 0.1 mg tablet 0.1 mg PO DAILY 01/04/24 01/05/24 History New Prescriptions to Start Prescriptions: Allergies Allergy/AdvReac Type Severity Reaction Status Date / Time No Known Allergies Allergy Verified 12/12/23 10:41 Discharge Plan Disposition Patient Disposition: Xfer Short-Term Hosp Condition: Good Discharge Order Discharge Orders: Discharge Order (Routine); Ordered 01/06/24 Ordered By: Miguel A Roman Follow up Plan Follow up with: Evon Iglesias APRN [Primary Care Provider] - 2 weeks Prescriptions/Medication Reconciliation: Continued amlodipine 10 mg tablet 10 mg PO DAILY bisoprolol fumarate 10 mg tablet 10 mg PO DAILY levothyroxine 25 mcg tablet 25 mcg PO DAILY cholecalciferol (vitamin D3) 1,250 mcg (50,000 unit) capsule 1,250 mcg PO .TWO TIMES A WEEK hydralazine 50 mg tablet 50 mg PO TID 30 Days Qty: 90 5RF Eliquis 5 mg tablet 5 mg PO BID Qty: 60 5RF clonidine HCl 0.1 mg tablet 0.1 mg PO DAILY Problem Reconciliation Problems Reviewed?: Yes Patient Discharge Instructions ACTIVITY: Ambulate as tolerated DIET: continue same diet Patient Instructions: Acute Kidney Injury, DI for Acute Kidney Injury Print Language: Persian Providers Primary Care Provider: Evon Iglesias Admit Provider: Neto aDrby Attending Provider: Neto Darby
--- NOTE | 2024-01-06 17:06 | PC.NURSE ---
Report called to Major at [facility].
[2024-01-06 17:43] LABS: Albumin 3.1 g/dL (2.9-4.4); Alpha-1-Globulin 0.2 g/dL (0.0-0.4); Alpha-2-Globulin 0.9 g/dL (0.4-1.0); Cytoplasmic (C-ANCA) <1:20 titer (Neg:<1:20); Gamma Globulin 1.5 g/dL (0.4-1.8); Perinuclear (P-ANCA) <1:20 titer (Neg:<1:20); Protein, Total 6.7 g/dL (6.0-8.5)
[2024-01-06 17:43] LABS: Anti-Centromere B Antibodies <0.2 AI (0.0-0.9); Anti-DNA (DS) Ab Qn <1 IU/mL (0-9); Anti-Jo-1 <0.2 AI (0.0-0.9); Anti-Smith Antibody <0.2 AI (0.0-0.9); Antichromatin Antibodies <0.2 AI (0.0-0.9); Antiscleroderma-70 Antibodies <0.2 AI (0.0-0.9); Complement C3 120 mg/dL (82-167); RNP Antibodies 0.5 AI (0.0-0.9); Sjogren's Anti-SS-A >8.0 AI (0.0-0.9); Sjogren's Anti-SS-B >8.0 AI (0.0-0.9)
[2024-01-07 08:55] LABS: HBsAg Screen Negative (Negative); HCV Ab Non Reactive (Non Reactive); Hep A Ab, IGM Negative (Negative); Hep B Core Ab, IgM Negative (Negative)
[2024-01-09 14:09] LABS: Albumin, U 67.5 % (.); Alpha-1-Globulin, U 4.3 % (.); Alpha-2-Globulin, U 4.5 % (.); Beta Globulin, U 11.5 % (.); Gamma Globulin, U 12.2 % (.); M-Spike, % Not Observed % (Not Observed); Protein,Total,Urine 220.9 mg/dL (Not Estab.)
[2024-01-18 11:51] LABS: PDF: SCANNED IMAGE
[2024-01-20 09:31] LABS: Free Kappa Lt Chains 107.2; Free Lambda Lt Chains 118.8
[2024-01-24 16:11] LABS: PDF SCANNED IMAGE
== END 2024-01-06 18:00 | disposition short-term general hospital (02) | DRG 683 ==
LOC: ER 10:52 → 2ND 15:31
PROVIDERS: Internal Medicine; Admitting Provider Internal Medicine Adolescent Medicine; Emergency Provider Emergency Medicine; PCP Nurse Practitioner; Visit Provider Internal Medicine Adolescent Medicine
DX: N17.9 Acute kidney failure, unspecified (principal); E87.20 Acidosis, unspecified; I16.0 Hypertensive urgency; E78.5 Hyperlipidemia, unspecified; I12.9 Hypertensive chronic kidney disease with stage 1 through stage 4 chronic kidney disease, or unspecified chronic kidney disease; N18.30 Chronic kidney disease, stage 3 unspecified; I73.9 Peripheral vascular disease, unspecified; I48.0 Paroxysmal atrial fibrillation; E03.9 Hypothyroidism, unspecified; Z79.01 Long term (current) use of anticoagulants; Z72.0 Tobacco use
CPT/HCPCS: 36415; 73630; 74176; 76770; 80048; 80050; 80053; 80061; 80074; 81001; 82043; 82550; 82570; 82803; 83036; 83735; 83880; 83883; 84100; 84155; 84156; 84165; 84166; 84443; 84550; 85025; 85651; 86140; 86161; 86225; 86235; 86256; 93005; 93976; 94640; 97162; 97166; 99285; J1650; J7120; J7620

== ENCOUNTER 2024-01-20 15:22 | Emergency (ER) | payer BC, MEDICARE, SELFPAY ==
[2024-01-20 15:24] VITALS: BP 186/148; PULSE 94; RESP 18; TEMP 36.7; O2SAT 97; BMI 30.2
--- NOTE | 2024-01-20 15:38 | PC.NURSE ---
dr burton at bedside
--- NOTE | 2024-01-20 15:51 | ECG_ITS ---
APPROVED REPORT Exam: Resting ECG HR:81 bpm ECG Measurements Heart Rate 81 AXES MA 164 P 61 QRSd 86 QRS 29 QT 381 T 85 QTc 419 Conclusion SINUS RHYTHM NONSPECIFIC T-WAVE ABNORMALITY BORDERLINE ECG Electronically signed by : MATT NEWSOME, 01/20/2024 23:20:20
--- NOTE | 2024-01-20 15:55 | HMH.EDGENADL ---
Discharge Plan Disposition Patient Disposition: Home, Self-Care Chief Complaint: Recheck/Abnormal Lab/Rx Prescriptions Prescriptions: No Action amlodipine 10 mg tablet 10 mg PO DAILY bisoprolol fumarate 10 mg tablet 10 mg PO DAILY levothyroxine 25 mcg tablet 25 mcg PO DAILY cholecalciferol (vitamin D3) 1,250 mcg (50,000 unit) capsule 1,250 mcg PO .TWO TIMES A WEEK hydralazine 50 mg tablet 50 mg PO TID 30 Days Qty: 90 5RF Eliquis 5 mg tablet 5 mg PO BID Qty: 60 5RF clonidine HCl 0.1 mg tablet 0.1 mg PO DAILY Referrals Follow up/Referrals: Asuncion Iglesias APRN [Primary Care Provider] - See instructions Activity Restrictions/Add. Instructions Additional Instructions/Restrictions: Schedule follow-up with your PCP, pantry steward/stewardess, casino gaming worker as discussed. Continue taking medications as prescribed. Blood pressure cuff on the bicep will be more accurate, be sure to avoid caffeine, NSAIDs such as ibuprofen, naproxen, etc. When you are taking her blood pressure, sit back, relax, uncross legs and arms. If you have high blood pressure associated with any other symptoms, return to the emergency department for further evaluation or your primary care physician. Clinical Impressions Clinical Impression: Asymptomatic hypertension Print Language Print Language: Upper Sorbian Discharge ED Provider: Trevin Aguila General Adult HPI General Chief complaint: Recheck/Abnormal Lab/Rx Stated complaint: HBP-253/140 Time Seen by Provider: 01/20/24 15:26 Mode of Arrival: Ambulatory Source of Information: Patient Limitations: No Limitations Description of Symptoms (Recalled from ER Triage Doc. by RN): pt presents to er for hypertension, states she was just discharged from [facility] 1 week ago for JONNATHAN, currently wearing a 14 day heart monitor and placed on several new meds, states they told her to check her bp twice a day, she states her blood pressure has been elevated since tuesday, denies headache, denies vision changes, denies any pain History of Present Illness HPI narrative: Please note that above description of symptoms, in this electronic medical record under categorization of recalled from ER triage doctor by RN are reflective of an initial nursing assessment, however, is not reflective of my full history and physical exam that was personally taken and clarified. Consequentially, this preceding description of symptoms, which may include the patient's categorized chief complaint in the EMR, do not reflect my personal clinical impression, and the ultimate description of history of present illness and patient stated complaints should be deferred to this section of the note. Unless stated otherwise or congruent with this section of the note, additional signs, symptoms, or incongruence should be interpreted as inaccurate with my clinical impression. Related Data Home Medications ?Medication ?Instructions ?Recorded ?Confirmed amlodipine 10 mg tablet 10 mg PO DAILY 08/24/21 01/04/24 bisoprolol fumarate 10 mg tablet 10 mg PO DAILY 08/24/21 01/04/24 cholecalciferol (vitamin D3) 1,250 1,250 mcg PO .TWO TIMES A WEEK 11/10/23 01/05/24 mcg (50,000 unit) capsule levothyroxine 25 mcg tablet 25 mcg PO DAILY 11/10/23 01/04/24 clonidine HCl 0.1 mg tablet 0.1 mg PO DAILY 01/04/24 01/05/24 Previous Rx's ?Medication ?Instructions ?Recorded apixaban 5 mg tablet (Eliquis) 5 mg PO BID #60 tabs 11/10/23 hydralazine 50 mg tablet 50 mg PO TID 30 days #90 tabs 11/10/23 Allergies Allergy/AdvReac Type Severity Reaction Status Date / Time No Known Allergies Allergy Verified 12/12/23 10:41 [facility] Disclaimer: The information contained in this section may have been updated after the patient was seen, as this information can be updated by other users. Medical History (Updated 01/20/24 @ 16:00 by Trevin Aguila MD) Hypothyroid Chronic renal insufficiency PAD (peripheral artery disease) HLD (hyperl
[2024-01-20 16:07] VITALS: BP 179/112; PULSE 93; RESP 18; TEMP 36.6; O2SAT 97
== END 2024-01-20 16:08 | disposition home or self-care (01) ==
PROVIDERS: Emergency Provider Emergency Medicine; PCP Nurse Practitioner
DX: I48.0 Paroxysmal atrial fibrillation (principal); I11.9 Hypertensive heart disease without heart failure; I25.10 Atherosclerotic heart disease of native coronary artery without angina pectoris; I73.9 Peripheral vascular disease, unspecified; E78.5 Hyperlipidemia, unspecified; N18.9 Chronic kidney disease, unspecified; I70.1 Atherosclerosis of renal artery; F17.210 Nicotine dependence, cigarettes, uncomplicated; Z79.01 Long term (current) use of anticoagulants
CPT/HCPCS: 93005; 99283

== ENCOUNTER 2024-02-03 13:36 | Outpatient (POV) | payer BC, MEDICARE, SELFPAY | END 2024-02-03 23:59 | disposition home or self-care (01) | LOC: SC 13:37 | PROVIDERS: Visit Provider Student in an Organized Health Care Education/Training Program | DX: Z00.00 Encounter for general adult medical examination without abnormal findings (principal) ==

== ENCOUNTER 2024-02-07 11:18 | Outpatient (CLI) | payer BC, MEDICARE, SELFPAY | END 2024-02-07 23:59 | disposition home or self-care (01) | LOC: RT 11:21 | PROVIDERS: PCP Nurse Practitioner; Visit Provider Nurse Practitioner Family | DX: I45.5 Other specified heart block (principal) | CPT/HCPCS: 93270 ==

== ENCOUNTER 2024-02-27 14:21 | Outpatient (CLI) | payer BC, MEDICARE, SELFPAY ==
--- NOTE | 2024-02-27 14:31 | US_ITS ---
FINAL REPORT CLINICAL HISTORY: claudication, current smoker, HTN, hyperlipidemia, HX TIA/CVA. FINDINGS: Ankle brachial indices were obtained. The right TOM is 1.0. The left TOM is 0.91. IMPRESSION: Normal TOM on the right. Mildly depressed TOM on the left. Reviewed, Interpreted and Dictated by Rock Ramírez MD Transcribed by Earline Moore Authenticated and [facility]
[2024-02-27 14:58] LABS: Microscopic, Urine URINE MICROSCOPIC (MICROSCOPIC)
[2024-02-27 15:42] LABS: Basophils # 0.1 K/mm3 (0-0.2); Basophils % 1.3 % (0.1-2.0); Eosinophils # 0.1 K/mm3 (0.0-0.4); Eosinophils % 2.1 % (0.1-12.0); Hematocrit 35.3 % (37.0-47.0); Hemoglobin 10.8 g/dL (12.2-16.2); Lymphocytes # 1.9 K/mm3 (0.7-4.5); Mean Corpuscular HGB Conc 30.6 g/dL (31.8-35.4); Mean Corpuscular Hemoglobin 27.7 pg (27.0-31.2); Mean Corpuscular Volume 90.5 fl (81-99); Monocytes # 0.5 K/mm3 (0.1-1.0); Monocytes % 7.8 % (1.7-9.3); Neutrophils # 4.1 K/mm3 (1.8-7.8); Neutrophils % 60.8 % (37.0-80.0); Platelet Count 271 K/mm3 (142-424); Red Cell Distribution Width 14.9 % (11.5-17.5); White Blood Count 6.7 K/mm3 (4.8-10.8)
[2024-02-27 15:55] LABS: Albumin Level 3.5 g/dl (3.5-5.0); Chloride 111 mmol/L (98-107); Potassium 4.8 mmoL/L (3.5-5.1); Sodium 137 mmol/L (136-145)
[2024-02-27 15:58] LABS: Alanine Aminotransferase 65 U/L (12-78); Albumin/Globulin Ratio 1.2 (1.1-1.8); Alkaline Phosphatase 87 U/L (38-126); Anion Gap 11.8 mEq/L (5-15); Aspartate Amino Transferase 49 U/L (14-36); Bilirubin,Total 0.4 mg/dl (0.2-1.3); Blood Urea Nitrogen 37 mg/dl (7-17); Calcium 8.5 mg/dl (8.4-10.2); Carbon Dioxide 19 mmol/L (22.0-30.0); Estimated Glomerular Filt Rate 18 ml/min (>60); GFR (African American) 21 ML/MIN (>60); Globulin 2.9 g/dL (1.3-3.2); Glucose 79 mg/dl (74-100); Phosphorous 4.8 mg/dl (2.5-4.5); Total Protein,Serum 6.4 g/dl (6.3-8.2)
[2024-02-27 16:07] LABS: 25-OH Vitamin D, Total 42.7 ng/mL (30-100)
[2024-02-27 16:46] LABS: Intact Parathyroid Hormone 221.1 pg/mL (7.5-53.5)
[2024-02-27 16:54] LABS: Appearance,Urine CLEAR (Clear); Bilirubin,Urine Negative (Negative); Blood, Urine Negative (Negative); Color,Urine YELLOW (Yellow); Glucose,Urine (UA) TRACE (Negative); Ketones,Urine Negative (Negative); Leukocyte Esterase,Urine Negative (Negative); Nitrate,Urine Negative (Negative); Protein,Urine 2+ (Negative); Specific Gravity, Urine 1.025 (1.005-1.030); Urobilinogen,Urine 0.2 EU/dl (0.2)
[2024-02-27 17:21] LABS: Bacteria,Urine Trace /lpf
[2024-02-27 17:45] LABS: Microalbumin > 570.000 mg/L (0-16.7); Total Protein,Urine Random > 600.0 mg/dL (0.0-12.0)
[2024-02-29 08:22] LABS: Complement C3 112 mg/dL (82-167)
[2024-02-29 11:04] LABS: Creatinine,Urine Random 112 mg/dL (Not Estab.)
[2024-02-29 13:27] LABS: Anti-DNA (DS) Ab Qn <1 IU/mL (0-9)
[2024-02-29 15:26] LABS: Nuclear Dot Pattern >1:1280 (.)
[2024-03-01 16:29] LABS: dsDNA AB Crithidia Negative (Negative)
== END 2024-02-27 23:59 | disposition home or self-care (01) ==
LOC: RT 14:24
PROVIDERS: Student in an Organized Health Care Education/Training Program; PCP Nurse Practitioner; Visit Provider Internal Medicine
DX: I73.9 Peripheral vascular disease, unspecified (principal); N17.9 Acute kidney failure, unspecified; N18.4 Chronic kidney disease, stage 4 (severe); B95.1 Streptococcus, group B, as the cause of diseases classified elsewhere
CPT/HCPCS: 36415; 80053; 80069; 81001; 82043; 82306; 82570; 83970; 84156; 85025; 86038; 86161; 86225; 87086; 87088; 87186; 93923

== ENCOUNTER 2024-03-16 13:43 | Outpatient (POV) | payer BC, MEDICARE, SELFPAY | END 2024-03-16 23:59 | disposition home or self-care (01) | LOC: SC 13:44 | PROVIDERS: Visit Provider Student in an Organized Health Care Education/Training Program | DX: Z00.00 Encounter for general adult medical examination without abnormal findings (principal) ==

== ENCOUNTER 2024-04-24 07:11 | Outpatient (CLI) | payer BC, SELFPAY ==
--- NOTE | 2024-04-24 07:12 | US_ITS ---
FINAL REPORT TECHNIQUE: Sonographic images of the abdomen were obtained in all four quadrants. CLINICAL HISTORY: ABD PAIN AND BLOATING FINDINGS: LIVER: Homogeneous. No focal hepatic lesion or intrahepatic biliary dilatation. COMMON BILE DUCT: 3 mm GALLBLADDER: The gallbladder is absent. PANCREAS: Unremarkable. RIGHT KIDNEY: 10.0 cm. No hydronephrosis, mass or stone. LEFT KIDNEY: 8.5 cm. No hydronephrosis, mass or stone. SPLEEN: 7.1 cm. No focal splenic lesion. AORTA/IVC: No abdominal aortic aneurysm. Visualized IVC within normal limits. OTHER: No ascites. IMPRESSION: Status postcholecystectomy, otherwise unremarkable. Reviewed, Interpreted and Dictated by Sandy Turner MD Transcribed by Earline Moore Authenticated and [facility]
== END 2024-04-24 23:59 | disposition home or self-care (01) ==
LOC: RAD 07:11
PROVIDERS: PCP Nurse Practitioner; Visit Provider Nurse Practitioner
DX: R14.0 Abdominal distension (gaseous) (principal); R10.9 Unspecified abdominal pain
CPT/HCPCS: 76700

== ENCOUNTER 2024-07-16 10:49 | Outpatient (CLI) | payer BC, SELFPAY ==
[2024-07-16 10:57] LABS: Microscopic, Urine URINE MICROSCOPIC (MICROSCOPIC)
[2024-07-16 11:59] LABS: Appearance,Urine CLEAR (Clear); Bilirubin,Urine Negative (Negative); Blood, Urine Negative (Negative); Color,Urine YELLOW (Yellow); Glucose,Urine (UA) TRACE (Negative); Ketones,Urine Negative (Negative); Leukocyte Esterase,Urine Negative (Negative); Nitrate,Urine Negative (Negative); Protein,Urine 3+ (Negative); Urobilinogen,Urine 0.2 EU/dl (0.2)
[2024-07-16 12:04] LABS: Creatinine,Urine Random 50 mg/dL (Not Estab.)
[2024-07-16 12:12] LABS: Bacteria,Urine Trace /lpf; Squamous Epithelial Cell,Urine Occasional #/hpf (0-5)
== END 2024-07-16 23:59 | disposition home or self-care (01) ==
LOC: LAB 10:53
PROVIDERS: PCP Nurse Practitioner; Visit Provider Student in an Organized Health Care Education/Training Program
DX: I12.9 Hypertensive chronic kidney disease with stage 1 through stage 4 chronic kidney disease, or unspecified chronic kidney disease (principal); Z72.0 Tobacco use
CPT/HCPCS: 81001; 82570; 84156

== ENCOUNTER 2024-08-10 09:45 | Outpatient (CLI) | payer BC, SELFPAY ==
[2024-08-10 11:09] LABS: Albumin Level 3.6 g/dl (3.5-5.0); Anion Gap 8.9 mEq/L (5-15); Blood Urea Nitrogen 33 mg/dl (7-17); Calcium 9.1 mg/dl (8.4-10.2); Carbon Dioxide 22 mmol/L (22.0-30.0); Chloride 112 mmol/L (98-107); Estimated Glomerular Filt Rate 16 ml/min (>60); GFR (African American) 20 ML/MIN (>60); Glucose 90 mg/dl (74-100); Phosphorous 4.4 mg/dl (2.5-4.5); Potassium 4.9 mmoL/L (3.5-5.1); Sodium 138 mmol/L (136-145)
== END 2024-08-10 23:59 | disposition home or self-care (01) ==
PROVIDERS: PCP Nurse Practitioner; Visit Provider Student in an Organized Health Care Education/Training Program
DX: I12.9 Hypertensive chronic kidney disease with stage 1 through stage 4 chronic kidney disease, or unspecified chronic kidney disease (principal); N18.4 Chronic kidney disease, stage 4 (severe); E87.5 Hyperkalemia
CPT/HCPCS: 36415; 80069

== ENCOUNTER 2025-01-24 10:44 | Outpatient (CLI) | payer MEDICARE, SELFPAY ==
--- OUTSIDE RECORDS SUMMARY | 2025-01-24 10:49 | XMS_ITS | Encounter Summary ---
Author Organization Healthcare Address [address] [place] [address] Care Team Providers Care Carousel Attendant Name Role Phone Alma Perdomo EM PHYSICIAN Unavailable [phone] Stevie Mckenzie MD Unavailable Asuncion Iglesias APRN Primary Care Provider [phone] Encounter Details Date Type Department Care Team ([facility] Contact Info) Description 11/09/2024 Telephone [facility] Nephrology, Bone & Mineral Metabolism [address] [facility], [address] [place] [address] Loretta Landers, PharmD [address] [facility] [address] [place] [address] Social History Tobacco Use Types Packs/Day Years Used Date Smoking Tobacco: Every Day Cigarettes 1 46.1 Started: 01/05/1979 Smokeless Tobacco: Never Alcohol Use Standard Drinks/Week Comments Not Currently 0 (1 standard drink = 0.6 oz pur e alcohol) Humiliation, Afraid, Rape, and Kick questionnair e Answer Date Recorded Within the last year, have y ou been afraid of your partner or ex-partner? No 01/10/2024 Within the last year, have y ou been humiliated or emotionally abused in other ways by your partner or ex-partner? No Within the last year, have y ou been kicked, hit, slapped, or otherwise physically hurt by your partner or ex-partner? No 01/10/2024 Within the last year, have y ou been raped or forced to have any kind of sexual activity by your partner or ex-partner? No 01/10/2024 Social Connection and Isolation Panel Answer Date Recorded In a typical week, how many times do you talk on the phone with family, friends, or neighbors? More than three times a week 01/10/2024 How often do you get togethe r with friends or relatives? More than three times a week 01/10/2024 How often do you attend chur ch or judaism services? Never 01/10/2024 Do you belong to any clubs o r organizations such as taoist groups, unions, fraternal or athletic groups, or school groups? No 01/10/2024 How often do you attend meet ings of the clubs or organizations you belong to? Never 01/10/2024 Are you , , di vorced, , never , or living with a partner? 01/10/2024 AUDIT-C Answer Date Recorded Q1: How often do you have a drink containing alcohol? Never 01/10/2024 Q2: How many drinks containi ng alcohol do you have on a typical day when you are drinking? Patient does not drink Q3: How often do you have si x or more drinks on one occasion? Never 01/10/2024 [facility] - Occupational Stress Questionnaire Answer Date Recorded Do you feel stress - tense, restless, nervous, or anxious, or unable to sleep at night because your mind is troubled all the time - these days? Only a little 01/10/2024 Exercise Vital Sign Answer Date Recorde d On average, how many days pe r week do you engage in moderate to strenuous exercise (like a brisk walk)? 3 days 01/10/2024 On average, how many minutes do you engage in exercise at this level? 30 min 01/10/2024 Hunger Vital Sign Answer Date Recorded Within the past 12 months, y ou worried that your food would run out before you got the money to buy more. Never true 01/10/20 24 Within the past 12 months, t he food you bought just didn't last and you didn't have money to get more. Never true 01/10/2024 PRAPARE - Transportation Answer Date Re corded In the past 12 months, has l ack of transportation kept you from medical appointments or from getting medications? No 12/28 In the past 12 months, has l ack of transportation kept you from meetings, work, or from getting things needed for daily living? No 01/10/2024 Housing Stability Vital Sign Answer Ric e Recorded In the last 12 months, was t here a time when you were not able to pay the mortgage or rent on time? No 01/10/2024 In the last 12 months, how many places have you lived? 1 01/10/2024 In the last 12 months, was t here a time when you did not have a steady place to sleep or slept in a long term (including now)? No 01/10/2024 CAGE ASSESSMENT Answer Date Recorded Cage unable to access Not on file 01/06/2024 Cage max number of drinks Not on file 2023 Cage Beverages a week Not on file 01/06/2024 Have you ever felt you should CUT down on your d rinking? 0 01/06/2024 Have you been ANNOYED by people criticizing your drinking? 0 01/06/2024 Have you felt GUILTY about your drinking? 0 01/06/2024 Have you had a drink first t adair in the morning (EYE-CONTACT LENS BLOCKER) to steady your nerves or to get rid of a hangover? 0 01/06/2024 CAGE Questionnaire Score 0 024 Utilities Answer Date Recorded In the past 12 months has th e electric, gas, oil, or water company threatened to shut off services in your home? No 01/10/2024 Comments No Sex and Gender Information Value Date Recorded Sex Assigned at Not on file Legal Sex Female 5:58 PM EDT Gender Identity Not on file Sexual Orientation Not on file documented as of this encounter Miscellaneous Notes * Telephone Encounter - Ivy Beal, PharmD - 12/18/2024 10:14 AM EDT Attempted to reach Oneida Anderson via telephone x3 to follow-up regarding BP without success, no further attempts will be made at this time. Voicemails have been left, patient has contact information forwriter/clinic. Patient to follow-up with provider as scheduled. Should patient reach back out to clinic, I would be happy to follow-up. Ivy Beal, JoelleD, BCACP [facility] NEPHROLOGY, BONE & MINERAL METABOLISM [address] [facility] [address] * Progress Notes - Loretta Landers, PharmD - 11/09/2024 2:01 PM EDT Spoke with Oneida Anderson via phone to follow-up regarding recent home BP control. She states she's been monitoring BP at home, usually 140s. She has not been keeping a log for review. She admits she does still have some wide swings up and down. Discussed that Dr. Mckenzie advised she could skip hydralazine if BP is low, she has been taking consistently. She is agreeable to start keeping log, will follow-up in 2-3 weeks to review. Loretta Landers PharmD, BCACP Clinical Pharmacist Nephrology Clinic documented in this encounter Plan of Treatment Upcoming Encounters Date Type Department Care Team (Late st Contact Info) Description 02/01/2025 12:00 PM EDT Office Visit [facility] [address] [facility] [address] [address] Stevie Mckenzie MD [address] [place] [phone] documented as of this encounter Visit Diagnoses Not on filedocumented in this encounter Additional Health Concerns Assessment Noted Time A Body Mass Index follow-up plan has been documented for the patient 10/12/2024 10:50 AM EDT documented as of this encounter Care Teams Carousel Attendant Relationship Specialty Start Date End Date Asuncion Iglesias APRN [address] [place] [address] PCP - General 01/31/24 Alma Perdomo APRN [facility] [place] [address] Referring Physician Cardiology 01/08/24 Stevie Mckenzie MD [address] [place] [address] Consulting Physician Nephrology 01/08/24 documented as of this encounter
--- OUTSIDE RECORDS SUMMARY | 2025-01-24 10:49 | XMS_ITS | Clinical Summary ---
[facility] [address] [place] [address] Care Team Providers Care Dental Mold Maker Name Role Phone Asuncion Iglesias APRN Primary Care Provider [phone] Social History Tobacco Use Types Packs/Day Years Used Date Smoking Tobacco: Never Assessed Abuse Screen Answer Date Recorded Unsafe at Home or Work/School Not on file Feels Threatened by Someone? Not on file 01/2023 Does Anyone Keep You from Co ntacting Others or Doint Things Outside the Home? Not on file 03/07/2023 Physical Sign of Abuse Present Not on file 1 Housing Stability Answer Date Recorded Current Living Arrangements Not on file 01/2023 Potentially Unsafe Housing Conditions Not on noemí e 03/07/2023 Family and Community Support Answer Ric e Recorded Help with Day-to-Day Activities Not on file 03/07/2023 Lonely or Isolated Not on file 03/07/2023 Employment Answer Date Recorded Do you want help finding or keeping work or a marlee b? Not on file 03/07/2023 Disabilities Answer Date Recorded Concentrating, Remembering, or Making Decisions Difficulty Not on file 03/07/2023 Doing Errands Independently Difficulty Not on fi le 03/07/2023 Education Answer Date Recorded Help with school or training? Not on file Preferred Language Not on file 03/07/2023 Comments Unknown Sex and Gender Information Value Date Recorded Sex Assigned at Not on file Legal Sex Female 1:26 PM EDT Gender Identity Not on file Sexual Orientation Not on file Plan of Treatment Health Maintenance Due Date Last Done Comments DXA SCAN 1957 TDAP/TD VACCINES (1 - Tdap) 1976 MAMMOGRAM 1997 COLOGUARD 2002 COLON CANCER SCREENING 5 YEAR SIGMOIDOSCOPY 2002 COLONOSCOPY 2002 [address] CANCER SCREENING 2002 CT COLONOGRAPHY 2002 FECAL OCCULT BLOOD TEST 2002 FIT Testing (1 year) 2002 Pneumococcal Vaccine 50+ (1 of 1 - PCV) 2007 ZOSTER VACCINE (1 of 2) 2007 ANNUAL WELLNESS VISIT 06/21/2022 HEPATITIS C SCREENING 06/21/2022 COVID-19 Vaccine ( season) 2024 INFLUENZA VACCINE 02/27/2025 Insurance [employer] MEDIC[employer] ADVANTAGE Care Teams Dental Mold Maker Relationship Specialty Start Date End Date Asuncion Iglesias APRN [address] [place] [id number] PCP - General Nurse Practitioner 04/18/24
--- OUTSIDE RECORDS SUMMARY | 2025-01-24 10:49 | XMS_ITS | Clinical Summary ---
Author Organization [facility] Address [address] [place] [address] Care Team Providers Care Summer Camp Counselor Name Role Phone Alma Perdomo HEALTH ADMINISTRATION TEACHER Unavailable [phone] Stevie Mckenzie MD Unavailable Asuncion Iglesias APRN Primary Care Provider [phone] Allergies No known active allergies Medications apixaban (Eliquis) 5 MG tablet Take 1 tablet (5 mg) by mouth 2 (two) times a day. 60 tablet 2 01/11/2024 Active levothyroxine (Synthroid, Levoxyl) 25 MCG tablet Take 1 tablet (25 mcg) by mouth 1 (one) time each day before breakfast. 30 tablet 2 01/11/2024 Active rosuvastatin (Crestor) 10 MG tablet Take 1 tablet (10 mg) by mouth every night. 30 tablet 1 01/11/2024 Active FeroSul 325 (65 Fe) MG tablet 03/05/2024 Activ e pantoprazole (ProtoNix) 20 MG EC tablet Take 1 tablet (20 mg) by mouth 1 (one) time each day before breakfast. Do not crush, chew, or split. Active cholecalciferol (Vitamin D-3) 50 MCG (2000 UT) capsuleIndicatio ns:Vitamin D deficiency Take 1 capsule (2,000 Units) by mouth 1 (one) time each day. 90 capsule 3 07/02/2024 Active amLODIPine (Norvasc) 10 MG tabletIndication s:Hypertensive chronic kidney disease with stage 1 through stage 4 chronic kidney disease, or unspecified chronic kidney disease Take 1 tablet by mouth daily. 90 tablet 3 10/12/2024 Active bisoprolol (Zebeta) 5 MG tabletIndication s:Hypertensive chronic kidney disease with stage 1 through stage 4 chronic kidney disease, or unspecified chronic kidney disease Take 1 tablet by mouth daily. 90 tablet 3 10/12/2024 Active hydrALAZINE (Apresoline) 50 MG tabletIndication s:Hypertensive chronic kidney disease with stage 1 through stage 4 chronic kidney disease, or unspecified chronic kidney disease Take 1 tablet by mouth 3 times a day. 120 tablet 3 10/12/2024 Active isosorbide mononitrate ER (Imdur) 60 MG 24 hr tabletIndication s:Hypertensive chronic kidney disease with stage 1 through stage 4 chronic kidney disease, or unspecified chronic kidney disease Take 1 tablet by mouth daily. Do not crush or chew. 90 tablet 3 10/12/2024 Active sodium bicarbonate 650 MG tabletIndication s:Metabolic acidosis Take 2 tablets by mouth 2 times a day. 120 tablet 3 10/12/2024 Active Active Problems Problem Noted Date Diagnosed Date Vitamin D deficiency 07/20/2024 Hyperkalemia 07/20/2024 Metabolic acidosis 03/16/2024 Cigarette nicotine dependenc e with nicotine-induced disorder 03/16/2024 Persistent proteinuria 02/03/2024 Chronic kidney disease-mineral and bone disorder (CKD-MBD) 02/03/2024 Hypertensive chronic kidney disease with stage 1 through stage 4 chronic kidney disease, or unspecified chronic kidney disease 02/03/2024 Class 1 obesity due to exces s calories with body mass index (BMI) of 31.0 to 31.9 in adult 01/10/2024 JONNATHAN (acute kidney injury) 01/06/2024 Paroxysmal A-fib 01/06/2024 HTN (hypertension) 01/06/2024 Hypothyroidism 01/06/2024 Hyperlipidemia 01/06/2024 CKD (chronic kidney disease) stage 4, GFR 15-29 ml/min 01/06/2024 PAD (peripheral artery disease) 01/06/2024 Hyperphosphatemia 01/06/2024 Left ankle pain 01/06/2024 (HFpEF) heart failure with preserved ejection fr action 01/06/2024 Anemia in stage 4 chronic kidney disease 024 Tobacco abuse 01/06/2024 Encounters Date Type Department Care Team Description 11/09/2024 Telephone [facility] Nephrology, Bone & Mineral Metabolism [address] [facility], [address] [place] [address] Loretta Landers, PharmD from Last 3 Months Immunizations Immunization Administration Dates Next Due Pneumococcal Polysaccharide PPV23 01/19/2012 Family History Medical History Relation Name Comments No Known Problems Father No Known Problems Mother Relation Name Status Comments Father Mother Social History Tobacco Use Types Packs/Day Years Used Date Smoking Tobacco: Every Day Cigarettes 1 46.1 Started: 01/05/1977 Smokeless Tobacco: Never Tobacco Cessation:Ready to Q uit: No; Counseling Given: Yes Alcohol Use Standard Drinks/Week Comments Not Currently [...] week 01/10/2024 How often do you attend [facility] or mandaen services? Never 01/10/2024 Do you belong to any clubs o r organizations such as islam groups, unions, fraternal or athletic groups, or [...] more drinks on one occasion? Never 01/10/2024 [facility] - Occupational Stress Questionnaire Answer Date [...] place to sleep or slept in a long-term (including now)? No 01/10/2024 CAGE ASSESSMENT Answer [...] drink first t adair in the morning (EYE-CULLET WASHER) to steady your nerves or to get [...] on file Sexual Orientation Not on file Last Filed Vital Signs Vital Sign Reading Time Taken Comments Blood Pressure 178/78 10/12/2024 10:28 AM EDT retake in the left arm- 160/77 Pulse 60 10/12/2024 10:28 AM EDT Temperature 36.6 C (97.8 F) 07/20/2024 1:45 PM EST Respiratory Rate 18 10/12/2024 10:2 8 AM EDT Oxygen Saturation 99% 10/12/2024 10: 28 AM EDT Inhaled Oxygen Concentration - - Weight 73 kg (161 lb) 10/12/2024 10:28 AM EDT Height 157.5 cm (5' 2 ) 10/12/2024 10:2 8 AM EDT Body Mass Index 29.45 10/12/2024 10:28 AM EDT Plan of Treatment Upcoming Encounters Date Type Department Care Team (Late st Contact Info) Description 02/01/2025 12:00 PM EDT Office Visit [facility] [address] [place] [address] Stevie Mckenzie MD [address] [place] [phone] Health Maintenance Due Date Last Done Comments [facility]-Bone Density Scan 1957 [facility]-Depression Screening 1957 [facility]-Diabetes: Hemoglobin A1C 1957 [facility]-Hepatitis C Screening 1957 [facility]-Medicare Annual Wellness (AWV) 1957 [facility]-Infant/Child/Adol SDOH Screenings 1957 Diabetes: Dental Exam 1967 [facility]- SDOH Screenings 1975 [facility]-Adult SDOH Screenings 1975 [facility]-DTaP,Tdap,and Td Vaccines (1 - Tdap) 1976 CT Colonography 2002 Colonoscopy 2002 FIT-DNA 2002 FIT 2002 FOBT 2002 Sigmoidoscopy 2002 [facility]-Colorectal Cancer Screening 2002 [facility]-Breast Cancer Screening 2007 [facility]-Lung Cancer Screening 2007 [facility]-Zoster Vaccines (1 of 2) 2007 [facility]-Pneumococcal Vaccine: 50+ Years (2 of 2 - PCV) 01/18/2013 01/19/2012 [facility]-RSV Vaccine: 60+ Years or (1 - Risk 60-74 years 1-dose series) 2017 [id number] Vaccine (3 - season) 2024 04/28/2021, 02/06/2021 [facility]-Influenza Vaccine (#1) 2025 [facility]-Obesity Intervention Completed 025, 07/20/2024, 06/15/2024, Additional history exists HPV Vaccines Aged Out No longer eligi ble based on patient's age to complete this topic [facility]-HIB Vaccines Aged Out No longer e ligible based on patient's age to complete this topic [facility]-Hepatitis A Vaccines Aged Out No longer eligible based on patient's age to complete this topic [facility]-IPV Vaccines Aged Out No longer e ligible based on patient's age to complete this topic [facility]-Rotavirus Vaccines Aged Out No lo nger eligible based on patient's age to [place] [address] [employer] MEDICARE Advance Directives * Full Code (Latest Code Status on File) Date Activated Date Inactivated Comments 01/06/2024 8:08 PM 01/11/2024 4:57 PM Question Answer Comments Patient has decision-making capacity? Yes Care Teams Summer Camp Counselor Relationship Specialty Start Date End Date Asuncion Iglesias APRN [address] [place] [id number] PCP - General 01/31/24 Alma Perdomo APRN [address] [place] [address] Referring Physician Cardiology 01/08/24 Stevie Mckenzie MD [address] [place] [phone] Consulting Physician Nephrology 01/08/24
[2025-01-24 11:29] LABS: PHA INR Fingerstick 1.7 (0.9-1.1)
== END 2025-01-24 23:59 | disposition home or self-care (01) ==
LOC: ACC 10:46
PROVIDERS: PCP Nurse Practitioner; Visit Provider Internal Medicine
DX: I48.0 Paroxysmal atrial fibrillation (principal)
CPT/HCPCS: 85610; 99211; G0463

== ENCOUNTER 2025-01-27 11:32 | Emergency (ER) | payer MEDICARE, SELFPAY ==
[2025-01-27 11:39] VITALS: BP 119/61; PULSE 62; RESP 16; TEMP 36.6; O2SAT 96; BMI 28.3
--- OUTSIDE RECORDS SUMMARY | 2025-01-27 11:40 | XMS_ITS | Clinical Summary ---
Author Organization [facility] Address [address] [place] [address] Care Team Providers Care Construction Mgr Name Role Phone Alma Perdomo BODY TRIMMER UPHOLSTERER Unavailable [phone] Stevie Mckenzie MD Unavailable Asuncion Iglesias APRN Primary Care Provider [phone] Allergies No known active allergies Medications apixaban [...] Nephrology, Bone & Mineral Metabolism [address] [facility], [address] [place] [address] Loretta Landers, PharmD from Last [...] week 01/10/2024 How often do you attend [facility] or spiritism services? Never 01/10/2024 Do you belong to any clubs o r organizations such as jehovah's witness groups, unions, fraternal or athletic groups, or [...] more drinks on one occasion? Never 01/10/2024 [facility] - Occupational Stress Questionnaire Answer Date [...] place to sleep or slept in a chcf (including now)? No 01/10/2024 CAGE ASSESSMENT Answer [...] drink first t adair in the morning (EYE-CHARGEMASTER SPECIALIST) to steady your nerves or to get [...] Description 02/01/2025 12:00 PM EDT Office Visit [facility] [address] [place] [address] Stevie Mckenzie MD [address] [place] [phone] Health Maintenance Due Date Last Done Comments [...] - Risk 60-74 years 1-dose series) 2017 [id number] Vaccine (3 - season) 2024 04/28/2021, 02/06/2021 [...] patient's age [place] [address] AETNA MEDICARE Advance Directives * Full Code (Latest Code Status on File) Date Activated Date Inactivated Comments 01/06/2024 8:08 PM 01/11/2024 4:57 PM Question Answer Comments Patient has decision-making capacity? Yes Care Teams Construction Mgr Relationship Specialty Start Date End Date Asuncion Iglesias APRN [address] [place] [id number] PCP - General 01/31/24 Alma Perdomo APRN [address] [place] [id number] Referring Physician Cardiology 01/08/24 Stevie Mckenzie MD [address] [place] [phone] Consulting Physician Nephrology 01/08/24
--- OUTSIDE RECORDS SUMMARY | 2025-01-27 11:40 | XMS_ITS | Encounter Summary ---
Author Organization Healthcare Address [address] [place] [address] Care Team Providers Care Department Administrator Name Role Phone Alma Perdomo RENEWAL SPECIALIST Unavailable [phone] Stevie Mckenzie MD Unavailable Asuncion Iglesias APRN Primary Care Provider [phone] Encounter Details Date Type Department Care Team ([facility] Contact Info) Description 11/09/2024 Telephone [facility] Nephrology, Bone & Mineral Metabolism [address] [facility], [address] [place] [address] Loretta Landers, PharmD [address] [facility] [address] [place] [address] Social History Tobacco Use Types [...] often do you attend chur ch or gnosticism services? Never 01/10/2024 Do you belong to any clubs o r organizations such as caodaism groups, unions, fraternal or athletic groups, or [...] more drinks on one occasion? Never 01/10/2024 [facility] Health - Occupational Stress [...] drink first t adair in the morning (EYE-ARMORED VEHICLE OFFICER) to steady your nerves or to get [...] happy to follow-up. Ivy Beal, JoelleD, BCACP [facility] NEPHROLOGY, BONE & MINERAL METABOLISM [address] [facility] [address] * Progress Notes - Loretta [...] Description 02/01/2025 12:00 PM EDT Office Visit [facility] [address] [facility] [address] [address] Stevie Mckenzie MD [address] [place] [phone] documented as of this encounter Visit Diagnoses Not on filedocumented in this encounter Additional Health Concerns Assessment Noted Time A Body Mass Index follow-up plan has been documented for the patient 10/12/2024 10:50 AM EDT documented as of this encounter Care Teams Department Administrator Relationship Specialty Start Date End Date Asuncion Iglesias APRN [address] [place] [address] PCP - General 01/31/24 Alma Perdomo APRN On license of [facility] [place] [address] Referring Physician Cardiology 01/08/24 Stevie Mckenzie MD [address] [place] [address] Consulting Physician Nephrology 01/08/24 documented as of this encounter
--- OUTSIDE RECORDS SUMMARY | 2025-01-27 11:41 | XMS_ITS | Clinical Summary ---
[facility] [address] [place] [address] Care Team Providers Care Crane Operator Cab Name Role Phone Asuncion Iglesias APRN Primary Care Provider [phone] Social History Tobacco Use Types Packs/Day Years [...] 02/27/2025 Insurance [employer] AD[employer] Care Teams Crane Operator Cab Relationship Specialty Start Date End Date Asuncion Iglesias APRN [address] [place] [phone] PCP - General Nurse Practitioner 04/18/24
[2025-01-27 11:45] LABS: Coronavirus 19, PCR Not Detected (NotDetected); Influenza A, PCR Not Detected (NotDetected); Influenza B, PCR Not Detected (NotDetected)
--- NOTE | 2025-01-27 11:56 | HMH.EDGENADL ---
Discharge Plan Disposition Patient Disposition: Home, Self-Care Condition: Good Prescriptions Prescriptions: No Action levothyroxine 25 mcg tablet 25 mcg PO DAILY hydralazine 50 mg tablet 50 mg PO QID Qty: 120 5RF sennosides [senna] 8.6 mg tablet 8.6 mg PO DAILY sodium bicarbonate 650 mg tablet 650 mg PO BID ferrous sulfate [FeroSul] 325 mg (65 mg iron) tablet 325 mg PO DAILY aspirin [Adult Aspirin Regimen] 81 mg tablet,delayed release (DR/EC) 81 mg PO DAILY Qty: 90 3RF rosuvastatin 20 mg tablet 20 mg PO DAILY Qty: 90 3RF ondansetron HCl 4 mg tablet 4 mg PO DAILY PRN pantoprazole 20 mg tablet,delayed release (DR/EC) 20 mg PO ONCE isosorbide mononitrate 60 mg tablet extended release 24 hr 60 mg PO DAILY Qty: 30 2RF cholecalciferol (vitamin D3) [Vitamin D3] 50 mcg (2,000 unit) capsule 50 mcg PO DAILY Patient Comments: TAKE ONE CAPSULE BY MOUTH ONCE A DAY bisoprolol fumarate 5 mg tablet 5 mg PO DAILY Qty: 30 11RF amlodipine [Norvasc] 5 mg tablet 5 mg PO DAILY Qty: 30 11RF Referrals Follow up/Referrals: Asuncion Iglesias APRN [Primary Care Provider, Medical] - See instructions Activity Restrictions/Add. Instructions Additional Instructions/Restrictions: Please return to the emergency department with any worsening signs or symptoms. Please follow-up with your PCP in the upcoming days/weeks. Please continue take all your medication as prescribed. Recommend [id number] cold and flu medication for symptomatic relief. Clinical Impressions Clinical Impression: Upper respiratory infection Instructions Patient Instructions: DI for Viral Upper Respiratory Infection -- Adult Print Language Print Language: Macedonian Discharge ED Provider: Essence Hernandez General Adult HPI <SADAF Carpenter - Last Filed: 01/27/25 12:13> General Chief complaint: Upper Respiratory Infection Stated complaint: cough, chest willy Time Seen by Provider: 01/27/25 11:51 Mode of Arrival: Ambulatory Source of Information: Patient Description of Symptoms (Recalled from ER Triage Doc. by RN): patient states she has been congested with a cough and runny nose for one week History of Present Illness HPI narrative: 69-year-old female presents emergency department with cough congestion, recent sick exposure at work, rhinorrhea for the last 4 days, patient endorses clear rhinorrhea, productive cough with phlegm , and sometimes has some episodes of posttussive emesis, denies any chest pain or shortness of breath, denies any abdominal pain, denies any diarrhea constipation, urinary type symptomatology, denies hematuria, hematemesis, hematochezia or or hemoptysis, she is a current everyday smoker, denies any alcohol or other drug use, other past medical history is consistent with CKD, hypertension, PAD, atrial fibrillation, hyperlipidemia. Initial triage vitals are unremarkable, patient tells me funny I am just here for a steroid shot that helps me better than anything . Please note that above description of symptoms, in this electronic medical record under categorization of recalled from ER triage doctor by RN are reflective of an initial nursing assessment, however, is not reflective of my full history and physical exam that was personally taken and clarified. Consequentially, this preceding description of symptoms, which may include the patient's categorized chief complaint in the EMR, do not reflect my personal clinical impression, and the ultimate description of history of present illness and patient stated complaints should be deferred to this section of the note. Unless stated otherwise or congruent with this section of the note, additional signs, symptoms, or incongruence should be interpreted as inaccurate with my clinical impression. Onset (ago): day(s) Related Data Home Medications ?Medication ?Instructions ?Recorded ?Confirmed levothyroxine 25 mcg tablet 25 mcg PO DAILY 11/10/23 01/21/25 ferrous sulfate 325 mg (65 mg 325 mg PO DAILY 02/07/24 01/21/25 iron) tablet (FeroSul) sennosides 8.6 mg tablet (senna) 8.6 mg PO DAILY 02/07/24 01/21/25 sodium bicarbonate 650 mg tablet 650 mg PO BID 02/07/24 01/21/25 ondansetron HCl 4 mg tablet 4 mg PO DAILY PRN 04/23/24 01/21/25 pantoprazole 20 mg tablet,delayed 20 mg PO ONCE 04/23/24 01/21/25 release cholecalciferol (vitamin D3) 50 50 mcg PO DAILY 01/21/25 01/21/25 mcg (2,000 unit) capsule (Vitamin D3) Previous Rx's ?Medication ?Instructions ?Recorded hydralazine 50 mg tablet 50 mg PO QID #120 tabs 02/27/24 aspirin 81 mg tablet,delayed 81 mg PO DAILY #90 tabs 03/05/24 release (Adult Aspirin Regimen) rosuvastatin 20 mg tablet 20 mg PO DAILY #90 tabs 03/05/24 isosorbide mononitrate 60 mg 60 mg PO DAILY #30 tabs 04/23/24 tablet,extended release 24 hr bisoprolol fumarate 5 mg tablet 5 mg PO DAILY #30 tabs 04/30/24 amlodipine 5 mg tablet (Norvasc) 5 mg PO DAILY #30 tabs 05/21/24 Allergies Allergy/AdvReac Type Severity Reaction Status Date / Time No Known Allergies Allergy Verified 01/21/25 13:03 [facility] <SADAF Carpenter - Last Filed: 01/27/25 12:13> [facility] Disclaimer: The information contained in this section may have been updated after the patient was seen, as this information can be updated by other users. Medical History Hypothyroid Chronic renal insufficiency PAD (peripheral artery disease) HLD (hyperlipidemia) Afib Hypertension Family History Other Family history of cancer Social History Smoking Status: Current every day smoker tobacco type: cigarettes packs per day: 1 alcohol intake: former substance use type: denies use current occupational status: employed Travel in the last 8 weeks?: None household members: spouse housing: house current occupation: [employer] current occupational exposures/hazards: No caffeine: Yes Have you lived/traveled outside US in past 30 days?: No Contact w/someone who lives/traveled outside US past 30 days?: No Exposure to someone with infectious disease in past 14 days?: No Do you have a fever (greater than 100.4 F or 38 C)?: No Have you tested positive for COVID-19?: No Exposed to someone with COVID-19 in past 14 days?: No Do you have a sore throat?: No Do you have a cough?: Yes Do you have any weakness?: Yes Do you have any diarrhea?: No Are you experiencing any unusual bleeding?: No Do you have any muscle aches/pain?: No Do you have any abdominal pain?: No Are you experiencing loss of taste or smell?: No Other Medical History Have you received the Flu Vaccine for this season: No Have you received the Pneumonia Vaccine: No <SADAF Carpenter - Last Filed: 01/27/25 12:13> ROS Obtained: Yes All systems reviewed & no additional complaints except as documented Physical Exam <SADAF Carpenter - Last Filed: 01/27/25 12:13> General General appearance: alert and in no apparent distress Head Head exam: atraumatic and normocephalic Eye Eye exam: Present PERRL and EOMI ENT ENT exam: Present mucous membranes moist Neck Neck exam: Present normal inspection Chest Chest inspection: Present normal inspection and symmetric chest wall rise Respiratory Respiratory exam: Present normal lung sounds bilaterally; Absent respiratory distress, wheezes or stridor Cardiovascular Cardiovascular exam: Present regular rate and normal rhythm Abdominal Exam Abdominal exam: Present soft; Absent tenderness, guarding or rebound Extremities Exam Extremities exam: Present normal inspection Neurological Exam Neurological exam: Present alert and oriented X3 Psychiatric Psychiatric exam: Present normal affect Skin Skin exam: Present warm and dry Medical Decision Making <SADAF Carpenter - Last Filed: 01/27/25 12:13> Medical Records Medical records reviewed: Yes I reviewed the patient's medical records. Screening: Per USPSTF and CDC recommendations, given the prevalence of disease in our region, it is our hospital?s policy to screen for HIV and viral Hepatitis for all patients aged 18 and over and those with ongoing risk factors. Gabriele Inquiry Pt receiving controlled substance: No Gabriele was queried for this patient: No Vital Signs: 01/27/25 11:39 01/27/25 12:18 Temperature 98 F 98.0 F Temperature Source Oral Oral Pulse Rate 61 Pulse Rate [Right Radial] 62 Respiratory Rate 16 16 Blood Pressure 127/63 Blood Pressure [Left Arm] 119/61 Blood Pressure Mean [Left Arm] 80 Blood Pressure Source Automatic Cuff Blood Pressure Source [Left Arm] Automatic Cuff Blood Pressure Position Sitting Blood Pressure Position [Left Arm] Supine 02 Sat by Pulse Oximetry 96 Oxygen Delivery Method Room Air Room Air Lab Data Lab results reviewed: Yes I reviewed the patient's lab results. Lab Results 01/27/25 11:44: SARS-CoV-2 (PCR) Not detected, Influenza A Untype (PCR) Not detected, Influenza Type B (PCR) Not detected Orders (Tests/Meds): ED MEDICATIONS Discontinued Medications Generic Name Dose Route Start Last Admin Trade Name Freq PRN Reason Stop Dose Admin Dexamethasone Sodium Phosphate 10 mg 01/27/25 11:57 01/27/25 12:04 Dexamethasone 4mg/Ml 1ml Vial IM 01/27/25 11:58 10 mg ONCE ONE Administration ORDERS Category Date Time Status Rapid PCR Covid and Flu A/B Stat Lab 01/27/25 11:44 Completed Medical Decision Narrative: 69-year-old female presents the emergency department with URI type symptomatology for days, differential diagnose include but not limited to, acute bronchitis, other URI, viral rhinosinusitis, among others. I discussed this patient case with the patient Offered laboratory studies and imaging studies of the patient, patient denied at this time, shared decision making was utilized I think this is appropriate as patient is remained hemodynamically stable, lungs clear to auscultation bilaterally, she is not ill-appearing, patient states that she would like a steroid injection . Will give 10 mg IM dexamethasone, will obtain rapid PCR COVID and flu, will call patient with results of rapid PCR COVID and flu as it will not manager change, patient was given strict ED return precautions, patient will follow-up with PCP in the upcoming days/weeks, patient voiced understanding and agreement with current treatment plan/discharge plan. <Essence Hernandez MD - Last Filed: 01/27/25 15:34> Vital Signs: 01/27/25 11:39 01/27/25 12:18 Temperature 98 F 98.0 F Temperature Source Oral Oral Pulse Rate 61 Pulse Rate [Right Radial] 62 Respiratory Rate 16 16 Blood Pressure 127/63 Blood Pressure [Left Arm] 119/61 Blood Pressure Mean [Left Arm] 80 Blood Pressure Source Automatic Cuff Blood Pressure Source [Left Arm] Automatic Cuff Blood Pressure Position Sitting Blood Pressure Position [Left Arm] Supine 02 Sat by Pulse Oximetry 96 Oxygen Delivery Method Room Air Room Air Lab Data Lab Results 01/27/25 11:44: SARS-CoV-2 (PCR) Not detected, Influenza A Untype (PCR) Not detected, Influenza Type B (PCR) Not detected Orders (Tests/Meds): ED MEDICATIONS Discontinued Medications Generic Name Dose Route Start Last Admin Trade Name Freq PRN Reason Stop Dose Admin Dexamethasone Sodium Phosphate 10 mg 01/27/25 11:57 01/27/25 12:04 Dexamethasone 4mg/Ml 1ml Vial IM 01/27/25 11:58 10 mg ONCE ONE Administration ORDERS Category Date Time Status Rapid PCR Covid and Flu A/B Stat Lab 01/27/25 11:44 Completed Medical Decision Narrative: 69-year-old female presents the emergency department with URI type symptomatology for days, differential diagnose include but not limited to, acute bronchitis, other URI, viral rhinosinusitis, among others. I discussed this patient case with the patient Offered laboratory studies and imaging studies of the patient, patient denied at this time, shared decision making was utilized I think this is appropriate as patient is remained hemodynamically stable, lungs clear to auscultation bilaterally, she is not ill-appearing, patient states that she would like a steroid injection . Will give 10 mg IM dexamethasone, will obtain rapid PCR COVID and flu, will call patient with results of rapid PCR COVID and flu as it will not manager change, patient was given strict ED return precautions, patient will follow-up with PCP in the upcoming days/weeks, patient voiced understanding and agreement with current treatment plan/discharge plan. I was consulted by the MELISSA, and we discussed the complexity of problems being addressed. I approved the treatment and management plan for this patient's care in the emergency department, thus performing a substantial portion of the medical decision making. Essence Hernandez MD Critical Care <SADAF Carpenter - Last Filed: 01/27/25 12:13> Critical Care Time Critical Care Time: No
[2025-01-27] MEDS: DEXAMETHASONE 4MG/ML 1ML VIAL 10 MG IM (12:04)
[2025-01-27 12:18] VITALS: BP 127/63; PULSE 61; RESP 16; TEMP 36.7; O2SAT 97
== END 2025-01-27 12:19 | disposition home or self-care (01) ==
PROVIDERS: Emergency Provider Student in an Organized Health Care Education/Training Program; PCP Nurse Practitioner
DX: R09.81 Nasal congestion (principal); R09.89 Other specified symptoms and signs involving the circulatory and respiratory systems; J06.9 Acute upper respiratory infection, unspecified; F17.210 Nicotine dependence, cigarettes, uncomplicated
CPT/HCPCS: 87636; 96372; 99282; 99283; J1100

== ENCOUNTER 2025-01-29 08:49 | Outpatient (CLI) | payer MEDICARE, SELFPAY ==
--- OUTSIDE RECORDS SUMMARY | 2025-01-29 09:00 | XMS_ITS | Encounter Summary ---
Author Organization Healthcare Address [address] [place] [address] Care Team Providers Care Controls Project Engineer Name Role Phone Alma Perdomo PLASTIC CARD GRADER CARDROOM Unavailable [phone] Stevie Mckenzie MD Unavailable Asuncion Iglesias APRN Primary Care Provider [phone] Encounter Details Date Type Department Care Team ([facility] Contact Info) Description 11/09/2024 Telephone [facility] Nephrology, Bone & Mineral Metabolism [address], [address] [place] [address] Loertta Landers, PharmD [address] [place] [address] Social History Tobacco Use Types [...] often do you attend chur ch or methodist services? Never 01/10/2024 Do you belong to any clubs o r organizations such as moravian groups, unions, fraternal or athletic groups, or [...] more drinks on one occasion? Never 01/10/2024 [facility] - Occupational [...] place to sleep or slept in a fci (including now)? No 01/10/2024 CAGE ASSESSMENT Answer [...] drink first t adair in the morning (EYE-TONSORIAL ARTIST) to steady your nerves or to get [...] happy to follow-up. Ivy Beal, JoelleD, BCACP [facility] NEPHROLOGY, BONE & MINERAL METABOLISM [address] [facility] [facility] [address] * Progress Notes - Loretta Landers, [...] Description 02/01/2025 12:00 PM EDT Office Visit [facility] [address] [address] Stevie Mckenzie MD [address] [place] [phone] documented as of this encounter Visit Diagnoses Not on filedocumented in this encounter Additional Health Concerns Assessment Noted Time A Body Mass Index follow-up plan has been documented for the patient 10/12/2024 10:50 AM EDT documented as of this encounter Care Teams Controls Project Engineer Relationship Specialty Start Date End Date Asuncion Iglesias APRN [address] [place] [address] PCP - General 01/31/24 Alma Perdomo APRN [facility] [place] [address] Referring Physician Cardiology 01/08/24 Stevie Mckenzie MD [address] [place] [address] Consulting Physician Nephrology 01/08/24 documented as of this encounter
--- OUTSIDE RECORDS SUMMARY | 2025-01-29 09:00 | XMS_ITS | Clinical Summary ---
[facility] [address] [place] [address] Care Team Providers Care Cooler Supervisor Name Role Phone Asuncion Iglesias APRN Primary Care Provider [phone] Social History Tobacco Use Types Packs/Day Years [...] 02/27/2025 Insurance [employer]AGE Care Teams Cooler Supervisor Relationship Specialty Start Date End Date Asuncion Iglesias APRN [address] [place] [id number] PCP - General Nurse Practitioner 04/18/24
--- OUTSIDE RECORDS SUMMARY | 2025-01-29 09:00 | XMS_ITS | Clinical Summary ---
Author Organization [facility] Address [address] [place] [address] Care Team Providers Care Traffic Coordinator Name Role Phone Alma Perdomo SHEARER OPERATOR Unavailable [phone] Stevie Mckenzie MD Unavailable Asuncion Iglesias APRN Primary Care Provider [phone] Allergies No known active allergies Medications apixaban [...] Nephrology, Bone & Mineral Metabolism [address] [address] [facility] [address] [facility], [address] [place] [address] Loretta Landers, PharmD from Last [...] week 01/10/2024 How often do you attend [facility] or orthodoxy services? Never 01/10/2024 Do you belong to any clubs o r organizations such as yazidi groups, unions, fraternal or athletic groups, or [...] more drinks on one occasion? Never 01/10/2024 [facility] Questionnaire Answer Date [...] place to sleep or slept in a half-way (including now)? No 01/10/2024 CAGE ASSESSMENT Answer [...] drink first t adair in the morning (EYE-BOILER HOUSE OPERATOR) to steady your nerves or to get [...] Description 02/01/2025 12:00 PM EDT Office Visit [facility] [address] [place] [address] Stevie Mckenzie MD [address] [place] [phone] Health Maintenance Due Date Last Done Comments [facility]-Bone Density Scan 1957 [facility]-Depression Screening 1957 [facility]-Diabetes: Hemoglobin A1C 1957 [facility]-Hepatitis C Screening 1957 [facility]-Medicare Annual Wellness (AWV) 1957 [facility]-/Child/Adol SDOH Screenings 1957 Diabetes: Dental Exam 1967 [...] - Risk 60-74 years 1-dose series) 2017 [id number] Vaccine (3 - season) 2024 04/28/2021, 02/06/2021 [...] patient's age to complete [place] [address] [employer] MEDICARE Advance Directives * Full Code (Latest Code Status on File) Date Activated Date Inactivated Comments 01/06/2024 8:08 PM 01/11/2024 4:57 PM Question Answer Comments Patient has decision-making capacity? Yes Care Teams Traffic Coordinator Relationship Specialty Start Date End Date Asuncion Iglesias APRN [address] [place] [address] PCP - General 01/31/24 Alma Perdomo APRN [address] [place] [address] Referring Physician Cardiology 01/08/24 Stevie Mckenzie MD [address] [place] [phone] Consulting Physician Nephrology 01/08/24
[2025-01-29 09:09] LABS: PHA INR Fingerstick 4.1 (0.9-1.1)
== END 2025-01-29 09:12 ==
LOC: ACC 08:51
PROVIDERS: PCP Nurse Practitioner; Visit Provider Internal Medicine
DX: I48.0 Paroxysmal atrial fibrillation (principal)
CPT/HCPCS: 85610; 99211; G0463

== ENCOUNTER 2025-02-01 12:45 | Outpatient (CLI) | payer MEDICARE, SELFPAY ==
--- OUTSIDE RECORDS SUMMARY | 2025-02-01 12:00 | XMS_ITS | Encounter Summary ---
Author Organization [facility] Address [address] [place] [address] Care Team Providers Care Cylinder Head Assembler Name Role Phone Alma Perdomo OPERATING SYSTEMS SPECIALIST Unavailable Stevie Mckenzie MD Unavailable Asuncion Iglesias APRN Primary Care Provider [phone] Reason for Referral * Imaging (Routine) - Pending Review Specialty Diagnoses / Procedures Referred By Contac t Referred To Contact Cardiology Diagnoses Renal artery arteriosclerosis (CMS/HCC) Procedures VAS US Renal Artery Duplex Stevie Mckenzie MD [address] [place] [address] Phone: tel: fax: Referral ID Status Reason Start Date Expiration Date Visits Requested Visits Authorized [id number] Pending Review Perform Procedure 02/01/2025 08/03/2026 1 [...] Description 02/01/2025 12:00 PM EDT Office Visit [facility] [address] [place] [address] Stevie Mckenzie MD [address] [place] [address] JONNATHAN (acute kidney injury) (CMS/HCC) [...] week 01/10/2024 How often do you attend [facility] or jain services? Never 01/10/2024 Do you belong to any clubs o r organizations such as gnosticist groups, unions, fraternal or athletic groups, or [...] more drinks on one occasion? Never 01/10/2024 [facility] of Occupat ional Health - [...] place to sleep or slept in a alf (including now)? No 01/10/2024 CAGE ASSESSMENT Answer [...] drink first t adair in the morning (EYE-DIGITAL ACCOUNT SUPERVISOR) to steady your nerves or to get [...] PM EDT Nephrology Outpatient Clinic Progress Note [facility] Patient: Oneida Anderson Primary Care Provider: Asuncion Iglesias APRN Reason for visit: CKD 4 follow up HPI/Subjective Oneida Anderson is a 69 y.o. female with a PMH of HTN, HFpEF, pAFib, PAD, HLD, CKD who was recently admitted to [facility] on 01/06/24 for severe JONNATHAN and [...] (HFpEF) heart failure with preserved ejection fraction ([facility]) 01/06/2024 Anemia 01/06/2024 CKD (chronic kidney disease) 01/06/2024 HTN (hypertension) 01/06/2024 Hyperlipidemia 01/06/2024 Hypothyroidism 01/06/2024 PAD (peripheral artery disease) ([facility]) 01/06/2024 Paroxysmal A-fib ([facility]) 01/06/2024 Tobacco abuse 01/06/2024 Patient Active Problem List Diagnosis JONNATHAN (acute kidney injury) ([facility]) Paroxysmal A-fib ([facility]) HTN (hypertension) Hypothyroidism Hyperlipidemia CKD (chronic kidney disease) stage 4, GFR 15-29 ml/min ([facility]) PAD (peripheral artery disease) ([facility]) Hyperphosphatemia Left ankle pain (HFpEF) heart failure with preserved ejection fraction ([facility]) Anemia in stage 4 [...] min Stress: No Stress Concern Present (01/10/2024) [place] Islander [place] of Occupational Health - Occupational Stress Questionnaire Feeling of Stress : Only a little Social Connections: Moderately Isolated (01/10/2024) Social Connection and Isolation Panel Frequency of Communication with Friends and Family: More than three times a week Frequency of Social Gatherings with Friends and Family: More than three times a week Attends Hindu Services: Never Active Member of Clubs or [...] smoking cigarettes emphasized this visit and by Mems Device Scientist. LOW sodium diet <2g/day -RAAS blockade - [...] months Stevie Mckenzie MD Division of Nephrology [facility] MDM: High risk, patient with organ failing, severe progression of a chronic disease (CKD stage 5) Acute kidney injury, severe, potentially life threatening. Discussed dialysis modalities today. ORDERS PLACED THIS ENCOUNTER Orders Placed This Encounter Procedures Renal function panel Standing Status: Future Expected Date: 03/29/2025 Expiration Date: 08/05/2026 Release to patient in [facility]: Immediate [1] Protein, Random, Urine with Creatinine Standing Status: Future Expected Date: 03/29/2025 Expiration Date: 08/05/2026 Release to patient in [facility]: Immediate [1] CBC Standing Status: Future Expected Date: 03/29/2025 Expiration Date: 08/05/2026 Release to patient in [facility]: Immediate [1] Renal function panel Standing Status: [...] documented as of this encounter Care Teams Cylinder Head Assembler Relationship Specialty Start Date End Date Asuncion Iglesias APRN [address] [place] [address] PCP - General 01/31/24 Alma Perdomo APRN [address] [address] Referring Physician Cardiology 01/08/24 Stevie Mckenzie MD [address] [place] [phone] Consulting Physician Nephrology 01/08/24 documented as of this encounter
--- OUTSIDE RECORDS SUMMARY | 2025-02-01 12:49 | XMS_ITS | Encounter Summary ---
Author Organization Healthcare Address [address] [place] [address] Care Team Providers Care Oracle Sql Developer Name Role Phone Alma Perdomo CHAMBER MAGISTRATE Unavailable [phone] Stevie Mckenzie MD Unavailable Asuncion Iglesias APRN Primary Care Provider [phone] Encounter Details Date Type Department Care Team (Latest Contact Info) Description 02/01/2025 Travel Social History Tobacco Use Types Packs/Day Years [...] week 01/10/2024 How often do you attend [facility] or gnosticism services? Never 01/10/2024 Do you belong to any clubs o r organizations such as anglican groups, unions, fraternal or athletic groups, or [...] occasion? Never 01/10/2024 [facility] of Occupat ional Health - Occupational [...] drink first t adair in the morning (EYE-FIBRE CEMENT MOULDER) to steady your nerves or to get rid of a hangover? 0 01/06/2024 CAGE Questionnaire Score 0 024 Utilities Answer Date Recorded In the past 12 months has [employer], gas, oil, or water company threatened to shut off services in your home? No 01/10/2024 Comments No Sex and Gender Information Value Date Recorded Sex Assigned at Not on file Legal Sex Female 5:58 PM EDT Gender Identity Not on file Sexual Orientation Not on file documented as of this encounter Plan of Treatment Not on file documented as of this encounter Visit Diagnoses Not on filedocumented in this encounter Additional Health Concerns Assessment Noted Time A Body Mass Index follow-up plan has been documented for the patient 02/01/2025 12:42 PM EDT documented as of this encounter Care Teams Oracle Sql Developer Relationship Specialty Start Date End Date Asuncion Iglesias APRN [address] [place] [address] PCP - General 01/31/24 Alma Perdomo APRN [address] [place] [address] Referring Physician Cardiology 01/08/24 Stevie Mckenzie MD [address] [place] [phone] Consulting Physician Nephrology 01/08/24 documented as of this encounter
--- OUTSIDE RECORDS SUMMARY | 2025-02-01 12:49 | XMS_ITS | Clinical Summary ---
Author Organization [facility] Address [address] [place] [address] Care Team Providers Care Ocean Freight Agent Name Role Phone Alma Perdomo ANGELINE Unavailable [phone] Stevie Mckenzie MD Unavailable Asuncino Iglesias APRN Primary Care Provider [phone] Allergies No known active allergies Medications levothyroxine (Synthroid, Levoxyl) 25 MCG tablet Take 1 tablet (25 mcg) by mouth 1 (one) time each day before breakfast. 30 tablet 2 4 Active rosuvastatin (Crestor) 10 MG tablet Take 1 tablet (10 mg) by mouth every night. 30 tablet 1 4 Active FeroSul 325 (65 Fe) MG tablet 4 Active pantoprazole (ProtoNix) 20 MG EC tablet Take 1 tablet (20 mg) by mouth 1 (one) time each day before breakfast. Do not crush, chew, or split. Active cholecalciferol (Vitamin D-3) 50 MCG (2000 UT) capsuleIndicati ons:Vitamin D deficiency Take 1 capsule (2,000 Units) by mouth 1 (one) time each day. 90 capsule 3 5 Active amLODIPine (Norvasc) 10 MG tabletIndicatio ns:Hypertensive chronic kidney disease with stage 1 through stage 4 chronic kidney disease, or unspecified chronic kidney disease Take 1 tablet by mouth daily. 90 tablet 3 5 Active bisoprolol (Zebeta) 5 MG tabletIndicatio ns:Hypertensive chronic kidney disease with stage 1 through stage 4 chronic kidney disease, or unspecified chronic kidney disease Take 1 tablet by mouth daily. 90 tablet 3 5 Active hydrALAZINE (Apresoline) 50 MG tabletIndicatio ns:Hypertensive chronic kidney disease with stage 1 through stage 4 chronic kidney disease, or unspecified chronic kidney disease Take 1 tablet by mouth 3 times a day. 120 tablet 3 5 Active isosorbide mononitrate ER (Imdur) 60 MG 24 hr tabletIndicatio ns:Hypertensive chronic kidney disease with stage 1 through stage 4 chronic kidney disease, or unspecified chronic kidney disease Take 1 tablet by mouth daily. Do not crush or chew. 90 tablet 3 5 Active sodium bicarbonate 650 MG tabletIndicatio ns:Metabolic acidosis Take 2 tablets by mouth 2 times a day. 120 tablet 3 5 Active warfarin (Coumadin) 5 MG tablet Take 1 tablet by mouth daily. Take as directed per After Visit Summary. Active apixaban (Eliquis) 5 MG tablet Take 1 tablet (5 mg) by mouth 2 (two) times a day. 60 tablet 2 4 02/02/20 25 Discontinue d(Per Patient Report) Active Problems Problem Noted Date Diagnosed Date Vitamin D deficiency 07/20/2024 Hyperkalemia 07/20/2024 Metabolic acidosis 03/16/2024 Cigarette nicotine dependenc e with nicotine-induced disorder 03/16/2024 Persistent proteinuria 02/03/2024 Chronic kidney disease-mineral and bone disorder (CKD-MBD) 02/03/2024 CKD stage 4 secondary to hypertension 02/03/2024 Class 1 obesity due to exces [...] Encounters Date Type Department Care Team Description 02/01/2025 12:00 PM EDT Office Visit [facility] [address] [place] [address] Stevie Mckenzie MD JONNATHAN (acute kidney injury) ([facility]/HCC) (Primary Dx); Anemia in stage 4 chronic kidney disease; Persistent proteinuria; Metabolic acidosis; CKD stage 4 secondary to hypertension (CMS/HCC); Hypertensive chronic kidney disease with stage 1 through stage 4 chronic kidney disease, or unspecified chronic kidney disease; Renal artery arteriosclerosis (CMS/HCC) 02/01/2025 Travel 11/09/2024 Telephone [facility] Neph[facility], Bone & Mineral Metabolism [address] [facility], [address] [place] [address] Loretta Landers, PharmD from Last [...] often do you attend chur ch or uatsdin services? Never 01/10/2024 Do you belong to any clubs o r organizations such as rastafari groups, unions, fraternal or athletic groups, or [...] more drinks on one occasion? Never 01/10/2024 [facility] of Occupat ional [facility] - Occupational Stress Questionnaire Answer Date [...] drink first t adair in the morning (EYE-QUALITY REP) to steady your nerves or to get rid of a hangover? 0 01/06/2024 CAGE Questionnaire Score 0 024 Utilities Answer Date Recorded In the past 12 months has th eflow, gas, oil, or water [employer] threatened to shut off services in your [...] Pulse 58 02/01/2025 12:03 PM EDT Temperature 36.6 C (97.8 F) 07/20/2024 1:45 PM EST Respiratory Rate 20 02/01/2025 12:03 PM EDT Oxygen Saturation 99% 02/01/2025 12:03 PM EDT Inhaled Oxygen Concentration - - Weight 70.3 kg (155 lb) 02/01/2025 12:03 PM EDT Height 157.5 cm (5' 2 ) 02/01/2025 12:03 PM EDT Body Mass Index 28.35 02/01/2025 12:03 PM EDT Plan of Treatment Health Maintenance Due Date [...] - Risk 60-74 years 1-dose series) 2017 [id number] Vaccine (3 - season) 2025 04/28/2021, 02/06/2021 [facility]-Influenza Vaccine (#1) 2025 [facility]-Obesity Intervention Completed 025, 10/12/2024, 07/20/2024, Additional history exists HPV Vaccines Aged Out [...] patient's age to complete this topic Insurance MEDICARE AETNA MEDICARE Advance Directives * Full Code (Latest Code Status on File) Date Activated Date Inactivated Comments 01/06/2024 8:08 PM 01/11/2024 4:57 PM Question Answer Comments Patient has decision-making capacity? Yes Care Teams Ocean Freight Agent Relationship Specialty Start Date End Date Asuncion Iglesias APRN [address] [place] [address] PCP - General 01/31/24 Alma Perdomo APRN [address] [place] [address] Referring Physician Cardiology 01/08/24 Stevie Mckenzie MD [address] [place] [phone] Consulting Physician Nephrology 01/08/24
--- OUTSIDE RECORDS SUMMARY | 2025-02-01 12:49 | XMS_ITS | Clinical Summary ---
Author [facility] Address [address] [address] Care Team Providers Care Farm Management Adviser Name Role Phone Asuncion Iglesias APRN Primary Care Provider [phone] Social History Tobacco Use Types Packs/Day Years [...] C SCREENING 06/21/2022 COVID-19 Vaccine ( season) 2025 INFLUENZA VACCINE 02/27/2025 Insurance [employer] MEDICARE ADVANTAGE Care Teams Farm Management Adviser Relationship Specialty Start Date End Date Asuncion Iglesias APRN [address] [place] [phone] PCP - General Nurse Practitioner 04/18/24
--- OUTSIDE RECORDS SUMMARY | 2025-02-01 12:49 | XMS_ITS | Encounter Summary ---
Author Organization Healthcare Address [address] [place] [address] Care Team Providers Care Boat Painter Name Role Phone Alma Perdomo CHEMICAL PLANT OPERATOR SUPERVISOR Unavailable [phone] Stevie Mckenzie MD Unavailable Asuncion Iglesias APRN Primary Care Provider [phone] Encounter Details Date Type Department Care Team ([facility] Contact Info) Description 11/09/2024 Telephone [facility], Bone & Mineral Metabolism [address] [facility], [address] [place] [address] Loretta Landers, PharmD [address] [facility] [address] [place] [address] Social History Tobacco Use Types [...] often do you attend chur ch or jew services? Never 01/10/2024 Do you belong to [...] more drinks on one occasion? Never 01/10/2024 [facility] of Occupat ional Health - Occupational Stress [...] place to sleep or slept in a group home (including now)? No 01/10/2024 CAGE ASSESSMENT Answer [...] drink first t adair in the morning (EYE-AIRLINE RESERVATIONIST) to steady your nerves or to get [...] happy to follow-up. Ivy Beal, JoelleD, BCACP [facility] NEPHROLOGY, BONE & MINERAL METABOLISM [address] [facility] [phone] * Progress Notes - Loretta Landers, PharmD [...] will follow-up in 2-3 weeks to review. Joelle MccartyD, BCACP Clinical Pharmacist Nephrology Clinic documented in this encounter Plan of Treatment Not on file documented as of this encounter Visit Diagnoses Not on filedocumented in this encounter Additional Health Concerns Assessment Noted Time A Body Mass Index follow-up plan has been documented for the patient 10/12/2024 10:50 AM EDT documented as of this encounter Care Teams Boat Painter Relationship Specialty Start Date End Date Asuncion Iglesias APRN [address] [place] [address] PCP - General 01/31/24 Alma Perdomo APRN [address] [address] Referring Physician Cardiology 01/08/24 Stevie Mckenzie MD [address] [place] [phone] Consulting Physician Nephrology 01/08/24 documented as of this encounter
[2025-02-01 14:00] LABS: PHA INR Fingerstick 1.9 (0.9-1.1)
== END 2025-02-01 14:44 ==
LOC: ACC 12:47
PROVIDERS: PCP Nurse Practitioner; Visit Provider Internal Medicine
DX: I48.0 Paroxysmal atrial fibrillation (principal); Z79.01 Long term (current) use of anticoagulants
CPT/HCPCS: 85610; 99211; G0463

== ENCOUNTER 2025-02-06 08:45 | Outpatient (CLI) | payer MEDICARE, SELFPAY ==
--- OUTSIDE RECORDS SUMMARY | 2025-02-01 12:00 | XMS_ITS | Encounter Summary ---
Author Organization [facility] Address [address] [place] [address] Care Team Providers Care Senior Quality Analyst Name Role Phone Alma Perdomo HIGHWAY COMMISSIONER Unavailable [phone] Stevie Mckenzie MD Unavailable Asuncion Iglesias APRN Primary Care Provider [phone] Reason for Referral * Imaging (Routine) - Pending Review Specialty Diagnoses / Procedures Referred By Contac t Referred To Contact Cardiology Diagnoses Renal artery arteriosclerosis (CMS/HCC) Procedures VAS US Renal Artery Duplex Stevie Mckenzie MD [address] [place] [address] Phone: tel: fax: Referral ID Status Reason Start Date Expiration Date Visits Requested Visits Authorized [id number] Pending Review Perform Procedure 02/01/2025 08/03/2026 1 [...] Description 02/01/2025 12:00 PM EDT Office Visit [facility] [address] [place] [address] Stevie Mckenzie MD [address] [place] [address] JONNATHAN (acute kidney injury) (CMS/HCC) [...] week 01/10/2024 How often do you attend [facility] or adventist services? Never 01/10/2024 Do you belong to any clubs o r organizations such as methodist groups, unions, fraternal or athletic groups, or [...] more drinks on one occasion? Never 01/10/2024 [facility] of Occupat ional Health - Occupational Stress [...] place to sleep or slept in a mcc (including now)? No 01/10/2024 CAGE ASSESSMENT Answer [...] drink first t adair in the morning (EYE-SENIOR SUPPLIER QUALITY ENGINEER) to steady your nerves or to get [...] PM EDT Nephrology Outpatient Clinic Progress Note [place] [facility] Patient: Oneida Anderson Primary Care Provider: Asuncion Iglesias APRN Reason for visit: CKD 4 follow up HPI/Subjective Oneida Anderson is a 69 y.o. female with a PMH of HTN, HFpEF, pAFib, PAD, HLD, CKD who was recently admitted to [facility] on 01/06/24 for severe JONNATHAN and hypertensive [...] failure with preserved ejection fraction ([facility]) 01/06/2024 Anemia 01/06/2024 CKD (chronic kidney disease) 01/06/2024 HTN (hypertension) 01/06/2024 Hyperlipidemia 01/06/2024 Hypothyroidism 01/06/2024 PAD (peripheral artery disease) ([facility]) 01/06/2024 Paroxysmal A-fib ([facility]) 01/06/2024 Tobacco abuse 01/06/2024 Patient Active Problem List Diagnosis JONNATHAN (acute kidney injury) ([facility]) Paroxysmal A-fib ([facility]) HTN (hypertension) Hypothyroidism Hyperlipidemia CKD (chronic kidney disease) stage 4, GFR 15-29 ml/min ([facility]) PAD (peripheral artery disease) ([facility]) Hyperphosphatemia Left ankle pain (HFpEF) heart failure with preserved ejection fraction ([facility]) Anemia in stage 4 chronic kidney disease [...] min Stress: No Stress Concern Present (01/10/2024) [facility] - Occupational Stress Questionnaire [...] smoking cigarettes emphasized this visit and by Life Support Technician. LOW sodium diet <2g/day -RAAS blockade - [...] Expiration Date: 08/05/2026 Release to patient in [facility]: Immediate [1] Protein, Random, Urine with Creatinine Standing Status: Future Expected Date: 03/29/2025 Expiration Date: 08/05/2026 Release to patient in [facility]: Immediate [1] CBC Standing Status: Future Expected Date: 03/29/2025 Expiration Date: 08/05/2026 [facility] [1] Renal function panel [...] documented as of this encounter Care Teams Senior Quality Analyst Relationship Specialty Start Date End Date Asuncion Iglseias APRN [address] [place] [address] PCP - General 01/31/24 Alma Perdomo APRN [address] [address] Referring Physician Cardiology 01/08/24 Stevie Mckenzie MD [address] [place] [phone] Consulting Physician Nephrology 01/08/24 documented as of this encounter
--- OUTSIDE RECORDS SUMMARY | 2025-02-06 09:05 | XMS_ITS | Patient Health Record ---
Author Organization [facility] Address [address] [facility] [address] [place] [id number] Care Team Providers Care Decating Machine Operator Name Role Phone Cezar Vaughan Primary Care Provider Reason For Referral No Information Medications Medication SIG (Take, Route, Frequency, Duration) Notes Start Date End Date Status diazePAM 5 MG 1 tab(s) orally 3 times a day prn Active Plan Of Treatment No Information
--- OUTSIDE RECORDS SUMMARY | 2025-02-06 09:05 | XMS_ITS | Encounter Summary ---
Author Organization [facility] Address [address] [place] [address] Care Team Providers Care Bottle Gauger Name Role Phone Alma Perdomo TATTOO IDENTIFIER Unavailable [phone] Stevie Mckenzie MD Unavailable Asuncion Iglesias APRN Primary Care Provider [phone] Encounter Details Date Type Department Care Team [...] week 01/10/2024 How often do you attend [facility] or anglican services? Never 01/10/2024 Do you belong to any clubs o r organizations such as religious groups, unions, fraternal or athletic groups, or [...] more drinks on one occasion? Never 01/10/2024 [facility] of Occupat ional Health - Occupational [...] drink first t adair in the morning (EYE-EARLY CHILDHOOD LEAD TEACHER) to steady your nerves or to get rid of a hangover? 0 01/06/2024 CAGE Questionnaire Score 0 024 Utilities Answer Date Recorded In the past 12 months has [employer], gas, oil, or water company threatened to [...] documented as of this encounter Care Teams Bottle Gauger Relationship Specialty Start Date End Date Asuncion Iglesias APRN [address] [place] [address] PCP - General 01/31/24 Alma Perdomo APRN [address] [place] [address] Referring Physician Cardiology 01/08/24 Stevie Mckenzie MD [address] [place] [phone] Consulting Physician Nephrology 01/08/24 documented as of this encounter
--- OUTSIDE RECORDS SUMMARY | 2025-02-06 09:05 | XMS_ITS | Clinical Summary ---
Author Organization [facility] Address [address] [place] [address] Care Team Providers Care Unemployment Examiner Name Role Phone Alma Perdomo ANGELINE Unavailable [phone] Stevie Mckenzie MD Unavailable Asuncion Iglesias APRN Primary Care Provider [phone] Allergies No known active allergies Medications levothyroxine [...] of 31.0 to 31.9 in adult 01/10/2024 JONANTHAN (acute kidney injury) 01/06/2024 Paroxysmal A-fib 01/06/2024 [...] Description 02/01/2025 12:00 PM EDT Office Visit [facility] [address] [place] [address] Stevie Mckenzie MD JONNATHNA (acute kidney injury) ([facility]/HCC) (Primary Dx); Anemia in stage 4 chronic kidney disease; Persistent proteinuria; Metabolic acidosis; CKD stage 4 secondary to hypertension (CMS/HCC); Hypertensive chronic kidney disease with stage 1 through stage 4 chronic kidney disease, or unspecified chronic kidney disease; Renal artery arteriosclerosis (CMS/HCC) 02/01/2025 Travel 11/09/2024 Telephone [facility] Neph[facility], Bone & Mineral Metabolism [address] [facility], [address] [place] [address] Loretta Landers, PharmD from Last [...] often do you attend chur ch or roman catholic services? Never 01/10/2024 Do you belong to any clubs o r organizations such as pentecostalism groups, unions, fraternal or athletic groups, or [...] more drinks on one occasion? Never 01/10/2024 [facility] of Occupat ional [facility] - Occupational Stress Questionnaire Answer Date [...] place to sleep or slept in a [place] [facility] [place] facility (including now)? No 01/10/2024 CAGE ASSESSMENT Answer [...] drink first t adair in the morning (EYE-DISPLAY DESIGNER OUTSIDE) to steady your nerves or to get rid of a hangover? 0 01/06/2024 CAGE Questionnaire Score 0 024 Utilities Answer Date Recorded In the past 12 months has th [employer], gas, oil, or water [employer] threatened to shut off services in your [...] UKY-Bone Density Scan 1957 [facility]-Depression Screening 1957 [facility]-Hepatitis C Screening 1957 [facility]-Medicare Annual Wellness (AWV) 1957 [facility]-Infant/Child/Adol SDOH Screenings 1957 [facility]Y- SDOH Screenings 1975 [facility]Y-Adult SDOH Screenings [...] - Risk 60-74 years 1-dose series) 2017 [id number] Vaccine (3 - 2024- season) 2025 04/28/2021, 02/06/2021 [facility]-Influenza Vaccine (#1) [...] age to complete this topic [place] [address] AETNA MEDICARE Advance Directives * Full Code (Latest Code Status on File) Date Activated Date Inactivated Comments 01/06/2024 8:08 PM 01/11/2024 4:57 PM Question Answer Comments Patient has decision-making capacity? Yes Care Teams Unemployment Examiner Relationship Specialty Start Date End Date Asuncion Iglesias APRN [address] [place] [address] PCP - General 01/31/24 Alma Perdomo APRN [facility] [address] [address] Referring Physician Cardiology 01/08/24 Stevie Mckenzie MD [address] [place] [address] Consulting Physician Nephrology 01/08/24
--- OUTSIDE RECORDS SUMMARY | 2025-02-06 09:05 | XMS_ITS | Encounter Summary ---
Author Organization [facility] Address [address] [place] [address] Care Team Providers Care Duct Layer Helper Name Role Phone Alma Perdomo THERAPEUTIC ACTIVITIES SERVICES WORKER Unavailable [phone] Stevie Mckenzie MD Unavailable Asuncion Iglesias APRN Primary Care Provider [phone] Encounter Details Date Type Department Care Team ([facility] Contact Info) Description 11/09/2024 Telephone [facility], [facility] & Mineral Metabolism [address] [facility], [address] [place] [address] Loretta Landers, PharmD [address] [facility] [address] [place] [address] Social History Tobacco Use Types [...] often do you attend chur ch or scientologist services? Never 01/10/2024 Do you belong to any clubs o r organizations such as sikhism groups, unions, fraternal or athletic groups, or [...] more drinks on one occasion? Never 01/10/2024 [facility] of Occupat ional Health - Occupational [...] drink first t adair in the morning (EYE-PARCEL POST WEIGHER) to steady your nerves or to get [...] happy to follow-up. Ivy Beal, JoelleD, BCACP [facility] NEPHROLOGY, BONE & MINERAL METABOLISM [address] [facility] [phone] * Progress Notes - Loretta Landers, PharmD [...] documented as of this encounter Care Teams Duct Layer Helper Relationship Specialty Start Date End Date Asuncion Iglesias APRN [address] [place] [address] PCP - General 01/31/24 Alma Perdomo APRN [address] [address] Referring Physician Cardiology 01/08/24 Stevie Mckenzie MD [address] [place] [phone] Consulting Physician Nephrology 01/08/24 documented as of this encounter
--- OUTSIDE RECORDS SUMMARY | 2025-02-06 09:05 | XMS_ITS | Clinical Summary ---
[facility] Address [address] [place] [address] Care Team Providers Care Plastic Finisher Name Role Phone Asuncion Iglesias APRN Primary Care Provider [phone] Social History Tobacco Use Types Packs/Day Years [...] 02/27/2025 Insurance [employer] MEDICARE ADVANTAGE Care Teams Plastic Finisher Relationship Specialty Start Date End Date Asuncion Iglesias APRN [address] [place] [phone] PCP - General Nurse Practitioner 04/18/24
[2025-02-06 12:53] LABS: PHA INR Fingerstick 2.0 (0.9-1.1)
== END 2025-02-06 14:43 ==
LOC: ACC 08:46
PROVIDERS: PCP Nurse Practitioner; Visit Provider Internal Medicine
DX: I48.0 Paroxysmal atrial fibrillation (principal); Z79.01 Long term (current) use of anticoagulants
CPT/HCPCS: 85610; 99211; G0463

== ENCOUNTER 2025-02-11 08:42 | Outpatient (CLI) | payer MEDICARE, SELFPAY ==
--- OUTSIDE RECORDS SUMMARY | 2025-02-01 12:00 | XMS_ITS | Encounter Summary ---
Author Organization [facility] Address [address] [place] [address] Care Team Providers Care Coater Helper Name Role Phone Alma Perdomo TORCH SHEARER Unavailable [phone] Stevie Mckenzie MD Unavailable Asuncion gIlesias APRN Primary Care Provider [phone] Reason for Referral * Imaging (Routine) - Pending Review Specialty Diagnoses / Procedures Referred By Contac t Referred To Contact Cardiology Diagnoses Renal artery arteriosclerosis (CMS/HCC) Procedures VAS US Renal Artery Duplex Stevie Mckenzie MD [address] [place] [address] Phone: tel: fax: Referral ID Status Reason Start Date Expiration Date Visits Requested Visits Authorized [id number] Pending Review Perform Procedure 02/01/2025 08/03/2026 1 [...] Description 02/01/2025 12:00 PM EDT Office Visit [facility] [address] [place] [address] Stevie Mckenzie MD [address] [place] [address] JONNATHAN (acute kidney injury) (CMS/HCC) [...] week 01/10/2024 How often do you attend [facility] or mosque services? Never 01/10/2024 Do you belong to any clubs o r organizations such as shinto groups, unions, fraternal or athletic groups, or [...] more drinks on one occasion? Never 01/10/2024 [facility] Occupat ional Health - [...] place to sleep or slept in a penitentiary (including now)? No 01/10/2024 CAGE ASSESSMENT Answer [...] drink first t adair in the morning (EYE-CHILLER TECHNICIAN) to steady your nerves or to get [...] PM EDT Nephrology Outpatient Clinic Progress Note [facility] Patient: Oneida Anderson Primary Care Provider: Asuncion Iglesias APRN Reason for visit: CKD 4 follow up HPI/Subjective Oneida Anderson is a 69 y.o. female with a PMH of HTN, HFpEF, pAFib, PAD, HLD, CKD who was recently admitted to [facility] on 01/06/24 for severe JONNATHAN and hypertensive [...] (HFpEF) heart failure with preserved ejection fraction ([facility]) 01/06/2024 Anemia 01/06/2024 CKD (chronic kidney disease) 01/06/2024 HTN (hypertension) 01/06/2024 Hyperlipidemia 01/06/2024 Hypothyroidism 01/06/2024 PAD (peripheral artery disease) ([facility]) 01/06/2024 Paroxysmal A-fib ([facility]) 01/06/2024 Tobacco abuse 01/06/2024 Patient Active Problem List Diagnosis JONNATHAN (acute kidney injury) ([facility]) Paroxysmal A-fib ([facility]) HTN (hypertension) Hypothyroidism Hyperlipidemia CKD (chronic kidney disease) stage 4, GFR 15-29 ml/min ([facility]) PAD (peripheral artery disease) ([facility]) Hyperphosphatemia Left ankle pain (HFpEF) heart failure with preserved ejection fraction ([facility]) Anemia in stage 4 chronic kidney disease [...] min Stress: No Stress Concern Present (01/10/2024) [place] Islander [place] of Occupational Health - Occupational Stress Questionnaire Feeling of Stress : Only a little Social Connections: Moderately Isolated (01/10/2024) Social Connection and Isolation Panel Frequency of Communication with Friends and Family: More than three times a week Frequency of Social Gatherings with Friends and Family: More than three times a week Attends Shinto Services: Never Active Member of Clubs or [...] smoking cigarettes emphasized this visit and by Medical Superintendent. LOW sodium diet <2g/day -RAAS blockade - [...] months Stevie Mckenzie MD Division of Nephrology [facility] MDM: High risk, patient with organ failing, severe progression of a chronic disease (CKD stage 5) Acute kidney injury, severe, potentially life threatening. Discussed dialysis modalities today. ORDERS PLACED THIS ENCOUNTER Orders Placed This Encounter Procedures Renal function panel Standing Status: Future Expected Date: 03/29/2025 Expiration Date: 08/05/2026 Release to patient in [facility]: Immediate [1] Protein, Random, Urine with Creatinine Standing Status: Future Expected Date: 03/29/2025 Expiration Date: 08/05/2026 Release to patient in [facility]: Immediate [1] CBC Standing Status: Future Expected Date: 03/29/2025 Expiration Date: 08/05/2026 [facility] [1] Renal function panel Standing [...] documented in this encounter Plan of Treatment Scheduled Orders Name Type Priority Associated Diagnoses [...] encounter Visit Diagnoses Diagnosis JONNATHAN (acute kidney injury) (CMS/HCC)- Primary Anemia in stage 4 chronic kidney disease Persistent proteinuria Metabolic acidosis Acidosis CKD stage 4 secondary to hypertension (CMS/HCC) Hypertensive chronic kidney disease with stage 1 through stage 4 chronic kidney disease, or unspecified chronic kidney disease Renal artery arteriosclerosis (CMS/HCC) Atherosclerosis of renal artery documented in this encounter Additional Health Concerns Assessment Noted Time A Body Mass Index follow-up plan has been documented for the patient 02/01/2025 12:42 PM EDT documented as of this encounter Care Teams Coater Helper Relationship Specialty Start Date End Date Asuncion Iglesias APRN [address] [place] [address] PCP - General 01/31/24 Alma Perdomo APRN [address] [address] Referring Physician Cardiology 01/08/24 Stevie Mckenzie MD [address] [place] [address] Consulting Physician Nephrology 01/08/24 documented as of this encounter
--- NOTE | 2025-02-11 08:45 | CA_ITS ---
FINAL REPORT TECHNIQUE: Spectral and color Doppler exam CLINICAL HISTORY: HTN,HLD,SMOKER COMPARISON: None FINDINGS: DOPPLER RENAL VESSELS HISTORY: Hypertension . FINDINGS: Intrarenal resistive indices on the right are 0.6-0.71, normal . Intrarenal resistive indices on the left are 0.7-0.8, normal . Renal size is normal and symmetric. Right main renal artery systolic velocity: 153 cm/sec. Aortic-right renal artery flow velocity ratio: 1.98 COMMENT: No evidence of hemodynamically significant renal artery stenosis . Left main renal artery systolic velocity: 145 cm/sec. Aortic-left renal artery flow velocity ratio: 1.9 COMMENT: No evidence of hemodynamically significant renal artery stenosis . IMPRESSION: No evidence of hemodynamically significant renal artery stenosis CTA or gadolinium-enhanced MR may be considered as a more sensitive exam. Alternatively noncontrast MRI may be considered for assessing main renal arteries for stenosis as a more sensitive exam if the patient has renal insufficiency. Reviewed, Interpreted and Dictated by Misty Ying MD Transcribed by Dana Plasencia Authenticated and [facility]
--- OUTSIDE RECORDS SUMMARY | 2025-02-11 09:01 | XMS_ITS | Clinical Summary ---
[facility] Address [address] [place] [address] Care Team Providers Care Auto Crane Driver Name Role Phone Asuncion Iglesias APRN Primary Care Provider [phone] Social History Tobacco Use Types Packs/Day Years [...] 02/27/2025 Insurance [employer] MEDICARE ADVANTAGE Care Teams Auto Crane Driver Relationship Specialty Start Date End Date Asuncion Iglesias APRN [address] [place] [phone] PCP - General Nurse Practitioner 04/18/24
--- OUTSIDE RECORDS SUMMARY | 2025-02-11 09:01 | XMS_ITS | Patient Health Record ---
Author Organization [facility] Address [address] [facility] [address] [place] [id number] Care Team Providers Care Snath Handle Assembler Name Role Phone Cezar Vaughan Primary Care Provider Reason For Referral No Information Medications Medication SIG (Take, Route, Frequency, Duration) Notes Start Date End Date Status diazePAM 5 MG 1 tab(s) orally 3 times a day prn Active Plan Of Treatment No Information
--- OUTSIDE RECORDS SUMMARY | 2025-02-11 09:01 | XMS_ITS | Encounter Summary ---
Author Organization Healthcare Address [address] [place] [address] Care Team Providers Care Squeegeer And Former Name Role Phone Alma Perdomo FISH CLEANER Unavailable [phone] Stevie Mckenzie MD Unavailable Asuncion Iglesias APRN Primary Care Provider [phone] Encounter Details Date Type Department Care Team ([facility] Contact Info) Description 11/09/2024 Telephone [facility] Nephrology, Bone & Mineral Metabolism [address] [facility], [address] [place] [address] Loretta Landers, PharmD [address] [facility] [address] [place] [address] Social History Tobacco Use Types [...] often do you attend chur ch or samaritan services? Never 01/10/2024 Do you belong to any clubs o r organizations such as muslim groups, unions, fraternal or athletic groups, or [...] more drinks on one occasion? Never 01/10/2024 [facility] of Occupat ional Health - [...] drink first t adair in the morning (EYE-CRAYON PAINTER) to steady your nerves or to get [...] NEPHROLOGY, BONE & MINERAL METABOLISM [address] [facility] [phone] * Progress Notes - Loretta Landers, PharmD [...] documented as of this encounter Care Teams Squeegeer And Former Relationship Specialty Start Date End Date Asuncion Iglesias APRN [address] [place] [address] PCP - General 01/31/24 Alma Perdomo APRN [address] [address] Referring Physician Cardiology 01/08/24 Stevie Mckenzie MD [address] [place] [phone] Consulting Physician Nephrology 01/08/24 documented as of this encounter
--- OUTSIDE RECORDS SUMMARY | 2025-02-11 09:01 | XMS_ITS | Clinical Summary ---
Author Organization [facility] Address [address] [place] [address] Care Team Providers Care Electric Clock Mechanic Name Role Phone Alma Perdomo ANGELINE Unavailable [phone] Stevie Mckenzie MD Unavailable Asuncion Iglesias APRN Primary Care Provider [phone] Allergies No known active allergies Medications levothyroxine [...] Description 02/01/2025 12:00 PM EDT Office Visit [facility] [address] [place] [address] Stevie Mckenzie MD JONNATHAN (acute kidney injury) ([facility]/HCC) (Primary Dx); Anemia in stage 4 chronic kidney disease; Persistent proteinuria; Metabolic acidosis; CKD stage 4 secondary to hypertension (CMS/HCC); Hypertensive chronic kidney disease with stage 1 through stage 4 chronic kidney disease, or unspecified chronic kidney disease; Renal artery arteriosclerosis (CMS/HCC) 02/01/2025 Travel from Last 3 Months Immunizations Immunization Administration [...] week 01/10/2024 How often do you attend [facility] or samaritan services? Never 01/10/2024 Do you belong to any clubs o r organizations such as tenriism groups, unions, fraternal or athletic groups, or [...] more drinks on one occasion? Never 01/10/2024 [facility] Occupat ional Health - Occupational [...] place to sleep or slept in a retirement (including now)? No 01/10/2024 CAGE ASSESSMENT Answer [...] drink first t adair in the morning (EYE-RECEPTIONIST CLERK) to steady your nerves or to get [...] Wellness (AWV) 1957 [facility]-/Child/Adol SDOH Screenings 1957 [facility]- SDOH Screenings 1975 [...] - Risk 60-74 years 1-dose series) 2017 [id number] Vaccine (3 - 2024- season) 2025 04/28/2021, [...] age to complete this [place] [address] AETNA MEDICARE Advance Directives * Full Code (Latest Code Status on File) Date Activated Date Inactivated Comments 01/06/2024 8:08 PM 01/11/2024 4:57 PM Question Answer Comments Patient has decision-making capacity? Yes Care Teams Electric Clock Mechanic Relationship Specialty Start Date End Date Asuncion Iglesias APRN [address] [place] [address] PCP - General 01/31/24 Alma Perdomo APRN [address] [place] [address] Referring Physician Cardiology 01/08/24 Stevie Mckenzie MD [address] [place] [phone] Consulting Physician Nephrology 01/08/24
--- OUTSIDE RECORDS SUMMARY | 2025-02-11 09:01 | XMS_ITS | Encounter Summary ---
Author Organization Healthcare Address [address] [place] [address] Care Team Providers Care Contract Technician Name Role Phone Alma Perdomo SENIOR FINANCIAL Unavailable Stevie Mckenzie MD Unavailable Asuncion Iglesias APRN Primary Care Provider [phone] Encounter Details Date Type Department Care Team [...] week 01/10/2024 How [facility] or lutheran services? Never 01/10/2024 Do you belong to [...] more drinks on one occasion? Never 01/10/2024 [facility] of Occupat ional Health - [...] place to sleep or slept in a detention (including now)? No 01/10/2024 CAGE ASSESSMENT Answer [...] drink first t adair in the morning (EYE-NURSING PROGRAM COORDINATOR) to steady your nerves or to get rid of a hangover? 0 01/06/2024 CAGE Questionnaire Score 0 024 Utilities Answer Date Recorded In the past 12 months has [employer], gas, oil, or water company threatened to [...] documented as of this encounter Care Teams Contract Technician Relationship Specialty Start Date End Date Asuncion Iglesias APRN [address] [place] [address] PCP - General 01/31/24 Alma Perdomo APRN [address] [place] [address] Referring Physician Cardiology 01/08/24 Stevie Mckenzie MD [address] [place] [phone] Consulting Physician Nephrology 01/08/24 documented as of this encounter
== END 2025-02-11 23:59 | disposition home or self-care (01) ==
LOC: RT 08:43
PROVIDERS: PCP Nurse Practitioner; Visit Provider Student in an Organized Health Care Education/Training Program
DX: I70.1 Atherosclerosis of renal artery (principal); I10 Essential (primary) hypertension; E78.5 Hyperlipidemia, unspecified; F17.200 Nicotine dependence, unspecified, uncomplicated
CPT/HCPCS: 93976

== ENCOUNTER 2025-02-13 08:47 | Outpatient (CLI) | payer MEDICARE, SELFPAY ==
--- OUTSIDE RECORDS SUMMARY | 2025-02-01 12:00 | XMS_ITS | Encounter Summary ---
Author Organization [facility] Address [address] [place] [address] Care Team Providers Care Chief Dog License Inspector Name Role Phone Alma Perdomo UNIT TENDER Unavailable [phone] Stevie Mckenzie MD Unavailable Asuncion Iglesias APRN Primary Care Provider [phone] Reason for Referral * Imaging (Routine) - Pending Review Specialty Diagnoses / Procedures Referred By Contac t Referred To Contact Cardiology Diagnoses Renal artery arteriosclerosis (CMS/HCC) Procedures VAS US Renal Artery Duplex Stevie Mckenzie MD [address] [place] [address] Phone: tel: fax: Referral ID Status Reason Start Date Expiration Date Visits Requested Visits Authorized [id number] Pending Review Perform Procedure 02/01/2025 08/03/2026 1 [...] Description 02/01/2025 12:00 PM EDT Office Visit [facility] [address] [place] [address] Stevie Mckenzie MD [address] [place] [address] JONNATHAN (acute kidney injury) (CMS/HCC) [...] do you attend [facility] or sabianism services? Never 01/10/2024 Do you belong to any clubs o r organizations such as baptist groups, unions, fraternal or athletic groups, or [...] more drinks on one occasion? Never 01/10/2024 [facility] of Occupat ional Health - [...] place to sleep or slept in a longterm (including now)? No 01/10/2024 CAGE ASSESSMENT Answer [...] drink first t adair in the morning (EYE-QUILL WINDER) to steady your nerves or to get [...] PM EDT Nephrology Outpatient Clinic Progress Note [place] [facility] Patient: Oneida Anderson Primary Care Provider: Asuncion Iglesias APRN Reason for visit: CKD 4 follow up HPI/Subjective Oneida Anderson is a 69 y.o. female with a PMH of HTN, HFpEF, pAFib, PAD, HLD, CKD who was recently admitted to [facility] on 01/06/24 for severe JONNATHAN and hypertensive [...] (HFpEF) heart failure with preserved ejection fraction ([facility] 01/06/2024 Anemia 01/06/2024 CKD (chronic kidney disease) 01/06/2024 HTN (hypertension) 01/06/2024 Hyperlipidemia 01/06/2024 Hypothyroidism 01/06/2024 PAD (peripheral artery disease) ([facility] 01/06/2024 Paroxysmal A-fib ([facility]) 01/06/2024 Tobacco abuse 01/06/2024 Patient Active Problem List Diagnosis JONNATHAN (acute kidney injury) ([facility]) Paroxysmal A-fib ([facility]) HTN (hypertension) Hypothyroidism Hyperlipidemia CKD (chronic kidney disease) stage 4, GFR 15-29 ml/min ([facility]) PAD (peripheral artery disease) ([facility]) Hyperphosphatemia Left ankle pain (HFpEF) heart failure with preserved ejection fraction ([facility]) Anemia in stage 4 [...] min Stress: No Stress Concern Present (01/10/2024) [place] of Occupational Health - Occupational Stress Questionnaire Feeling of Stress : Only a little Social Connections: Moderately Isolated (01/10/2024) Social Connection and Isolation Panel Frequency of Communication with Friends and Family: More than three times a week Frequency of Social Gatherings with Friends and Family: More than three times a week Attends Rastafarian Services: Never Active Member of Clubs or [...] smoking cigarettes emphasized this visit and by Instructional Design Consultant. LOW sodium diet <2g/day -RAAS blockade - [...] months Stevie Mckenzie MD Division of Nephrology [facility] MDM: High risk, patient with organ failing, severe progression of a chronic disease (CKD stage 5) Acute kidney injury, severe, potentially life threatening. Discussed dialysis modalities today. ORDERS PLACED THIS ENCOUNTER Orders Placed This Encounter Procedures Renal function panel Standing Status: Future Expected Date: 03/29/2025 Expiration Date: 08/05/2026 Release to patient in [facility]: Immediate [1] Protein, Random, Urine with Creatinine Standing Status: Future Expected Date: 03/29/2025 Expiration Date: 08/05/2026 Release to patient in [facility]: Immediate [1] CBC Standing Status: Future Expected Date: 03/29/2025 Expiration Date: 08/05/2026 [facility] [1] Renal function panel Standing [...] Description 04/19/2025 12:00 PM EST Office Visit [facility] [address] [facility] [address] [address] Stevie Mckenzie MD [address] [place] [address] Scheduled Orders Name Type Priority Associated [...] documented as of this encounter Care Teams Chief Dog License Inspector Relationship Specialty Start Date End Date Asuncion Iglesias APRN [address] [place] [address] PCP - General 01/31/24 Alma Perdomo APRN [address] [address] Referring Physician Cardiology 01/08/24 Stevie Mckenzie MD [address] [place] [address] Consulting Physician Nephrology 01/08/24 documented as of this encounter
--- OUTSIDE RECORDS SUMMARY | 2025-02-13 09:13 | XMS_ITS | Clinical Summary ---
Author Organization [facility] Address [address] [place] [address] Care Team Providers Care Materials And Processes Manager Name Role Phone Asuncion Iglesias APRN Primary Care Provider [phone] Social History Tobacco Use Types Packs/Day Years [...] 02/27/2025 Insurance [employer] MEDICARE ADVANTAGE Care Teams Materials And Processes Manager Relationship Specialty Start Date End Date Asuncion Iglesias APRN [address] [place] [phone] PCP - General Nurse Practitioner 04/18/24
--- OUTSIDE RECORDS SUMMARY | 2025-02-13 09:13 | XMS_ITS | Patient Health Record ---
[facility] Address [address] [place] [facility] [address] [place] [id number] Care Team Providers Care Molecular Pathologist Name Role Phone Cezar Vaughan Primary Care Provider Reason For Referral No Information Medications Medication SIG (Take, Route, Frequency, Duration) Notes Start Date End Date Status diazePAM 5 MG 1 tab(s) orally 3 times a day prn Active Plan Of Treatment No Information
--- OUTSIDE RECORDS SUMMARY | 2025-02-13 09:13 | XMS_ITS | Encounter Summary ---
Author Organization Healthcare Address [address] [place] [address] Care Team Providers Care Commercial Solar Sales Consultant Name Role Phone Alma Perdomo SKULL SPLITTER Unavailable [phone] Stevie Mckenzie MD Unavailable Asuncion Iglesias APRN Primary Care Provider [phone] Encounter Details Date Type Department Care Team ([facility] Contact Info) Description 11/09/2024 Telephone [facility] Nephrology, Bone & Mineral Metabolism [address] [facility], [address] [place] [address] Loretta Landers, PharmD [address] [facility] [address] [place] [address] Social History Tobacco Use Types [...] often do you attend chur ch or orthodoxy services? Never 01/10/2024 Do you belong to any clubs o r organizations such as hinduism groups, unions, fraternal or athletic groups, or [...] more drinks on one occasion? Never 01/10/2024 [facility] of Occupat ional Health - [...] drink first t adair in the morning (EYE-WILL CALL ORDER CLERK) to steady your nerves or to [...] happy to follow-up. Ivy Beal, JoelleD, BCACP [facility] NEPHROLOGY, BONE & MINERAL METABOLISM [address] [phone] * Progress Notes - Loretta Landers, PharmD [...] Description 04/19/2025 12:00 PM EST Office Visit [facility] [address] [facility] [address], [place] [address] Stevie Mckenzie MD [address] [place] [phone] documented as of this encounter Visit Diagnoses Not on filedocumented in this encounter Additional Health Concerns Assessment Noted Time A Body Mass Index follow-up plan has been documented for the patient 10/12/2024 10:50 AM EDT documented as of this encounter Care Teams Commercial Solar Sales Consultant Relationship Specialty Start Date End Date Asuncion Iglesias APRN [address] [place] [address] PCP - General 01/31/24 Alma Perdomo APRN [facility] [place] [address] [id number] Referring Physician Cardiology 01/08/24 Stevie Mckenzie MD [address] [place] [phone] Consulting Physician Nephrology 01/08/24 documented as of this encounter
--- OUTSIDE RECORDS SUMMARY | 2025-02-13 09:13 | XMS_ITS | Encounter Summary ---
Author Organization Healthcare Address [address] [place] [address] Care Team Providers Care Engineer Geophysical Laboratory Name Role Phone Alma Perdomo GOVERNMENT GUARD Unavailable [phone] Stevie Mckenzie MD Unavailable Asuncion Iglesias APRN Primary Care Provider [phone] Encounter Details Date Type Department Care Team [...] 01/10/2024 How often do you attend [facility] or orthodox services? Never 01/10/2024 Do you belong to any clubs o r organizations such as lutheran groups, unions, fraternal or athletic groups, or [...] more drinks on one occasion? Never 01/10/2024 [facility] of Occupat ional Health - [...] drink first t adair in the morning (EYE-ARTIFICIAL PEARL MAKER) to steady your nerves or to get rid of a hangover? 0 01/06/2024 CAGE Questionnaire Score 0 024 Utilities Answer Date Recorded In the past 12 months has [employer], gas, oil, or water company threatened to shut off services in your home? No 01/10/2024 Comments No Sex and Gender Information Value Date Recorded Sex Assigned at Not on file Legal Sex Female 5:58 PM EDT Gender Identity Not on file Sexual Orientation Not on file documented as of this encounter Plan of Treatment Upcoming Encounters Date Type Department Care Team (Late st Contact Info) Description 04/19/2025 12:00 PM EST Office Visit [facility] [address] [place] [address] Stevie Mckenzie MD [address] [place] [phone] documented as of this encounter Visit Diagnoses Not on filedocumented in this encounter Additional Health Concerns Assessment Noted Time A Body Mass Index follow-up plan has been documented for the patient 02/01/2025 12:42 PM EDT documented as of this encounter Care Teams Engineer Geophysical Laboratory Relationship Specialty Start Date End Date Asuncion Iglesias APRN [address] [place] [address] PCP - General 01/31/24 Alma Perdomo APRN [facility] [address] [address] Referring Physician Cardiology 01/08/24 Stevie Mckenzie MD [address] [place] [phone] Consulting Physician Nephrology 01/08/24 documented as of this encounter
--- OUTSIDE RECORDS SUMMARY | 2025-02-13 09:13 | XMS_ITS | Clinical Summary ---
Author Organization Address [address] [place] [address] Care Team Providers Care Annealer Name Role Phone Alma Perdomo ANGELINE Unavailable Stevie Mckenzie MD Unavailable Asuncion Iglesias APRN Primary Care Provider [phone] Allergies No known active allergies Medications levothyroxine [...] Description 02/01/2025 12:00 PM EDT Office Visit [facility] [address] [place] [address] Stevie Mckenzie MD JONNATHAN (acute kidney injury) ([facility]/HCC) (Primary Dx); Anemia in stage 4 [...] [facility] you attend [facility] or sikhism services? Never 01/10/2024 Do you belong to [...] more drinks on one occasion? Never 01/10/2024 [facility] of Occupat ional Health - [...] place to sleep or slept in a nursing home (including now)? No 01/10/2024 CAGE ASSESSMENT [...] drink first t adair in the morning (EYE-DIRECTOR ELECTRICAL ENGINEERING) to steady your nerves or to get [...] 02/01/2025 12:03 PM EDT Plan of Treatment Upcoming Encounters Date Type Department Care Team (Late st Contact Info) Description 04/19/2025 12:00 PM EST Office Visit [facility] [address] [place] [address] Stevie Mckenzie MD [address] [place] [address] Health Maintenance Due Date Last Done Comments [...] - Risk 60-74 years 1-dose series) 2017 [id number] Vaccine (3 - season) 2025 04/28/2021, 02/06/2021 [...] age to complete this [place] [address] AETNA MEDICARE Advance Directives * Full Code (Latest Code Status on File) Date Activated Date Inactivated Comments 01/06/2024 8:08 PM 01/11/2024 4:57 PM Question Answer Comments Patient has decision-making capacity? Yes Care Teams Annealer Relationship Specialty Start Date End Date Asuncion Iglesias APRN [address] [place] [address] PCP - General 01/31/24 Alma Perdomo, ECONOMICS TEACHER [address] [place] [address] Referring Physician Cardiology 01/08/24 Stevie Mckenzie MD [address] [place] [phone] Consulting Physician Nephrology 01/08/24
[2025-02-13 13:22] LABS: PHA INR Fingerstick 2.2 (0.9-1.1)
== END 2025-02-13 13:58 ==
LOC: ACC 08:48
PROVIDERS: PCP Nurse Practitioner; Visit Provider Internal Medicine
DX: I48.0 Paroxysmal atrial fibrillation (principal); Z79.01 Long term (current) use of anticoagulants
CPT/HCPCS: 85610; 99211; G0463

== ENCOUNTER 2025-03-13 08:44 | Outpatient (CLI) | payer MEDICARE, SELFPAY ==
--- OUTSIDE RECORDS SUMMARY | 2025-02-01 12:00 | XMS_ITS | Encounter Summary ---
Author Organization [facility] Address [address] [place] [address] Care Team Providers Care Electric Relay Tester Name Role Phone Alma Perdomo NETWORK ARCHITECT MANAGER Unavailable [phone] Stevie Mckenzie MD Unavailable Asuncion Iglesias APRN Primary Care Provider [phone] Reason for Referral * Imaging (Routine) - Pending Review Specialty Diagnoses / Procedures Referred By Beena t Referred To Contact Cardiology Diagnoses Renal artery arteriosclerosis Procedures VAS US Renal Artery Duplex Stevie Mckenzie MD [address] [place] [address] Phone: tel: fax: Referral ID Status Reason Start Date Expiration Date Visits Requested Visits Authorized [id number] Pending Review Perform Procedure 02/01/2025 08/03/2026 1 [...] Visit [facility] [address] [place] [address] Stevie Mckenzie MD [address] [place] [address] JONNATHAN (acute kidney injury) (CMS/HCC) [...] week 01/10/2024 How often do you attend [facility] or gnosticist services? Never 01/10/2024 Do you belong to any clubs o r organizations such as evangelical groups, unions, fraternal or athletic groups, or [...] more drinks on one occasion? Never 01/10/2024 [facility] of Occupat ional [facility] - Occupational Stress Questionnaire Answer Date Recorded [...] place to sleep or slept in a correction (including now)? No 01/10/2024 CAGE ASSESSMENT Answer [...] drink first t adair in the morning (EYE-ROOM ATTENDANT) to steady your nerves or to get rid of a hangover? 0 01/06/2024 CAGE Questionnaire Score 0 024 Utilities Answer Date Recorded In the past 12 months has th e [employer], gas, oil, or water company threatened to [...] EDT Nephrology Outpatient Clinic Progress Note [facility] Patient: Oneida Anderson Primary Care Provider: Asuncion Iglesias APRN Reason for visit: CKD 4 follow up HPI/Subjective Oneida Anderson is a 69 y.o. female with a PMH of HTN, HFpEF, pAFib, PAD, HLD, CKD who was recently admitted to [facility] on 01/06/24 for severe JONNATHAN and hypertensive [...] (HFpEF) heart failure with preserved ejection fraction ([facility] 01/06/2024 Anemia 01/06/2024 CKD (chronic kidney disease) 01/06/2024 HTN (hypertension) 01/06/2024 Hyperlipidemia 01/06/2024 Hypothyroidism 01/06/2024 PAD (peripheral artery disease) ([facility] 01/06/2024 Paroxysmal A-fib ([facility]) 01/06/2024 Tobacco abuse 01/06/2024 Patient Active Problem List Diagnosis JONNATHAN (acute kidney injury) ([facility]) Paroxysmal A-fib ([facility]) HTN (hypertension) Hypothyroidism Hyperlipidemia CKD (chronic kidney disease) stage 4, GFR 15-29 ml/min ([facility]) PAD (peripheral artery disease) ([facility]) Hyperphosphatemia Left ankle pain (HFpEF) heart failure with preserved ejection fraction ([facility]) Anemia in stage 4 chronic kidney disease [...] min Stress: No Stress Concern Present (01/10/2024) [place] of Occupational Health - Occupational Stress Questionnaire Feeling of Stress : Only a little Social Connections: Moderately Isolated (01/10/2024) Social Connection and Isolation Panel Frequency of Communication with Friends and Family: More than three times a week Frequency of Social Gatherings with Friends and Family: More than three times a week Attends Yarsani Services: Never Active Member of Clubs or [...] smoking cigarettes emphasized this visit and by Manager Utilities. LOW sodium diet <2g/day -RAAS blockade - [...] months Stevie Mckenzie MD Division of Nephrology [facility] MDM: High risk, patient with organ failing, severe progression of a chronic disease (CKD stage 5) Acute kidney injury, severe, potentially life threatening. Discussed dialysis modalities today. ORDERS PLACED THIS ENCOUNTER Orders Placed This Encounter Procedures Renal function panel Standing Status: Future Expected Date: 03/29/2025 Expiration Date: 08/05/2026 Release to patient in [facility]: Immediate [1] Protein, Random, Urine with Creatinine Standing Status: Future Expected Date: 03/29/2025 Expiration Date: 08/05/2026 Release to patient in [facility]: Immediate [1] CBC Standing Status: Future Expected Date: 03/29/2025 Expiration Date: 08/05/2026 [facility] [1] Renal function panel Standing Status: [...] Description 04/19/2025 12:00 PM EST Office Visit [place] [id number] [facility] [address] [place] [address] Stevie Mckenzie MD [address] [place] [address] Scheduled Orders Name Type Priority Associated [...] documented as of this encounter Care Teams Electric Relay Tester Relationship Specialty Start Date End Date Asuncion Iglesias APRN [address] [place] [address] PCP - General 01/31/24 Alma Perdomo APRN [address] [address] Referring Physician Cardiology 01/08/24 Stevie Mckenzie MD [address] [place] [address] Consulting Physician Nephrology 01/08/24 documented as of this encounter
--- OUTSIDE RECORDS SUMMARY | 2025-03-08 09:30 | XMS_ITS | Encounter Summary ---
Author Organization [facility] Address [address] [place] [address] Care Team Providers Care Service Greeter Name Role Phone Alma Perdomo Hansa BLUEBERRY GROWER Unavailable [phone] Stevie Mckenzie MD Unavailable Asuncion Iglesias BLUEBERRY GROWER Primary Care Provider [phone] Encounter Details Date Type Department Care Team ([facility] st Contact Info) Description 03/08/2025 9:30 AM EDT Pharmacist [facility] [address] [place] [address] Vianey Portillo, [facility] Social History Tobacco Use Types Packs/Day Years [...] often do you attend chur ch or yazidism services? Never 01/10/2024 Do you belong to any clubs o r organizations such as hindu groups, unions, fraternal or athletic groups, or [...] more drinks on one occasion? Never 01/10/2024 [facility] - Occupational Stress Questionnaire Answer [...] drink first t adair in the morning (EYE-TOOL PROGRAMMER) to steady your nerves or to get [...] [facility] - 03/08/2025 9:30 AM EDT [facility] Pharmacy New Patient Telehealth Referral Telehealth Statement Patient Verification Patient identity has been confirmed using name and date of ? Yes Authorizations and Agreements/Telemedicine Consent sent and consent confirmed? Yes Patient Location: Patient's Home Patient confirms they are physically located in [place]? Yes If the patient is not physically located in [place], the provider has confirmed with Legal thatthe [...] medication via mail order. Reviewed scope of [facility] Pharmacy Services, including benefits investigation, prior authorization [...] 12:00 PM EST Office Visit [facility] [address] [place] [phone] Stevie Mckenzie MD [address] [place] [address] documented as of this encounter Visit Diagnoses Not on filedocumented in this encounter Additional Health Concerns Assessment Noted Time A Body Mass Index follow-up plan has been documented for the patient 02/01/2025 12:42 PM EDT documented as of this encounter Care Teams Service Greeter Relationship Specialty Start Date End Date Asuncion Iglesias BLUEBERRY GROWER [address] [place] [address] PCP - General 01/31/24 Alma Perdomo APRN 1210 [facility] [address], [place] [address] Referring Physician Cardiology 01/08/24 Stevie Mckenzie MD [address] [place] [address] Consulting Physician Nephrology 01/08/24 documented as of this encounter
--- OUTSIDE RECORDS SUMMARY | 2025-03-13 08:59 | XMS_ITS | Encounter Summary ---
Author Organization Healthcare Address [address] [place] [address] Care Team Providers Care Facer Operator Name Role Phone Alma Perdomo Hansa ROLL UP HELPER Unavailable [phone] Stveie Mckenzie MD Unavailable Asuncion Iglesias ROLL UP HELPER Primary Care Provider [phone] Encounter Details Date Type Department Care Team (Late st Contact Info) Description 03/08/2025 Orders Only Health and [facility] [address] [facility]nd [place] [address] Vianey Portillo, [facility] Social History Tobacco Use Types Packs/Day [...] often do you attend chur ch or orthodox services? Never 01/10/2024 Do you [...] occasion? Never 01/10/2024 [facility] - Occupational Stress Questionnaire [...] drink first t adair in the morning (EYE-RESTAURANT MGR) to steady your nerves or to get [...] Description 04/19/2025 12:00 PM EST Office Visit [facility] [address] [place] [address] Stevie Mckenzie MD [address] [place] [address] documented as of this encounter Visit Diagnoses Not on filedocumented in this encounter Additional Health Concerns Assessment Noted Time A Body Mass Index follow-up plan has been documented for the patient 02/01/2025 12:42 PM EDT documented as of this encounter Care Teams Facer Operator Relationship Specialty Start Date End Date Asuncion Iglesias APRN [address] [place] [address] PCP - General 01/31/24 Alma Perdomo APRN [address] [address] Referring Physician Cardiology 01/08/24 Stevie Mckenzie MD [address] [place] [address] Consulting Physician Nephrology 01/08/24 documented as of this encounter
--- OUTSIDE RECORDS SUMMARY | 2025-03-13 08:59 | XMS_ITS | Encounter Summary ---
Author Organization Healthcare Address [address] [place] [place] [id number] Care Team Providers Care Pickling Machine Operator Name Role Phone Alma Perdomo Hansa DIRECTOR PACKAGING Unavailable [phone] Stevie Mckenzie MD Unavailable Asuncion Iglesias DIRECTOR PACKAGING Primary Care Provider [phone] Encounter Details Date Type Department Care Team [...] often do you attend chur ch or jainism services? Never 01/10/2024 Do you belong to any clubs o r organizations such as christianity groups, unions, fraternal or athletic groups, or [...] more drinks on one occasion? Never 01/10/2024 [facility] ional Health - Occupational Stress [...] drink first t adair in the morning (EYE-MANAGER COSTING) to steady your nerves or to get rid of a hangover? 0 01/06/2024 CAGE Questionnaire Score 0 024 Utilities Answer Date Recorded In the past 12 months has th e [employer], gas, oil, or water [employer] threatened to shut off services in your [...] Description 04/19/2025 12:00 PM EST Office Visit [facility] [address] [place] [address] Stevie Mckenzie MD [address] [place] [address] documented as of this encounter Visit Diagnoses Not on filedocumented in this encounter Additional Health Concerns Assessment Noted Time A Body Mass Index follow-up plan has been documented for the patient 02/01/2025 12:42 PM EDT documented as of this encounter Care Teams Pickling Machine Operator Relationship Specialty Start Date End Date Asuncion Iglesias APRN [address] [place] [id number] PCP - General 01/31/24 Alma Perdomo APRN [facility] [address] [address] Referring Physician Cardiology 01/08/24 Stevie Mckenzie MD [address] [place] [address] Consulting Physician Nephrology 01/08/24 documented as of this encounter
--- OUTSIDE RECORDS SUMMARY | 2025-03-13 09:00 | XMS_ITS | Encounter Summary ---
Author Organization Healthcare Address [address] [place] [address] Care Team Providers Care Glazier Apprentice Name Role Phone Alma Perdomo Hansa POSTING CLERK Unavailable [phone] Stevie Mckenzie MD Unavailable Asuncion Iglesias POSTING CLERK Primary Care Provider [phone] Encounter Details Date Type Department Care Team (Late st Contact Info) Description 03/06/2025 Telephone [facility] [address] [place] [phone] Husam Hanks, PharmD Social History Tobacco Use Types Packs/Day Years [...] How often do you attend chur or restoration services? Never 01/10/2024 Do you belong to [...] more drinks on one occasion? Never 01/10/2024 [facility] - Occupational Stress Questionnaire Answer Date Recorded [...] place to sleep or slept in a usp (including now)? No 01/10/2024 CAGE ASSESSMENT Answer [...] drink first t adair in the morning (EYE-PROJECT ADMINISTRATOR) to steady your nerves or to get [...] 12:00 PM EST Office Visit [facility] [address] [place] [address] Stevie Mckenzie MD [address] [place] [address] documented as of this encounter Visit Diagnoses Not on filedocumented in this encounter Additional Health Concerns Assessment Noted Time A Body Mass Index follow-up plan has been documented for the patient 02/01/2025 12:42 PM EDT documented as of this encounter Care Teams Glazier Apprentice Relationship Specialty Start Date End Date Asuncion Iglesias APRN [address] [place] [address] PCP - General 01/31/24 Alma Perdomo APRN [address] [address] Referring Physician Cardiology 01/08/24 Stevie Mckenzie MD [address] [place] [address] Consulting Physician Nephrology 01/08/24 documented as of this encounter
--- OUTSIDE RECORDS SUMMARY | 2025-03-13 09:00 | XMS_ITS | Encounter Summary ---
Author Organization Healthcare Address [address] [id number] Care Team Providers Care Site Foreman Name Role Phone Alma Perdomo Hansa REAL ESTATE PROFESSOR Unavailable Stevie Mckenzie MD Unavailable Asuncion Iglesias APRN Primary Care Provider [phone] Encounter Details Date Type Department Care Team (Latest Contact Info) Description 03/08/2025 Travel Social History Tobacco Use Types Packs/Day [...] often do you attend chur ch or sabianist services? Never 01/10/2024 Do you belong to any clubs o r organizations such as sabianism groups, unions, fraternal or athletic groups, or [...] more drinks on one occasion? Never 01/10/2024 [facility] ional Health - Occupational [...] drink first t adair in the morning (EYE-AMPOULE INSPECTOR) to steady your nerves or to get rid of a hangover? 0 01/06/2024 CAGE Questionnaire Score 0 024 Utilities Answer Date Recorded In the past 12 months has th e [employer], gas, oil, or water [employer] threatened to shut off services in your [...] Description 04/19/2025 12:00 PM EST Office Visit [facility] [address] [place] [address] Stevie Mckenzie MD [address] [place] [phone] documented as of this encounter Visit Diagnoses Not on filedocumented in this encounter Additional Health Concerns Assessment Noted Time A Body Mass Index follow-up plan has been documented for the patient 02/01/2025 12:42 PM EDT documented as of this encounter Care Teams Site Foreman Relationship Specialty Start Date End Date Asuncion Iglesias APRN [address] [place] [id number] PCP - General 01/31/24 Alma Perdomo APRN [facility] [address] [address] Referring Physician Cardiology 01/08/24 Stevie Mckenzie MD [address] [place] [address] Consulting Physician Nephrology 01/08/24 documented as of this encounter
--- OUTSIDE RECORDS SUMMARY | 2025-03-13 09:00 | XMS_ITS | Encounter Summary ---
Author Organization Healthcare Address [address] [place] [address] Care Team Providers Care Stem Crusher Name Role Phone Alma Perdomo Hansa PHYSICALLY IMPAIRED TEACHER Unavailable [phone] Stevie Mckenzie MD Unavailable Asuncion Iglesias PHYSICALLY IMPAIRED TEACHER Primary Care Provider [phone] Encounter Details Date Type Department Care Team ([facility] st Contact Info) Description 03/04/2025 Telephone [facility]eral Met[facility] [address] [facility], [address] [place] [address] Ace Talbot, PharmD [address] [facility] [address] [place] [address] Social History Tobacco Use Types [...] more drinks on one occasion? Never 01/10/2024 [facility] - Occupational Stress Questionnaire Answer Date [...] place to sleep or slept in a prison (including now)? No 01/10/2024 CAGE ASSESSMENT Answer [...] drink first t adair in the morning (EYE-CANVAS BASTER JUMPBASTING) to steady your nerves or to get [...] as of this encounter Miscellaneous Notes * Addendum Note - Ace Talbot PharmD - 03/07/2025 10:33 AM EDTAddended by: ACE TALBOT on: 03/07/2025 10:33 AM Modules accepted: Orders * Telephone Encounter - Ace Talbot PharmD - 03/07/2025 10:30 AM EDT Discussed with Dr. Mckenzie who reports patient has history of fluctuation in potassium due to dietary changes. He feels patient will likely not need group home Lokelma. [facility] working on free 7 day supply with coupon card. Discussed with patient who is agreeable and states she has cut down on her tomato consumption. Will plan for repeat labs on 03/14 to reassess K. Lab orders faxed to [facility]. Ace Talbot PharmD, BCACP Clinical Pharmacist [facility]rology[facility] [address] [place] [address] * Telephone Encounter - Ace Talbot PharmD - 03/04/2025 9:30 AM EDT Patient with repeat labs per Dr. Mckenzie's request after recent office visit. Discussed results with Dr. Caballero who is covering for Dr. Mckenzie. Given K elevated at 5.7 will initiate Lokelma 10g daily at this time. Called and discuss with patient who is agreeable. Discussed limiting dietary potassium at this itme. Patient rpeorts she has been eating 1-2 tomatoes per day. Advised her to decrease this is~1 every other day if able. Will follow up with patient in a few weeks to reassess. Outside Labs 03/01/25 Scr 4.18 eGFR 11 K 5.7 Na 144 Ace Talbot PharmD, RASHARDCP Clinical Pharmacist [facility] [address] [place] [address] documented in this encounter Plan of Treatment Upcoming Encounters Date Type Department Care Team (Late st Contact Info) Description 04/19/2025 12:00 PM EST Office Visit [facility] [address] [place] [address] Stevie Mckenzie MD [address] [place] [address] Scheduled Orders Name Type Priority Associated Diagnoses Orde r Schedule Basic metabolic panel Lab Routine Hyperkalemia Expected: 03/14/2025 (Approximate), Expires: 09/08/2026 documented as of this encounter Visit Diagnoses Diagnosis Hyperkalemia- Primary Hyperpotassemia documented in this encounter Additional Health Concerns Assessment Noted Time A Body Mass Index follow-up plan has been documented for the patient 02/01/2025 12:42 PM EDT documented as of this encounter Care Teams Stem Crusher Relationship Specialty Start Date End Date Asuncion Iglesias APRN [address] [place] [address] PCP - General 01/31/24 Alma Perdomo, PHYSICALLY IMPAIRED TEACHER [address] [address] Referring Physician Cardiology 01/08/24 Stevie Mckenzie MD [address] [place] [phone] Consulting Physician Nephrology 01/08/24 documented as of this encounter
--- OUTSIDE RECORDS SUMMARY | 2025-03-13 09:00 | XMS_ITS | Encounter Summary ---
Author Organization Healthcare Address [address] [place] [id number] Care Team Providers Care Wide Area Network Systems Administrator Name Role Phone Alma Perdomo Hansa SKIVER WELT END Unavailable [phone] Stevie Mckenzie MD Unavailable Asuncion Iglesias SKIVER WELT END Primary Care Provider [phone] Encounter Details Date Type Department Care Team (Late st Contact Info) Description 03/08/2025 Orders Only Health and [facility] [address] [place] [address] Gabrielle Lloyd, PharmD [address] [place], [place] [id number] Social History Tobacco Use Types Packs/Day Years [...] often do you attend chur ch or holiness services? Never 01/10/2024 Do you belong to [...] more drinks on one occasion? Never 01/10/2024 [facility] of Occupat ional Health - Occupational Stress [...] place to sleep or slept in a senior living (including now)? No 01/10/2024 CAGE ASSESSMENT Answer [...] drink first t adair in the morning (EYE-EXTRACTOR TENDER RAW STOCK) to steady your nerves or to get [...] Description 04/19/2025 12:00 PM EST Office Visit [facility] [address] [place] [address] Stevie Mckenzie MD [address] [place] [address] documented as of this encounter Visit Diagnoses Not on filedocumented in this encounter Additional Health Concerns Assessment Noted Time A Body Mass Index follow-up plan has been documented for the patient 02/01/2025 12:42 PM EDT documented as of this encounter Care Teams Wide Area Network Systems Administrator Relationship Specialty Start Date End Date Asuncion Iglesias APRN [address] [place] [address] PCP - General 01/31/24 Alma Perdomo APRN [address] [place] [address] Referring Physician Cardiology 01/08/24 Stveie Mckenzie MD [address] [place] [address] Consulting Physician Nephrology 01/08/24 documented as of this encounter
--- OUTSIDE RECORDS SUMMARY | 2025-03-13 09:00 | XMS_ITS | Clinical Summary ---
[facility] Address [address] [place] [address] Care Team Providers Care Manager Operations And Procurement Name Role Phone Asuncion Iglesias APRN Primary Care Provider [phone] Social History Tobacco Use Types Packs/Day Years [...] WELLNESS VISIT 06/21/2022 HEPATITIS C SCREENING 06/21/2022 INFLUENZA VACCINE 12/28/2024 COVID-19 Vaccine ( season) 2025 Insurance [employer] MED[employer] Care Teams Manager Operations And Procurement Relationship Specialty Start Date End Date Asuncion Iglesias APRN [address] [place] [phone] PCP - General Nurse Practitioner 04/18/24
--- OUTSIDE RECORDS SUMMARY | 2025-03-13 09:00 | XMS_ITS | Encounter Summary ---
Author Organization Healthcare Address [address] [place] [id number] Care Team Providers Care Warehouse Delivery Driver Name Role Phone Alma Perdomo Hansa BRIEFCASE SEWER Unavailable [phone] Stevie Mckenzie MD Unavailable Asuncion Iglesias BRIEFCASE SEWER Primary Care Provider [phone] Encounter Details Date Type Department Care Team ([facility] st Contact Info) Description 03/05/2025 Telephone [facility], Bone [facility] Mineral Metabolism [address] [facility], [address] [place] [address] Eric Caballero MD [address] [place] [address] Social History Tobacco Use Types Packs/Day Years [...] often do you attend chur ch or moravian services? Never 01/10/2024 Do you belong to any clubs o r organizations such as jainism groups, unions, fraternal or athletic groups, or [...] more drinks on one occasion? Never 01/10/2024 [facility] Occupat ional Health - [...] drink first t adair in the morning (EYE-COMMUNITY RELATIONS POLICE LIEUTENANT) to steady your nerves or to get [...] Description 04/19/2025 12:00 PM EST Office Visit [facility] [address] [place] [address] Stevie Mckenzie MD [address] [place] [address] documented as of this encounter Visit Diagnoses Not on filedocumented in this encounter Additional Health Concerns Assessment Noted Time A Body Mass Index follow-up plan has been documented for the patient 02/01/2025 12:42 PM EDT documented as of this encounter Care Teams Warehouse Delivery Driver Relationship Specialty Start Date End Date Asuncion Iglesias APRN [address] [place] [address] PCP - General 01/31/24 Alma Perdomo APRN [facility] [address] [address] Referring Physician Cardiology 01/08/24 Stevie Mckenzie MD [address] [place] [address] Consulting Physician Nephrology 01/08/24 documented as of this encounter
--- OUTSIDE RECORDS SUMMARY | 2025-03-13 09:00 | XMS_ITS | Patient Health Record ---
[facility] [address] [place] [facility] [address] [place] [id number] Care Team Providers Care Operations Logistics Analyst Name Role Phone Cezar Vaughan Primary Care Provider [phone] Reason For Referral No Information Medications Medication SIG (Take, Route, Frequency, Duration) Notes Start Date End Date Status diazePAM 5 MG 1 tab(s) orally 3 times a day prn Active Plan Of Treatment No Information
--- OUTSIDE RECORDS SUMMARY | 2025-03-13 09:00 | XMS_ITS | Clinical Summary ---
Author Organization [facility] Address [address] [place] [address] Care Team Providers Care Ssis Developer Name Role Phone Alma Perdomo Hansa FARM FACILITY MANAGER Unavailable [phone] Stevie Mckenzie MD Unavailable Asuncion Iglesias FARM FACILITY MANAGER Primary Care Provider [phone] Allergies No known active allergies Medications levothyroxine (Synthroid, Levoxyl) 25 MCG tablet Take 1 tablet (25 mcg) by mouth 1 (one) time each day before breakfast. 30 tablet 2 4 Active FeroSul 325 (65 Fe) MG tablet 4 Active pantoprazole (ProtoNix) 20 MG EC tablet Take 1 tablet (20 mg) by mouth 1 (one) time each day before breakfast. Do not crush, chew, or split. Active cholecalciferol (Vitamin D-3) 50 MCG (2000 UT) capsuleIndication s:Vitamin D deficiency Take 1 capsule (2,000 Units) by mouth 1 (one) time each day. 90 capsule 3 5 Active amLODIPine (Norvasc) 10 MG tabletIndications :Hypertensive chronic kidney disease with stage 1 through stage 4 chronic kidney disease, or unspecified chronic kidney disease Take 1 tablet by mouth daily. 90 tablet 3 5 Active bisoprolol (Zebeta) 5 MG tabletIndications :Hypertensive chronic kidney disease with stage 1 through stage 4 chronic kidney disease, or unspecified chronic kidney disease Take 1 tablet by mouth daily. 90 tablet 3 5 Active hydrALAZINE (Apresoline) 50 MG tabletIndications :Hypertensive chronic kidney disease with stage 1 through stage 4 chronic kidney disease, or unspecified chronic kidney disease Take 1 tablet by mouth 3 times a day. 120 tablet 3 5 Active isosorbide mononitrate ER (Imdur) 60 MG 24 hr tabletIndications :Hypertensive chronic kidney disease with stage 1 through stage 4 chronic kidney disease, or unspecified chronic kidney disease Take 1 tablet by mouth daily. Do not crush or chew. 90 tablet 3 5 Active sodium bicarbonate 650 MG tabletIndications :Metabolic acidosis Take 2 tablets by mouth 2 times a day. 120 tablet 3 5 Active rosuvastatin (Crestor) 20 MG tablet Take 1 tablet by mouth nightly. Active warfarin (Coumadin) 2 MG tablet Take 1 tablet by mouth daily. Take as directed per After Visit Summary. Active aspirin 81 MG EC tablet Take 1 tablet by mouth daily. Active senna (Senokot) 8.6 MG tablet Take 1 tablet by mouth as needed for constipation . Active ondansetron (Zofran) 4 MG tablet Take 1 tablet by mouth as needed for nausea or vomiting. Active sodium zirconium cyclosilicate (Lokelma) 10 g packet Take 10 g by mouth daily. 30 each 1 5 Active rosuvastatin (Crestor) 10 MG tablet Take 1 tablet (10 mg) by mouth every night. 30 tablet 1 4 Discontinu ed(Per Patient Report) warfarin (Coumadin) 5 MG tablet Take 1 tablet by mouth daily. Take as directed per After Visit Summary. Discontinu ed(Per Patient Report) sodium zirconium cyclosilicate (Lokelma) 10 g packet Take 10 g by mouth daily. 30 each 1 5 025 Discontinu ed(Reorder ) sodium zirconium cyclosilicate (Lokelma) 10 g packet Take 10 g by mouth daily. 30 each 1 5 025 Discontinu ed(Reorder ) Active Problems Problem Noted Date Diagnosed Date Vitamin D deficiency 07/20/2024 Hyperkalemia 07/20/2024 Metabolic acidosis 03/16/2024 Cigarette nicotine dependenc e with nicotine-induced disorder 03/16/2024 Persistent proteinuria 02/03/2024 Chronic kidney disease-mineral and bone disorder (CKD-MBD) 02/03/2024 CKD stage 4 secondary to hypertension 02/03/2024 Class 1 obesity due to exces s calories with body mass index (BMI) of 31.0 to 31.9 in adult 01/10/2024 Paroxysmal A-fib 01/06/2024 HTN (hypertension) 01/06/2024 Hypothyroidism 01/06/2024 Hyperlipidemia 01/06/2024 CKD (chronic kidney disease) stage 4, GFR 15-29 ml/min 01/06/2024 PAD (peripheral artery disease) 01/06/2024 Hyperphosphatemia 01/06/2024 Left ankle pain 01/06/2024 (HFpEF) heart failure with preserved ejection fr action 01/06/2024 Anemia in stage 4 chronic kidney disease 024 Tobacco abuse 01/06/2024 Resolved Problems Problem Noted Date Diagnosed Date Resolved Date JONNATHAN (acute kidney injury) 01/06/2024 Encounters Date Type Department Care Team Description 03/08/2025 9:30 AM EDT [facility] [address] [place] [address] Vianey Portillo, [facility] 03/08/2025 Orders Only [facility] [address] [place] [address] Vianey Portillo, [facility] 03/08/2025 Orders Only [facility] [address] [place] [address] Gabrielle Lloyd, PharmD 03/08/2025 Travel 03/06/[address] [facility] Multidisciplinary Oncology Clinic [address] [place] [address] Husam Hanks, PharmD 03/05/2025 Telephone [facility] Nephrology, Bone & Mineral Metabolism [address], [address] [place] [address] Eric Caballero MD 03/04/2025 Telephone Professional [facility] Nephrology, Bone & Mineral Metabolism [address], [address] [place] [address] Ivy Munson, PharmD 02/01/2025 12:00 PM EDT Office Visit [facility] [address] [place] [address] Stevie Mckenzie MD JONNATHAN (acute kidney injury) ([facility]) (Primary Dx); Anemia in stage 4 chronic kidney disease; Persistent proteinuria; Metabolic acidosis; CKD stage 4 secondary to hypertension ([facility]); Hypertensive chronic kidney disease with stage 1 through stage 4 chronic kidney disease, or unspecified chronic kidney disease; Renal artery arteriosclerosis ([facility]) 02/01/2025 Travel from Last 3 Months Immunizations Immunization Administration Dates Next Due Pneumococcal Polysaccharide PPV23 01/19/2012 Family History Medical History Relation Name Comments No Known Problems Father No Known Problems Mother Relation Name Status Comments Father Mother Social History Tobacco Use Types Packs/Day Years Used Date Smoking Tobacco: Every Day Cigarettes 1 46.2 Started: 01/05/1979 Smokeless Tobacco: Never Tobacco Cessation:Ready [...] week 01/10/2024 How often do you attend [facility] or buddhist services? Never 01/10/2024 Do you belong to any clubs o r organizations such as confucianist groups, unions, fraternal or athletic groups, or [...] more drinks on one occasion? Never 01/10/2024 [facility] [place] of Occupat ional Health - Occupational Stress [...] drink first t adair in the morning (EYE-MED SPA MANAGER) to steady your nerves or to get [...] Description 04/19/2025 12:00 PM EST Office Visit [facility] [address] [place] [address] Stevie Mckenzie MD [address] [place] [address] Health Maintenance Due Date Last Done Comments [...] - Risk 60-74 years 1-dose series) 2017 [id number] Vaccine (3 - season) 2025 04/28/2021, 02/06/2021 [...] age to complete this [place] [address] AETNA MEDICARE Advance Directives * Full Code (Latest Code Status on File) Date Activated Date Inactivated Comments 01/06/2024 8:08 PM 01/11/2024 4:57 PM Question Answer Comments Patient has decision-making capacity? Yes Care Teams Ssis Developer Relationship Specialty Start Date End Date Asuncion Iglesias, FARM FACILITY MANAGER [address] [place] [address] PCP - General 01/31/24 Alma Perdomo, FARM FACILITY MANAGER [address] [facility] [address] [place] [address] Referring Physician Cardiology 01/08/24 Stevie Mckenzie MD [address] [place] [address] Consulting Physician Nephrology 01/08/24
[2025-03-13 14:49] LABS: PHA INR Fingerstick 1.6 (0.9-1.1)
== END 2025-03-13 14:52 ==
LOC: ACC 08:45
PROVIDERS: PCP Nurse Practitioner; Visit Provider Internal Medicine
DX: I48.0 Paroxysmal atrial fibrillation (principal); Z79.01 Long term (current) use of anticoagulants
CPT/HCPCS: 85610; 99211; G0463

== ENCOUNTER 2025-03-14 10:18 | Outpatient (CLI) | payer MEDICARE, SELFPAY ==
--- OUTSIDE RECORDS SUMMARY | 2025-02-01 12:00 | XMS_ITS | Encounter Summary ---
Author Organization [facility] Address [address] [place] [address] Care Team Providers Care Receptionist Doctor'S Office Name Role Phone Alma Perdomo DEHYDRATOR Unavailable [phone] Stevie Mckenzie MD Unavailable Asuncion Iglesias APRN Primary Care Provider [phone] Reason for Referral * Imaging (Routine) - Pending Review Specialty Diagnoses / Procedures Referred By Beena t Referred To Contact Cardiology Diagnoses Renal artery arteriosclerosis Procedures VAS US Renal Artery Duplex Stevie Mckenzie MD [address] [place] [address] Phone: tel: fax: Referral ID Status Reason Start Date Expiration Date Visits Requested Visits Authorized [id number] Pending Review Perform Procedure 02/01/2025 08/03/2026 1 1 Reason for Visit * Reason Comments Follow-up Pt is a 69 year old female that presents to the clinic on this date for a follow up. PT states she she is having back pain, and rates it a 5/10. Pt states she is having spells where she almost passes out and gets sick when she does. Encounter Details Date Type Department Care Team (Latest Contact Info) Description 02/01/2025 12:00 PM EDT Office Visit [facility] [address] [place] [address] Stevie Mckenzie MD [address] [place] [address] JONNATHAN (acute kidney injury) (CMS/HCC) (Primary Dx); Anemia in stage 4 chronic kidney disease; Persistent proteinuria; Metabolic acidosis; CKD stage 4 secondary to hypertension (CMS/HCC); Hypertensive chronic kidney disease with stage 1 through stage 4 chronic kidney disease, or unspecified chronic kidney disease; Renal artery arteriosclerosis (CMS/HCC) Social History Tobacco Use Types Packs/Day Years Used Date Smoking Tobacco: Every Day Cigarettes 1 46.2 Started: 01/05/1979 Smokeless Tobacco: Never Alcohol Use [...] How often do you attend [facility] or [facility] services? Never 01/10/2024 Do you belong to any clubs o r organizations such as druze groups, unions, fraternal or athletic groups, or [...] more drinks on one occasion? Never 01/10/2024 [facility] - Occupational Stress Questionnaire Answer Date Recorded [...] place to sleep or slept in a [facility] (including now)? No 01/10/2024 CAGE ASSESSMENT Answer [...] drink first t adair in the morning ([employer]) to steady your nerves or to get rid of a hangover? 0 01/06/2024 CAGE Questionnaire Score 0 024 Utilities Answer Date Recorded In the past 12 months has th e [employer], gas, oil, or water company threatened to shut off services in your home? No 01/10/2024 Comments No Sex and Gender Information Value Date Recorded Sex Assigned at Not on file Legal Sex Female 5:58 PM EDT Gender Identity Not on file Sexual Orientation Not on file documented as of this encounter Last Filed Vital Signs Vital Sign Reading Time Taken Comments Blood Pressure 132/61 02/01/2025 12:03 PM EDT Pulse 58 02/01/2025 12:03 PM EDT Temperature - - Respiratory Rate 20 02/01/2025 12:03 PM EDT Oxygen Saturation 99% 02/01/2025 12:03 PM EDT Inhaled Oxygen Concentration - - Weight 70.3 kg (155 lb) 02/01/2025 12:03 PM EDT Height 157.5 cm (5' 2 ) 02/01/2025 12:03 PM EDT Body Mass Index 28.35 02/01/2025 12:03 PM EDT documented in this encounter Miscellaneous Notes * Progress Notes - Stevie Mckenzie MD - 02/01/2025 12:00 PM EDT Nephrology Outpatient Clinic Progress Note [facility] Patient: Oneida Anderson Primary Care Provider: Asuncion Iglesias APRN Reason for visit: CKD 4 follow up HPI/Subjective Oneida Anderson is a 69 y.o. female with a PMH of HTN, HFpEF, pAFib, PAD, HLD, CKD who was recently admitted to [facility] on 01/06/24 for severe JONNATHAN and hypertensive emergency/urgency. Returns for follow up today. No new illnesses or hospitalization since last visit. Blood pressures have been fluctuating a lot, especially in recent days. She was 90s/40s yesterday and feeling dizzy. Today she is 170s systolic. Otherwise, she feels well. No changes to medications no changes in her health. History: Past Medical History: Diagnosis Date (HFpEF) heart failure with preserved ejection fraction ([facility]) 01/06/2024 Anemia 01/06/2024 CKD (chronic kidney disease) 01/06/2024 HTN (hypertension) 01/06/2024 Hyperlipidemia 01/06/2024 Hypothyroidism 01/06/2024 PAD (peripheral artery disease) ([facility]) 01/06/2024 Paroxysmal A-fib ([facility]) 01/06/2024 Tobacco abuse 01/06/2024 Patient Active Problem List Diagnosis JONNATHAN (acute kidney injury) ([facility]) Paroxysmal A-fib ([facility]) HTN (hypertension) Hypothyroidism Hyperlipidemia CKD (chronic kidney disease) stage 4, GFR 15-29 ml/min ([facility]) PAD (peripheral artery disease) ([facility]) Hyperphosphatemia Left ankle pain (HFpEF) heart failure with preserved ejection fraction ([facility]) Anemia in stage 4 chronic kidney disease Tobacco abuse Class 1 obesity due to excess calories with body mass index (BMI) of 31.0 to 31.9 in adult Persistent proteinuria Chronic kidney disease-mineral and bone disorder (CKD-MBD) Hypertensive chronic kidney disease with stage 1 through stage 4 chronic kidney disease, or unspecified chronic kidney disease Metabolic acidosis Cigarette nicotine dependence with nicotine-induced disorder Vitamin D deficiency Hyperkalemia Past Surgical History: Procedure Laterality Date CHOLECYSTECTOMY Family History Problem Relation Name Age of Onset No Known Problems Mother No Known Problems Father Social History Socioeconomic History Marital status: Spouse name: Not on file Number of children: Not on file Years of education: Not on file Highest education level: Not on file Occupational History Not on file Tobacco Use Smoking status: Every Day Current packs/day: 1.00 Average packs/day: 1 pack/day for 46.1 years (46.1 ttl pk-yrs) Types: Cigarettes Start date: 01/05/1979 Smokeless tobacco: Never Substance and Sexual Activity Alcohol use: Not Currently Drug use: Not Currently Types: Cocaine Comment: snort Sexual activity: Not on file Other Topics Concern Not on file Social History Narrative Not on file Social Drivers of Health Financial Resource Strain: Not on file Food Insecurity: No Food Insecurity (01/10/2024) Hunger Vital Sign Worried About Running Out of Food in the Last Year: Never true Ran Out of Food in the Last Year: Never true Transportation Needs: No Transportation Needs (01/10/2024) PRAPARE - Transportation Lack of Transportation (Medical): No Lack of Transportation (Non-Medical): No Physical Activity: Insufficiently Active (01/10/2024) Exercise Vital Sign Days of Exercise per Week: 3 days Minutes of Exercise per Session: 30 min Stress: No Stress Concern Present (01/10/2024) [place] [facility] - Occupational Stress Questionnaire Feeling of Stress : Only a little Social Connections: Moderately Isolated (01/10/2024) Social Connection and Isolation Panel Frequency of Communication with Friends and Family: More than three times a week Frequency of Social Gatherings with Friends and Family: More than three times a week Attends Worship Services: Never Active Member of Clubs or Organizations: No Attends Club or Organization Meetings: Never Marital Status: Intimate Partner Violence: Not At Risk (01/10/2024) Humiliation, Afraid, Rape, and Kick questionnaire Fear of Current or Ex-Partner: No Emotionally Abused: No Physically Abused: No Sexually Abused: No Housing Stability: Low Risk (01/10/2024) Housing Stability Vital Sign Unable to Pay for Housing in the Last Year: No Number of Places Lived in the Last Year: 1 Unstable Housing in the Last Year: No No Known Allergies Medications: Current Medications: Current Outpatient Medications Medication Instructions amLODIPine (NORVASC) 10 mg, Oral, Daily apixaban (ELIQUIS) 5 mg, Oral, 2 times daily bisoprolol (ZEBETA) 5 mg, Oral, Daily cholecalciferol (VITAMIN D-3) 2,000 Units, Oral, Daily FeroSul 325 (65 Fe) MG tablet hydrALAZINE (APRESOLINE) 50 mg, Oral, 3 times daily isosorbide mononitrate ER (IMDUR) 60 mg, Oral, Daily, Do not crush or chew. levothyroxine (SYNTHROID, LEVOXYL) 25 mcg, Oral, Daily before breakfast pantoprazole (PROTONIX) 20 mg, Daily before breakfast rosuvastatin (CRESTOR) 10 mg, Oral, Nightly sodium bicarbonate 1,300 mg, Oral, 2 times daily warfarin (COUMADIN) 5 mg, Daily Objective Visit Vitals BP 132/61 (BP Location: Right arm, Patient Position: Sitting, BP Cuff Size: Adult) Pulse 58 Resp 20 Ht 1.575 m (5' 2 ) Wt 70.3 kg (155 lb) LMP (LMP Unknown) SpO2 99% BMI 28.35 kg/m?? OB Status Postmenopausal Smoking Status Every Day BSA 1.75 m?? Heart Rate: [58] 58 Resp: [20] 20 BP: (132)/(61) 132/61 Physical Exam: Physical Exam Constitutional: Appearance: Normal appearance. She is normal weight. HENT: Head: Normocephalic. Right Ear: External ear normal. Left Ear: External ear normal. Nose: Nose normal. Mouth/Throat: Mouth: Mucous membranes are moist. Pharynx: Oropharynx is clear. Eyes: Conjunctiva/sclera: Conjunctivae normal. Pupils: Pupils are equal, round, and reactive to light. Cardiovascular: Rate and Rhythm: Normal rate. Pulses: Normal pulses. Pulmonary: Effort: Pulmonary effort is normal. Abdominal: General: Abdomen is flat. Bowel sounds are normal. Musculoskeletal: General: Normal range of motion. Cervical back: Normal range of motion. Skin: General: Skin is warm and dry. Neurological: General: No focal deficit present. Mental Status: She is alert and oriented to person, place, and time. Mental status is at baseline. Psychiatric: Mood and Affect: Mood normal. Behavior: Behavior normal. Thought Content: Thought content normal. Judgment: Judgment normal. Laboratory: LAB RESULTS Renal Panel: Lab Results Component Value Date NA 135 (L) 01/11/2024 K 4.7 01/11/2024 CL 108 (H) 01/11/2024 CO2 18 (L) 01/11/2024 BUN 45 (H) 01/11/2024 CREATININE 2.74 (H) 01/11/2024 EGFR 18.6 01/11/2024 PHOS 4.9 (H) 01/11/2024 ALBUMIN 3.1 (L) 01/11/2024 MBD: Lab Results Component Value Date CALCIUM 8.7 (L) 01/11/2024 PHOS 4.9 (H) 01/11/2024 MG 2.2 01/11/2024 VITAMIN D 25 No results found for: VITD25 VITAMIN D 1,25 No results found for: VITD32 PTHRP No results found for: PLASMA Paraproteinemia Labs: No results found for: SPEP , KAPPALAMBDA Nutritional: No results found for: PREALBUMIN , VITD25 Endocrine profile: Lab Results Component Value Date TSH 4.63 (H) 01/06/2024 FREET4 1.1 01/06/2024 Urine studies: Lab Results Component Value Date CREATUR 46 01/07/2024 CBC: Lab Results Component Value Date WBC 6.40 01/11/2024 RBC 3.42 (L) 01/11/2024 HGB 9.1 (L) 01/11/2024 HCT 28.7 (L) 01/11/2024 PLT 254 01/11/2024 MCV 84 01/11/2024 MCH 26.6 01/11/2024 MCHC 31.7 01/11/2024 RDW 13.6 01/11/2024 NRBC 0.0 01/11/2024 Iron studies: Lab Results Component Value Date FERRITIN 144 01/06/2024 IRON 15 (L) 01/07/2024 TIBC 249 01/07/2024 Bone Turnover Markers: No results found for: BSAP , CTELOX , NTELOPEPTS , OSTEOCALCIN 02/27/24 Cr 2.7 UPCR protein >600, cr 112 unable to calculate LINDSAY 1280, antidsdna negative, C3/C4 normal values Labs 06/11/2024 BUN 43, Cr 3.19, EGFR 15 Na 141, K 5.5, Cl 113, CO2 22, Ca 8.8, Phos 4.5, Alb 3.6 Hgb 10.8 Vit D 13 Labs 07/16/2024 BUN 35 Cr 2.65 eGFR 18 Na 140 K 5.2 CO2 23 Labs August 10, 2024 Na 138, K 4.9, Cl 112, CO2 22, BUN 33, Cr 2.9, GFR 16, Glu 90, Ca 9.1, Phos 4.4, Alb 3.6 Labs 10/11/2024 RFP: Glu 90, BUN 40, Cr 3.6, eGFR 13, Na 144, K 5.1, Cl 109, CO2 22, AGAP 18, Ca 9.3, Phos 4.2, Alb3.9 CBC: WBC 6.6, Hgb 11.2, PLT 257 UA: >300 protein, 100 glucose , neg blood 01/29/25 RFP Glu 112, BUN 55, Cr 4.8, GFR 9, Na 147, K 4.7, Cl 112, CO2 20, Ca 8.5, Phos 5.0, Alb 3.8 Imaging: Renal vascular ultrasound in [facility] 01/08/24 There is increased echogenicity of the right kidney. There is increased echogenicity of the left kidney. The right measures 9.7 and the left 8.1 cm. No hydronephrosis. No contour deforming masses. Noobvious calculi. Doppler interrogation confirms patent main renal arteries and veins bilaterally. The resistive indices for the arcuate arteries ranges from 0.64-0.76 on the right and 0.66 to 0.78 on the left. The Doppler spectral traces were also within normal limits. Peak systolic velocity in the right renal artery is 55 cm/s in the distal portion, 68 cm/s in the midportion and 117 cm/s in the proximal portion with normal spectral waveform. Peak systolic velocityin the left kidney was 78 cm/s distally, 72 cm/s in the midportion, and 68 cm/s at the origin. The renal artery to aortic velocity ratio was 1.1 on the right and 0.7 on the left. The urinary bladder appears grossly unremarkable. IMPRESSION: 1. Small echogenic kidneys 2. Resistive indices are described above. The Doppler spectral traces were within normal limits. There is no clear evidence of a poststenotic waveform. 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 Most recent cr 4.8 eGFR 9 02/01/2025 suspect JONNATHAN from dehydration as patient also hypernatremic No major issues with electrolytes, acid/base or volume Urine; + proteinuria 3.1g 2/2 uncontrolled HTN Anatomy: small echogenic kidneys, no significant vascular stenosis Risk factors for progression: uncontrolled HTN -HTN - now at goal on current Rx -Lifestyle modification: QUIT smoking cigarettes emphasized this visit and by Assembler Camper. LOW sodium diet <2g/day -RAAS blockade - not on currently due to fluctuating eGFR and HyperK -SGLT2 inh: May benefit from SGLT2 inhibitor in future as well once eGFR stable above 25 #Positive LINDSAY -LINDSAY 1:320, antidsDNA negative, C3/C4 wnl LINDSAY >1:1280, speckled -No rash, no arthritis, some dry mouth -C3/C4 normal anti-dsdna negative. Low suspicion for kidney involvement #HTN in CKD - improved, but still with a lot of fluctuations - Continue Amlodipine 10mg daily, hydralazine 50mg QID, Isosorbide 60mg daily, bisoprolol 5mg daily -Recommend LOW sodium diet #CKD BMD -Vit D low, started on 2K daily supplement of vitamin D3 #metabolic acidosis due to renal failure - improved on oral bicarb supplement #HLD #Peripheral vascular disease - patient with history of stroke would beenfit from being on a statin - sees Cardiology recommend physical therapy and smoking cessation Recommendations and plan: -Reviewed patient's labs with her and all of her electrolytes are stable; however her creatinine isup again to 4.8 eGFR 9. She does not feel unwell except for these episodes of intense back pain. She does not have any life threatening electrolyte abnormalities. No need for dialysis today,but we discussed that it is coming soon if cannot reverse current trajectory. We discussed options for dialysis such as hemodialysis or peritoneal dialysis. She is undecided at this point -No changes to medications today. -I Refilled her antihypertensives today -I refilled sodium bicarb at 1300mg BID Labs in 2 weeks and if better/ can keep 2 month follow up RTC in 2 months Stevie Mckenzie MD Division of Nephrology [facility] MDM: High risk, patient with organ failing, severe progression of a chronic disease (CKD stage 5) Acute kidney injury, severe, potentially life threatening. Discussed dialysis modalities today. ORDERS PLACED THIS ENCOUNTER Orders Placed This Encounter Procedures Renal function panel Standing Status: Future Expected Date: 03/29/2025 Expiration Date: 08/05/2026 Release to patient in [facility]: Immediate [1] Protein, Random, Urine with Creatinine Standing Status: Future Expected Date: 03/29/2025 Expiration Date: 08/05/2026 Release to patient in [facility]: Immediate [1] CBC Standing Status: Future Expected Date: 03/29/2025 Expiration Date: 08/05/2026 [facility] [1] Renal function panel Standing Status: Future Expected Date: 02/15/2025 Expiration Date: 08/05/2026 Release to patient in MyChart: Immediate [1] Problem List Items Addressed This Visit JONNATHAN (acute kidney injury) (CMS/HCC) - Primary Relevant Orders Renal function panel Protein, Random, Urine with Creatinine CBC Renal function panel Anemia in stage 4 chronic kidney disease Relevant Orders Renal function panel Protein, Random, Urine with Creatinine CBC Renal function panel Persistent proteinuria CKD stage 4 secondary to hypertension (CMS/HCC) Metabolic acidosis Other Visit Diagnoses Renal artery arteriosclerosis (CMS/HCC) Relevant Orders VAS US Renal Artery Duplex documented in this encounter Plan of Treatment Upcoming Encounters Date Type Department Care Team (Late st Contact Info) Description 04/19/2025 12:00 PM EST Office Visit [place] [id number] [facility] [address] [place] [address] Stevie Mckenzie MD [address] [place] [phone] Scheduled Orders Name Type Priority Associated Diagnoses Orde r Schedule Renal function panel Lab Routine JONNATHAN (acute kidney injury) (CMS/HCC) Anemia in stage 4 chronic kidney disease Expected: 03/29/2025 (Approximate), Expires: 08/05/2026 Protein, Random, Urine with Creatinine Lab Routine JONNATHAN (acute kidney injury) (CMS/HCC) Anemia in stage 4 chronic kidney disease Expected: 03/29/2025 (Approximate), Expires: 08/05/2026 CBC Lab Routine JONNATHAN (acute kidney injury) (CMS/HCC) Anemia in stage 4 chronic kidney disease Expected: 03/29/2025 (Approximate), Expires: 08/05/2026 Renal function panel Lab Routine JONNATHAN (acute kidney injury) (CMS/HCC) Anemia in stage 4 chronic kidney disease Expected: 02/15/2025 (Approximate), Expires: 08/05/2026 VAS US Renal Artery Duplex Vascular Ultrasound Routine Renal artery arteriosclerosis (CMS/HCC) Expected: 02/15/2025, Expires: 08/05/2026 documented as of this encounter Visit Diagnoses Diagnosis JONNATHAN (acute kidney injury)- Primary Anemia in stage 4 chronic kidney disease Persistent proteinuria Metabolic acidosis Acidosis CKD stage 4 secondary to hypertension (CMS/HCC) Hypertensive chronic kidney disease with stage 1 through stage 4 chronic kidney disease, or unspecified chronic kidney disease Renal artery arteriosclerosis Atherosclerosis of renal artery documented in this encounter Additional Health Concerns Assessment Noted Time A Body Mass Index follow-up plan has been documented for the patient 02/01/2025 12:42 PM EDT documented as of this encounter Care Teams Receptionist Doctor'S Office Relationship Specialty Start Date End Date Asuncion Iglesias APRN [address] [place] [id number] PCP - General 01/31/24 Alma Perdomo APRN [address] [address] Referring Physician Cardiology 01/08/24 Stevie Mckenzie MD [address] [place] [address] Consulting Physician Nephrology 01/08/24 documented as of this encounter
--- OUTSIDE RECORDS SUMMARY | 2025-03-08 09:30 | XMS_ITS | Encounter Summary ---
Author Organization [facility] Address [address] [place] [address] Care Team Providers Care Organic Preparation Technician Name Role Phone Alma Perdomo Hansa HOT WATER HEATER INSTALLER Unavailable [phone] Stevie Mckenzie MD Unavailable Asuncion Iglesias HOT WATER HEATER INSTALLER Primary Care Provider [phone] Encounter Details Date Type Department Care Team ([facility] st Contact Info) Description 03/08/2025 9:30 AM EDT Pharmacist [facility] [address] [place] [address] Vianey Portillo, [facility] Social History Tobacco Use Types Packs/Day [...] any clubs o r organizations such as nondenominational groups, unions, fraternal or athletic groups, or [...] one occasion? Never 01/10/2024 [facility] - Occupational Stress Questionnaire [...] drink first t adair in the morning (EYE-AMPLIFIER MECHANIC) to steady your nerves or to get [...] Notes * Clinician Note - Vianey Portillo [facility] - 03/08/2025 9:30 AM EDT [facility] Pharmacy New Patient Telehealth Referral Telehealth Statement Patient Verification Patient identity has been confirmed using name and date of ? Yes Authorizations and Agreements/Telemedicine Consent sent and consent confirmed? Yes Patient Location: Patient's Home Patient confirms they are physically located in [place]? Yes If the patient is not physically located in [place], the provider has confirmed with Legal thatthe [...] medication via mail order. Reviewed scope of [facility] Pharmacy Services, including benefits investigation, prior [...] Description 04/19/2025 12:00 PM EST Office Visit [facility] [address] [place] [phone] Stevie Mckenzie MD [address] [place] [address] documented as of this encounter Visit Diagnoses Not on filedocumented in this encounter Additional Health Concerns Assessment Noted Time A Body Mass Index follow-up plan has been documented for the patient 02/01/2025 12:42 PM EDT documented as of this encounter Care Teams Organic Preparation Technician Relationship Specialty Start Date End Date Asuncion Iglesias HOT WATER HEATER INSTALLER [address] [place] [address] PCP - General 01/31/24 Alma Perdomo APRN 1210 [facility] [address], [place] [address] Referring Physician Cardiology 01/08/24 Stevie Mckenzie MD [address] [place] [address] Consulting Physician Nephrology 01/08/24 documented as of this encounter
--- OUTSIDE RECORDS SUMMARY | 2025-03-14 10:33 | XMS_ITS | Encounter Summary ---
Author Organization Healthcare Address [address] [id number] Care Team Providers Care Product Support Representative Name Role Phone Alma Perdomo Hansa MERCURY RECOVERER Unavailable [phone] Stevie Mckenzie MD Unavailable Asuncion Iglesias MERCURY RECOVERER Primary Care Provider [phone] Encounter Details Date Type Department Care Team [...] often do you attend chur ch or taoism services? Never 01/10/2024 Do you belong to any clubs o r organizations such as yazdanism groups, unions, fraternal or athletic groups, or [...] more drinks on one occasion? Never 01/10/2024 [facility] of Occupat ional Health - Occupational [...] place to sleep or slept in a residential (including now)? No 01/10/2024 CAGE ASSESSMENT Answer [...] first t adair in the morning (EYE-MANAGER OF ADMINISTRATION) to steady your nerves or to get rid of a hangover? 0 01/06/2024 CAGE Questionnaire Score 0 024 Utilities Answer Date Recorded In the past 12 months has th e [employer], gas, oil, or water POS on [employer] threatened to shut off services in your [...] Description 04/19/2025 12:00 PM EST Office Visit [facility] [address] [place] [address] Stevie Mckenzie MD [address] [place] [address] documented as of this encounter Visit Diagnoses Not on filedocumented in this encounter Additional Health Concerns Assessment Noted Time A Body Mass Index follow-up plan has been documented for the patient 02/01/2025 12:42 PM EDT documented as of this encounter Care Teams Product Support Representative Relationship Specialty Start Date End Date Asuncion Iglesias APRN [address] [place] [address] [id number] PCP - General 01/31/24 Alma Perdomo APRN [facility] [address] [address] Referring Physician Cardiology 01/08/24 Stevie Mckenzie MD [address] [place] [address] Consulting Physician Nephrology 01/08/24 documented as of this encounter
--- OUTSIDE RECORDS SUMMARY | 2025-03-14 10:33 | XMS_ITS | Clinical Summary ---
Author Organization [facility] Address [address] [place] [address] Care Team Providers Care Gunner Mate Name Role Phone Asuncion Iglesias APRN Primary Care Provider [phone] Social History Tobacco Use Types Packs/Day Years [...] 2025 Insurance [employer] MEDICARE ADV[employer]AGE Care Teams Gunner Mate Relationship Specialty Start Date End Date Asuncion Iglesias APRN [address] [place] [id number] PCP - General Nurse Practitioner 04/18/24
--- OUTSIDE RECORDS SUMMARY | 2025-03-14 10:33 | XMS_ITS | Encounter Summary ---
Author Organization Healthcare Address [address] [id number] Care Team Providers Care Manager Practice Name Role Phone Alma Perdomo Hansa OUTREACH LIAISON Unavailable [phone] Stevie Mckenzie MD Unavailable Asuncion Iglesias OUTREACH LIAISON Primary Care Provider [phone] Encounter Details Date Type Department Care Team ([facility] st Contact Info) Description 03/05/2025 Telephone [facility] Nephrology, Bone & Mineral Metabolism [address] [facility], [address] [place] [address] Eric Caballero MD [address] [place] [address] Social History Tobacco Use Types [...] often do you attend chur ch or confucianist services? Never 01/10/2024 Do you belong to any clubs o r organizations such as sabianist groups, unions, fraternal or athletic groups, or [...] more drinks on one occasion? Never 01/10/2024 [facility] of Occupat ional Health - Occupational [...] drink first t adair in the morning (EYE-MECHANICAL OXIDIZER) to steady your nerves or to get [...] [facility] [address] [place] [address] Stevie Mckenzie MD [address] [place] [address] documented as of this encounter Visit Diagnoses Not on filedocumented in this encounter Additional Health Concerns Assessment Noted Time A Body Mass Index follow-up plan has been documented for the patient 02/01/2025 12:42 PM EDT documented as of this encounter Care Teams Manager Practice Relationship Specialty Start Date End Date Asuncion Iglesias APRN [address] [place] [address] PCP - General 01/31/24 Alma Perdomo APRN [facility] [address] [address] Referring Physician Cardiology 01/08/24 Stevie Mckenzie MD [address] [place] [address] Consulting Physician Nephrology 01/08/24 documented as of this encounter
--- OUTSIDE RECORDS SUMMARY | 2025-03-14 10:33 | XMS_ITS | Clinical Summary ---
Author Organization [facility] Address [address] [place] [address] Care Team Providers Care Leather Whitener Name Role Phone Alma Perdomo Hansa HEAD STILL OPERATOR Unavailable [phone] Stevie Mckenzie MD Unavailable Asuncion Iglesias HEAD STILL OPERATOR Primary Care Provider [phone] Allergies No known active allergies Medications levothyroxine [...] Wellness Clinic [address] [place] [address] Vianey Portillo, [facility] 03/08/2025 Orders Only [facility] [address] [place] [address] Vianey Portillo, [facility] 03/08/2025 Orders Only [facility] [address] [place] [address] Gabrielle Lloyd, PharmD 03/08/2025 Travel 03/06/2025 Telephone [facility] Multidisciplinary Oncology Clinic [address] [place] [address] Husam Hanks, PharmD 03/05/2025 Telephone [facility] Nephrology, Bone & Mineral Metabolism [address] [facility], [address] [place] [address] Eric Caballero MD 03/04/2025 Telephone Professional [facility] Nephrology, Bone & Mineral Metabolism [address] [facility], [address] [place] [address] Ivy Munson, PharmD 02/01/2025 12:00 PM EDT Office Visit [facility] [address] [place] [address] Stevie Mckenzie MD JONNATHAN (acute kidney injury) ([facility]) (Primary Dx); Anemia in stage 4 chronic kidney disease; Persistent proteinuria; Metabolic acidosis; CKD stage 4 secondary to hypertension ([facility]); Hypertensive chronic kidney disease with stage 1 through stage 4 chronic kidney disease, or unspecified chronic kidney disease; Renal artery arteriosclerosis ([facility]) 02/01/2025 Travel from Last 3 Months Immunizations [...] week 01/10/2024 How often do you attend [facility] or uatsdin services? Never 01/10/2024 Do you [...] more drinks on one occasion? Never 01/10/2024 [facility] of Occupat ional Health - Occupational Stress [...] drink first t adair in the morning (EYE-KING MAKER) to steady your nerves or to [...] [facility] [address] [place] [address] Stevie Mckenzie MD [address] [place] [address] Health Maintenance Due Date Last Done Comments [...] - Risk 60-74 years 1-dose series) 2017 [id number] Vaccine (3 - season) 2025 04/28/2021, 02/06/2021 [...] age to complete this [place] [address] AETNA MEDICARE Advance Directives * Full Code (Latest Code Status on File) Date Activated Date Inactivated Comments 01/06/2024 8:08 PM 01/11/2024 4:57 PM Question Answer Comments Patient has decision-making capacity? Yes Care Teams Leather Whitener Relationship Specialty Start Date End Date Asuncion Iglesias, HEAD STILL OPERATOR [address] [place] [address] PCP - General 01/31/24 Alma Perdomo, HEAD STILL OPERATOR [address] [facility] [address] [place] [address] Referring Physician Cardiology 01/08/24 Stevie Mckenzie MD [address] [place] [address] Consulting Physician Nephrology 01/08/24
--- OUTSIDE RECORDS SUMMARY | 2025-03-14 10:33 | XMS_ITS | Encounter Summary ---
Author Organization Healthcare Address [address] [place] [address] Care Team Providers Care Blueprint Maker Name Role Phone Alma Perdomo Hansa AUTO ROLLER Unavailable [phone] Stevie Mckenzie MD Unavailable Asuncion Iglesias AUTO ROLLER Primary Care Provider [phone] Encounter Details Date Type Department Care Team ([facility] st Contact Info) Description 03/04/2025 Telephone [facility] Nephrology, Bone & Mineral Metabolism [address], [address] [place] [address] Ace Talbot, PharmD [address] [place] [address] Social History Tobacco Use Types [...] often do you attend chur ch or lutheran services? Never 01/10/2024 Do you [...] more drinks on one occasion? Never 01/10/2024 [facility] - Occupational Stress Questionnaire Answer Date [...] drink first t adair in the morning (EYE-AUDIT REVIEWER) to steady your nerves or to get [...] He feels patient will likely not need usp Lokelma. [facility] working on free 7 day supply with coupon card. Discussed with patient who is agreeable and states she has cut down on her tomato consumption. Will plan for repeat labs on 03/14 to reassess K. Lab orders faxed to [facility]. Ace Talbot PharmD, BCACP Clinical Pharmacist Nephrology, [facility] & [facility] Metabolism Clinic [address] [place] [address] * Telephone Encounter - Ace Talbot PharmD [...] Nephrology, [facility] & Mineral Metabolism Clinic [address] [place] [address] documented in this encounter Plan of Treatment Upcoming Encounters Date Type Department Care Team (Late st Contact Info) Description 04/19/2025 12:00 PM EST Office Visit [facility] [address] [place] [address] Stevie Mckenzie MD [address] [place] [address] Scheduled Orders Name Type Priority Associated Diagnoses [...] documented as of this encounter Care Teams Blueprint Maker Relationship Specialty Start Date End Date Asuncion Iglesias APRN [address] [place] [address] PCP - General 01/31/24 Alma Perdomo, AUTO ROLLER [address] [address] Referring Physician Cardiology 01/08/24 Stevie Mckenzie MD [address] [place] [address] Consulting Physician Nephrology 01/08/24 documented as of this encounter
--- OUTSIDE RECORDS SUMMARY | 2025-03-14 10:33 | XMS_ITS | Encounter Summary ---
Author Organization Healthcare Address [address] [id number] Care Team Providers Care Fish And Wildlife Biologist Name Role Phone Alma Perdomo Hansa COMMUNITY OUTREACH SPECIALIST Unavailable [phone] Stevie Mckenzie MD Unavailable Asuncion Iglesias COMMUNITY OUTREACH SPECIALIST Primary Care Provider [phone] Encounter Details Date Type Department Care Team (Late st Contact Info) Description 03/08/2025 Orders Only [facility] [address] [place] [address] Gabrielle Lloyd, PharmD [address] [place], [place] [id number] Social History Tobacco Use Types Packs/Day Years [...] often do you attend chur ch or temple services? Never 01/10/2024 Do you belong to [...] more drinks on one occasion? Never 01/10/2024 [facility] of Occupat ional Health [...] place to sleep or slept in a skilled nursing (including now)? No 01/10/2024 CAGE ASSESSMENT Answer [...] drink first t adair in the morning (EYE-MEDICAL DONATION PROFESSIONAL) to steady your nerves or to get [...] Description 04/19/2025 12:00 PM EST Office Visit [facility] [address] [place] [address] Stevie Mckenzie MD [address] [place] [address] documented as of this encounter Visit Diagnoses Not on filedocumented in this encounter Additional Health Concerns Assessment Noted Time A Body Mass Index follow-up plan has been documented for the patient 02/01/2025 12:42 PM EDT documented as of this encounter Care Teams Fish And Wildlife Biologist Relationship Specialty Start Date End Date Asuncion Iglesias APRN [address] [place] [address] PCP - General 01/31/24 Alma Perdomo APRN [address] [place] [address] Referring Physician Cardiology 01/08/24 Stevie Mckenzie MD [address] [place] [address] Consulting Physician Nephrology 01/08/24 documented as of this encounter
--- OUTSIDE RECORDS SUMMARY | 2025-03-14 10:33 | XMS_ITS | Patient Health Record ---
Author [facility] Address [address] [facility] [address] [place] [id number] Care Team Providers Care Cannery Tender Engineer Name Role Phone Cezar Vaughan Primary Care Provider Reason For Referral No Information Medications Medication SIG (Take, Route, Frequency, Duration) Notes Start Date End Date Status diazePAM 5 MG 1 tab(s) orally 3 times a day prn Active Plan Of Treatment No Information
--- OUTSIDE RECORDS SUMMARY | 2025-03-14 10:33 | XMS_ITS | Encounter Summary ---
Author Organization Healthcare Address [address] [place] [address] Care Team Providers Care Multi Line Claims Adjuster Name Role Phone Alma Perdomo Hansa DIRECTOR OF RADIO SERVICES Unavailable [phone] Stevie Mckenzie MD Unavailable Asuncion Iglesias DIRECTOR OF RADIO SERVICES Primary Care Provider [phone] Encounter Details Date Type Department Care Team (Late st Contact Info) Description 03/08/2025 Orders Only [facility] [address] [facility] [facility] [place] [address] Vianey Portillo, [facility] Social History Tobacco Use Types Packs/Day [...] any clubs o r organizations such as hoahaoism groups, unions, fraternal or athletic groups, or [...] more drinks on one occasion? Never 01/10/2024 [facility] - Occupational Stress Questionnaire Answer [...] drink first t adair in the morning (EYE-ENGRAVING PATTERNMAKER) to steady your nerves or to get [...] Description 04/19/2025 12:00 PM EST Office Visit [facility] [address] [place] [address] Stevie Mckenzie MD [address] [place] [address] documented as of this encounter Visit Diagnoses Not on filedocumented in this encounter Additional Health Concerns Assessment Noted Time A Body Mass Index follow-up plan has been documented for the patient 02/01/2025 12:42 PM EDT documented as of this encounter Care Teams Multi Line Claims Adjuster Relationship Specialty Start Date End Date Asuncion Iglesias APRN [address] [place] [address] PCP - General 01/31/24 Alma Perdomo APRN [address] [address] Referring Physician Cardiology 01/08/24 Stevie Mckenzie MD [address] [place] [address] Consulting Physician Nephrology 01/08/24 documented as of this encounter
--- OUTSIDE RECORDS SUMMARY | 2025-03-14 10:33 | XMS_ITS | Encounter Summary ---
Author Organization Healthcare Address [address] [place] [address] Care Team Providers Care Cement Contractor Name Role Phone Alma Perdomo Hansa ELECTRICAL REPAIRER Unavailable [phone] Stevie Mckenzie MD Unavailable Asuncion Iglesias ELECTRICAL REPAIRER Primary Care Provider [phone] Encounter Details Date Type Department Care Team (Late st Contact Info) Description 03/06/2025 Telephone [facility] [address] [place] [address] Husam Hanks, PharmD Social History Tobacco Use [...] How often do you attend chur or samaritan services? Never 01/10/2024 Do you [...] Never 01/10/2024 [facility] - Occupational Stress Questionnaire Answer Date [...] drink first t adair in the morning (EYE-FAMILY LAW SPECIALIST) to steady your nerves or to [...] Description 04/19/2025 12:00 PM EST Office Visit [facility] [address] [place] [address] Stevie Mckenzie MD [address] [place] [address] documented as of this encounter Visit Diagnoses Not on filedocumented in this encounter Additional Health Concerns Assessment Noted Time A Body Mass Index follow-up plan has been documented for the patient 02/01/2025 12:42 PM EDT documented as of this encounter Care Teams Cement Contractor Relationship Specialty Start Date End Date Asuncion Iglesias APRN [address] [place] [address] PCP - General 01/31/24 Alma Perdomo APRN [address] [address] Referring Physician Cardiology 01/08/24 Stevie Mckenzie MD [address] [place] [address] Consulting Physician Nephrology 01/08/24 documented as of this encounter
--- OUTSIDE RECORDS SUMMARY | 2025-03-14 10:33 | XMS_ITS | Encounter Summary ---
Author Organization Healthcare Address [address] [place] [id number] Care Team Providers Care Select Banker Name Role Phone Alma Perdomo Hansa WELCOME CENTER ATTENDANT Unavailable [phone] Stevie Mckenzie MD Unavailable Asuncion Iglesias APRN Primary Care Provider [phone] Encounter Details Date Type Department Care Team [...] often do you attend chur ch or mandaeism services? Never 01/10/2024 Do you belong to any clubs o r organizations such as orthodoxy groups, unions, fraternal or athletic groups, or [...] more drinks on one occasion? Never 01/10/2024 [facility] - Occupational [...] drink first t adair in the morning (EYE-LICSW) to steady your nerves or to get rid of a hangover? 0 01/06/2024 CAGE Questionnaire Score 0 024 Utilities Answer Date Recorded In the past 12 months has th e [employer], gas, oil, or water [employer] threatened to shut off services in your [...] 04/19/2025 12:00 PM EST Office Visit [facility] [address] [place] [address] Stevie Mckenzie MD [address] [place] [phone] documented as of this encounter Visit Diagnoses Not on filedocumented in this encounter Additional Health Concerns Assessment Noted Time A Body Mass Index follow-up plan has been documented for the patient 02/01/2025 12:42 PM EDT documented as of this encounter Care Teams Select Banker Relationship Specialty Start Date End Date Asuncion Iglesias APRN [address] [place] [address] [id number] PCP - General 01/31/24 Alma Perdomo APRN [facility] [address] [address] Referring Physician Cardiology 01/08/24 Stevie Mckenzie MD [address] [place] [phone] Consulting Physician Nephrology 01/08/24 documented as of this encounter
[2025-03-14 11:21] LABS: Anion Gap 13.2 mEq/L (5-15); Blood Urea Nitrogen 65 mg/dl (7-17); Calcium 8.9 mg/dl (8.4-10.2); Carbon Dioxide 23 mmol/L (22.0-30.0); Chloride 108 mmol/L (98-107); Creatinine,Serum 3.90 mg/dl (0.52-1.04); Estimated Glomerular Filt Rate 11 ml/min (>60); GFR (African American) 14 ML/MIN (>60); Glucose 95 mg/dl (74-100); Potassium 5.2 mmoL/L (3.5-5.1); Sodium 139 mmol/L (136-145)
== END 2025-03-14 23:59 | disposition home or self-care (01) ==
LOC: LAB 10:19
PROVIDERS: PCP Nurse Practitioner; Visit Provider Student in an Organized Health Care Education/Training Program
DX: E87.5 Hyperkalemia (principal)
CPT/HCPCS: 36415; 80048

== ENCOUNTER 2025-04-03 12:12 | Outpatient (CLI) | payer MEDICARE, SELFPAY ==
--- OUTSIDE RECORDS SUMMARY | 2025-03-08 08:30 | XMS_ITS | Encounter Summary ---
Author Organization [facility] Address [address] [place] [address] Care Team Providers Care Chrome Tanner Name Role Phone Alma Perdomo Hansa GRADING MACHINE FEEDER Unavailable Stevie Mckenzie MD Unavailable Asuncion Iglesias GRADING MACHINE FEEDER Primary Care Provider [phone] Encounter Details Date Type Department Care Team ([facility] Contact Info) Description 03/08/2025 9:30 AM EDT [facility] [address] [place] [address] Vianey Portillo, [facility] Social History Tobacco Use Types Packs/Day Years [...] often do you attend chur ch or confucianism services? Never 01/10/2024 Do you belong to any clubs o r organizations such as religion groups, unions, fraternal or athletic groups, or [...] drinks on one occasion? Never 01/10/2024 [facility] Occupational Stress Questionnaire Answer [...] place to sleep or slept in a fdc (including now)? No 01/10/2024 CAGE ASSESSMENT Answer [...] drink first t adair in the morning (EYE-ENGINEER AUTOMATED EQUIPMENT) to steady your nerves or to get [...] as of this encounter Miscellaneous Notes * Clinician Note - Vianey Portillo [facility] - 03/08/2025 9:30 AM EDT [facility] Pharmacy New Patient Telehealth Referral Telehealth Statement Patient Verification Patient identity has been confirmed using name and date of ? Yes Authorizations and Agreements/Telemedicine Consent sent and consent confirmed? Yes Patient Location: Patient's Home Patient confirms they are physically located in [place]? Yes If the patient is not physically located in [place], the provider has confirmed with Legal thatthe provider is authorized to provide services in patient's stated location? N/A Provider Location: HealthCare Facility Audio and video or audio only? Audio only Total visit time: 15 minutes Oneida Anderson is a 69 y.o. female patient referred by provider Eric Caballero with Nephrology to establish pharmacy care. Patient pharmacy insurance (if known): [employer] Medicare D New specialty medication to be initiated: Lokelma Indication: hyperkalemia Patient reports they have trialed and failed the following therapies for the above indication: nonereported Patient reports they prefer to obtain their medication via mail order. Reviewed scope of [facility] Pharmacy Services, including benefits investigation, prior authorization support, and options for pickup and mail order dispensing. If medication is a Specialty medication, reviewed patient management program and that a pharmacist would be in contact for additional discussion. Obtained and reviewed updated medication list and allergies with patient and documented in Epic. Allergies Patient has no known allergies. Current Outpatient Medications Medication Instructions amLODIPine (NORVASC) 10 mg, Oral, Daily aspirin 81 mg, Daily bisoprolol (ZEBETA) 5 mg, Oral, Daily cholecalciferol (VITAMIN D-3) 2,000 Units, Oral, Daily FeroSul 325 (65 Fe) MG tablet hydrALAZINE (APRESOLINE) 50 mg, Oral, 3 times daily isosorbide mononitrate ER (IMDUR) 60 mg, Oral, Daily, Do not crush or chew. levothyroxine (SYNTHROID, LEVOXYL) 25 mcg, Oral, Daily before breakfast ondansetron (ZOFRAN) 4 mg, As needed pantoprazole (PROTONIX) 20 mg, Daily before breakfast rosuvastatin (CRESTOR) 20 mg, Nightly senna (Senokot) 8.6 MG tablet 1 tablet, As needed sodium bicarbonate 1,300 mg, Oral, 2 times daily sodium zirconium cyclosilicate (LOKELMA) 10 g, Oral, Daily warfarin (COUMADIN) 2 mg, Daily Provided patient information to access pharmacy website for individual pharmacy information and informed them they may expect a call with additional pharmacy information in the next 3 business days regarding status of prescription. documented in this encounter Plan of Treatment Upcoming Encounters Date Type Department Care Team (Late st Contact Info) Description 04/19/2025 12:00 PM EST Office Visit [facility] [address] [place] [phone] Stevie Mckenzie MD [address] [place] [address] documented as of this encounter Visit Diagnoses Not on filedocumented in this encounter Additional Health Concerns Assessment Noted Time A Body Mass Index follow-up plan has been documented for the patient 02/01/2025 12:42 PM EDT documented as of this encounter Care Teams Chrome Tanner Relationship Specialty Start Date End Date Asuncion Iglesias GRADING MACHINE FEEDER [address] [place] [address] PCP - General 01/31/24 Alma Perdomo APRN [address]10 [facility] [address] [address] Referring Physician Cardiology 01/08/24 Stevie Mckenzie MD [address] [place] [address] Consulting Physician Nephrology 01/08/24 documented as of this encounter
--- OUTSIDE RECORDS SUMMARY | 2025-04-03 12:27 | XMS_ITS | Encounter Summary ---
Author Organization Healthcare Address [address] [place] [address] Care Team Providers Care Seedling Sorter Name Role Phone Alma Perdomo Hansa BEHAVIORAL HEALTH CASE MANAGER Unavailable [phone] Stevie Mckenzie MD Unavailable Asuncion Iglesias BEHAVIORAL HEALTH CASE MANAGER Primary Care Provider [phone] Encounter Details Date Type Department Care Team ([facility] st Contact Info) Description 03/04/2025 Telephone [facility] Neph[facility], Bone [facility] Mineral Metabolism [address] [facility], [address] [place] [address] Ace Talbot, PharmD [address] [facility] [address] [place] [address] Social History Tobacco Use Types [...] any clubs o r organizations such as yazidism groups, unions, fraternal or athletic groups, or [...] more drinks on one occasion? Never 01/10/2024 [facility] - Occupational Stress Questionnaire Answer Date Recorded [...] place to sleep or slept in a care home (including now)? No 01/10/2024 CAGE ASSESSMENT [...] drink first t adair in the morning (EYE-EDUCATION AND TRAINING MANAGER) to steady your nerves or to [...] He feels patient will likely not need shelter [employer] [employer] working on free 7 day supply with coupon card. Discussed with patient who is agreeable and states she has cut down on her tomato consumption. Will plan for repeat labs on 03/14 to reassess K. Lab orders faxed to [facility]. Ace Talbot PharmD, BCACP Clinical Pharmacist Nephrology[facility] [address] [place] [address] * Telephone Encounter - Ace Talbot PharmD [...] Nephrology, [facility] [address] [place] [address] documented in this encounter Plan of Treatment Upcoming Encounters Date Type Department Care Team (Late st Contact Info) Description 04/19/2025 12:00 PM EST Office Visit [facility] [address] [place] [address] Stevie Mckenzie MD [address] [place] [address] Scheduled Orders Name Type Priority Associated Diagnoses [...] documented as of this encounter Care Teams Seedling Sorter Relationship Specialty Start Date End Date Asuncion Iglesias APRN [address] [place] [address] PCP - General 01/31/24 Alma Perdomo, BEHAVIORAL HEALTH CASE MANAGER [address] [address] Referring Physician Cardiology 01/08/24 Stevie Mckenzie MD [address] [place] [address] Consulting Physician Nephrology 01/08/24 documented as of this encounter
--- OUTSIDE RECORDS SUMMARY | 2025-04-03 12:27 | XMS_ITS | Encounter Summary ---
Author Organization Healthcare Address [address] [place] [id number] Care Team Providers Care Leveler Name Role Phone Alma Perdomo Hansa CERTIFIED WELDING INSPECTOR Unavailable [phone] Stevie Mckenzie MD Unavailable Asuncion Iglesias CERTIFIED WELDING INSPECTOR Primary Care Provider [phone] Encounter Details Date Type Department Care Team ([facility] st Contact Info) Description 03/05/2025 Telephone [facility] Nephrology, Bone & Mineral Metabolism [address] [facility], [address] [place] [address] Eric Caballero MD [address] [place] [address] Social History Tobacco Use Types [...] often do you attend chur ch or religion services? Never 01/10/2024 Do you belong to [...] more drinks on one occasion? Never 01/10/2024 [facility] - Occupational [...] drink first t adair in the morning (EYE-BELLHOP SERVICE CAPTAIN) to steady your nerves or to get [...] [place] [address] Stevie Mckenzie MD [address] [place] [address] documented as of this encounter Visit Diagnoses Not on filedocumented in this encounter Additional Health Concerns Assessment Noted Time A Body Mass Index follow-up plan has been documented for the patient 02/01/2025 12:42 PM EDT documented as of this encounter Care Teams Leveler Relationship Specialty Start Date End Date Asuncion Iglesias APRN [address] [place] [address] PCP - General 01/31/24 Alma Perdomo APRN [facility] [address] [address] Referring Physician Cardiology 01/08/24 Stevie Mckenzie MD [address] [place] [address] Consulting Physician Nephrology 01/08/24 documented as of this encounter
--- OUTSIDE RECORDS SUMMARY | 2025-04-03 12:27 | XMS_ITS | Encounter Summary ---
Author Organization Healthcare Address [address] [id number] Care Team Providers Care Event Specialist Name Role Phone Alma Perdomo Hansa MEAT PICKLER Unavailable [phone] Stevie Mckenzie MD Unavailable Asuncion Iglesias APRN Primary Care Provider [phone] Encounter Details Date Type Department Care Team [...] often do you attend chur ch or spiritism services? Never 01/10/2024 Do you belong to any clubs o r organizations such as congregational groups, unions, fraternal or athletic groups, or [...] more drinks on one occasion? Never 01/10/2024 [facility] ional [facility] - [...] drink first t adair in the morning (EYE-CUSTOM PROTECTION OFFICER) to steady your nerves or to get rid of a hangover? 0 01/06/2024 CAGE Questionnaire Score 0 024 Utilities Answer Date Recorded In the past 12 months has th e [employer], gas, oil, or water [employer] threatened to shut off services in your [...] Description 04/19/2025 12:00 PM EST Office Visit [facility] [address] [place] [address] Stevie Mckenzie MD [address] [place] [phone] documented as of this encounter Visit Diagnoses Not on filedocumented in this encounter Additional Health Concerns Assessment Noted Time A Body Mass Index follow-up plan has been documented for the patient 02/01/2025 12:42 PM EDT documented as of this encounter Care Teams Event Specialist Relationship Specialty Start Date End Date Asuncion Iglesias APRN [address] [place] [address] [phone] PCP - General 01/31/24 Alma Perdomo APRN [facility] [address] [address] Referring Physician Cardiology 01/08/24 Stevie Mckenzie MD [address] [place] [address] Consulting Physician Nephrology 01/08/24 documented as of this encounter
--- OUTSIDE RECORDS SUMMARY | 2025-04-03 12:27 | XMS_ITS | Encounter Summary ---
Author Organization Healthcare Address [address] [place] [id number] Care Team Providers Care Feltmaker And Weigher Name Role Phone Alma Perdomo Hansa LOCKSTITCH SHOULDER JOINER Unavailable [phone] Stevie Mckenzie MD Unavailable Asuncion Iglesias LOCKSTITCH SHOULDER JOINER Primary Care Provider [phone] Encounter Details Date Type Department Care Team (Late st Contact Info) Description 03/08/2025 Orders Only Health [facility] [address] [place] [address] Gabrielle Lloyd, PharmD [address] [place], [place] [id number] Social History Tobacco Use Types Packs/Day Years [...] often do you attend chur ch or restorationist services? Never 01/10/2024 Do you belong to any clubs o r organizations such as voodoo groups, unions, fraternal or athletic groups, or [...] drinks on one occasion? Never 01/10/2024 [facility] ional Health - Occupational [...] drink first t adair in the morning (EYE-NET ARCHITECT) to steady your nerves or to get [...] Description 04/19/2025 12:00 PM EST Office Visit [facility] [address] [place] [address] Stevie Mckenzie MD [address] [place] [address] documented as of this encounter Visit Diagnoses Not on filedocumented in this encounter Additional Health Concerns Assessment Noted Time A Body Mass Index follow-up plan has been documented for the patient 02/01/2025 12:42 PM EDT documented as of this encounter Care Teams Feltmaker And Weigher Relationship Specialty Start Date End Date Asuncion Iglesias APRN [address] [place] [address] PCP - General 01/31/24 Alma Perdomo APRN [address] [place] [address] Referring Physician Cardiology 01/08/24 Stevie Mckenzie MD [address] [place] [address] Consulting Physician Nephrology 01/08/24 documented as of this encounter
--- OUTSIDE RECORDS SUMMARY | 2025-04-03 12:27 | XMS_ITS | Encounter Summary ---
Author Organization Healthcare Address [address] [place] [address] Care Team Providers Care Security Officer Supervisor Name Role Phone Alma Perdomo Hansa IT APPLICATION ARCHITECT Unavailable [phone] Stevie Mckenzie MD Unavailable Asuncion Iglesias IT APPLICATION ARCHITECT Primary Care Provider [phone] Encounter Details Date Type Department Care Team (Late st Contact Info) Description 03/06/2025 Telephone [facility] [address] [place] [address] Husam Hanks, PharmD Social History Tobacco Use [...] any clubs o r organizations such as buddhist groups, unions, fraternal or athletic groups, or [...] more drinks on one occasion? Never 01/10/2024 [facility] - Occupational Stress Questionnaire Answer Date [...] drink first t adair in the morning (EYE-FIELD CROPS HARVEST MACHINE OPERATOR) to steady your nerves or to [...] Description 04/19/2025 12:00 PM EST Office Visit [facility] [address] [place] [address] Stevie Mckenzie MD [address] [place] [address] documented as of this encounter Visit Diagnoses Not on filedocumented in this encounter Additional Health Concerns Assessment Noted Time A Body Mass Index follow-up plan has been documented for the patient 02/01/2025 12:42 PM EDT documented as of this encounter Care Teams Security Officer Supervisor Relationship Specialty Start Date End Date Asuncion Iglesias APRN [address] [place] [address] PCP - General 01/31/24 Alma Perdomo APRN [address] [address] Referring Physician Cardiology 01/08/24 Stevie Mckenzie MD [address] [place] [address] Consulting Physician Nephrology 01/08/24 documented as of this encounter
--- OUTSIDE RECORDS SUMMARY | 2025-04-03 12:27 | XMS_ITS | Clinical Summary ---
Author Organization [facility] Address [address] [place] [address] Care Team Providers Care Data Warehouse Architect Name Role Phone Alma Perdomo Hansa SKIVING MACHINE OPERATOR Unavailable [phone] Stevie Mckenzie MD Unavailable Asuncion Iglesias SKIVING MACHINE OPERATOR Primary Care Provider [phone] Allergies No known active allergies Medications levothyroxine (Synthroid, Levoxyl) 25 MCG tablet Take 1 tablet (25 mcg) by mouth 1 (one) time each day before breakfast. 30 tablet 2 01/11/20 24 Active FeroSul 325 (65 Fe) MG tablet 03/05/20 24 Active pantoprazole (ProtoNix) 20 MG EC tablet Take 1 tablet (20 mg) by mouth 1 (one) time each day before breakfast. Do not crush, chew, or split. Active cholecalciferol (Vitamin D-3) 50 MCG (2000 UT) capsuleIndicatio ns:Vitamin D deficiency Take 1 capsule (2,000 Units) by mouth 1 (one) time each day. 90 capsule 3 07/02/19 25 Active amLODIPine (Norvasc) 10 MG tabletIndication s:Hypertensive chronic kidney disease with stage 1 through stage 4 chronic kidney disease, or unspecified chronic kidney disease Take 1 tablet by mouth daily. 90 tablet 3 10/13/19 25 Active bisoprolol (Zebeta) 5 MG tabletIndication s:Hypertensive chronic kidney disease with stage 1 through stage 4 chronic kidney disease, or unspecified chronic kidney disease Take 1 tablet by mouth daily. 90 tablet 3 10/13/19 25 Active hydrALAZINE (Apresoline) 50 MG tabletIndication s:Hypertensive chronic kidney disease with stage 1 through stage 4 chronic kidney disease, or unspecified chronic kidney disease Take 1 tablet by mouth 3 times a day. 120 tablet 3 10/13/19 25 Active isosorbide mononitrate ER (Imdur) 60 MG 24 hr tabletIndication s:Hypertensive chronic kidney disease with stage 1 through stage 4 chronic kidney disease, or unspecified chronic kidney disease Take 1 tablet by mouth daily. Do not crush or chew. 90 tablet 3 10/13/19 25 Active rosuvastatin (Crestor) 20 MG tablet Take 1 tablet by mouth nightly. Active warfarin (Coumadin) 2 MG tablet Take 1 tablet by mouth daily. Take as directed per After Visit Summary. Active aspirin 81 MG EC tablet Take 1 tablet by mouth daily. Active senna (Senokot) 8.6 MG tablet Take 1 tablet by mouth as needed for constipatio n. Active ondansetron (Zofran) 4 MG tablet Take 1 tablet by mouth as needed for nausea or vomiting. Active sodium zirconium cyclosilicate (Lokelma) 10 g packet Take 10 g by mouth daily. 30 each 1 03/08/20 25 Active sodium bicarbonate 650 MG tabletIndication s:Metabolic acidosis TAKE 2 TABLETS BY MOUTH 2 TIMES A DAY 360 tablet 3 03/19/20 25 Active rosuvastatin (Crestor) 10 MG tablet Take 1 tablet (10 mg) by mouth every night. 30 tablet 1 01/11/20 24 025 Discontinued(Pe r Patient Report) sodium bicarbonate 650 MG tabletIndication s:Metabolic acidosis Take 2 tablets by mouth 2 times a day. 120 tablet 3 10/13/19 25 025 Discontinued warfarin (Coumadin) 5 MG tablet Take 1 tablet by mouth daily. Take as directed per After Visit Summary. 025 Discontinued(Pe r Patient Report) sodium zirconium cyclosilicate (Lokelma) 10 g packet Take 10 g by mouth daily. 30 each 1 03/04/20 25 025 Discontinued(Re order) sodium zirconium cyclosilicate (Lokelma) 10 g packet Take 10 g by mouth daily. 30 each 1 03/06/20 25 025 Discontinued(Re order) Active Problems Problem Noted Date Diagnosed Date [...] Encounters Date Type Department Care Team Description 03/17/2025 [facility] [address] [place] [address] Stevie Mckenzie MD Metabolic acidosis 03/15/2025 Telephone [facility] Nephrology, Bone & Mineral Metabolism [address] [facility], [address] [place] [address] Ivy Munson, PharmD 03/08/2025 9:30 AM EDT Pharmacist [facility] [address] [place] [address] Vianey Portillo, [facility] 03/08/2025 Orders Only [facility] [address] [place] [address] Vianey Portillo, [facility] 03/08/2025 Orders Only [facility] [address] [place] [address] Gabrielle Lloyd, PharmD 03/08/2025 Travel 03/06/2025 Telephone [facility] [address] [place] [address] Husam Hanks, PharmD 03/05/2025 [facility] Nephrology, Bone & Mineral Metabolism [address] [facility], [address] [place] [address] Eric Caballero MD 03/04/2025 [facility] Nephrology, Bone & Mineral Metabolism [address] [facility], [address] [place] [address] Ivy Munson, PharmD 02/01/2025 12:00 PM EDT Office Visit [facility] [address] [place] [address] Stevie Mckenzie MD JONNATHAN (acute kidney injury) ([facility]) (Primary Dx); Anemia in stage 4 chronic kidney disease; Persistent proteinuria; Metabolic acidosis; CKD stage 4 secondary to hypertension ([facility]); Hypertensive chronic kidney disease with stage 1 through stage 4 chronic kidney disease, or unspecified chronic kidney disease; Renal artery arteriosclerosis ([facility]) 02/01/2025 Travel from Last 3 Months Immunizations [...] How often do you attend chur or congregational services? Never 01/10/2024 Do you belong to any clubs o r organizations such as yarsanism groups, unions, fraternal or athletic groups, or [...] more drinks on one occasion? Never 01/10/2024 [facility] Occupat ional Health - Occupational [...] drink first t adair in the morning (EYE-ROCK PICKER) to steady your nerves or to get [...] Description 04/19/2025 12:00 PM EST Office Visit [facility] [address] [place] [address] Stevie Mckenzie MD [address] [place] [address] Health Maintenance Due Date Last Done Comments [facility]-Bone Density Scan 1957 [facility]-Depression Screening 1957 [facility]-Hepatitis C Screening 1957 [facility]-Medicare Annual Wellness (AWV) 1957 [facility]-/Child/Adol SDOH Screenings 1957 [facility]- SDOH Screenings 1975 [facility]-Adult SDOH Screenings 1975 [facility]-DTaP,Tdap,and Td Vaccines (1 - Tdap) 1976 CT Colonography 2002 Colonoscopy 2002 FIT-DNA 2002 FIT 2002 FOBT 2002 Sigmoidoscopy 2002 [facility]-Colorectal Cancer Screening 2002 Lung Cancer Screening Shared Decision Making 2007 [facility]-Breast Cancer Screening 2007 [facility]-Lung Cancer Screening 2007 [facility]-Zoster Vaccines (1 of 2) 2007 [facility]-Pneumococcal Vaccine: 50+ Years (2 of 2 - PCV) 01/18/2013 01/19/2012 [facility]-RSV Vaccine: 60+ Years or (1 - Risk 60-74 years 1-dose series) 2017 [id number] Vaccine (3 - season) 2025 04/28/2021, 02/06/2021 [...] Patient has decision-making capacity? Yes Care Teams Data Warehouse Architect Relationship Specialty Start Date End Date Asuncion Iglesias APRN [address] [place] [address] PCP - General 01/31/24 Alma Perdomo APRN [address] [address] Referring Physician Cardiology 01/08/24 Stevie Mckenzie MD [address] [place] [phone] Consulting Physician Nephrology 01/08/24
--- OUTSIDE RECORDS SUMMARY | 2025-04-03 12:27 | XMS_ITS | Encounter Summary ---
Author Organization Healthcare Address [address] [place] [address] Care Team Providers Care R Programmer Name Role Phone Alma Perdomo Hansa PARTY HOST/HOSTESS Unavailable [phone] Stevie Mckenzie MD Unavailable Asuncion Iglesias PARTY HOST/HOSTESS Primary Care Provider [phone] Encounter Details Date Type Department Care Team (Late st Contact Info) Description 03/08/2025 Orders Only Health and [facility] [address] [facility]nd [place] [address] Vianey Portillo, [facility] Social History Tobacco Use Types Packs/Day Years [...] often do you attend chur ch or synagogue services? Never 01/10/2024 Do you belong to any clubs o r organizations such as faith groups, unions, fraternal or athletic groups, or [...] more drinks on one occasion? Never 01/10/2024 [facility] - Occupational Stress Questionnaire Answer [...] drink first t adair in the morning (EYE-BAG MACHINE ADJUSTER) to steady your nerves or to get [...] Description 04/19/2025 12:00 PM EST Office Visit [facility] [address] [place] [address] Stevie Mckenzie MD [address] [place] [address] documented as of this encounter Visit Diagnoses Not on filedocumented in this encounter Additional Health Concerns Assessment Noted Time A Body Mass Index follow-up plan has been documented for the patient 02/01/2025 12:42 PM EDT documented as of this encounter Care Teams R Programmer Relationship Specialty Start Date End Date Asuncion Iglesias APRN [address] [place] [address] PCP - General 01/31/24 Alma Perdomo APRN [address] [address] Referring Physician Cardiology 01/08/24 Stevie Mckenzie MD [address] [place] [address] Consulting Physician Nephrology 01/08/24 documented as of this encounter
--- OUTSIDE RECORDS SUMMARY | 2025-04-03 12:27 | XMS_ITS | Patient Health Record ---
Author Organization [facility] Address [address] [facility] [address] [place] [id number] Care Team Providers Care Debt Management Counselor Name Role Phone Cezar Vaughan Primary Care Provider [phone] Reason For Referral No Information Medications Medication SIG (Take, Route, Frequency, Duration) Notes Start Date End Date Status diazePAM 5 MG 1 tab(s) orally 3 times a day prn Active Plan Of Treatment No Information
--- OUTSIDE RECORDS SUMMARY | 2025-04-03 12:28 | XMS_ITS | Encounter Summary ---
Author Organization Healthcare Address [address] [place] [address] Care Team Providers Care Human Resources Temp Name Role Phone Alma Perdomo Hansa DRAFTER COMMERCIAL Unavailable [phone] Stevie Mckenzie MD Unavailable Asuncion Iglesias DRAFTER COMMERCIAL Primary Care Provider [phone] Encounter Details Date Type Department Care Team ([facility] st Contact Info) Description 03/15/2025 Telephone [facility], Bone [facility] Mineral Metabolism [address], [address] [place] [address] Ivy Munson, PharmD [address] [place] [address] Social History Tobacco Use Types [...] often do you attend chur ch or anglican services? Never 01/10/2024 Do you belong to any clubs o r organizations such as advent groups, unions, fraternal or athletic groups, or [...] more drinks on one occasion? Never 01/10/2024 [facility] - Occupational Stress Questionnaire Answer Date Recorded [...] drink first t adair in the morning (EYE-STARCH TREATING ASSISTANT) to steady your nerves or to get [...] Miscellaneous Notes * Telephone Encounter - Ivy Munson, PharmD - 03/15/2025 11:01 AM EDT Spoke with patient over the phone to review updated labs. Discussed K remains elevated at 5.2 despite 7 day course of Lokelma. Discussed will need to continue Lokelma daily at this point, however [facility] waiting on patient's POI to assess for MAP as copay is unaffordable to patient. She stated she is working on getting the form to [facility] for this. Will continue to follow as will need repeat labs afterrestarting lokelma. Counseled on low K diet. Outside Labs 03/14/25 Scr 3.9 K 5.2 Ivy Munson PharmD, BCACP Clinical Pharmacist [facility]rology[facility] [address] [place] [address] documented in this encounter Plan of Treatment Upcoming Encounters Date Type Department Care Team (Late st Contact Info) Description 04/19/2025 12:00 PM EST Office Visit [facility] [address] [facility] [address] [place] [address] Stevie Mckenzie MD [address] [place] [address] documented as of this encounter Visit Diagnoses Not on filedocumented in this encounter Additional Health Concerns Assessment Noted Time A Body Mass Index follow-up plan has been documented for the patient 02/01/2025 12:42 PM EDT documented as of this encounter Care Teams Human Resources Temp Relationship Specialty Start Date End Date Asuncion Iglesias APRN [address] [place] [address] PCP - General 01/31/24 Alma Perdomo APRN [address] [facility] [address] [place] [address] Referring Physician Cardiology 01/08/24 Stevie Mckenzie MD [address] [place] [address] Consulting Physician Nephrology 01/08/24 documented as of this encounter
--- OUTSIDE RECORDS SUMMARY | 2025-04-03 12:28 | XMS_ITS | Encounter Summary ---
Author Organization Healthcare Address [address] [place] [address] Care Team Providers Care Line Director Name Role Phone Alma Perdomo Hansa ELECTRIC INSTALLER Unavailable Stevie Mckenzie MD Unavailable Asuncion Iglesias ELECTRIC INSTALLER Primary Care Provider [phone] Reason for Visit * Reason Comments Med Refill Encounter Details Date Type Department Care Team ([facility] Contact Info) Description 03/17/2025 Refill [facility] [address] [place] [address] Stevie Mckenzie MD [address] [place] [address] Metabolic acidosis Social History Tobacco Use Types Packs/Day Years [...] often do you attend chur ch or buddhism services? Never 01/10/2024 Do you belong to [...] more drinks on one occasion? Never 01/10/2024 [facility] - Occupational Stress Questionnaire Answer [...] drink first t adair in the morning (EYE-COMIC ILLUSTRATOR) to steady your nerves or to get [...] Description 04/19/2025 12:00 PM EST Office Visit [facility] [address] [place] [address] Stevie Mckenzie MD [address] [place] [address] documented as of this encounter Visit Diagnoses Diagnosis Metabolic acidosis Acidosis documented in this encounter Additional Health Concerns Assessment Noted Time A Body Mass Index follow-up plan has been documented for the patient 02/01/2025 12:42 PM EDT documented as of this encounter Care Teams Line Director Relationship Specialty Start Date End Date Asuncion Iglesias APRN [facility] [place] [address] PCP - General 01/31/24 Alma Perdomo APRN [facility] [address] [address] Referring Physician Cardiology 01/08/24 Stevie Mckenzie MD [address] [place] [address] Consulting Physician Nephrology 01/08/24 documented as of this encounter
--- OUTSIDE RECORDS SUMMARY | 2025-04-03 12:28 | XMS_ITS | Clinical Summary ---
[facility] [address] [place] [address] Care Team Providers Care Account Leader Name Role Phone Asuncion Iglesias APRN Primary Care Provider [phone] Social History Tobacco Use Types Packs/Day Years [...] 2025 Insurance [employer] Care Teams Account Leader Relationship Specialty Start Date End Date Asuncion Iglesias APRN [address] [place] [id number] PCP - General Nurse Practitioner 04/18/24
[2025-04-03 13:26] LABS: PHA INR Fingerstick 1.9 (0.9-1.1)
== END 2025-04-03 13:29 ==
LOC: ACC 12:13
PROVIDERS: PCP Nurse Practitioner; Visit Provider Internal Medicine
DX: I48.0 Paroxysmal atrial fibrillation (principal); Z79.01 Long term (current) use of anticoagulants
CPT/HCPCS: 85610; 99211; G0463

== ENCOUNTER 2025-04-16 08:42 | Outpatient (CLI) | payer MEDICARE, SELFPAY ==
[2025-04-16 09:01] LABS: Hematocrit 30.4 % (37.0-47.0); Hemoglobin 9.3 g/dL (12.2-16.2); Immature Granulocytes % 0 %; Mean Corpuscular HGB Conc 30.6 g/dL (31.8-35.4); Mean Corpuscular Hemoglobin 26.0 pg (27.0-31.2); Mean Corpuscular Volume 84.9 fl (81-99); Nucleated Red Blood Cells % 0 %; Platelet Count 240 K/mm3 (142-424); Red Blood Count 3.58 M/mm3 (4.20-5.40); Red Cell Distribution Width-SD 41.7 fL; White Blood Count 6.9 K/mm3 (4.8-10.8)
[2025-04-16 09:42] LABS: Albumin Level 3.5 g/dl (3.5-5.0); Anion Gap 6.6 mEq/L (5-15); Blood Urea Nitrogen 48 mg/dl (7-17); Calcium 8.8 mg/dl (8.4-10.2); Carbon Dioxide 22 mmol/L (22.0-30.0); Chloride 110 mmol/L (98-107); Estimated Glomerular Filt Rate 11 ml/min (>60); GFR (African American) 14 ML/MIN (>60); Glucose 91 mg/dl (74-100); Phosphorous 6.1 mg/dl (2.5-4.5); Potassium 3.6 mmoL/L (3.5-5.1); Sodium 135 mmol/L (136-145)
[2025-04-16 10:17] LABS: Creatinine,Serum 4.00 mg/dl (0.52-1.04)
== END 2025-04-16 23:59 | disposition home or self-care (01) ==
LOC: LAB 08:43
PROVIDERS: PCP Nurse Practitioner; Visit Provider Student in an Organized Health Care Education/Training Program
DX: N18.4 Chronic kidney disease, stage 4 (severe) (principal); D63.1 Anemia in chronic kidney disease; N17.9 Acute kidney failure, unspecified
CPT/HCPCS: 36415; 80069; 82570; 84156; 85025

== ENCOUNTER 2025-04-30 11:11 | Outpatient (CLI) | payer MEDICARE, SELFPAY ==
--- OUTSIDE RECORDS SUMMARY | 2025-03-08 08:30 | XMS_ITS | Encounter Summary ---
Author Organization Healthcare Address [address] [place] [address] Care Team Providers Care Internal Control Analyst Name Role Phone Alma Perdomo Hansa ROUSTABOUT HAND Unavailable [phone] Stevie Mckenzie MD Unavailable Asuncion Iglesias ROUSTABOUT HAND Primary Care Provider [phone] Encounter Details Date Type Department Care Team (Late st Contact Info) Description 03/08/2025 9:30 AM EDT [facility] [address] [place] [address] Vianey Portillo, [facility] None None Social History Tobacco Use Types Packs/Day Years Used Date Smoking Tobacco: Every Day Cigarettes 1 46.3 Started: 01/05/1977 Smokeless Tobacco: Never Alcohol Use [...] 01/10/2024 How often do you attend chur or caodaism services? Never 01/10/2024 Do you belong to any clubs o r organizations such as roman catholic groups, unions, fraternal or athletic groups, or [...] more drinks on one occasion? Never 01/10/2024 [facility] - Occupational Stress Questionnaire Answer Date [...] place to sleep or slept in a intermediate (including now)? No 01/10/2024 CAGE ASSESSMENT Answer [...] drink first t adair in the morning (EYE-JAILER/TRAINING OFFICER) to steady your nerves or to [...] Notes * Clinician Note - Vianey Portillo [facility] - 03/08/2025 9:30 AM EDT [facility] Pharmacy New Patient Telehealth Referral Telehealth Statement Patient Verification Patient identity has been confirmed using name and date of ? Yes Authorizations and Agreements/Telemedicine Consent sent and consent confirmed? Yes Patient Location: Patient's Home Patient confirms they are physically located in [place]? Yes If the patient is not physically located in [place], the provider has confirmed with Legal thatthe [...] medication via mail order. Reviewed scope of [facility] Pharmacy Services, including benefits investigation, prior authorization [...] Care Team (Late st Contact Info) Description 06/14/2025 1:00 PM EST Office Visit [facility] [address], [place] [phone] Stevie Mckenzie MD [address] [place] [address] documented as of this encounter Visit Diagnoses Not on filedocumented in this encounter Additional Health Concerns Assessment Noted Time A Body Mass Index follow-up plan has been documented for the patient 02/01/2025 12:42 PM EDT documented as of this encounter Care Teams Internal Control Analyst Relationship Specialty Start Date End Date Asuncion Iglesias, ROUSTABOUT HAND [address] [place] [address] PCP - General 01/31/24 Alma Perdomo APRN [address] [facility] [address] [place] [address] Referring Physician Cardiology 01/08/24 Stevie Mckenzie MD [address] [place] [address] Consulting Physician Nephrology 01/08/24 documented as of this encounter
--- OUTSIDE RECORDS SUMMARY | 2025-04-19 12:00 | XMS_ITS | Encounter Summary ---
Author Organization [facility] Address [address] [place] [address] Care Team Providers Care Airplane Tube Builder Name Role Phone Alma Perdomo VINEYARD SUPERVISOR Unavailable [phone] Stevie Mckenzie MD Unavailable Asuncion Iglesias APRN Primary Care Provider [phone] Reason for Referral * Consultation (Routine) - Authorized Specialty Diagnoses / Procedures Referred By Beena t Referred To Contact Diagnoses Anemia in stage 4 chronic kidney disease Stevie Mckenzie MD [address] [place] [address] Phone: tel: fax: Referral ID Status Reason Start Date Expiration Date V isits Requested Visits Authorized [id number] Authorized 04/19/2025 10/19/2026 1 1 Reason for Visit * Reason Comments Follow-up Patient is a 69 year old female that presents to the clinic on this date for a follow up. Patient denies pain at the current moment. Patient denies complaints or concerns at the current [facility] Encounter Details Date Type Department Care Team (Late st Contact Info) Description 04/19/2025 12:00 PM EST Office Visit [facility] [address] [place] [address] Stevie Mckenzie MD [address] [place] [address] Hyperkalemia (Primary Dx); Anemia in stage 4 chronic kidney disease; Persistent proteinuria; Metabolic acidosis; CKD stage 4 secondary to hypertension (CMS/HCC) Social History Tobacco Use Types Packs/Day Years Used Date Smoking Tobacco: Every Day Cigarettes 1 46.3 Started: 01/05/1979 Smokeless Tobacco: Never Tobacco Cessation:Ready to Q uit: Not Asked; Counseling Given: Not Answered Alcohol Use Standard Drinks/Week Comments Not Currently [...] How often do you attend chur or cheondoism services? Never 01/10/2024 Do you belong to [...] more drinks on one occasion? Never 01/10/2024 [facility] [place] - Occupational Stress [...] drink first t adair in the morning (EYE-AUTOMOTIVE REPAIR TECHNICIAN) to steady your nerves or to [...] Sign Reading Time Taken Comments Blood Pressure 169/79 04/19/2025 11:50 AM EST retake left arm 168/74 Pulse 62 04/19/2025 11:50 AM EST Temperature - - Respiratory Rate 18 04/19/2025 11:5 0 AM EST Oxygen Saturation 97% 04/19/2025 11: 50 AM EST Inhaled Oxygen Concentration - - Weight 71.2 kg (157 lb) 04/19/2025 11:5 0 AM EST Height 157.5 cm (5' 2 ) 04/19/2025 11:5 0 AM EST Body Mass Index 28.72 04/19/2025 11:50 AM EST documented in this encounter Miscellaneous Notes * Progress Notes - Stevie Mckenzie MD - 04/19/2025 12:00 PM EST Nephrology Outpatient Clinic Progress Note [place] [facility] Patient: Oneida Anderson Primary Care Provider: Asuncion Iglesias APRN Reason for visit: CKD 4 follow up HPI/Subjective Oneida Anderson is a 69 y.o. female with a PMH of HTN, HFpEF, pAFib, PAD, HLD, CKD who was recently admitted to [facility] on 01/06/24 for severe JONNATHAN [...] (HFpEF) heart failure with preserved ejection fraction 01/06/2024 JONNATHAN (acute kidney injury) 01/06/24 Anemia 01/06/2024 CKD (chronic kidney disease) 01/06/2024 HTN (hypertension) 01/06/2024 Hyperlipidemia 01/06/2024 Hypothyroidism 01/06/2024 PAD (peripheral artery disease) 01/06/2024 Paroxysmal A-fib 01/06/2024 Tobacco abuse 01/06/2024 Patient Active Problem List Diagnosis Paroxysmal A-fib HTN (hypertension) Hypothyroidism Hyperlipidemia CKD (chronic kidney disease) stage 4, GFR 15-29 ml/min (CMS/HCC) PAD (peripheral artery disease) Hyperphosphatemia Left ankle pain (HFpEF) heart failure with preserved ejection fraction Anemia in stage 4 chronic kidney disease Tobacco abuse Class 1 obesity due to excess calories with body mass index (BMI) of 31.0 to 31.9 in adult Persistent proteinuria 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 (CMS/HCC) Metabolic acidosis Cigarette nicotine dependence with nicotine-induced [...] packs/day: 1.00 Average packs/day: 1 pack/day for 46.3 years (46.3 ttl pk-yrs) Types: Cigarettes Start date: 01/05/1979 [...] min Stress: No Stress Concern Present (01/10/2024) [facility] [place] - Occupational Stress Questionnaire Feeling of Stress : Only a little Social Connections: Moderately Isolated (01/10/2024) Social Connection and Isolation Panel Frequency of Communication with Friends and Family: More than three times a week Frequency of Social Gatherings with Friends and Family: More than three times a week Attends Mu-Ism Services: Never Active Member of Clubs or [...] Oral, Daily warfarin (COUMADIN) 2 mg, Daily Objective Visit Vitals BP (!) 169/79 (BP Location: Right arm, Patient Position: Sitting, BP Cuff Size: Large adult long) Comment: retake left arm 168/74 Pulse 62 Resp 18 Ht 1.575 m (5' 2 ) Wt 71.2 kg (157 lb) LMP (LMP Unknown) SpO2 97% BMI 28.72 kg/m?? OB Status Postmenopausal Smoking Status Every Day BSA 1.76 m?? Heart Rate: [62] 62 Resp: [18] 18 BP: (169)/(79) 169/79 Physical Exam: Physical Exam Constitutional: Appearance: Normal [...] 20, Ca 8.5, Phos 5.0, Alb 3.8 04/18/2025 RFP: Na 135, K 3.6, Cl 110, CO2 22, BUN 48, Cr 4.0, GFR 11, Glu 91, Ca 8.8, Phos 6.1 Imaging: Renal vascular ultrasound in [facility] 01/08/24 [...] of a poststenotic waveform. Impression & Plan: #CKD Stage 5 - worsened, suspect progression of disease towards ESRD #Persistent proteinuria - severe Etiology: Hypertensive nephrosclerosis, on ultrasound in 01/08/24 patients kidneys were small and echogenic suggesting acute on chronic disease Baseline cR: fluctuating 2.2-2.7, worsened in the past 6 months unclear why. Most recent cr 4.0, EGFR 11 No major issues with electrolytes, acid/base or volume Urine; + proteinuria 3.1g 2/2 uncontrolled HTN Anatomy: small echogenic kidneys, no significant vascular stenosis Risk factors for progression: uncontrolled HTN -HTN - now at goal on current Rx -Lifestyle modification: QUIT smoking cigarettes emphasized this visit and by Diesel Engine Specialist. LOW sodium diet <2g/day -RAAS blockade - [...] QID, Isosorbide 60mg daily, bisoprolol 5mg daily - Recommend LOW sodium diet #CKD BMD -Vit D low, started on 2K daily supplement of vitamin D3 #metabolic acidosis due to renal failure - improved on oral bicarb supplement #HLD #Peripheral vascular disease - patient with history of stroke would benefit from being on a statin - sees Cardiology recommend physical therapy and smoking cessation Recommendations and plan: -Reviewed patient's labs with her and all of her electrolytes are stable; K is controlled on lokelma. GFR back up to 11. Unfortunately, I think Ms. Anderson is close to needing to start dialysis. She has not made a decision regarding PD vs. HD so I am going to refer her to [facility] education Janneth Durbin -Reduce Lokelma to 10 grams 3x a week - MWF -Referred to [facility] for Dialysis Education -No changes to medications today. -I Refilled her antihypertensives today -I refilled sodium bicarb at 1300mg BID RTC in 2 months Stevie Mckenzie MD Division of Nephrology [facility] MDM: High risk, patient with organ failing, severe progression of a chronic disease (CKD stage 5) Acute kidney injury, severe, potentially life threatening. Discussed dialysis modalities today. ORDERS PLACED THIS ENCOUNTER No orders of the defined types were placed in this encounter. Problem List Items Addressed This Visit None documented in this encounter Plan of Treatment Upcoming Encounters Date Type Department Care Team (Late st Contact Info) Description 06/14/2025 1:00 PM EST Office Visit [facility] [address] [place] [address] Stevie Mckenzie MD [address] [place] [address] Scheduled Orders Name Type Priority Associated Diagnoses Orde r Schedule CBC W/O Differential Lab Routine Anemia in stage 4 chronic kidney disease Expected: 06/18/2025 (Approximate), Expires: 10/21/2026 Urinalysis with reflex microscopic (Culture NOT Included) Lab Routine Anemia in stage 4 chronic kidney disease Expected: 06/18/2025 (Approximate), Expires: 10/21/2026 Vitamin D 25 Hydroxy Lab Routine Anemia in stage 4 chronic kidney disease Expected: 06/18/2025 (Approximate), Expires: 10/21/2026 PTH Intact Total Lab Routine Anemia in stage 4 chronic kidney disease Expected: 06/18/2025 (Approximate), Expires: 10/21/2026 Albumin-creatinine ratio, urine, random Lab Routine Anemia in stage 4 chronic kidney disease Expected: 06/18/2025 (Approximate), Expires: 10/21/2026 Protein, Random, Urine with Creatinine Lab Routine Anemia in stage 4 chronic kidney disease Expected: 06/18/2025 (Approximate), Expires: 10/21/2026 Renal Function Panel, Plasma Lab Routine Anemia in stage 4 chronic kidney disease Expected: 06/18/2025 (Approximate), Expires: 10/21/2026 Iron & Total Iron Binding Capacity, Plasma (Includes Transferrin) Lab Routine Anemia in stage 4 chronic kidney disease Expected: 06/18/2025 (Approximate), Expires: 10/21/2026 Ferritin Lab Routine Anemia in stage 4 chronic kidney disease Expected: 06/18/2025 (Approximate), Expires: 10/21/2026 Scheduled Referrals Name Type Priority Associated Diagnoses Order Schedule Follow Up Nephrology Outpatient Referral Routine Anemia in stage 4 chronic kidney disease Expected: 06/19/2025 (Approximate), Expires: 05/19/2026 documented as of this encounter Visit Diagnoses Diagnosis Hyperkalemia- Primary Hyperpotassemia Anemia in stage 4 chronic kidney disease Persistent proteinuria Metabolic acidosis Acidosis CKD stage 4 secondary to hypertension (CMS/HCC) documented in this encounter Additional Health Concerns Assessment Noted Time A Body Mass Index follow-up plan has been documented for the patient 04/19/2025 12:15 PM EST documented as of this encounter Care Teams Airplane Tube Builder Relationship Specialty Start Date End Date Asuncion Iglesias APRN [address] [place] [address] PCP - General 01/31/24 Alma Perdomo APRN [facility] [address] [address] Referring Physician Cardiology 01/08/24 Stevie Mckenzie MD [address] [place] [phone] Consulting Physician Nephrology 01/08/24 documented as of this encounter
--- OUTSIDE RECORDS SUMMARY | 2025-04-30 11:13 | XMS_ITS | Encounter Summary ---
Author Organization Healthcare Address [address] [place] [address] Care Team Providers Care Vibrator Operator Name Role Phone Alma Perdomo Hansa EXCHANGE OPERATOR Unavailable Stevie Mckenzie MD Unavailable Asuncion Iglesias EXCHANGE OPERATOR Primary Care Provider [phone] Reason for Visit * Reason Comments Med Refill Encounter Details Date Type Department Care Team ([facility] Contact Info) Description 04/26/2025 Refill [facility] [address] [place] [address] Stevie Mckenzie MD [address] [place] [address] Hypertensive chronic kidney disease with stage 1 through stage 4 chronic kidney disease, or unspecified chronic kidney disease Social History Tobacco Use Types Packs/Day Years [...] week 01/10/2024 How often do you attend [facility] or evangelical services? Never 01/10/2024 Do you belong to any clubs o r organizations such as spiritism groups, unions, fraternal or athletic groups, or [...] one occasion? Never 01/10/2024 [facility] - Occupational Stress Questionnaire [...] drink first t adair in the morning (EYE-MACHINE TENDER) to steady your nerves or to get [...] Description 06/14/2025 1:00 PM EST Office Visit [facility] [address] [place] [address] Stevie Mckenzie MD [address] [place] [address] documented as of this encounter Visit Diagnoses Diagnosis Hypertensive chronic kidney disease with stage 1 through stage 4 chronic kidney disease, or unspecified chronic kidney disease documented in this encounter Additional Health Concerns Assessment Noted Time A Body Mass Index follow-up plan has been documented for the patient 04/19/2025 12:15 PM EST documented as of this encounter Care Teams Vibrator Operator Relationship Specialty Start Date End Date Asuncion Iglesias APRN [address] [place] [address] PCP - General 01/31/24 Alma Perdomo APRN [address] [address] Referring Physician Cardiology 01/08/24 Stevie Mckenzie MD [address] [place] [address] Consulting Physician Nephrology 01/08/24 documented as of this encounter
--- OUTSIDE RECORDS SUMMARY | 2025-04-30 11:13 | XMS_ITS | Encounter Summary ---
Author Organization Healthcare Address [address] [place] [id number] Care Team Providers Care Security Advisor Name Role Phone Alma Perdomo Hansa VENEER DEPARTMENT MANAGER Unavailable [phone] Stevie Mckenzie MD Unavailable Asuncion Iglesias VENEER DEPARTMENT MANAGER Primary Care Provider [phone] Encounter Details Date Type Department Care Team (Late st Contact Info) Description 03/08/2025 Orders Only Health and [facility] [address] [facility] [place] [address] Gabrielle Lloyd, PharmD [address] [place] [address] Social History Tobacco Use Types Packs/Day Years [...] often do you attend chur ch or quaker services? Never 01/10/2024 Do you belong to any clubs o r organizations such as temple groups, unions, fraternal or athletic groups, or [...] one occasion? Never 01/10/2024 [facility] - Occupational [...] drink first t adair in the morning (EYE-BUYER PLANNER) to steady your nerves or to get [...] Description 06/14/2025 1:00 PM EST Office Visit [facility] [address] [place] [address] Stevie Mckenzie MD [address] [place] [address] documented as of this encounter Visit Diagnoses Not on filedocumented in this encounter Additional Health Concerns Assessment Noted Time A Body Mass Index follow-up plan has been documented for the patient 02/01/2025 12:42 PM EDT documented as of this encounter Care Teams Security Advisor Relationship Specialty Start Date End Date Asuncion Iglesias APRN [address] [place] [address] PCP - General 01/31/24 Alma Perdomo APRN [address] [address] Referring Physician Cardiology 01/08/24 Stevie Mckenzie MD [address] [place] [phone] Consulting Physician Nephrology 01/08/24 documented as of this encounter
--- OUTSIDE RECORDS SUMMARY | 2025-04-30 11:13 | XMS_ITS | Encounter Summary ---
Author Organization Healthcare Address [address] [place] [id number] Care Team Providers Care White Kid Buffer Name Role Phone Alma Perdomo Hansa AUTISTIC TEACHER Unavailable [phone] Stevie Mckenzie MD Unavailable Asuncion Iglesias APRN Primary Care Provider [phone] Encounter Details Date Type Department Care Team (Latest Contact Info) Description 04/19/2025 Travel Social History Tobacco Use Types Packs/Day [...] often do you attend chur ch or nondenominational services? Never 01/10/2024 Do you belong to any clubs o r organizations such as holiness groups, unions, fraternal or athletic groups, or [...] more drinks on one occasion? Never 01/10/2024 [facility] - [...] drink first t adair in the morning (EYE-MEAL ROOM HAND) to steady your nerves or to get rid of a hangover? 0 01/06/2024 CAGE Questionnaire Score 0 024 Utilities Answer Date Recorded In the past 12 months has th e ITAD[employer], gas, oil, or water [employer] threatened to shut off services in your [...] Description 06/14/2025 1:00 PM EST Office Visit [facility] [address] [place] [address] Stevie Mckenzie MD [address] [place] [phone] documented as of this encounter Visit Diagnoses Not on filedocumented in this encounter Additional Health Concerns Assessment Noted Time A Body Mass Index follow-up plan has been documented for the patient 04/19/2025 12:15 PM EST documented as of this encounter Care Teams White Kid Buffer Relationship Specialty Start Date End Date Asuncion Iglesias APRN [address] [place] [id number] PCP - General 01/31/24 Alma Perdomo APRN [address] [address] Referring Physician Cardiology 01/08/24 Stevie Mckenzie MD [address] [place] [phone] Consulting Physician Nephrology 01/08/24 documented as of this encounter
--- OUTSIDE RECORDS SUMMARY | 2025-04-30 11:13 | XMS_ITS | Encounter Summary ---
Author Organization Healthcare Address [address] [place] [id number] Care Team Providers Care Otm Consultant Name Role Phone Alma Perdomo Hansa LEAD RECREATION ASSISTANT Unavailable [phone] Stevie Mckenzie MD Unavailable Asuncion Iglesias LEAD RECREATION ASSISTANT Primary Care Provider [phone] Encounter Details Date Type Department Care Team ([facility] st Contact Info) Description 03/05/2025 Telephone [facility] Neph[facility], Bone [facility] Mineral Metabolism [address] [facility], [address] [place] [address] Eric Caballero MD [address] [place] [address] Social History Tobacco Use Types [...] often do you attend chur ch or evangelical services? Never 01/10/2024 Do you [...] more drinks on one occasion? Never 01/10/2024 [facility] ional Health - [...] to sleep or slept in a senior care (including now)? No 01/10/2024 CAGE ASSESSMENT Answer [...] drink first t adair in the morning (EYE-COATER OPERATOR) to steady your nerves or to [...] Description 06/14/2025 1:00 PM EST Office Visit [facility] [place] [facility] [address] [place] [address] Stevie Mckenzie MD [address] [place] [address] documented as of this encounter Visit Diagnoses Not on filedocumented in this encounter Additional Health Concerns Assessment Noted Time A Body Mass Index follow-up plan has been documented for the patient 02/01/2025 12:42 PM EDT documented as of this encounter Care Teams Otm Consultant Relationship Specialty Start Date End Date Asuncion Iglesias APRN [address] [place] [address] PCP - General 01/31/24 Alma Perdomo APRN [facility] [address] [address] Referring Physician Cardiology 01/08/24 Stevie Mckenzie MD [address] [place] [address] Consulting Physician Nephrology 01/08/24 documented as of this encounter
--- OUTSIDE RECORDS SUMMARY | 2025-04-30 11:13 | XMS_ITS | Encounter Summary ---
Author Organization Healthcare Address [address] [id number] Care Team Providers Care Pre Billing Specialist Name Role Phone Alma Perdomo Hansa COLLAR TURNER Unavailable [phone] Stevie Mckenzie MD Unavailable Asuncion Iglesias APRN Primary Care Provider [phone] Encounter Details Date Type Department Care Team [...] often do you attend chur ch or bahai services? Never 01/10/2024 Do you belong to any clubs o r organizations such as quaker groups, unions, fraternal or athletic groups, or [...] place to sleep or slept in a halfway (including now)? No 01/10/2024 CAGE ASSESSMENT Answer [...] drink first t adair in the morning (EYE-AUDIO VISUAL SECRETARY) to steady your nerves or to get rid of a hangover? 0 01/06/2024 CAGE Questionnaire Score 0 024 Utilities Answer Date Recorded In the past 12 months has th e [employer], gas, oil, or water [employer] threatened to shut off services in your [...] Description 06/14/2025 1:00 PM EST Office Visit [facility] [address] [place] [address] Stevie Mckenzie MD [address] [place] [phone] documented as of this encounter Visit Diagnoses Not on filedocumented in this encounter Additional Health Concerns Assessment Noted Time A Body Mass Index follow-up plan has been documented for the patient 02/01/2025 12:42 PM EDT documented as of this encounter Care Teams Pre Billing Specialist Relationship Specialty Start Date End Date Asuncion Iglesias APRN [address] [place] [address] [id number] PCP - General 01/31/24 Alma Perdomo APRN [facility] [address] [address] Referring Physician Cardiology 01/08/24 Stevie Mckenzie MD [address] [place] [phone] Consulting Physician Nephrology 01/08/24 documented as of this encounter
--- OUTSIDE RECORDS SUMMARY | 2025-04-30 11:13 | XMS_ITS | Encounter Summary ---
Author Organization Healthcare Address [address] [place] [address] Care Team Providers Care Clinical Nurse Reviewer Name Role Phone Alma Perdomo Hansa EVALUATION ANALYST Unavailable Stevie Mckenzie MD Unavailable Asuncion Iglesias EVALUATION ANALYST Primary Care Provider [phone] Encounter Details Date Type Department Care Team (Late st Contact Info) Description 03/08/2025 Orders Only Health and [facility] [address] [facility], 2nd [place] [address] Vianey Portillo, [facility] None None Social History Tobacco Use Types [...] How often do you attend chur or worship services? Never 01/10/2024 Do you belong to any clubs o r organizations such as rastafarian groups, unions, fraternal or athletic groups, or [...] more drinks on one occasion? Never 01/10/2024 [facility] - Occupational [...] drink first t adair in the morning (EYE-LIEUTENANT FIREFIGHTER) to steady your nerves or to get [...] Description 06/14/2025 1:00 PM EST Office Visit [facility] [address] [place] [address] Stevie Mckenzie MD [address] [place] [address] documented as of this encounter Visit Diagnoses Not on filedocumented in this encounter Additional Health Concerns Assessment Noted Time A Body Mass Index follow-up plan has been documented for the patient 02/01/2025 12:42 PM EDT documented as of this encounter Care Teams Clinical Nurse Reviewer Relationship Specialty Start Date End Date Asuncion Iglesias APRN [address] [place] [address] PCP - General 01/31/24 Alma Perdomo APRN [address] [address] Referring Physician Cardiology 01/08/24 Stevie Mckenzie MD [address] [place] [address] Consulting Physician Nephrology 01/08/24 documented as of this encounter
--- OUTSIDE RECORDS SUMMARY | 2025-04-30 11:13 | XMS_ITS | Encounter Summary ---
Author Organization Healthcare Address [address] [place] [address] Care Team Providers Care Mail Handlers Supervisor Name Role Phone Alma Perdomo Hansa ERP CONSULTANT Unavailable [phone] Stevie Mckenzie MD Unavailable Asuncion Iglesias ERP CONSULTANT Primary Care Provider [phone] Encounter Details Date Type Department Care Team (Late st Contact Info) Description 03/06/2025 Telephone [facility] [address] [place] [id number] Husam Hanks, PharmD None None Social History Tobacco Use Types [...] often do you attend chur ch or amish services? Never 01/10/2024 Do you belong to any clubs o r organizations such as jew groups, unions, fraternal or athletic groups, or [...] more drinks on one occasion? Never 01/10/2024 [facility] [...] drink first t adair in the morning (EYE-FILM AND VIDEO GRAPHICS DESIGNER) to steady your nerves or to get [...] Description 06/14/2025 1:00 PM EST Office Visit [facility] [address] [place] [address] Stevie Mckenzie MD [address] [place] [address] documented as of this encounter Visit Diagnoses Not on filedocumented in this encounter Additional Health Concerns Assessment Noted Time A Body Mass Index follow-up plan has been documented for the patient 02/01/2025 12:42 PM EDT documented as of this encounter Care Teams Mail Handlers Supervisor Relationship Specialty Start Date End Date Asuncion Iglesias APRN [address] [place] [address] PCP - General 01/31/24 Alma Perdomo APRN [address] [address] Referring Physician Cardiology 01/08/24 Stevie Mckenzie MD [address] [place] [address] Consulting Physician Nephrology 01/08/24 documented as of this encounter
--- OUTSIDE RECORDS SUMMARY | 2025-04-30 11:13 | XMS_ITS | Encounter Summary ---
Author Organization Healthcare Address [address] [place] [address] Care Team Providers Care Breast Worker Name Role Phone Alma Perdomo Hansa BROADBAND INSTALLER Unavailable [phone] Stevie Mckenzie MD Unavailable Asuncion Iglesias BROADBAND INSTALLER Primary Care Provider [phone] Encounter Details Date Type Department Care Team ([facility] st Contact Info) Description 03/04/2025 Telephone [facility] Nephrology, Bone & Mineral Metabolism [address] [facility], [address] [place] [address] Ace Talbot, PharmD [address] [facility] [address] [place] [address] Social History Tobacco Use Types [...] often do you attend chur ch or shinto services? Never 01/10/2024 Do you belong to [...] more drinks on one occasion? Never 01/10/2024 [facility] - Occupational Stress Questionnaire Answer Date Recorded [...] place to sleep or slept in a custodial (including now)? No 01/10/2024 CAGE ASSESSMENT Answer [...] drink first t adair in the morning (EYE-INFORMATION ENGINEER) to steady your nerves or to [...] He feels patient will likely not need half-way Lokelma. [facility] working on free 7 day supply with coupon card. Discussed with patient who is agreeable and states she has cut down on her tomato consumption. Will plan for repeat labs on 03/14 to reassess K. Lab orders faxed to [facility]. Ace Talbot PharmD, BCACP Clinical Pharmacist Ne[facility]rology[facility] [address] [place] [address] * Telephone Encounter - Ace Talbot PharmD [...] Neph[facility], [facility] [address] [place] [address] documented in this encounter Plan of Treatment Upcoming Encounters Date Type Department Care Team (Late st Contact Info) Description 06/14/2025 1:00 PM EST Office Visit [facility] [address] [place] [address] Stevie Mckenzie MD [address] [place] [address] Scheduled Orders Name Type Priority Associated Diagnoses [...] documented as of this encounter Care Teams Breast Worker Relationship Specialty Start Date End Date Asuncion Iglesias APRN [address] [place] [address] PCP - General 01/31/24 Alma Perdomo, BROADBAND INSTALLER [address] [address] Referring Physician Cardiology 01/08/24 Stevie Mckenzie MD [address] [place] [phone] Consulting Physician Nephrology 01/08/24 documented as of this encounter
--- OUTSIDE RECORDS SUMMARY | 2025-04-30 11:13 | XMS_ITS | Clinical Summary ---
Author [facility] Address [address] [place] [address] Care Team Providers Care Violin Mechanic Name Role Phone Asuncion Iglesias APRN Primary Care Provider [phone] Social History Tobacco Use Types Packs/Day Years [...] 2025 Insurance [employer] Care Teams Violin Mechanic Relationship Specialty Start Date End Date Asuncion Iglesias APRN [address] [place] [id number] PCP - General Nurse Practitioner 04/18/24
--- OUTSIDE RECORDS SUMMARY | 2025-04-30 11:13 | XMS_ITS | Encounter Summary ---
Author Organization Healthcare Address [address] [place] [address] Care Team Providers Care Soft Drink Powder Mixer Name Role Phone Alma Perdomo Hansa SUPPORT TEAM MEMBER Unavailable [phone] Stevie Mckenzie MD Unavailable Asuncion Iglesias SUPPORT TEAM MEMBER Primary Care Provider [phone] Reason for Visit * Reason Comments Med Refill Encounter Details Date Type Department Care Team ([facility] Contact Info) Description 03/17/2025 Refill [facility] [address] [place] [address] Stevie Mckenzie MD [address] [place] [address] Metabolic acidosis Social History Tobacco [...] often do you attend chur ch or buddhist services? Never 01/10/2024 Do you [...] occasion? Never 01/10/2024 [facility] - Occupational Stress Questionnaire Answer Date [...] drink first t adair in the morning (EYE-ASPHALT TILE FLOOR LAYER) to steady your nerves or to get [...] Description 06/14/2025 1:00 PM EST Office Visit [facility] [address] [place] [address] Stevie Mckenzie MD [address] [place] [address] documented as of this encounter Visit Diagnoses Diagnosis Metabolic acidosis Acidosis documented in this encounter Additional Health Concerns Assessment Noted Time A Body Mass Index follow-up plan has been documented for the patient 02/01/2025 12:42 PM EDT documented as of this encounter Care Teams Soft Drink Powder Mixer Relationship Specialty Start Date End Date Asuncion Iglesias APRN [facility] [place] [address] PCP - General 01/31/24 Alma Perdomo APRN [facility] [address] [address] Referring Physician Cardiology 01/08/24 Stevie Mckenzie MD [address] [place] [phone] Consulting Physician Nephrology 01/08/24 documented as of this encounter
--- OUTSIDE RECORDS SUMMARY | 2025-04-30 11:13 | XMS_ITS | Clinical Summary ---
Author Organization [facility] Address [address] [place] [address] Care Team Providers Care Message Clerk Name Role Phone Alma Perdomo Hansa BINDER COVERSTITCH Unavailable [phone] Stevie Mckenzie MD Unavailable Asuncion Iglesias BINDER COVERSTITCH Primary Care Provider [phone] Allergies No known active allergies Medications levothyroxine [...] 07/02/19 25 Active amLODIPine (Norvasc) 10 MG tabletIndications :Hypertensive chronic kidney disease with stage 1 through stage 4 chronic kidney disease, or unspecified chronic kidney disease Take 1 tablet by mouth daily. 90 tablet 3 10/13/19 25 Active bisoprolol (Zebeta) 5 MG tabletIndications :Hypertensive chronic kidney disease with stage 1 through stage 4 chronic kidney disease, or unspecified chronic kidney disease Take 1 tablet by mouth daily. 90 tablet 3 10/13/19 25 Active isosorbide mononitrate [...] 03/08/20 25 Active sodium bicarbonate 650 MG tabletIndications :Metabolic acidosis TAKE 2 TABLETS BY MOUTH 2 TIMES A DAY 360 tablet 3 03/19/20 25 Active hydrALAZINE (Apresoline) 50 MG tabletIndications :Hypertensive chronic kidney disease with stage 1 through stage 4 chronic kidney disease, or unspecified chronic kidney disease Take 1 tablet by mouth 3 times a day. 270 tablet 3 04/29/20 25 Active hydrALAZINE (Apresoline) 50 MG tabletIndications :Hypertensive chronic kidney disease with stage 1 through stage 4 chronic kidney disease, or unspecified chronic kidney disease Take 1 tablet by mouth 3 times a day. 120 tablet 3 10/13/19 25 025 Discontinued Active Problems Problem Noted Date Diagnosed Date [...] Encounters Date Type Department Care Team Description 04/26/2025 [facility] [address], [place] [address] Stevie Mckenzie MD Hypertensive chronic kidney disease with stage 1 through stage 4 chronic kidney disease, or unspecified chronic kidney disease 04/19/2025 12:00 PM EST Office Visit [facility] [address], [place] [address] Stevie Mckenzie MD Hyperkalemia (Primary Dx); Anemia in stage 4 chronic kidney disease; Persistent proteinuria; Metabolic acidosis; CKD stage 4 secondary to hypertension ([facility]) 04/19/2025 Travel 03/17/2025 [facility] [address] [place], [place] [address] Stevie Mckenzie MD Metabolic acidosis 03/15/2025 Telephone [facility] Nephrology, Bone & Mineral Metabolism [address] [facility], [address] [place] [address] Ivy Munson, PharmD 03/08/2025 9:30 AM EDT [facility]ist [facility] [address] [place] [address] Vianey Portillo, [facility] 03/08/2025 Orders Only Health and [facility] [address] [place] [address] Vianey Portillo, [facility] 03/08/[address] [facility] [address] [place] [address] Gabrielle Lloyd, PharmD 03/08/2025 Travel 03/06/2025 Telephone [facility] [address] [place] [address] Husam Hanks, PharmD 03/05/2025 [facility] Nephrology, Bone & Mineral Metabolism [address] [facility] [place] [address] Eric Caballero MD 03/04/2025 [facility] Nephrology, Bone & Mineral Metabolism [address] [facility] [place] [address] Ivy Munson, PharmD 02/01/2025 12:00 PM EDT Office Visit [facility] [address] [facility] [address] [place] [address] Stevie Mckenzie MD JONNATHAN (acute kidney injury) ([facility]) (Primary Dx); Anemia in stage 4 chronic kidney disease; Persistent proteinuria; Metabolic acidosis; CKD stage 4 secondary to hypertension ([facility]); Hypertensive chronic kidney disease with stage 1 through stage 4 chronic kidney disease, or unspecified chronic kidney disease; Renal artery arteriosclerosis ([facility]) 02/01/2025 Travel from Last 3 Months [...] How often do you attend chur or confucianism services? Never 01/10/2024 Do you belong to any clubs o r organizations such as restoration groups, unions, fraternal or athletic groups, or [...] more drinks on one occasion? Never 01/10/2024 [facility] - Occupational [...] drink first t adair in the morning (EYE-MILLWRIGHT) to steady your nerves or to get [...] Pulse 62 04/19/2025 11:50 AM EST Temperature 36.6 C (97.8 F) 07/20/2024 1:45 PM EST Respiratory Rate 18 04/19/2025 11:5 0 AM EST Oxygen Saturation 97% 04/19/2025 11: 50 AM EST Inhaled Oxygen Concentration - - Weight 71.2 kg (157 lb) 04/19/2025 11:5 0 AM EST Height 157.5 cm (5' 2 ) 04/19/2025 11:5 0 AM EST Body Mass Index 28.72 04/19/2025 11:50 AM EST Plan of Treatment Upcoming Encounters Date Type Department Care Team (Late st Contact Info) Description 06/14/2025 1:00 PM EST Office Visit [facility] [address] [place] [address] Stevie Mckenzie MD [address] [place] [address] Health Maintenance Due Date Last [...] - Risk 60-74 years 1-dose series) 2017 [id number] Vaccine (3 - season) 2025 04/28/2021, 02/06/2021 [facility]-Influenza Vaccine (#1) 2025 [facility]-Obesity Intervention Completed 025, 02/01/2025, 10/12/2024, Additional history exists HPV Vaccines Aged Out [...] patient's age to complete this topic Insurance [employer] MEDICARE Advance Directives * Full Code (Latest Code Status on File) Date Activated Date Inactivated Comments 01/06/2024 8:08 PM 01/11/2024 4:57 PM Question Answer Comments Patient has decision-making capacity? Yes Care Teams Message Clerk Relationship Specialty Start Date End Date Asuncion Iglesias APRN [address] [place] [address] PCP - General 01/31/24 Alma Perdomo APRN [address] [address] Referring Physician Cardiology 01/08/24 Stevie Mckenzie MD [address] [place] [phone] Consulting Physician Nephrology 01/08/24
--- OUTSIDE RECORDS SUMMARY | 2025-04-30 11:13 | XMS_ITS | Encounter Summary ---
Author Organization Healthcare Address [address] [place] [address] Care Team Providers Care Instructor Ballroom Dancing Name Role Phone Alma Perdomo Hansa PRN OCCUPATIONAL THERAPIST Unavailable [phone] Stevie Mckenzie MD Unavailable Asuncion Iglesias PRN OCCUPATIONAL THERAPIST Primary Care Provider [phone] Encounter Details Date Type Department Care Team ([facility] st Contact Info) Description 03/15/2025 Telephone [facility] Nephrology, Bone & Mineral Metabolism [address] [facility], [address] [place] [address] Ivy Munson, PharmD [address] [facility] [address] [place] [address] Social History Tobacco Use Types [...] often do you attend chur ch or mormonism services? Never 01/10/2024 Do you belong to any clubs o r organizations such as mosque groups, unions, fraternal or athletic groups, or [...] Never 01/10/2024 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 [address] documented in this encounter Plan of Treatment Upcoming Encounters Date Type Department Care Team (Late st Contact Info) Description 06/14/2025 1:00 PM EST Office Visit [facility] [address] [facility] [address] [place] [address] Stevie Mckenzie MD [address] [place] [address] documented as of this encounter Visit Diagnoses Not on filedocumented in this encounter Additional Health Concerns Assessment Noted Time A Body Mass Index follow-up plan has been documented for the patient 02/01/2025 12:42 PM EDT documented as of this encounter Care Teams Instructor Ballroom Dancing Relationship Specialty Start Date End Date Asuncion Iglesias APRN [address] [place] [address] PCP - General 01/31/24 Amla Perdomo APRN [address] [facility] [address] [place] [address] Referring Physician Cardiology 01/08/24 Stevie Mckenzie MD [address] [place] [address] Consulting Physician Nephrology 01/08/24 documented as of this encounter
[2025-04-30 11:26] LABS: PHA INR Fingerstick 1.2 (0.9-1.1)
== END 2025-04-30 11:28 ==
LOC: ACC 11:11
PROVIDERS: PCP Nurse Practitioner; Visit Provider Internal Medicine
DX: I48.0 Paroxysmal atrial fibrillation (principal); Z79.01 Long term (current) use of anticoagulants
CPT/HCPCS: 85610; 99211; G0463